=== PATIENT | female | born 1960 | race Caucasian/White ===

== ENCOUNTER 2023-02-23 14:45 | Outpatient (OUT) | payer BC, SELFPAY ==
--- NOTE | 2023-02-23 15:15 | P.CN_ITS ---
Consult Note: HPI Data of Consult Patient: new to practice Requesting Physician: Jadon Colbert MD Primary Care Provider: ZANE LICONA Consult Narrative Reason for consult: establish Narrative: Esmer Sheikh a pleasant 62 year old female presents for evaluation and management of chronic pain. Patient has an extensive history of low back pain and was previously managed with NSAIDs, however she had to stop due to a stomach ulcer. Today pain 9/10 in low back, stabbing sharp pain and right shoulder pain. Patient has failed to respond to HEP, as this increases her pain. cc:: CC: Jadon Colbert MD Review of Systems 2 ROS0 Status of ROS 10 or more systems reviewed and unremark able except as noted in history and below Musculoskeletal Reports: back pain and joint pain Exam Constitutional Documenting provider has reviewed patient's vital signs: yes Common normals: no apparent distress, oriented x3, healthy appearing, alert and well nourished General appearance: cooperative HENMT Common normals: normocephalic, hearing grossly normal bilaterally and moist oral mucous membranes Head and scalp: normocephalic Eye Common normals: PERRL Pupil: PERRL Neck & C-Spine Common normals: full ROM General: normal visual inspection Chest Common normals: inspection of chest normal Respiratory Common normals: normal respiratory effort, no retractions and no use of accessory muscles Back & Pelvis Lumbar spine/lower back: pain with ROM and straight leg raise negative bilaterally Sacroiliac joints: SI joint(s) abnormal Other: pain with thigh thrust, gaenslens, fabers/fadirs negative internal external rotation positive facet loading without radiculopathy predominately axial low back pain Back image (female): 2 1. Extremity Common normals: normal to inspection and full ROM Right upper extremity: shoulder joint Other: pain with palpation of posterior and anterior shoulder, pain with ROM, strength 5/5 BUE negative empty can test positive lift off and cross over severe pain with palpation over left GTB, leg length discrepency Neuro Common normals: oriented x3, CN's II-XII intact bilaterally, moves all extremities, no focal motor deficits, no sensory deficits noted and deep tendon reflexes 2+ bilaterally Sensorium/orientation: alert Motor exam: strength 5/5 throughout and no movement abnormalities noted Psych Common normals: mental status grossly normal, thought process normal, cooperative, affect normal, speech normal and activity/motor behavior normal Speech: normal speech Thought process: normal thought process Results Additional Findings Additional findings: I have checked an [facility] report on this patient today and there are no aberrancies noted in the prescribing history.?? A drug screen was completed and reviewed within the last year, and if there has not been a drug screen completed we ordered one today to monitor higher risk, state monitored pain medication use. As part of providing excellent, safe, comprehensive care, the following was completed at our patient's visit: 1. A medication reconciliation and review to ensure accurate knowledge of current/active medications, including asking our patients to inform us about any [id number] medications or herbal remedies/nutritional supplements/alternative remedies. 2. A review to specifically ensure our patients have had annual screening for: elevated body mass index (BMI), tobacco use, screening for depression, and screening for unhealthy alcohol use. When screening is concerning, patients are provided with education and the specific recommendation to discuss the concerning health issue and treatment options with their primary care provider. Assessment and Plan Assessment and Plan (1) Primary osteoarthritis, right shoulder: (2) Lumbar spondylosis: (3) Sacroiliitis: (4) Greater trochanteric bursitis of left hip: (5) Leg length discrepancy: Plan right shoulder injection with Dr Colbert discussed bilateral L4-5 L5-S1 MBBX2 working towards thermal RFA continue HEP as tolerated, plans to start aquatic therapy. cannot attend formal PT due to work schedule. please note HEP and activity increase pain and make HEP difficult consider left hip GTB injection in the future continue topical diclofenac cream TID-QID right shoulder left GTB continue tylenol PRN avoid NSAIDS with resent esophageal tear and gastritis, currently following with gastroenterology and has upcoming repeat EGD f/u in office for shoulder injection
== END 2023-02-23 14:46 | disposition home or self-care (01) ==
LOC: PM 14:46
PROVIDERS: PCP Family Medicine; Visit Provider Anesthesiology
DX: M19.011 Primary osteoarthritis, right shoulder (principal); M47.816 Spondylosis without myelopathy or radiculopathy, lumbar region; M53.3 Sacrococcygeal disorders, not elsewhere classified; M70.62 Trochanteric bursitis, left hip; M21.70 Unequal limb length (acquired), unspecified site
CPT/HCPCS: G0463

== ENCOUNTER 2023-03-21 14:08 | Outpatient (OUT) | payer BC, SELFPAY ==
--- NOTE | 2023-03-21 15:26 | P.CN_ITS ---
Consult Note: HPI Data of Consult Patient: known to practice within the last 3 years Consult date: 03/21/23 Requesting Physician: Jadon Colbert MD Primary Care Provider: ZANE LICONA Consult Narrative Reason for consult: Right shoulder, low back pain Narrative: 62yof who presents for assessment. Worsening right shoulder and low back pain. Lumbar xr shows spondylosis in lower lumbar spine. XR shows right shoulder OA. Continues in provider directed home exercise program >6 weeks >3x/week, with minimal benefit. Uses tylenol, as needed. Denies adverse med side effects. cc:: CC: Jadon Colbert MD Review of Systems ROS Status of ROS 10 or more systems reviewed and unremark able except as noted in history and below Meds Home Medications and Allergies Home Medications Medication Instructions Recorded Confirmed Type acetaminophen 500 mg tablet 500 mg PO DAILY 02/24/23 02/24/23 History (Tylenol Extra Strength) amlodipine 5 mg tablet 5 mg PO DAILY 02/24/23 02/24/23 History estradiol 1 mg tablet 1 mg PO DAILY 02/24/23 02/24/23 History hydrochlorothiazide 50 mg tablet 50 mg PO DAILY 02/24/23 02/24/23 History multivitamin 1 tab PO DAILY 02/24/23 02/24/23 History sucralfate 1 gram tablet 1 g PO QID 02/24/23 02/24/23 History Allergies Allergy/AdvReac Type Severity Reaction Status Date / Time cephalexin Allergy Unknown Verified 02/24/23 07:24 Exam Narrative Exam Narrative: Psych-alert and oriented x 3. Attentive and appropriate, constitutionally normal, displays normal mood and affect per situation.? There are no obvious deficits in memory, reasoning, or intellect.? Skin-no obvious rashes, bruising, erythema noted to the patient's area of pain. Extremities- extremities are warm with minimal edema and palpable pulses. Shoulder - tenderness to palpation over right shoulder. Pain with abduction and external rotation. Lumbar-no significant tenderness to palpation noted in the lumbar spine and paraspinal musculature.? Pain is elicited with extension, and lateral rotation of the lumbar spine. Range of motion is slightly diminished with these motions due to pain. Facet loading maneuvers are positive bilaterally and do appear to be concordant with the patient's normal complaints of pain.? Coordination remains intact.? Gait remains non-antalgic. Assessment and Plan Assessment and Plan (1) Primary osteoarthritis, right shoulder: (2) Lumbar spondylosis: Plan 62yof who presents for assessment. Failed conservative measures, as noted. Imaging reviewed, as noted. Given right shoulder pain, prudent to proceed with right shoulder injection. She is in agreement. In terms of low back pain, prudent to attempt bilateral L4-5, L5-S1 medial branch blocks under fluoroscopic guidance with intention of proceeding to radiofrequency ablation. She is in agreement. Meds reviewed, no changes. Follow up after procedure. Procedure: Right shoulder injection Medications: Bupivacaine 0.25% 3cc, kenalog 40mg I explained the details of the procedure to the patient including the risks, benefits, and alternatives.? We had an informed discussion.? The patient verbalized understanding and signed the consent form.? All questions were answered appropriately.? A time-out was performed.? After obtaini ng a comfortable seated position, the skin overlying the right shoulder was prepped with alcohol 3 times.? The sulcus between the head of the humerus and the acromion was identified.? The needle was inserted in a sterile manner 2 cm inferior and medial to the posterolateral corner of the acromion and was directed anteriorly toward the coracoid process. The contents of the syringe were gently injected without any resistance into the joint space after negative aspiration for blood or other bodily fluids.? The needle was removed and pressure was applied at the injection site to decrease the incidence of ecchymosis and hematoma formation.? A sterile bandage was applied.
== END 2023-03-21 14:09 | disposition home or self-care (01) ==
LOC: PM 14:08
PROVIDERS: PCP Family Medicine; Visit Provider Anesthesiology
DX: M19.011 Primary osteoarthritis, right shoulder (principal); M47.816 Spondylosis without myelopathy or radiculopathy, lumbar region
CPT/HCPCS: 20610; J0665; J3301

== ENCOUNTER 2023-04-04 09:10 | Day surgery (SDC) | payer BC, SELFPAY ==
--- OUTSIDE RECORDS SUMMARY | 2023-04-04 09:15 | XMS_ITS | CCD ---
Author Name Unknown Address [address] [place] [address] Organization [facility] Care Team Providers Care Contract Loader Name Role Phone Randa Souza Primary Care Provider RANDA SOUZA Primary Care Physician [phone] Randa Souza Primary Care Provider ANIRUDH YAO Referring Unavailable ANIRUDH YAO Attending Unavailable SANDRAHOFF, RANDA Anil Primary Care Unavailable ANIRUDH YAO Referring Unavailable VERHOFF, RANDA Anil Primary Care Unavailable Shae, Paloma J Referring Unavailable ShaePaloma Attending Unavailable Shae, Paloma J Admitting Unavailable TORI, CHAPARRITA N Referring Unavailable VERHOFF, RANDA L Primary Care Unavailable VERHOFF, RANDA L Primary Care Unavailable VERHOFF, RANDA L Referring Unavailable TORI, CHAPARRITA N Admitting Unavailable TORI, CHAPARRITA N Attending Unavailable VERHOFF, RANDA L Primary Care Unavailable TORI, CHAPARRITA N Admitting Unavailable VERHOFF, RANDA L Primary Care Unavailable TORI, CHAPARRITA N Attending Unavailable VERHOFF, RANDA L Primary Care Unavailable VERHOFF, RANDA L Referring Unavailable VERHOFF, RANDA L Primary Care Unavailable VERHOFF, RANDA L Referring Unavailable VERHOFF, RANDA L Referring Unavailable VERHOFF, RANDA L Primary Care Unavailable VERHOFF, RANDA L Primary Care Unavailable VERHOFF, RANDA L Referring Unavailable HERMINIO ANNE Referring Unavailable VERHOFF, RANDA L Primary Care Unavailable Sayra WHITE, Jadon Duarte Attending Unavailable Allergies Allergy Classification Reported Allergen(s) Allergy Type Date of Onset Reaction(s) Facility Adhesive Tape (9 sources) Adhesive Tape Substance Allergy 5 [facility] benzoin resin (9 sources) benzoin resin Drug Allergy 4 Rash [facility] Cephalosporins (antibiotic) (9 sources) Cephalexin Drug Allergy 1 [facility] Cinnamon Preparation (9 sources) Cinnamon Preparation Drug Allergy 4 Anaphylaxis, Swelling [facility] (10 sources) Adhesive Tape Propensity to adverse reactions to drug 5 [place], [place] (12 sources) benzoin resin; Translations: [BENZOIN] Drug Allergy 4 Rash [place], [place] (14 sources) Cephalexin; Translations: [cephalexin] Drug Allergy 1 Rash [place], [place] (14 sources) Cinnamon Preparation; Translations: [CINNAMON] Drug Allergy 4 Anaphylaxis, Swelling [place] (2 sources) steristrips; Translations: [steristrips] Allergy to substance redness, itching [facility] (1 source) Tape 1 Drug allergy blisters [facility] Comment on above: does ok with paperta pe (2 sources) Adhesive Tape; Translations: [ADHESIVE TAPE (ROSINS)] Allergy to substance 5 [facility] (1 source) Adhesive Tape; Translations: [Tape] Propensity to adverse reactions (disorder) [facility] Repository Medications Current Medications Medication Drug Class(es) Dates Sig (Normalized) Sig (Original) amLODIPine 5 mg oral tablet (20 sources) Dihydropyridine Calcium Channel Cathie Start: 07-29-2021 take 1 tablet by mouth once daily amLODIPine (NORVASC) 5 MG tablet Take 1 tablet by mouth daily 90 tablet 1 07/29/2021 Active Start: 01-29-2021 take 1 tablet by melinda th once daily amLODIPine (NORVASC) 5 MG tablet Take 1 tablet by mouth daily 90 tablet 1 01/29/2021 Active Start: 01-29-2020 take 1 tablet by melinda th once daily amLODIPine (NORVASC) 5 MG tablet Take 1 tablet by mouth daily 90 tablet 1 01/29/2020 Active Start: 05-10-2019 take 1 tablet by melinda th once daily amLODIPine (NORVASC) 5 MG tablet Take 1 tablet by mouth daily 90 tablet 1 05/10/2019 Active Comment on above: Take 5 mg by mouth o nce daily. Am/pm Ascorbic Acid (2 sources) Vitamin C Start: 08-30-2018 Vitamin C Malou y, Refills(s) 0 Start Date: 08/30/18 Status: Ordered take 1 tablet by mouth once malou y Ascorbic Acid (VITAMIN C) 250 MG tablet Indications: in winter Take 250 mg by mouth daily Chewable. 0 Active Chondroitin Sulfates / Glucosamine (1 source) Start: 08-30-2018 take 1 capsule by mouth twice daily Chondroitin-Glucosamine cap(s), Oral, BID, Refill(s) 0 Start Date: 08/30/18 Status: Ordered diclofenac sodium 75 mg delayed release oral tablet (20 sources) Nonsteroidal Anti-inflammatory Drug Start: 07-29-2021 take 1 tablet by mouth twice daily diclofenac (VOLTAREN) 75 MG EC tablet Take 1 tablet by mouth 2 times daily 180 tablet 1 07/29/2021 Active Start: 01-29-2021 take 1 tablet by melinda th twice daily diclofenac (VOLTAREN) 75 MG EC tablet Take 1 tablet by mouth 2 times daily 180 tablet 1 01/29/2021 Active Start: 01-29-2020 take 1 tablet by melinda th twice daily diclofenac (VOLTAREN) 75 MG EC tablet Take 1 tablet by mouth 2 times daily 180 tablet 1 01/29/2020 Active Start: 06-14-2019 take 1 tablet by melinda th twice daily diclofenac (VOLTAREN) 75 MG EC tablet Take 1 tablet by mouth 2 times daily 60 tablet 5 06/14/2019 Active Start: 04-18-2018 diclofenac sod ium 1 % GEL apply 1-2 grams to affected to area twice a day Transdermal 30 days 3 04/18/2018 Active Start: 01-03-2017 take 50 mg by mouth at bedtime diclofenac 50 mg, Oral, Bedtime, Inflammation Start Date: 09/20/17 Status: Ordered diclofenac sodiu m (VOLTAREN) 1 % topical gel Apply to affected area four times daily. 0 Active Comment on above: Take 50 mg by mouth. Apply to affected ar ea four times daily. Diclofenac 75mg Tab-DR (1 source) Start: 07-24-19 take 1 tablet by mouth once daily in the morning Diclofenac 75mg Tab-DR 75 mg, Oral, Daily, In A.M., Refills(s) 0, Inflammation Start Date: 07/23/16 Status: Ordered diphenhydrAMINE hydrochloride 25 mg oral capsule (17 sources) Histamine-1 Receptor Antagonist take 1 capsule by mouth every six hours as needed diphenhydrAMINE (BENADRYL) 25 MG capsule Take 25 mg by mouth every 6 hours as needed for Itching. 0 Active Elderberry preparation (18 sources) take 1 [tsp_us] by mouth once daily ELDERBERRY PO Take by mouth Take one teaspoon daily 0 Active estradiol 1 mg oral tablet (19 sources) Estrogen Start: 07-30-19 take 1 tablet by mouth once daily estradiol (ESTRACE) 1 MG tablet Take 1 tablet by mouth daily 90 tablet 1 07/29/2021 Active Start: 01-29-2021 take 1 tablet by melinda th once daily estradiol (ESTRACE) 1 MG tablet Take 1 tablet by mouth daily 90 tablet 1 01/29/2021 Active Start: 10-13-2017 take 1 tablet by melinda th once daily estradiol (ESTRACE) 1 MG tablet TAKE 1 TABLET BY MOUTH EVERY DAY 1 10/13/2017 Active glucosamine sulfate 500 mg o ral tablet (18 sources) Start: 08-31-2019 Glucosamine Petty lfate 500 MG TABS 500 mg 0 08/31/2019 Active Start: 07-23-2016 take 1 tablet by melinda th once daily glucosamine 750 mg oral tablet 1 tab, Oral, Daily, Refills(s) 0, Inflammation Start Date: 07/23/16 Status: Ordered Glucosamine Sulf ate (YAZ PO) Take by mouth 0 Active hydroCHLOROthiazide 50 mg oral tablet (20 sources) Thiazide Diuretic Start: 07-29-2021 take 1 tablet by mouth once daily hydroCHLOROthiazide (HYDRODIURIL) 50 MG tablet Indications: Essential hypertension, benign TAKE 1 TABLET BY MOUTH DAILY 90 tablet 1 07/29/2021 Active Start: 01-29-2021 take 1 tablet by melinda th once daily hydroCHLOROthiazide (HYDRODIURIL) 50 MG tablet Indications: Essential hypertension, benign TAKE 1 TABLET BY MOUTH DAILY 90 tablet 1 01/29/2021 Active Start: 01-29-2020 take 1 tablet by melinda th once daily hydroCHLOROthiazide (HYDRODIURIL) 50 MG tablet Indications: Essential hypertension, benign TAKE 1 TABLET BY MOUTH DAILY 90 tablet 1 01/29/2020 Active Start: 09-28-2007 take 1 tablet by melinda th once daily hydrochlorothiazide (HYDRODIURIL) 25 MG tablet Indications: Essential hypertension, benign TAKE 1 TABLET BY MOUTH DAILY 90 tablet 1 02/22/2019 Active Comment on above: Take one(1) tablet d aily. lidocaine 50 mg/ml rectal cream (18 sources) Antiarrhythmic, Amide Local Anesthetic Start: 04-16-2019 Lidocaine 5 % CREA APPLY as directed NEEDED for 30 days 0 04/16/2019 Active lidocaine (ANECR EAM5) crea Apply to affected area as needed. 0 Active Comment on above: Apply to affected ar ea as needed. Misc Natural Products (GLUCOSAMINE CHOND MSM FORMULA) TABS (2 sources) Misc Natural Pro ducts (GLUCOSAMINE CHOND MSM FORMULA) TABS Take by mouth 0 Active Multiple Vitamin (MULTI-VITAMIN DAILY PO) (19 sources) Multiple Vitamin (MULTI-VITAMIN DAILY PO) Take by mouth 0 Active Multivitamins and Minerals (1 source) Start: 7 take 1 tablet by mouth once daily Multivitamins and Minerals 1 tab, Oral, Daily, Refill(s) 0, Prophylaxis Start Date: 07/23/16 Status: Ordered Completed/Discontinued Medications Medication Drug Class(es) Dates Sig (Normalized) Sig (Original) clindamycin 300 mg oral capsule (2 sources) Lincosamide Antibacterial Start: 08-30-2019 clindamycin (CLEOCIN HCL) 300 mg capsule Indications: POSTOP ANTIBIOTIC take two tabs one hour prior to dental procedure and two tabs six hours after the dental procedure 4 capsule 1 12/22/2020 Active Comment on above: TWO TABS ONE HOUR ND IOR TO DENTAL PROCEDURE AND TWO TABS SIX HOURS AFTER THE DENTAL PROCEDURE take two tabs one ho ur prior to dental procedure and two tabs six hours after the dental procedure diclofenac-capsaicin 75 mg- 0.025 % kit (1 source) diclofenac-capsa i hemant 75 mg- 0.025 % kit 75 mg 1/2 tab in am , 75mg @@ hs 0 Active Comment on above: 75 mg 1/2 tab in am , 75mg @@ hs erythromycin 500 mg oral tablet (1 source) Macrolide, Macrolide Antimicrobial Start: 09-03-2019 Erythromycin 500 mg tablet Indications: Status post left hip replacement two tabs one hour prior to dental procedure and two tabs six hours after the dental procedure 4 tablet 1 09/03/2019 Active Comment on above: two tabs one hour pr ior to dental procedure and two tabs six hours after the dental procedure Ethinyl Estradiol / Levonorgestrel (1 source) Progestin, Estrogen, Progestin-containing Intrauterine Device Start: 09-28-2007 levonorgestrel-et h estra(LUTERA (28) 0.1 MG-20 MCG TAB) isradipine 5 mg oral capsule (1 source) Dihydropyridine Calcium Channel Cathie Start: 09-28-2007 isradipine(DYNACI RC 5 MG CAP) Take one(1) tablet daily. 0 09/28/2007 Active Comment on above: Take one(1) tablet d aily. loratadine 10 mg oral tablet (1 source) loratadine (CLARITIN) 10 mg tablet Take 10 mg by mouth. 0 Active Comment on above: Take 10 mg by mouth. multivits w-ca,fe,other min(ONE-A-DAY WOMENS FORMULA 27 MG-0.4 MG TAB) (1 source) Start: 09-28-2007 multivits w-ca,fe,other min(ONE-A-DAY WOMENS FORMULA 27 MG-0.4 MG TAB) Take one(1) tablet daily. 0 09/28/2007 Active Comment on above: Take one(1) tablet d aily. 24 hr venlafaxine 37.5 mg extended release oral capsule (1 source) Serotonin and Norepinephrine Reuptake Inhibitor Start: 09-28-2007 VENLAFAXINE SR 37.5 MG 24 HR CAP Take one(1) tablet daily. 0 09/28/2007 Active Comment on above: Take one(1) tablet d aily. Problems Active Problems Problem Classification Problem Date Documented Da te Episodic/Chronic Esophageal disorders (20 sources) Gastroesophageal reflux disease; Translations: [Gastro-esophageal reflux disease without esophagitis] Onset: 1 01-16-2011 Chronic Essential hypertension (20 sources) Benign essential hypertension; Translations: [Essential (primary) hypertension] Onset: 1 01-16-2011 Chronic Immunizations and screening for infectious disease (1 source) Suspected disease caused by 2019-nCoV; Translations: [Suspected COVID-19 virus infection] Episodic Osteoarthritis (2 sources) Osteoarthritis; Translations: [Osteoarthritis of right knee joint] Onset: 0 12-04-2015 Chronic Other connective tissue disease (12 sources) History of repair of hip joint; Translations: [Presence of unspecified artificial hip joint] Onset: 8 08-04-2018 Chronic Other connective tissue disease (1 source) Presence of left artificial hip joint; Translations: [Status post left hip replacement] Onset: 0 Chronic Other connective tissue disease (1 source) Presence of right artificial knee joint; Translations: [Status post right knee replacement] Onset: 3 Chronic Other gastrointestinal disorders (1 source) Dysphagia, unspecified; Translations: [Dysphagia, unspecified] Onset: 3 Episodic Other nervous system disorders (1 source) Carpal tunnel syndrome 07-23-2016 Chronic Other nervous system disorders (3 sources) Other chronic pain; Translations: [Other chronic pain] Onset: 3 Chronic Other non-traumatic joint disorders (1 source) Knee pain 11-08-2017 Episodic Other non-traumatic joint disorders (3 sources) Pain in right shoulder; Translations: [Pain in right shoulder] Onset: 3 Episodic Other upper respiratory infections (1 source) Viral upper respiratory tract infection; Translations: [Acute upper respiratory infection, unspecified] Episodic Spondylosis; intervertebral disc disorders; other back problems (19 sources) Prolapsed lumbar intervertebral disc; Translations: [Other intervertebral disc displacement, lumbar region] Onset: 4 09-10-2013 Chronic Unclassified (8 sources) History of repair of hip joint; Translations: [Hip joint replacement by other means] Onset: 8 08-04-2018 Unclassified (2 sources) Low back pain, unspecified; Translations: [Low back pain, unspecified] Onset: 3 Varicose veins of lower extremity (1 source) Varicose veins of lower extremity 07-23-2016 Episodic Past or Other Problems Problem Classification Problem Date Documented Date Episodic/Chronic Biliary tract disease (19 sources) Biliary colic; Translations: [Calculus of bile duct without cholangitis or cholecystitis without obstruction] Onset: 02-20-2013 02-20-2013 Episodic Other non-traumatic joint disorders (1 source) Pain in wrist Onset: 10-13-2015 12-04-2015 Episodic Residual codes; unclassified (8 sources) History of cholecystectomy; Translations: [S/P laparoscopic cholecystectomy] Onset: 03-26-2013 03-26-2013 Episodic Unclassified (1 source) Low back pain, unspecified; Translations: [Low back pain, unspecified] Onset: 02-09-2023 Results Test Name Value Interpretation Reference Range Facility XR LUMBAR SPINE (MIN 4 VIEWS )on 02-09-2023 XR LUMBAR SPINE (MIN 4 VIEWS) EXAM: XR LUMBAR SPINE (MIN 4 VIEWS) HISTORY: Chronic bilateral low back pain without sciatica COMPARISON: None. IMPRESSION: FINDINGS/IMPRESSION: 1. 23 degree convex right lumbar scoliosis L1-L4. 2. Moderately severe multilevel disc and facet degenerative change. 3. No fracture, lytic or blastic lesion. 4. Mild degenerative change at the SI joints. Interpreted by: Nando Pierre Jr., MD Signed by: Nando Pierre Jr., MD 02/09/23 Final result Normal [facility] XR SHOULDER RIGHT (MIN 2 VIE WS)on 02-09-2023 XR SHOULDER RIGHT (MIN 2 VIEWS) EXAM: XR SHOULDER RIGHT (MIN 2 VIEWS) HISTORY: Acute pain of right shoulder COMPARISON: None. IMPRESSION: FINDINGS/IMPRESSION: 1. Small calcifications, measuring up to 8 mm about the right humeral head raises possibility of calcific tendinitis or bursitis. 2. Mild degenerative changes, not unusual for age. Interpreted by: Nando Pierre Jr., MD Signed by: Nando Pierre Jr., MD 02/09/23 Final result Normal [facility] Comp Metabolic Profon 2022 Albumin [Mass/Vol] 4.4 g/dL Normal 3.5-5.2 [facility] Comment on above: Performed By: #### Alphonso FAST, CP #### [facility] [address] [place] [address] Pen And Pencil Repairer: Dennis Castellanos MD #### LIPR #### [facility] [address] [place] [address] Pen And Pencil Repairer: Chele Osman MD Alkaline Phos 103 U/L Normal 35-104 [facility] Comment on above: Performed By: #### Z FAST, CP #### [facility] [address] [place], [place] [id number] Pen And Pencil Repairer: Dennis Castellanos MD #### LIPR #### [id number] [place] [address] Pen And Pencil Repairer: Chele Osman MD ALT [Catalytic activity/Vol] 13 U/L Normal 5-33 [facility] Comment on above: Performed By: #### Alphonso FAST, CP #### [facility] [address] [place], [place] [phone] Pen And Pencil Repairer: Dennis Castellanos MD #### LIPR #### [address] [address] Pen And Pencil Repairer: Chele Osman MD Anion gap [Moles/Vol] 9 mmol/L Normal 9-17 [facility] Comment on above: Performed By: #### Alphonso FAST, CP #### [facility] [address] [place], [place] [id number] Pen And Pencil Repairer: Dennis Castellanos MD #### LIPR #### [address] [address] Pen And Pencil Repairer: Chele Osman MD AST [Catalytic activity/Vol] 19 U/L Normal <32 [facility] Comment on above: Performed By: #### Alphonso FAST, CP #### [facility] [address] [place] [address] Pen And Pencil Repairer: Dennis Castellanos MD #### LIPR #### [address] [address] Pen And Pencil Repairer: Chele Osman MD Bilirubin [Mass/Vol] 0.4 mg/dL Normal 0.3-1.2 [facility] Comment on above: Performed By: #### Alphonso FAST, CP #### [facility] [address] [place], [place] [phone] Pen And Pencil Repairer: Dennis Castellanos MD #### LIPR #### [facility] [address] [place] [address] Pen And Pencil Repairer: Chele Osman MD BUN/CRE Ratio 30 High 9-20 [facility] Comment on above: Performed By: #### Alphonso FAST, CP #### [facility] [address] [place] [address] Pen And Pencil Repairer: Dennis Castellanos MD #### LIPR #### [address] [address] Pen And Pencil Repairer: Chele Osman MD Calcium [Mass/Vol] 10.3 mg/dL Normal 8.6-10.4 [facility] Comment on above: Performed By: #### Alphonso FAST, CP #### [facility] [address] [place] [address] Pen And Pencil Repairer: Dennis Castellanos MD #### LIPR #### [address] [address] Pen And Pencil Repairer: Chele Osman MD Chloride [Moles/Vol] 98 mmol/L Normal 98-107 [facility] Comment on above: Performed By: #### Alphonso FAST, CP #### [facility] [address] [place] [address] Pen And Pencil Repairer: Dennis Castellanos MD #### LIPR #### [address] [address] Pen And Pencil Repairer: Chele Osman MD CO2 [Moles/Vol] 31 mmol/L Normal 20-31 [facility] Comment on above: Performed By: #### Alphonso FAST, CP #### [facility] [address] [place] [address] Pen And Pencil Repairer: Dennis Castellanos MD #### LIPR #### [address] [id number] Pen And Pencil Repairer: Chele Osman MD Creatinine [Mass/Vol] 0.7 mg/dL Normal 0.5-0.9 [facility] Comment on above: Performed By: #### Alphonso FAST, CP #### [facility] [address] [place], [place] [id number] Pen And Pencil Repairer: Dennis Castellanos MD #### LIPR #### [address] [id number] Pen And Pencil Repairer: Chele Osman MD GFR/1.73 sq M.predicted among non-blacks MDRD (S/P/Bld) [Vol rate/Area] mL/min/{1.73_m2} Normal >60 [facility] Comment on above: Result Comment: These results are not intended for use in patients <18 years of age. eGFR results are calculated without a race factor using the 2020 CKD-EPI equation. Careful clinical correlation is recommended, particularly when comparing to results calculated using previous equations. The CKD-EPI equation is less accurate in patients with extremes of muscle mass, extra-renal metabolism of creatine, excessive creatine ingestion, or following therapy that affects renal tubular secretion. Performed By: #### Alphonso LOZA CP #### [facility] [address] [place], [place] [id number] Pen And Pencil Repairer: Dennis Castellanos MD #### LIPR #### [address] [id number] Pen And Pencil Repairer: Chele Osman MD Glucose [Mass/Vol] 96 mg/dL Normal 70-99 [facility] Comment on above: Performed By: #### Alphonso FAST, CP #### [facility] [address] [place], [place] [phone] Pen And Pencil Repairer: Dennis Castellanos MD #### LIPR #### [address] [id number] Pen And Pencil Repairer: Chele Osman MD Potassium [Moles/Vol] 3.4 mmol/L Low 3.7-5.3 [facility] Comment on above: Performed By: #### Z FAST, CP #### [facility] [address] [place], [place] [phone] Pen And Pencil Repairer: Dennis Castellanos MD #### LIPR #### [facility] [address] [place], [place] [id number] Pen And Pencil Repairer: Chele Osman MD Protein [Mass/Vol] 7.6 g/dL Normal 6.4-8.3 [facility] Comment on above: Performed By: #### Z FAST, CP #### [facility] [address] [place], [place] [id number] Pen And Pencil Repairer: Dennis Castellanos MD #### LIPR #### [address] [id number] Pen And Pencil Repairer: Chele Osman MD Sodium [Moles/Vol] 138 mmol/L Normal 135-144 [facility] Comment on above: Performed By: #### Alphonso FAST, CP #### [facility] [address] [place], [place] [phone] Pen And Pencil Repairer: Dennis Castellanos MD #### LIPR #### [address] [id number] Pen And Pencil Repairer: Chele Osman MD Urea nitrogen [Mass/Vol] 21 mg/dL Normal 8-23 [facility] Comment on above: Performed By: #### Z FAST, CP #### [facility] [address] [place], [place] [phone] Pen And Pencil Repairer: Dennis Castellanos MD #### LIPR #### [address] [address] Pen And Pencil Repairer: Chele Osman MD Lipid Profileon 02-08-2023 Cholesterol [Mass/Vol] 207 mg/dL High 0-199 [facility] Comment on above: Result Comment: Cholesterol Guidelines: <200 Desirable 200-240 Borderline >240 Undesirable Performed By: #### Z FAST, CP #### [facility] [address] [place] [address] Pen And Pencil Repairer: Dennis Castellanos MD #### LIPR #### [facility] [address] [place] [address] Pen And Pencil Repairer: Chele Osman MD Cholesterol in HDL [Mass/Vol] 63 mg/dL Normal >40 [facility] Comment on above: Result Comment: HDL Guidelines: <40 Undesirable 40-59 Borderline >59 Desirable Performed By: #### Z FAST, CP #### [facility] [address] [place], [place] [phone] Pen And Pencil Repairer: Dennis Castellanos MD #### LIPR #### [address] [address] Pen And Pencil Repairer: Chele Osman MD Cholesterol in LDL [Mass/Vol] 105 mg/dL High 0-100 [facility] Comment on above: Result Comment: LDL Guidelines: <100 Desirable 100-129 Near to/above Desirable 130-159 Borderline >159 Undesirable Direct (measured) LDL and calculated LDL are not interchangeable tests. Performed By: #### Alphonso FAST, CP #### [facility] [address] [place], [place] [phone] Pen And Pencil Repairer: Dennsi Castellanos MD #### LIPR #### [facility] [address] [place] [id number] Pen And Pencil Repairer: Chele Osman MD Cholesterol in VLDL [Mass/Vol] 39 mg/dL Normal [facility] Comment on above: Performed By: #### Alphonso FAST, CP #### [facility] [address] [place], [place] [phone] Pen And Pencil Repairer: Dennis Castellanos MD #### LIPR #### [facility] [address] [place] [phone] Pen And Pencil Repairer: Chele Osman MD Cholesterol.total/Cho lesterol in HDL [Mass ratio] 3.0 {ratio} Normal [facility] Comment on above: Performed By: #### Z FAST, CP #### [facility] [address] [place], [place] [phone] Pen And Pencil Repairer: Dennis Castellanos MD #### LIPR #### [facility] [address] [place], [place] [phone] Pen And Pencil Repairer: Chele Osman MD Triglyceride [Mass/Vol] 196 mg/dL High 0-149 [facility] Comment on above: Result Comment: Triglyceride Guidelines: <150 Desirable 150-199 Borderline 200-499 High >499 Very high Based on AHA Guidelines for fasting triglyceride, December 2011. Performed By: #### Z FAST, CP #### [facility] [address] [place], [place] [phone] Pen And Pencil Repairer: Dennis Castellanos MD #### LIPR #### [facility] [address] [place], [place] [phone] Pen And Pencil Repairer: Chele Osman MD Patient fasting?on 3 Patient fasting? yes Normal [facility] Comment on above: Performed By: #### Z FAST, CP #### [facility] [address] [place], [place] [phone] Pen And Pencil Repairer: Dennis Castellanos MD #### LIPR #### [address] [id number] Pen And Pencil Repairer: Chele Osman MD Surgical Pathology Reporton 01-20-2023 Surgical Pathology Report (NOTE) Path Number: [id number] -- Diagnosis -- A. Stomach, antrum, endoscopic biopsy: Mild chronic inactive gastritis with reactive epithelial changes, negative for Helicobacter pylori. Neither intestinal metaplasia nor dysplasia is seen. B. Esophagus, mid, endoscopic biopsy: Normal squamous mucosa. Neither glandular mucosa nor dysplasia seen. Terrell Aviles. Electronically Signed Out 01/25/2023 Clinical Information Pre-Op Diagnosis: DYSPHAGIA, UNSPECIFIED TYPE Operative Findings: GASTRIC ANTRUM; MID ESOPHAGUS BIOPSIES Operation Performed: EGD BIOPSY mj Source of Specimen A: GASTRIC ANTRUM BIOPSY B: Esophagogastric biopsy Gross Description A. ESMER HUGHES GASTRIC ANTRUM Received in formalin are three boo-brown tissue fragments ranging from 0.1 to 0.3 cm and are 0.6 x 0.1 x 0.1 cm in aggregate. Entirely 1cs. B. ESMER HUGHES MID ESOPHAGUS BIOPSIES Received in formalin are three sheth-boo tissue fragments that are each 0.2 cm and are 0.6 x 0.1 x <0.1 cm in aggregate. Entirely 1cs. yr cd SF/mj:01/21/2023 Microscopic Description A, B. 2 MADHAVI reviewed for each. Microscopic examination performed. Processing Lab: [address] [id number] Interpretation [place] [address] SURGICAL PATHOLOGY CONSULTATION Patient Name: ELLEN ESMER Teresa. [facility] Rec: [id number] [facility] [employer] [facility] ANATOMIC PATHOLOGY [address] [place] [id number] [facility] [place] H. pylori Antigenon 09-03-19 23 H. pylori Antigen Specimen Description .FECES Direct Exam NEGATIVE Report Status FINAL 09/02/2022 [facility] [place] Comment on above: Performed By: #### F HPY #### [address] [address] Pen And Pencil Repairer: Chele Osman MD [facility] [address] [place] [address] Pen And Pencil Repairer: MD Vika Buckner 06-25-2022 FELICITY Office Visit ([facility] ) ESMER HUGHES ([id number]) 1960 F Date Time Provider Department 06/25/22 2:00 PM ANIRUDH YAO During your visit today, we recorded the following information about you: Anirudh Yao II, MD 06/28/2022 4:16 PM Signed see dictated note Anirudh Yao II, MD Referring Provider: ANIRUDH YAO [[id number]] Allergies As of Date: 06/25/2022 Noted Allergy Reaction CINNAMON 03/15/2013 10 - Anaphylaxis 7 - Swelling Comments: Artificial cinnamon flavoring ADHESIVE TAPE (ROSINS) 07/30/2014 4 - Hives BENZOIN 03/26/2013 2 - Rash CEPHALEXIN 01/16/2011 2 - Rash Date Reviewed: 08/29/2019 Reviewed by: Gina Villafana) Rigo - Fully Assessed Primary Visit Diagnosis:Status post left hip replacement [Z96.642] Other Visit Diagnosis:Status post right knee replacement [Z96.651] Order(s):XR KNEE POST OP 3V AP/LAT/MERCHANT RIGHT [[id number]] Order #: [id number] FUTURE XR HIP GENERAL 3V PELV/AP/LAT LEFT [[id number]] Order #: [id number] FUTURE Prescriptions as of 06/28/2022 - clindamycin (CLEOCIN HCL) 300 mg capsule take two tabs one hour prior to dental procedure and two tabs six hours after the dental procedure - Erythromycin 500 mg tablet two tabs one hour prior to dental procedure and two tabs six hours after the dental procedure - amLODIPine (NORVASC) 5 mg tablet Take 5 mg by mouth once daily. Am/pm - lidocaine (ANECREAM5) crea Apply to affected area as needed. - diclofenac-capsaicin 75 mg- 0.025 % kit 75 mg 1/2 tab in am , 75mg @@ hs - loratadine (CLARITIN) 10 mg tablet Take 10 mg by mouth. - diclofenac potassium (CATAFLAM) 50 mg tablet Take 50 mg by mouth. - levonorgestrel-eth estra(LUTERA (28) 0.1 MG-20 MCG TAB) - HYDROCHLOROTHIAZIDE 25 MG TAB Take one(1) tablet daily. - VENLAFAXINE SR 37.5 MG 24 HR CAP Take one(1) tablet daily. - multivits w-ca,fe,other min(ONE-A-DAY WOMENS FORMULA 27 MG-0.4 MG TAB) Take one(1) tablet daily. - isradipine(DYNACIRC 5 MG CAP) Take one(1) tablet daily. Problem List As Of Date 06/25/2022 Noted Resolved Status post left hip replacement [Z96.642] 09/25/2007 Primary osteoarthritis of right knee [M17.11] 08/29/2019 Medications Discontinued During This Encounter Prescriptions - diclofenac sodium (VOLTAREN) 1 % topical gel (Discontinued) Apply to affected area four times daily. - clindamycin (CLEOCIN HCL) 300 mg capsule (Discontinued) TWO TABS ONE HOUR PRIOR TO DENTAL PROCEDURE AND TWO TABS SIX HOURS AFTER THE DENTAL PROCEDURE Encounter Status:Closed by ANIRUDH YAO II on 06/28/22 [facility] XR HIP 3V PELV+ AP/LAT LTon 06-25-2022 XR HIP 3V PELV+ AP/LAT LT * * *Final Report* * * DATE OF EXAM: Jun 25 2022 1:14PM LZX 5351 - XR HIP 3V PELV+ AP/LAT LT / PROCEDURE REASON: Status post left hip replacement * * * * Physician Interpretation * * * * HISTORY (as given from clinical provider): Status post left hip replacement . Additional history provided by the performing technologist (if any): chronic left hip pain TECHNIQUE: XR HIP 3V PELV+ AP/LAT LT COMPARISON: 12/22/2020 RESULT: Left-sided total hip arthroplasty with sclerotic/cables in the proximal femur. The proximal most cable is broken. Absence of the greater trochanter. There is superolateral polyethylene wear. 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 Right hip is normal. SI joints are normal. Degenerative disc disease in the lower lumbar spine. No other significant abnormality. IMPRESSION: NO SIGNIFICANT CHANGE Cellular Equipment Repairer: RADHAMES Transcribe Date/Time: Jun 25 2022 2:18P Dictated by : KRISTYN SANTILLAN MD This examination was interpreted and the report reviewed and electronically signed by: KRISTYN SANTILLAN MD on Jun 25 2022 2:19PM EST [id number] Normal [facility] XR KNEE 3V AP/LAT/MERCHANT R Ton 06-25-2022 XR KNEE 3V AP/LAT/MERCHANT RT * * *Final Report* * * DATE OF EXAM: Jun 25 2022 1:13PM LZX 5209 - XR KNEE 3V AP/LAT/MERCHANT RT / PROCEDURE REASON: Status post right knee replacement * * * * Physician Interpretation * * * * HISTORY: Status post right knee replacement . f/u right TKA TECHNIQUE: XR KNEE 3V AP/LAT/MERCHANT RT COMPARISON: 12/22/2020 RESULT: No significant interval change. Status post right total knee arthroplasty with patellar resurfacing. Hardware in normal position without evidence of failure or loosening. No evidence of a fracture. No other significant abnormality. IMPRESSION: NORMAL POSTOPERATIVE FINDINGS Cellular Equipment Repairer: PSCJoe Transcribe Date/Time: Jun 25 2022 2:17P Dictated by : DAYAN CHANG MD This examination was interpreted and the report reviewed and electronically signed by: DAYAN CHANG MD on Jun 25 2022 2:18PM EST [id number] Normal [facility] BD Bone Density DEXAon 06-21 BD Bone Density DEXA Exam Date/Time: 06/17/2022 08:34 EDT Reason for Exam: SCREENING Report IMPRESSION: BONE DENSITY IS WITHIN NORMAL LIMITS. CLINICAL HISTORY: SCREENING. COMPARISON: None. Baseline. COMMENT: The lumbar spine and both hips were scanned. The mean bone mineral density from L1 to L4 is 1.392 g/cm2 and this value is 1.8 standard of deviation above the standard reference value for a young adult. Bone mineral density of the right femoral neck is 1.006 g/cm2 and this value is -0.2 standard of deviation above the standard reference value. Bone mineral density right radius 33% is 0.902 g/cm2 and this value is 0.2 standard of deviation above the standard reference value. These values are within the normal range. Ordering Provider: Paloma Kaufman FINAL REPORT Dictated: 06/21/2022 9:22 am Fredi Oquendo MD. Signed (Electronic Signature): 06/21/2022 9:22 am Signed by: Fredi Oquendo MD Transcribed by: NADEEM Technologist: BARRY Normal [facility] MA Mamm Screen w/CAD if perf and 3D Bilon 06-18-2022 MA Mamm Screen w/CAD if perf and 3D Barber Exam Date/Time: 06/17/2022 08:46 EDT Reason for Exam: SCREENING Report IMPRESSION: BIRADS 2 BENIGN FINDINGS, NORMAL INTERVAL FOLLOW-UP.12 MONTH RECALL. CLINICAL HISTORY: SCREENING. COMPARISON: 01/23/2020. COMMENT: Routine views and tomosynthesis views of both breasts were obtained. The breasts are heterogeneously dense, which may obscure small masses. No dominant breast mass nor neoplastic calcifications are noted. There has been no significant change when compared to the prior exam. The examination was reviewed with Computer Aided Detection. Breast Density: Yes Mammography is very important to your health. The current [employer] and National Comprehensive Cancer Network guidelines recommends annual mammography beginning at age 40. This facility utilizes a reminder system to ensure all patients receive reminder notifications at the appropriate time based on the recommendations of this exam. Board Certified Radiologists. Accredited by the ACR and FDA. Ordering Provider: Paloma Kaufman FINAL REPORT Dictated: 06/18/2022 11:10 am Gage Gtz M.D. Signed (Electronic Signature): 06/18/2022 11:10 am Signed by: Gage Gtz M.D. Transcribed by: NADEEM Technologist: [facility] Assessment: BI-RADS Category 2-Benign finding Recommendation: Normal interval follow-up Normal [facility] CHEMISTRYOrdered By: SYSTEM SYSTEM on 06-17-2022 25-hydroxyvitamin D3 [Mass/Vol] 38.2 ng/mL Normal 30.0 - 100.0 ng/mL [facility] Remisol Calcium [Mass/Vol] 9.3 mg/dL Normal 8.9 - 11. 1 mg/dL [facility] Remisol Creatinine [Mass/Vol] 0.8 mg/dL Normal 0.5 - 1.3 mg/dL [facility] Remisol GFR/1.73 sq M.predicted among blacks MDRD (S/P/Bld) [Vol rate/Area] mL/min/1.73 m2 Normal >=59mL/min/1. 73 m2 [facility] Chem S GFR/1.73 sq M.predicted among non-blacks MDRD (S/P/Bld) [Vol rate/Area] mL/min/1.73 m2 Normal >=59mL/min/1. 73 m2 [facility] Chem S Calciumon 06-17-2022 Calcium [Mass/Vol] 9.3 mg/dL Normal 8.9-11.1 [facility] Comment on above: Performed By: #### 1 [id number] #### [facility] [address] [place] [address] Consent for Treatmenton Consent for Treatment [id number] D:127 Normal [facility] Creatinineon 06-17-2022 Creatinine [Mass/Vol] 0.8 mg/dL Normal 0.5-1.3 [facility] Comment on above: Performed By: #### 1 [id number] #### [facility] [address] [place] [address] Vitamin D 25 Hydroxyon 06-17 25-hydroxyvitamin D3 [Mass/Vol] 38.2 ng/mL Normal 30.0-100.0 [facility] Comment on above: Result Comment: Vit murphy D deficiency has been defined as a level of serum 25-OH vitamin D less than 20 ng/mL (1,2) by the [place] of Medicine and an Endocrine Society practice guideline. The Endocrine Society further defined vitamin D insufficiency as a level between 21 and 29 ng/mL (2). 1. IOM ([place] of Medicine). 2010. Dietary reference intakes for calcium and D. [place]: The National Academies Press. 2. Jamey MF, Caron COLE, John CUADRA, et al. Evaluation, treatment, and prevention of vitamin D deficiency: an Endocrine Society clinical practice guideline. JCEM. 2010; 96 (7):1911-30. Performed By: #### 1 [id number], [id number], [id number] #### [facility] [address] [place] [address] eGFRon 06-17-2022 GFR/1.73 sq M.predicted among blacks MDRD (S/P/Bld) [Vol rate/Area] mL/min/{1.73_m2} Normal >=59 [facility] Comment on above: Order Comment: Order added by Discern Expert. Result Comment: eGFR is race adjusted. AA=. Performed By: #### 1 [id number], [id number], [id number], [id number] #### [facility] [address] [place] [address] GFR/1.73 sq M.predicted among non-blacks MDRD (S/P/Bld) [Vol rate/Area] mL/min/{1.73_m2} Normal >=59 [facility] Comment on above: Order Comment: Order added by Discern Expert. Result Comment: Distribution Collection Operator jose kidney disease could be indicated at eGFR's of less than 60 mL/min/1.73m2. Kidney failure is indicated at less than 15 mL/min/1.73m2. Performed By: #### 1 [id number], [id number], [id number] #### [facility] [address] [place] [address] Physician Orderon 06-03-2022 Physician Order [id number]#1.00CD :127 Normal [facility] COVID-19, Rapidon 09-25-2021 SARS-CoV-2 (COVID-19) RNA MURRAY+probe Ql (Unsp spec) Not detected Not Detected [facility] Comment on above: Rapid NAAT: The specimen is NEGATIVE for SARS-CoV-2, the novel coronavirus associated with COVID-19. The ID NOW COVID-19 assay is designed to detect the virus that causes COVID-19 in patients with signs and symptoms of infection who are suspected of COVID-19. An individual without symptoms of COVID-19 and who is not shedding SARS-CoV-2 virus would expect to have a negative (not detected) result in this assay. Negative results should be treated as presumptive and, if inconsistent with clinical signs and symptoms or necessary for patient management, should be tested with an alternative molecular assay. Negative results do not preclude SARS-CoV-2 infection and should not be used as the sole basis for patient management decisions. Fact sheet for Healthcare Providers: https://www.fda.gov/media/159021/download Fact sheet for Patients: https://www.fda.gov/media/759315/download Methodology: Isothermal Nucleic Acid Amplification Specimen Description .NASOPHARYNGEAL SWAB [facility] Comprehensive Metabolic Pane kiki 07-25-2021 Albumin [Mass/Vol] 4.2 g/dL 3.5 - 5.2 g/dL [facility] ALP (Bld) [Catalytic activity/Vol] 86 U/L 35 - 104 U/L [facility] ALT [Catalytic activity/Vol] 11 U/L 5 - 33 U/L [facility] Anion gap [Moles/Vol] 8 mmol/L Low 9 - 17 mmol/L [facility] AST [Catalytic activity/Vol] 17 U/L <32 [facility] Bilirubin [Mass/Vol] 0.39 mg/dL 0.30 - 1.20 mg/dL [facility] Calcium [Mass/Vol] 9.8 mg/dL 8.6 - 10. 4 mg/dL [facility] Chloride [Moles/Vol] 100 mmol/L 98 - 10 7 mmol/L [facility] CO2 [Moles/Vol] 31 mmol/L 20 - 31 mmol/L [facility] Creatinine [Mass/Vol] 0.61 mg/dL 0.50 - 0.90 mg/dL [facility] Free PSA/Total PSA [Mass fraction] 7.2 g/dL 6.4 - 8.3 g/dL [facility] GFR >60 >60 mL/min [facility] GFR Non- >60 >60 mL/min [facility] GFR/1.73 sq M.predicted MDRD (S/P/Bld) [Vol rate/Area] [facility] Comment on above: Average GFR for 50-5 9 years old: 93 mL/min/1.73sq m Chronic Kidney Disease: <60 mL/min/1.73sq m Kidney failure: <15 mL/min/1.73sq m eGFR calculated using average adult body mass. Additional eGFR calculator available at: http://www.Let[employer] It/multiple_crcl_2012.htm Glucose [Mass/Vol] 88 mg/dL 70 - 99 mg/dL [place] Interpretation and review of laboratory results Abnormal [facility] Potassium [Moles/Vol] 3.8 mmol/L 3.7 - 5.3 mmol/L [facility] Sodium [Moles/Vol] 139 mmol/L 135 - 144 mmol/L [facility] Urea nitrogen (BldV) [Mass/Vol] 16 mg/dL 6 - 20 mg/dL [facility] Urea nitrogen/Creatinine (Bld) [Mass ratio] 26 High [facility] Lipid Panelon 07-25-2021 Cholesterol [Mass/Vol] 225 mg/dL High <200 [facility] Comment on above: Cholesterol Guidelines: <200 Desirable 200-240 Borderline >240 Undesirable Cholesterol in HDL [Mass/Vol] 71 mg/dL >40 [facility] Comment on above: HDL Guidelines: <40 Undesirable 40-59 Borderline >59 Desirable Cholesterol in LDL [Mass/Vol] 121 mg/dL 0 - 130 mg/dL [facility] Comment on above: LDL Guidelines: <100 Desirable 100-129 Near to/above Desirable 130-159 Borderline >159 Undesirable Direct (measured) LDL and calculated LDL are not interchangeable tests. Cholesterol.total/Cho lesterol in HDL [Mass ratio] 3.2 {ratio} <5 [facility] Interpretation and review of laboratory results Abnormal [facility] Triglyceride [Mass/Vol] 163 mg/dL High <150 [facility] Comment on above: Triglyceride Guidelines: <150 Desirable 150-199 Borderline 200-499 High >499 Very high Based on AHA Guidelines for fasting triglyceride, December 2011. [facility] Fasting?on 2 Patient Fasting? YES [facility] lynnette [facility] [employer] Comprehensive Metabolic Pane lOrdered By: Randa Souza on 07-25-2020 Albumin [Mass/Vol] 4.2 g/dL 3.5 - 5.2 g/dL [employer] Phone: Albumin/Globulin Ratio NOT REPORTED [employer] Phone: ALP (Bld) [Catalytic activity/Vol] 85 U/L 35 - 104 U/L [employer] Phone: ALT [Catalytic activity/Vol] 12 U/L 5 - 33 U/L [employer] Phone: Anion gap [Moles/Vol] 9 mmol/L 9 - 17 mmol/L [employer] Phone: AST [Catalytic activity/Vol] 16 U/L <32 [employer] Phone: Bilirubin [Mass/Vol] 0.32 mg/dL 0.30 - 1.20 mg/dL [employer] Phone: Calcium [Mass/Vol] 9.7 mg/dL 8.6 - 10. 4 mg/dL [employer] Phone: Chloride [Moles/Vol] 101 mmol/L 98 - 10 7 mmol/L [employer] Phone: CO2 [Moles/Vol] 31 mmol/L 20 - 31 mmol/L [employer] Phone: Creatinine [Mass/Vol] 0.57 mg/dL 0.50 - 0.90 mg/dL [employer] Phone: Free PSA/Total PSA [Mass fraction] 7.1 g/dL 6.4 - 8.3 g/dL [employer] Phone: GFR >60 >60 mL/min [employer] Phone: GFR Non- >60 >60 mL/min [employer] Phone: GFR/1.73 sq M.predicted MDRD (S/P/Bld) [Vol rate/Area] [employer] Phone: Comment on above: Average GFR for 50-5 9 years old: 93 mL/min/1.73sq m Chronic Kidney Disease: <60 mL/min/1.73sq m Kidney failure: <15 mL/min/1.73sq m eGFR calculated using average adult body mass. Additional eGFR calculator available at: http://www.[employer] It/multiple_crcl_2012.htm GFR/1.73 sq M.predicted MDRD (S/P/Bld) [Vol rate/Area] NOT REPORTED [employer] Phone: Glucose [Mass/Vol] 86 mg/dL 70 - 99 mg/dL [facility] [employer] Phone: Interpretation and review of laboratory results [facility]normal [facility] Potassium [Moles/Vol] 3.6 mmol/L Low 3.7 - 5.3 mmol/L [facility]: Sodium [Moles/Vol] 141 mmol/L 135 - 144 mmol/L [facility]: Urea nitrogen (BldV) [Mass/Vol] 20 mg/dL 6 - 20 mg/dL [employer] Phone: Urea nitrogen/Creatinine (Bld) [Mass ratio] 35 High [facility]: Lipid PanelOrdered By: Randa Souza on 07-25-2020 Cholesterol [Mass/Vol] 219 mg/dL High <200 [employer] Phone: Comment on above: Cholesterol Guidelines: <200 Desirable 200-240 Borderline >240 Undesirable Cholesterol in HDL [Mass/Vol] 71 mg/dL >40 [employer] Phone: Comment on above: HDL Guidelines: <40 Undesirable 40-59 Borderline >59 Desirable Cholesterol in LDL [Mass/Vol] 106 mg/dL 0 - 130 mg/dL [employer] Phone: Comment on above: LDL Guidelines: <100 Desirable 100-129 Near to/above Desirable 130-159 Borderline >159 Undesirable Direct (measured) LDL and calculated LDL are not interchangeable tests. Cholesterol in VLDL [Mass/Vol] NOT REPORTED High 1 - 30 mg/dL [employer] Phone: Cholesterol.total/Cho lesterol in HDL [Mass ratio] 3.1 {ratio} <5 [employer] Phone: Interpretation and review of laboratory results Abnormal [employer] Phone: Triglyceride [Mass/Vol] 208 mg/dL High <150 [employer] Phone: Comment on above: Triglyceride Guidelines: <150 Desirable 150-199 Borderline 200-499 High >499 Very high Based on AHA Guidelines for fasting triglyceride, December 2011. Patient Fasting?Ordered By: Randa Souza on 07-25-2020 Patient Fasting? YES [employer] Phone: Basic Metabolic Panelon Calcium [Mass/Vol] 10.3 mg/dL Normal 8.5-10.6 [facility] Chloride [Moles/Vol] 98 mmol/L Normal 98-107 [facility] CO2 [Moles/Vol] 32 mmol/L Normal 21-32 [facility] Creatinine [Mass/Vol] 0.65 mg/dL Normal 0.55-1.02 [facility] Glucose [Mass/Vol] 81 mg/dL Normal 70-99 [facility] Potassium [Moles/Vol] 3.7 mmol/L Normal 3.5-5.1 [facility] Sodium [Moles/Vol] 139 mmol/L Normal 136-145 [facility] Urea nitrogen (BldV) [Mass/Vol] 20 mg/dL High 7.0-18.0 [facility] Urea nitrogen/Creatinine [Mass ratio] 31 mg/mg Normal [facility] CBC with Differentialon Basophils (Bld) [#/Vol] 0.0 thou/mcL Normal 0.0-0.2 [facility] Basophils/100 WBC (Bld) 0.4 % Normal 0-3 [facility] Differential cell count method Nom (Bld) AUTOMATED DIFFERENTIAL Normal [facility] Eosinophils (Bld) [#/Vol] 0.1 thou/mcL Normal 0.0-0.4 [facility] Eosinophils/100 WBC (Bld) 1.6 % Normal 0-7 [facility] Erythrocyte distribution width (RBC) [Entitic vol] 12.7 % Normal 11.7-15.0 [facility] Hematocrit (Bld) [Volume fraction] 40.6 % Normal 34.0-50.0 [facility] Hemoglobin (Bld) [Mass/Vol] 13.9 g/dL Normal 11.5-17.0 [facility] Lymphocytes (Bld) [#/Vol] 1.8 thou/mcL Normal 0.7-4.5 [facility] Lymphocytes/100 WBC (Bld) 25.6 % Normal 14-46 [facility] MCH (RBC) [Entitic mass] 31.7 Picograms Normal 27.0-34.0 [facility] MCHC (RBC) [Mass/Vol] 34.2 g/dL Normal 32.0-36.0 [facility] MCV (RBC) [Entitic vol] 92.6 fL Normal 80-98 [facility] Monocytes (Bld) [#/Vol] 0.4 thou/mcL Normal 0.1-1.0 [facility] Monocytes/100 WBC (Bld) 5.3 % Normal 4-13 [facility] Neutrophils (Bld) [#/Vol] 4.6 thou/mcL Normal 1.5-7.8 [facility] Neutrophils/100 WBC (Bld) 67.1 % Normal 40-74 [facility] Platelet mean volume (Bld) [Entitic vol] 8.7 fL Normal 7.5-11.2 [facility] Platelets (Bld) [#/Vol] 291 thou/mcL Normal 140-415 [facility] RBC (Bld) [#/Vol] 4.38 x(10)6/mcL Normal 3.80-5.60 Mo [facility] WBC (Bld) [#/Vol] 6.8 thou/mcL Normal 4.0-10.5 [facility] Comprehensive Metabolic Pane kiki 07-21-2019 Albumin [Mass/Vol] 4.3 g/dL 3.5 - 5.2 g/dL [place], [place] Albumin/Globulin [Mass ratio] NOT REPORTED [place] ALP [Catalytic activity/Vol] 78 U/L 35 - 104 U/L [place] ALT [Catalytic activity/Vol] 11 U/L 5 - 33 U/L [place] Anion gap [Moles/Vol] 8 mmol/L Low 9 - 17 mmol/L [place] AST [Catalytic activity/Vol] 18 U/L <32 [place] Bilirubin Ql (U) 0.41 mg/dL 0.3 - 1.2 mg/dL [place] Bun/Cre Ratio 29 High [place], [place] Calcium [Mass/Vol] 10.0 mg/dL 8.6 - 10. 4 mg/dL [place] Chloride [Moles/Vol] 101 mmol/L 98 - 10 7 mmol/L [place] CO2 [Moles/Vol] 28 mmol/L 20 - 31 mmol/L [place] Creatinine [Mass/Vol] 0.62 mg/dL 0.5 - 0.9 mg/dL [place] GFR >60 >60 mL/min [place] GFR Non- >60 >60 mL/min [place] GFR/1.73 sq M predicted among non-blacks MDRD (S/P/Bld) [Vol rate/Area] NOT REPORTED [place] GFR/1.73 sq M predicted among non-blacks MDRD (S/P/Bld) [Vol rate/Area] [place] Comment on above: Average GFR for 50-5 9 years old: 93 mL/min/1.73sq m Chronic Kidney Disease: <60 mL/min/1.73sq m Kidney failure: <15 mL/min/1.73sq m eGFR calculated using average adult body mass. Additional eGFR calculator available at: http://www.[employer]/multiple_crcl_2012.htm Glucose [Mass/Vol] 101 mg/dL High 70 - 99 mg/dL [place], [place] Potassium [Moles/Vol] 3.7 mmol/L 3.7 - 5.3 mmol/L [place] Protein [Mass/Vol] 7.4 g/dL 6.4 - 8.3 g/dL [place] Sodium [Moles/Vol] 137 mmol/L 135 - 144 mmol/L [place] Urea nitrogen [Mass/Vol] 18 mg/dL 6 - 20 mg/dL [place] Lipid Panelon 07-21-2019 Cholesterol [Mass/Vol] 227 mg/dL High <200 [place] Comment on above: Cholesterol Guidelines: <200 Desirable 200-240 Borderline >240 Undesirable Cholesterol in HDL [Mass/Vol] 81 mg/dL >40 [place] Comment on above: HDL Guidelines: <40 Undesirable 40-59 Borderline >59 Desirable Cholesterol in LDL [Mass/Vol] 116 mg/dL 0 - 130 mg/dL [place] Comment on above: LDL Guidelines: <100 Desirable 100-129 Near to/above Desirable 130-159 Borderline >159 Undesirable Direct (measured) LDL and calculated LDL are not interchangeable tests. Cholesterol in VLDL [Mass/Vol] NOT REPORTED 1 - 30 mg/dL [place], [place] Cholesterol.total/Cho lesterol in HDL [Mass ratio] 2.8 {ratio} <5 [place] Triglyceride [Mass/Vol] 150 mg/dL High <150 [place] Comment on above: Triglyceride Guidelines: <150 Desirable 150-199 Borderline 200-499 High >499 Very high Based on AHA Guidelines for fasting triglyceride, December 2011. Otheron 07-21-2019 Interpretation and review of laboratory results Abnormal [place], [place] Patient Fasting?on 0 Patient Fasting? YES [place] Encounters Encounter Date Encounter Type Care Provider Facility Start: 03-22-2023 End: 03-22-2023 ambulatory CHAPARRITA VALLE [facility] Start: 03-21-2023 End: 03-22-2023 ambulatory Jadon Colbert MD Facility:[facility] Start: 02-09-2023 End: 02-12-2023 ambulatory RANDA SOUZA [facility] Start: 02-08-2023 End: 02-09-2023 ambulatory [facility] Start: 02-07-2023 ambulatory [facility] Start: 01-20-2023 End: 01-20-2023 ambulatory [facility] Start: 01-13-2023 End: 01-14-2023 ambulatory [facility] Start: 01-13-2023 Encounter for other preprocedural examination [facility] Start: 09-01-2022 End: 09-02-2022 ambulatory HERMINIO ANNE [facility] Start: 06-25-2022 End: 06-25-2022 ambulatory Trini Escobar RT(R) Radiology Comment on above: Radio Gen RMP Start: 06-25-2022 Patient encounter procedure Trini Escobar RT(R) RAHEEL Start: 06-17-2022 End: 06-18-2022 ambulatory Paloma Kaufman Facility[facility] Start: 06-17-2022 End: 06-17-2022 Patient encounter procedure Paloma Kaufman [facility] Start: 09-25-2021 End: 09-25-2021 Subsequent hospital visit by physician Mayelin Covid19 Pat Screening Schedule [facility] Comment on above: Viral URI; Suspected COVID-19 virus infection Start: 07-25-2021 End: 07-25-2021 Subsequent hospital visit by physician Randa Souza MD Work Phone: [facility] Comment on above: Essential hypertensi on, benign Start: 07-25-2020 End: 07-25-2020 Subsequent hospital visit by physician Randa Souza MD Work Phone: [facility] Comment on above: Essential hypertensi on, benign Start: 07-18-2020 End: 07-18-2020 Subsequent hospital visit by physician Estela Davila [facility] Comment on above: Arrived Start: 07-16-2020 End: 07-16-2020 Subsequent hospital visit by physician Rita Nieves [facility] Comment on above: Arrived Start: 07-14-2020 End: 07-14-2020 Subsequent hospital visit by physician Rita Nieves [facility] Comment on above: Arrived Start: 07-09-2020 End: 07-09-2020 Subsequent hospital visit by physician Rita Nieves [facility] Comment on above: Arrived Start: 07-07-2020 End: 07-07-2020 Subsequent hospital visit by physician Rita Nieves [facility] Comment on above: Arrived Start: 07-04-2020 End: 07-04-2020 Subsequent hospital visit by physician Estela Davila PT [facility] Comment on above: Arrived Start: 06-30-2020 End: 06-30-2020 Subsequent hospital visit by physician Rita Nieves [facility] Comment on above: Arrived Start: 06-27-2020 End: 06-27-2020 Subsequent hospital visit by physician Rita Nieves [facility] Comment on above: Arrived Start: 06-26-2020 End: 06-26-2020 Subsequent hospital visit by physician Estela Davila [facility] Comment on above: Arrived Start: 06-20-2020 End: 06-20-2020 Subsequent hospital visit by physician Rita Nieves [facility] Comment on above: Arrived Start: 06-18-2020 End: 06-18-2020 Subsequent hospital visit by physician Rita Nieves [facility] Comment on above: Arrived Start: 06-16-2020 End: 06-16-2020 Subsequent hospital visit by physician Rita Nieves [facility] Comment on above: Arrived Start: 06-13-2020 End: 06-13-2020 Subsequent hospital visit by physician Avtar ELLISON [facility] Comment on above: Arrived Start: 06-11-2020 End: 06-11-2020 Subsequent hospital visit by physician Avtar Ramsey [facility] Comment on above: Arrived Start: 06-09-2020 End: 06-09-2020 Subsequent hospital visit by physician Estela Davila [facility] Comment on above: Arrived Start: 07-21-2019 End: 07-21-2019 Subsequent hospital visit by physician Randa Souza [facility] Comment on above: Essential hypertensi on, benign Procedures Date Procedure Procedure Detail Performing Clinician Start: 09-25-2021 COVID-19, GARRET Heredia PACKER DENTURE - 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 Randa Souza MD Work Phone: Start: 07-25-2020 Comprehensive metabo lic panel Randa Souza MD Work Phone: Start: 07-25-2020 Lipid panel Randa hayes MD Work Phone: Start: 07-25-2020 PATIENT FASTING? Randa Souza MD Work Phone: Start: 07-21-2019 Comprehensive metabo lic panel Randa Souza Work Phone: Start: 07-21-2019 Lipid panel Randa hayes Work Phone: Start: 07-21-2019 PATIENT FASTING? Randa Souza Work Phone: Start: 09-30-2017 Robot assisted laparoscopic total hysterectomy Paloma Shae Comment on above: HYSTERECTOMY, ROBOT ASSISTED Start: 08-02-2016 left vein ligation a nd stripping Paloma Shae Start: 08-02-2016 Phlebectomy of lower limb vein Paloma Shae Comment on above: left leg Start: 04-28-2016 EVLT RGSV Paloma Workman pe Start: 09-09-2014 Colonoscopy Randa clement MD Work Phone: Start: 03-26-2013 History of cholecystectomy S/P laparoscopic cholecystectomy Rita Nieves Start: 03-14-1983 bone spur removal, left Palomasunitha Kaufman Start: 03-14-1980 pins left hip removed T eresa Kaufman Start: 03-14-1975 pins left hip Paloma La mpe 5 hip surgeries, left Paloma Shae carpal tunnel surgery 3 Amie sa Shae Comment on above: left-04/2016; right- Cholecystectomy Paloma Kaufman Dilation and curetta ge of uterus Palomasunitha Kaufman Total replacement of left hip joint Paloma Kaufman Comment on above: x 2 Plan of Treatment Date Care Activity Detail Author Start: 10-09-2028 DTaP/Tdap/Td vaccine (2 - Tdap) DTaP/Tdap/Td vaccine (2 - Tdap) [employer] Start: 07-25-2026 Lipid panel Lipids [facility] [employer] Start: 07-25-2025 [facility] Start: 09-09-2024 Screening for malignant neoplasm of colon [employer] Start: 07-20-2024 Lipid panel Lipid screen [employer] Work Phone: Start: 07-16-2023 [facility] [place] Start: 07-29-2022 Depression Screen Depression Screen [facility] [employer] Start: 03-14-2022 DEPRESSION ASSESSMENT DEPRESSION ASSESSMENT [facility] Start: 02-02-2022 End: 02-02-2022 Patient encounter procedure 02/02/2022 Office Visit Family Medicine Randa Souza MD [address] [place], [place] [id number] [facility] [place] [place] Start: 01-22-2022 Screening for malignant neoplasm of breast Breast cancer screen [facility] [employer] Start: 11-12-2021 Influenza vaccination Flu vaccine (#1) [facility] Start: 07-30-2021 Depression Screen Depression Screen [facility] Start: 07-29-2021 End: 07-29-2021 Patient encounter procedure 07/29/2021 Office Visit Family Randa Briggs MD [address] [place] [address] [facility] [place] [place] Start: 07-25-2021 Creatinine measurement Creatinine monitoring [facility] [employer] Work Phone: Start: 07-25-2021 Potassium monitoring Potassium monitoring [facility] Work Phone: Start: 06-03-2021 COVID-19 Vaccine (4 - Booster for Moderna series) COVID-19 Vaccine (4 - Booster for Moderna series) [facility] Start: 02-01-2021 Screening for malignant neoplasm of breast Breast cancer screen [place], [place] Start: 07-30-2020 End: 07-30-2020 Office Visit 07/30/2020 Office Visit Family Medicine Randa Souza MD [address], [place] [id number] [facility] [place] [place] Start: 07-20-2020 Creatinine measurement Creatinine monitoring [facility] [employer] Work Phone: Start: 07-20-2020 Potassium monitoring Potassium monitoring [facility] Work Phone: Start: 07-18-2020 End: 07-18-2020 Patient encounter procedure 07/18/2020 Appointment Physical Therapy Estela Davila PT [facility] Start: 07-16-2020 End: 07-16-2020 Patient encounter procedure 07/16/2020 Appointment Physical Therapy Rita Nieves [facility] Start: 07-14-2020 End: 07-14-2020 Patient encounter procedure 07/14/2020 Appointment Physical Therapy Rita Nieves [facility] Start: 07-11-2020 End: 07-11-2020 Patient encounter procedure 07/11/2020 Appointment Physical Therapy Estela Davila PT [facility] Start: 07-09-2020 End: 07-09-2020 Patient encounter procedure 07/09/2020 Appointment Physical Therapy Rita Nieves [facility] Start: 07-07-2020 End: 07-07-2020 Patient encounter procedure 07/07/2020 Appointment Physical Therapy Rita Nieves [facility] Start: 07-04-2020 End: 07-04-2020 Appointment [facility] Start: 07-02-2020 End: 07-02-2020 Appointment [facility] Start: 06-30-2020 End: 06-30-2020 Appointment 06/30/2020 Appointment Physical Therapy Rita Nieves [facility] Start: 06-27-2020 End: 06-27-2020 Appointment 06/27/2020 Appointment Physical Therapy Rita Nieves [facility] Start: 06-26-2020 End: 06-26-2020 Appointment 06/26/2020 Appointment Physical Therapy Estela Davila PT [facility] Start: 06-24-2020 COVID-19 Vaccine (2 - Moderna 2-dose series) COVID-19 Vaccine (2 - Moderna 2-dose series) [employer] Phone: Start: 06-23-2020 End: 06-23-2020 Appointment 06/23/2020 Appointment Physical Therapy Estela Davila PT [facility] Start: 06-20-2020 End: 06-20-2020 Appointment 06/20/2020 Appointment Physical Therapy Rita Nieves [facility] Start: 06-18-2020 End: 06-18-2020 Appointment 06/18/2020 Appointment Physical Therapy Rita Nieves [facility] Start: 06-16-2020 End: 06-16-2020 Appointment [facility] Start: 06-13-2020 End: 06-13-2020 Appointment 06/13/2020 Appointment Physical Therapy Avtar Ramsey PTA [facility] Start: 06-11-2020 End: 06-11-2020 Appointment 06/11/2020 Appointment Physical Therapy Avtar Ramsey PTA [facility] Start: 07-24-2019 End: 07-24-2019 Office Visit 07/24/2019 Office Visit Family Medicine Randa Souza MD [address] [place] [address] [phone] [facility] [place] [place] Start: 07-16-2019 Creatinine measurement Creatinine monitoring [facility] [employer] [place] Start: 07-16-2019 Potassium monitoring Potassium monitoring [facility] [place] Start: 2012 Shingles Vaccine (1 of 2) Shingles Vaccine (1 of 2) [facility] Start: 2012 SHINGRIX VACCINE (1 of 2) SHINGRIX VACCINE (1 of 2) [facility] Start: 09-15-2007 COLOGUARD (FIT-DNA) COLOGUARD (FIT-DNA) [facility] Start: 09-15-2007 Colonoscopy COLONOSCOPY [facility] Start: 09-15-2007 COLORECTAL CANCER SCREENING COLORECTAL CANCER SCREENING [facility] Start: 09-15-[address] COLONOGRAPHY [facility] Start: 09-15-2007 DIABETES SCREEN DIABETES SCREEN [facility] Start: 09-15-2007 FECAL OCCULT BLOOD FECAL OCCULT BLOOD [facility] Start: 09-15-2007 LIPID SCREEN LIPID SCREEN [facility] Start: 09-15-2007 Screening for malignant neoplasm of colon [facility] Start: 09-15-2007 SIGMOIDOSCOPY SIGMOIDOSCOPY [facility] Start: 2002 Diabetes screen Diabetes screen [facility] Work Phone: Start: 2002 Mammography MAMMOGRAM [facility] Start: 1992 HPV TESTING HPV TESTING [facility] Start: 09-15-1983 PAP TESTING PAP TESTING [facility] Start: 1981 Urine microalbumin profile DTAP,TDAP,TD (1 - Tdap) [facility] Start: 1980 Hepatitis C screening Hepatitis C screen [facility] Start: 1980 HEPATITIS C SCREENING HEPATITIS C SCREENING [facility] Start: 1980 HIV SCREENING HIV SCREENING [facility] Start: 1977 HIV screening HIV screen [facility] Start: 1962 Hepatitis C screening Hepatitis C screen [place], [place] Immunizations Immunization Date Immunization Notes Care Provider Fa cility 03-21-2021 influenza, injectabl e, quadrivalent, preservative free Randa Souza MD Work Phone: [facility] Work Phone: 02-03-2021 COVID-19, Moderna, Primary or Immunocompromised, PF, 100mcg/0.5mL Randa Souza MD Work Phone: [facility] [employer] Work Phone: 06-24-2020 COVID-19, Moderna, Primary or Immunocompromised, PF, 100mcg/0.5mL Randa Souza MD Work Phone: [facility] [employer] Work Phone: 05-27-2020 COVID-19, Moderna, Primary or Immunocompromised, PF, 100mcg/0.5mL Randa Souza MD Work Phone: [facility] [employer] Work Phone: 12-24-2019 influenza, injectabl e, quadrivalent, preservative free Estela CapuccarmenAmeyahaley [facility] Work Phone: 01-02-2019 influenza virus vaccine, unspecified formulation Randa Souza MD Work Phone: [facility] Work Phone: 01-02-2019 influenza, injectabl e, quadrivalent, preservative free [facility] 10-09-2018 diphtheria, tetanus toxoids and acellular pertussis vaccine, unspecified formulation [place], [place] 10-09-2018 measles and rubella virus vaccine Randa Souza MD Work Phone: [facility] Work Phone: 10-09-2018 measles, mumps and rubella virus vaccine [facility] 10-09-2018 tetanus toxoid, redu kyung diphtheria toxoid, and acellular pertussis vaccine, adsorbed Randa [facility] [place] Payers Date Payer Category Payer Unknown [id number] 2020 Unknown [id number] 2018 Unknown [employer] [address] xxxxxxxx 2018-Present [phone] [address] [place] [address] xxxxxxxx [id number] 1962 Unknown [id number] 1962 Unknown [id number] 1962 Unknown [id number] 1962 Unknown [id number] 1962 Unknown [id number] 1962 Unknown [id number] 1962 Unknown [id number] 1962 Unknown [id number] 1962 Unknown [id number] 1962 Unknown [id number] 1960 Unknown [id number] Social History Date Type Detail Facility Start: 04-19-2019 End: 09-25-2021 Tobacco smoking status NHIS Never smoker [employer] Start: 04-19-2019 End: 09-25-2021 Alcohol intake Current drinker of alcohol (finding) [place] Start: 03-15-2013 Alcohol Comment [place] Start: 1960 Sex Assigned At Not on file [facility] [place] Start: 01-29-2020 End: 09-25-2021 Tobacco use and exposure Never used [employer] Work Phone: Start: 03-15-2013 Alcohol Comment occasional [employer] Work Phone: Start: 07-30-2020 End: 09-25-2021 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 Author Type: Physician Type: Progress Notes Filed: 06/28/2022 4:16 PM Note Text: see dictated note Anirudh Yao II, MD [facility] 06-25-2022 Note HNO ID: [id number] Author: Trini Escobar RT(R) Service: ? Author Type: Technologist Type: Progress Notes Filed: 06/25/2022 1:11 PM Note Text: Radiology Service Progress Note PATIENT NAME: Esmer Hughes DATE OF SERVICE: June 25, 2022 TIME: 1:11 PM PATIENT IDENTITY VERIFICATION COMPLETED USING TWO (2) IDENTIFIERS: Name and Date of confirmed by patient verbally. FALL SCREENING: Has the patient had 2 falls in the last year or 1 fall with injury or currently using an Ambulatory Assistive Device (Walker, Cane, Wheelchair, Crutches, etc.)? No PATIENT GENDER DATA: Female. status: : No status: NO. PATIENT RELEVANT IMPLANT DATA REVIEWED: Not Applicable RADIOLOGY DEPARTMENT: General X-ray: Exam(s) Completed: Pelvis X-Ray: Pelvis with Hip Left Lower Extremity X-Ray(s): Knee, AP / Lat / Merchant Right and Wt. Bearing PERIPHERAL IV DATA: Not applicable SIGNED BY: RT Barby(Jake) June 25, 2022 1:11 PM [facility] 06-25-2022 History of Present illness Narrative Radiology Service Progress Note PATIENT NAME: Esmer Hughes DATE OF SERVICE: June 25, 2022 TIME: 1:11 PM PATIENT IDENTITY VERIFICATION COMPLETED USING TWO (2) IDENTIFIERS: Name and Date of confirmed by patient verbally. FALL SCREENING: Has the patient had 2 falls in the last year or 1 fall with injury or currently using an Ambulatory Assistive Device (Walker, Cane, Wheelchair, Crutches, etc.)? No PATIENT GENDER DATA: Female. status: : No status: NO. PATIENT RELEVANT IMPLANT DATA REVIEWED: Not Applicable RADIOLOGY DEPARTMENT: General X-ray: Exam(s) Completed: Pelvis X-Ray: Pelvis with Hip Left Lower Extremity X-Ray(s): Knee, AP / Lat / Merchant Right and Wt. Bearing PERIPHERAL IV DATA: Not applicable SIGNED BY: RT Barby(Jake) June 25, 2022 1:11 PM documented in this encounter [facility] 07-18-2020 History of Present illness Narrative Images from the original note were not included. [facility] Out[facility] Physical Therapy Daily Note Date: 07/18/2020 Patient Name: Esmre Hughes : 1960 (59 y.o.) Referring Practitioner: Dr. 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 LEFS=39/80 Issued information on heel-lifts. AROM [id number], PROM: ext 5degFN Pt amb without AD, mild deviations due to leg length discrepency. Pt educated that lift placed to the sole of her shoes may be needed, pt would like to cont with insert lifts for now. Chart Reviewed: Yes Plan Plan: Continue with current plan Exercises/Modalities/Manual: See DocFlow Sheet Education: See assessment Barriers to Learning: None Goals (Total # of Visits to Date: 18) Short Term Goals - Time Frame for Short term goals: 9 visits Short term goal 1: Pt to report independence and compliance with HEP for ROM and strengthening.-met Short term goal 2: Pt to have PROM Knee ext =5deg FN to improve gait-not met Care Home Goals - Time Frame for FPC goals : 18 visits FPC goal 1: Pt to score >47/80 on LEFS to improve ADL [place]. -NOT MET [facility] goal 2: Pt to have Neutral PROM knee ext to improve standing [place].-NOT MET [facility] goal 3: Pt to have 110deg of knee flexion to improve car transfers.-MET [facility] goal 4: Pt to amb without AD x150ft without deviations to improve community amb [place].-NOT MET buttermaker goal 5: Pt to complete up/down 4 steps reciprocally with 1 HR to improve home access.-MET Post Treatment Pain: 07/21 Time In: 0950 Time Out: 1030 Timed Code Treatment Minutes: 40 Minutes Total time: 40 Minutes Estela Davila, PT Date: 07/18/2020 documented in this encounter [employer] Phone: 07-18-2020 Hospital course Narrative Images from the original note were not included. [facility] Out[facility] Physical Therapy Discharge Summary Patient: Esmer Hughes : 1960 Referring Practitioner: Dr. 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 LEFS=39/80 Issued information on heel-lifts. AROM [id number], PROM: ext 5degFN Pt amb without AD, mild deviations due to leg length discrepency. Pt educated that lift placed to the sole of her shoes may be needed, pt would like to cont with insert lifts for now. Reason for Discharge Completion of Prescribed visits Comments: Thank you for this referral Estela Davila Date: 07/18/2020 documented in this encounter [employer] Phone: 07-14-2020 History of Present illness Narrative Images from the original note were not included. [facility] Therapy Daily Note Date: 07/14/2020 Patient Name: Esmer Hughes : 1960 (59 y.o.) Referring Practitioner: Dr. Emmanuel Hough Referral Date : 06/05/20 Diagnosis: S/P R knee Arthroplasty Treatment Diagnosis: Gait ataxia, R knee pain S/P TKA Onset Date: 06/05/20 PT Insurance Information: 25v Total # of Visits Approved: 18 Per Physician Order Total # of Visits to Date: 16 No Show: 0 Canceled Appointment: 0 Pre-Treatment Pain: 07/21 Subjective: Pt calling July 17 Assessment Assessment: Pt has been doing a lot of walking over the weekend. Pt did not apply heat to her HS over the weekend as she had reservations about doing it. Re-educated on heat to HS only. PROM 8 deg FN, resting at 15 eg FN. Chart Reviewed: Yes Plan Plan: Continue with current plan Exercises/Modalities/Manual: See DocFlow Sheet Barriers to Learning: None Goals (Total # of Visits to Date: 16) Short Term Goals - Time Frame for Short term goals: 9 visits Short term goal 1: Pt to report independence and compliance with HEP for ROM and strengthening.-met Short term goal 2: Pt to have PROM Knee ext =5deg FN to improve gait-not met Care Home Goals - Time Frame for buttermaker goals : 18 visits buttermaker goal 1: Pt to score >47/80 on LEFS to improve ADL [place]. buttermaker goal 2: Pt to have Neutral PROM knee ext to improve standing [place]. [facility]PC goal 3: Pt to have 110deg of knee flexion to improve car transfers. F[facility] goal 4: Pt to amb without AD x150ft without deviations to improve community amb [place]. [facility] goal 5: Pt to complete up/down 4 steps reciprocally with 1 HR to improve home access. Post Treatment Pain: 07/21 Time In: 0945 Time Out : 1027 Timed Code Treatment Minutes: 42 Minutes Total Treatment Time: 42 Minutes Rita Nieves RETAIL SALES DIRECTOR Date: 07/14/2020 documented in this encounter [employer] Phone: 07-04-2020 History of Present illness Narrative Images from the original note were not included. [facility] Outpatient Physical Therapy Daily Note Date: 07/04/2020 Patient Name: Esmer Hughes : 1960 (59 y.o.) Referring Practitioner: Dr. 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 Pt reports that she is able to use Tylenol PM and antiinflammatory cream. Pt reports compliance with gastroc stretch at step which has helped the galeana splints . Pt reports if her extension does not improve they will have to manipulate it if at the 3months post op not at neutral. PROM: Ext 7degFN Chart Reviewed: Yes Plan Plan: Continue with current plan Exercises/Modalities/Manual: See DocFlow Sheet Education: Improved ROM, progression of reps and intro of S/L Shuttle. Barriers to Learning: None Goals (Total # of Visits to Date: 12) Short Term Goals - Time Frame for Short term goals: 9 visits Short term goal 1: Pt to report independence and compliance with HEP for ROM and strengthening.-met Short term goal 2: Pt to have PROM Knee ext =5deg FN to improve gait-not met Photo Engraver Goals - Time Frame for FPC goals : 18 visits FPC goal 1: Pt to score >47/80 on LEFS to improve ADL [place]. FPC goal 2: Pt to have Neutral PROM knee ext to improve standing [place]. buttermaker goal 3: Pt to have 110deg of knee flexion to improve car transfers. FPC goal 4: Pt to amb without AD x150ft without deviations to improve community amb mil[place]. buttermaker goal 5: Pt to complete up/down 4 steps reciprocally with 1 HR to improve home access. Post Treatment Pain: 10/21 Time In: 0952 Time Out: 1037 Timed Code Treatment Minutes: 45 Minutes Total Treatment Time: 45 Minutes Estela Davila, PT Date: 07/04/2020 [facility] History of Present illness Narrative Images from the original note were not included. [facility] Outpatient Physical Therapy Daily Note Date: 06/30/2020 Patient Name: Esmer Hughes : 1960 (59 y.o.) Referring Practitioner: Dr. Emmanuel Hough Referral Date : 06/05/20 Diagnosis: S/P R knee Arthroplasty Treatment Diagnosis: Gait ataxia, R knee pain S/P TKA Onset Date: 06/05/20 PT Insurance Information: 25v Total # of Visits Approved: 18 Per Physician Order Total # of Visits to Date: 10 No Show: 0 Canceled Appointment: 0 Pre-Treatment Pain: 09/20 Assessment Assessment: Pt reports she worked on ROM in the shower this am sitting on er shower chair, notes it felt good but tightend up immediately after. Performed ex as outlined for strengthening and flexibility. PROM limited to 10 deg FN. Will measure flexion next visit. Chart Reviewed: Yes Plan Plan: Continue with current plan Exercises/Modalities/Manual: See DocFlow Sheet Barriers to Learning: None Goals (Total # of Visits to Date: 10) Short Term Goals - Time Frame for Short term goals: 9 visits Short term goal 1: Pt to report independence and compliance with HEP for ROM and strengthening. Short term goal 2: Pt to have PROM Knee ext =5deg FN to improve gait Photo Engraver Goals - Time Frame for FPC goals : 18 visits FPC goal 1: Pt to score >47/80 on LEFS to improve ADL [place]. FPC goal 2: Pt to have Neutral PROM knee ext to improve standing [place]. buttermaker goal 3: Pt to have 110deg of knee flexion to improve car transfers. FPC goal 4: Pt to amb without AD x150ft without deviations to improve community amb [place]. FPC goal 5: Pt to complete up/down 4 steps reciprocally with 1 HR to improve home access. Post Treatment Pain: 09/20 Time In: 0945 Time Out : 1030 Timed Code Treatment Minutes: 45 Minutes Total Treatment Time: 45 Minutes Rita Nieves RETAIL SALES DIRECTOR Date: 06/30/2020 [facility]: 06-27-2020 History of Present illness Narrative Images from the original note were not included. [facility] Outpatient Physical Therapy Daily Note Date: 06/27/2020 Patient Name: Esmer Hughes : 1960 (59 y.o.) Referring Practitioner: Dr. Emmanuel Hough Referral Date : 06/05/20 Diagnosis: S/P R knee Arthroplasty Treatment Diagnosis: Gait ataxia, R knee pain S/P TKA Onset Date: 06/05/20 PT Insurance Information: 25v Total # of Visits Approved: 18 Per Physician Order Total # of Visits to Date: 9 No Show: 0 Canceled Appointment: 0 Pre-Treatment Pain: 09/20 Assessment Assessment: Pt reports she couldn't sleep last night d/t pain. She amb to therapy with s-cane. Pain 09/20 this morning. Instructed in scar massage for home with vitamin E. Performed ex as outlined for LE strengthening and ROM. PROM 10-95 Today. Will cont per plan. Chart Reviewed: Yes Plan Plan: Continue with current plan Exercises/Modalities/Manual: See DocFlow Sheet Barriers to Learning: None Goals (Total # of Visits to Date: 9) Short Term Goals - Time Frame for Short term goals: 9 visits Short term goal 1: Pt to report independence and compliance with HEP for ROM and strengthening. Short term goal 2: Pt to have PROM Knee ext =5deg FN to improve gait Care Home Goals - Time Frame for buttermaker goals : 18 visits buttermaker goal 1: Pt to score >47/80 on LEFS to improve ADL [place]. FPC goal 2: Pt to have Neutral PROM knee ext to improve standing [place]. FPC goal 3: Pt to have 110deg of knee flexion to improve car transfers. FPC goal 4: Pt to amb without AD x150ft without deviations to improve community amb [place]. FPC goal 5: Pt to complete up/down 4 steps reciprocally with 1 HR to improve home access. Post Treatment Pain: 09/20 Time In: 0955 Time Out : 1040 Timed Code Treatment Minutes: 45 Minutes Total Treatment Time: 45 Minutes Rita Nieves RETAIL SALES DIRECTOR Date: 06/27/2020 documented in this encounter [employer] Phone: Evaluation + Plan note No data available for this section [facility] Evaluation note Diagnosis Essential hypertension, benign documented in this encounter [employer] Phone: evaluation note* Diagnosis Essential hypertension, benign documented in this encounter [employer] Phone: evaluation note* Diagnosis Viral URI Acute upper respiratory infections of unspecified site Suspected COVID-19 virus infection documented in this encounter [facility] [employer] Phone: Hospital Discharge instructions No data available for this section [facility] No data available for this section [facility] Assessments Diagnosis Essential hypertension, benign Advance Directives No Advanced Directives Records FoundDocuments on File Type Date Recorded 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 Advance Directives and Living Will Power of Trade Sales Assistant Latest Code Status on File Code Status Date Activated Date Inactivated Comments Full Code 09/09/2014 10:17 AM 09/09/2014 1:36 PM Full Code 09/09/2014 7:06 AM 09/09/2014 10:17 AM Documents on File Type Date Recorded 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 [facility] Outpatient Physical Therapy Evaluation Date: 06/09/2020 Patient: Esmer Hughes : 1960 Referring Practitioner: Dr. Emmanuel Hough Referral Date : 06/05/20 Diagnosis: S/P R knee Arthroplasty Treatment Diagnosis: Gait ataxia, R knee pain S/P TKA Onset Date: 06/05/20 PT Insurance Information: 25v Total # of Visits Approved: 18 Per Physician Order Total # of Visits to Date: 1 No Show: 0 Canceled Appointment: 0 Subjective Additional Pertinent Hx: Pt reports that her pain averages 6-7/10 with meds on schedule. Sleeping is difficult only getting 2-3hours at a time. Pt reports prior to sx had not been using AD for gait. 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 Spouse is retired. Pain Screening Patient Currently in Pain: Yes Pain Assessment Pain Assessment: 0-10 Pain Level: 6 Objective Strength RLE R Hip Flexion: 2-/5 R Hip Extension: 2/5 R Hip ABduction: 2-/5 R Knee Extension: 2-/5 R Ankle Dorsiflexion: 3-/5 AROM RLE (degrees) R Knee Flexion 0-145: 77deg R Knee Extension 0: 15degFN R Ankle Dorsiflexion 0-20: WNL AROM RLE (degrees) R Knee Flexion 0-145: 77deg R Knee Extension 0: 15degFN R Ankle Dorsiflexion 0-20: WNL Assessment Body structures, Functions, Activity limitations: Decreased functional mobility , Decreased ADL status, Decreased ROM, Decreased strength, Decreased endurance, Decreased balance, Decreased sensation,Decreased high-level IADLs, Increased pain, Decreased posture Assessment: Pt to benefit from ther ex for ROM and strengthening of R LE. Pt does demonstrate leg length asymmetry, will monitor. Pt to also benefit from gait and balance training to reduce fall riskand improve independence without AD. Prognosis: Good Decision Making: Medium Complexity Exam: LEFS=37/80 Clinical Presentation: Stable/Uncomplicated The Following Comorbities will impact the patient s progression and Plan of Care: Cardiac Disease/Pacemaker and Previous Orthopedic Injury/Surgery Activity Tolerance: Patient Tolerated treatment well Education: POC; Reviewed HEP from Ortho group as well as modifications to complete AAROM where AROMis not yet possible. Barriers to Learning: None Goals Short term goals Time Frame for Short term goals: 9 visits Short term goal 1: Pt to report independence and compliance with HEP for ROM and strengthening. Short term goal 2: Pt to have PROM Knee ext =5deg FN to improve gait FPC goals Time Frame for FPC goals : 18 visits buttermaker goal 1: Pt to score >47/80 on LEFS to improve ADL [place]. FPC goal 2: Pt to have Neutral PROM knee ext to improve standing [place]. buttermaker goal 3: Pt to have 110deg of knee flexion to improve car transfers. FPC goal 4: Pt to amb without AD x150ft without deviations to improve community amb [place]. buttermaker goal 5: Pt to complete up/down 4 steps reciprocally with 1 HR to improve home access. Patient's Goal: Return to walking normally Timed Code Treatment Minutes: 10 Minutes Total Treatment Time: 55 Time In: 1105 Time Out: 1200 Estela Davila, PT Date: 06/09/2020 documented in this encounter* Avtar Ramsey, RETAIL SALES DIRECTOR - 06/13/2020 9:45 AM EDT Images from the original note were not included. [facility] Outpatient Physical Therapy Daily Note Date: 06/13/2020 Patient Name: Esmer Hughes : 1960 (59 y.o.) Referring Practitioner: Dr. Emmanuel Hough Referral Date : 06/05/20 Diagnosis: S/P R knee Arthroplasty Treatment Diagnosis: Gait ataxia, R knee pain S/P TKA Onset Date: 06/05/20 PT Insurance Information: 25v Total # of Visits Approved: 18 Per Physician Order Total # of Visits to Date: 3 No Show: 0 Canceled Appointment: 0 Pre-Treatment Pain: 6/10 Assessment Assessment: Patient states R knee pain is currently a 6/10 this morning, but notes she had another episode of sharp pain when raising her leg into bed last night. Patient called down to surgeon's office regarding this pain and they told her to still go to rehab, but if therapists had any concern togive their office a call. While lifting R LE onto first step to complete HS stretch patient had sharp pain just inferior to patella. Added LAQ with pillow squeeze for VMO strengthening to help with patellar tracking which may becausing pain. Educated patient to continue with this exercise at home. R knee PROM = 14-88 deg. Chart Reviewed: Yes Plan Plan: Continue with current plan Exercises/Modalities/Manual: See DocFlow Sheet Education: Barriers to Learning: None Goals (Total # of Visits to Date: 3) Short Term Goals - Time Frame for Short term goals: 9 visits Short term goal 1: Pt to report independence and compliance with HEP for ROM and strengthening. Short term goal 2: Pt to have PROM Knee ext =5deg FN to improve gait Care Home Goals - Time Frame for buttermaker goals : 18 visits buttermaker goal 1: Pt to score >47/80 on LEFS to improve ADL [place]. FPC goal 2: Pt to have Neutral PROM knee ext to improve standing [place]. buttermaker goal 3: Pt to have 110deg of knee flexion to improve car transfers. FPC goal 4: Pt to amb without AD x150ft without deviations to improve community amb [place]. FPC goal 5: Pt to complete up/down 4 steps reciprocally with 1 HR to improve home access. Post Treatment Pain: 07/21 Time In: 0945 Time Out : 1030 Timed Code Treatment Minutes: 45 Minutes Total Treatment Time: 45 Minutes Avtar Ramsey PTA Date: 06/13/2020 documented in this encounter* Rita Nieves Marissa - 06/16/2020 8:45 AM EDT Images from the original note were not included. [facility] Outpatient Physical Therapy Daily Note Date: 06/16/2020 Patient Name: Esmer Hughes : 1960 (59 y.o.) Referring Practitioner: Dr. Emmanuel Hough Referral Date : 06/05/20 Diagnosis: S/P R knee Arthroplasty Treatment Diagnosis: Gait ataxia, R knee pain S/P TKA Onset Date: 06/05/20 PT Insurance Information: 25v Total # of Visits Approved: 18 Per Physician Order Total # of Visits to Date: 4 No Show: 0 Canceled Appointment: 0 Pre-Treatment Pain: 5/10 Assessment Assessment: Pt reports she had the 12/21/ pain 2x over the weekend with getting in to bed. Pain /10 today. Performed ex as outlined with progression of hurdles . PROM 7-92 today. Advised pt to cont with VMO LAQ and to cont with frequent ice to decrease swelling. Will monitor pain and cont to progress. Chart Reviewed: Yes Plan Plan: Continue with current plan Exercises/Modalities/Manual: See DocFlow Sheet Barriers to Learning: None Goals (Total # of Visits to Date: 4) Short Term Goals - Time Frame for Short term goals: 9 visits Short term goal 1: Pt to report independence and compliance with HEP for ROM and strengthening. Short term goal 2: Pt to have PROM Knee ext =5deg FN to improve gait Photo Engraver Goals - Time Frame for FPC goals : 18 visits buttermaker goal 1: Pt to score >47/80 on LEFS to improve ADL [place]. FPC goal 2: Pt to have Neutral PROM knee ext to improve standing [place]. buttermaker goal 3: Pt to have 110deg of knee flexion to improve car transfers. FPC goal 4: Pt to amb without AD x150ft without deviations to improve community amb [place]. buttermaker goal 5: Pt to complete up/down 4 steps reciprocally with 1 HR to improve home access. Post Treatment Pain: 5/10 Time In: 0845 Time Out : 0930 Timed Code Treatment Minutes: 45 Minutes Total Treatment Time: 45 Minutes Rita Nieves RETAIL SALES DIRECTOR Date: 06/16/2020 documented in this encounter* Estela Davila, PT - 06/20/2020 10:00 AM EDT Images from the original note were not included. [facility] Outpatient Physical Therapy Daily Note Date: 06/20/2020 Patient Name: Esmer Hughes : 1960 (59 y.o.) Referring Practitioner: Dr. Emmanuel Hough Referral Date : 06/05/20 Diagnosis: S/P R knee Arthroplasty Treatment Diagnosis: Gait ataxia, R knee pain S/P TKA Onset Date: 06/05/20 PT Insurance Information: 25v Total # of Visits Approved: 18 Per Physician Order Total # of Visits to Date: 6 No Show: 0 Canceled Appointment: 0 Pre-Treatment Pain: 09/20 Assessment Assessment: Pt with primary c/o stiffness today. She sat in the garage for 1.5hours last evening. Pt has modified how she gets in bed with less pain. Performed ex as outlined for ROM and strength. PTadded heel lift to pts Left shoe with pt noting sig improved gait as Sig Leg length discrepancy persists. Resting knee ext 20 deg FN. PROM to 92 deg flexion. Chart Reviewed: Yes Plan Plan: Continue with current plan Exercises/Modalities/Manual: See DocFlow Sheet Barriers to Learning: None Goals (Total # of Visits to Date: 6) Short Term Goals - Time Frame for Short term goals: 9 visits Short term goal 1: Pt to report independence and compliance with HEP for ROM and strengthening. Short term goal 2: Pt to have PROM Knee ext =5deg FN to improve gait Photo Engraver Goals - Time Frame for buttermaker goals : 18 visits FPC goal 1: Pt to score >47/80 on LEFS to improve ADL [place]. FPC goal 2: Pt to have Neutral PROM knee ext to improve standing [place]. buttermaker goal 3: Pt to have 110deg of knee flexion to improve car transfers. buttermaker goal 4: Pt to amb without AD x150ft without deviations to improve community amb [place]. buttermaker goal 5: Pt to complete up/down 4 steps reciprocally with 1 HR to improve home access. Post Treatment Pain: 09/20 Time In: 1000 Time Out : 1045 Timed Code Treatment Minutes: 45 Minutes Total Treatment Time: 45 Minutes Rita Nieves RETAIL SALES DIRECTOR Date: 06/20/2020 documented in this encounter* Estela Davila, PT - 06/26/2020 8:15 AM EDT Images from the original note were not included. [facility] Outpatient Physical Therapy Daily Note Date: 06/26/2020 Patient Name: Esmer Hughes : 1960 (59 y.o.) Referring Practitioner: Dr. Emmanuel Hough Referral Date : 06/05/20 Diagnosis: S/P R knee Arthroplasty Treatment Diagnosis: Gait ataxia, R knee pain S/P TKA Onset Date: 06/05/20 PT Insurance Information: 25v Total # of Visits Approved: 18 Per Physician Order Total # of Visits to Date: 8 No Show: 0 Canceled Appointment: 0 Pre-Treatment Pain: 6/10 Assessment Assessment: Last night was feeling really good, but while she was sleeping she woke with sig pain. PROM: EXT=13deg Added step up 4 this date with fair [place]. Chart Reviewed: Yes Plan Plan: Continue with current plan Exercises/Modalities/Manual: See DocFlow Sheet Education: Ext ex's need to be a main focus as ROM has plateaued with regard to ext. Barriers to Learning: None Goals (Total # of Visits to Date: 8) Short Term Goals - Time Frame for Short term goals: 9 visits Short term goal 1: Pt to report independence and compliance with HEP for ROM and strengthening. Short term goal 2: Pt to have PROM Knee ext =5deg FN to improve gait Care Home Goals - Time Frame for FPC goals : 18 visits FPC goal 1: Pt to score >47/80 on LEFS to improve ADL [place]. FPC goal 2: Pt to have Neutral PROM knee ext to improve standing [place]. buttermaker goal 3: Pt to have 110deg of knee flexion to improve car transfers. FPC goal 4: Pt to amb without AD x150ft without deviations to improve community amb [place]. buttermaker goal 5: Pt to complete up/down 4 steps reciprocally with 1 HR to improve home access. Post Treatment Pain: 08/21 Time In: 0815 Time Out : 0900 Timed Code Treatment Minutes: 45 Minutes Total Treatment Time: 45 Minutes Estela Davila, PT Date: 06/26/2020 documented in this encounter Additional Source Comments INFORMATION SOURCE (unrecogn ized section and content) DATE CREATED AUTHOR 05/15/2020 [facility] DATE CREATED AUTHOR AUTHOR'S ORGANIZ ATION 06/29/2022 [facility] DATE CREATED AUTHOR AUTHOR'S ORGANIZ ATION 09/10/2022 [facility] DATE CREATED AUTHOR AUTHOR'S ORGANIZ ATION 03/22/2023 Sakina juan DATE CREATED AUTHOR AUTHOR'S ORGANIZ ATION 03/23/2023 [facility] Care Teams (unrecognized sec tion and content) Contract Loader Relationship Specialty Start Date End Date Randa Souza MD [address] [place] [address] PCP - General Family Medicine 01/02/11 Contract Loader Relationship Specialty Start Date End Date Randa Souza MD [address] [place] [address] PCP - General Family Medicine 01/02/11 Contract Loader Relationship Specialty Start Date End Date Randa Souza PCP - General 09/06/07 Source Comments (unrecognize d section and content) In the event this informatio n is protected by the Federal Confidentiality of Alcohol and Drug Abuse Patient Records regulations: The Federal rules restrict any use of the information to criminally investigate or prosecute any alcohol or drug abuse patient.[facility] Reason for Visit (unrecogniz ed section and content) Reason Comments Radio Gen RMP FOR RECORDS PERTAINING TO PATIENTS WHO ARE OR HAVE BEEN ENROLLED IN A CHEMICAL DEPENDENCY/SUBSTANCEABUSE PROGRAM, SOME INFORMATION MAY BE OMITTED. This clinical summary was aggregated from multiple sources. Caution should be exercised in using it in the provision of clinical care. This summary normalizes information from multiple sources, and as a consequence, information in this document may materially change the coding, format and clinical context of patient data. In addition, data may be omitted in some cases. CLINICAL DECISIONS SHOULD BE BASED ON THE PRIMARY CLINICAL RECORDS. [employer] [facility]. provides no warranty or guarantee of the accuracy or completeness of information in this document.
[2023-04-04 09:50] VITALS: BP 146/86; PULSE 62; RESP 16; TEMP 36.3; O2SAT 100
[2023-04-04 10:33] VITALS: RESP 20
[2023-04-04] MEDS: BUPIVACAINE HCL 0.25% PF 25 MG/10 ML VIAL 8 ML INJ (10:33)
[2023-04-04] MEDS: LIDOCAINE HCL 2% PF 100 MG/5 ML VIAL 4 ML INJ (10:34)
[2023-04-04 10:35] VITALS: BP 162/84; PULSE 64; O2SAT 98
[2023-04-04 10:36] VITALS: BP 151/79
--- NOTE | 2023-04-04 10:37 | W.PM.PROCNOT ---
Date of procedure: 04/04/23 Pre-op diagnosis: Lumbar spondylosis Post-op diagnosis: same as pre-op Procedure: Procedure: Bilateral L4-5, L5-S1 medial branch block Medications: Bupivacaine 0.25% 6cc The patient was seen and examined in the preoperative holding area.? An informed consent was obtained and placed on the chart.? The patient was brought to the medical procedure unit and placed in the prone position.? A timeout was completed verifying correct patient, procedure site, positioning, plan, and special equipment.? Using aseptic technique, the needle was placed at left L4. Under direct fluoroscopic visualization a Quincke-tipped spinal needle was advanced to the junction of the superior articulating process with the transverse process at the designated medial branch segment.? Preceded by negative aspiration, the above-mentioned injectate was placed in 1 mL aliquots.? The procedure was repeated at left L5, S1.? The needle was removed and insertion site was covered. The same procedure, at the same levels, was completed on the right side. The patient was taken to the postprocedural recovery area and monitored for an appropriate length of time before found suitable for discharge in the company of a responsible adult. Anesthesia: Local Surgeon: Jadon Colbert Pathology: none sent Condition: stable Disposition: no change
== END 2023-04-04 10:42 | disposition home or self-care (01) ==
PROVIDERS: PCP Family Medicine; Visit Provider Anesthesiology
DX: M47.816 Spondylosis without myelopathy or radiculopathy, lumbar region (principal)
CPT/HCPCS: 64493; 64494; J0665

== ENCOUNTER 2023-04-14 13:29 | Outpatient (OUT) | payer BC, SELFPAY ==
--- OUTSIDE RECORDS SUMMARY | 2023-04-14 13:36 | XMS_ITS | CCD ---
Author Name Unknown Address [id number] [place] [address] Organization [facility] Care Team Providers Care Finance Associate Name Role Phone Randa Souza Primary Care Provider RANDA SOUZA Primary Care Physician [phone] Randa Souza Primary Care Provider ANIRUDH YAO Referring Unavailable ANIRUDH YAO Attending Unavailable LIVAN, RANDA L Primary Care Unavailable ANIRUDH YAO Referring Unavailable VERHOFF, RANDA Anil Primary Care Unavailable Paloma Kaufman Referring Unavailable Paloma Kaufman Attending Unavailable Paloma Kaufman Admitting Unavailable TORI, CHAPARRITA Kaylen Referring Unavailable VERHOFF, RANDA L Primary Care Unavailable VERHOFF, RANDA L Primary Care Unavailable VERHOFF, RANDA L Referring Unavailable TORI, CHAPARRITA N Admitting Unavailable TORICHAPARRITA Attending Unavailable VERHOFF, RANDA L Primary Care Unavailable TORICHAPARRITA N Admitting Unavailable VERHOFF, RANDA L Primary Care Unavailable TORICHAPARRITA N Attending Unavailable VERHOFF, RANDA L Primary Care Unavailable VERHOFF, RANDA L Referring Unavailable VERHOFF, RANDA L Primary Care Unavailable VERHOFF, RANDA L Referring Unavailable VERHOFF, RANDA L Referring Unavailable VERHOFF, RANDA L Primary Care Unavailable VERHOFF, RANDA L Primary Care Unavailable VERHOFF, RANDA L Referring Unavailable HERMINIO ANNE Referring Unavailable VERHOFF, RANDA L Primary Care Unavailable Sayra WHITE, Jadon Duarte Attending Unavailable Sayra WHITE, Jadon Duarte Attending Unavailable Allergies Allergy Classification Reported Allergen(s) Allergy Type Date of Onset Reaction(s) Facility Adhesive Tape (9 sources) Adhesive Tape Substance Allergy 5 [facility] benzoin resin (9 sources) benzoin resin Drug Allergy 4 [facility] Cephalosporins (antibiotic) (9 sources) Cephalexin Drug Allergy 1 [facility] Cinnamon Preparation (9 sources) Cinnamon Preparation Drug Allergy 4 Anaphylaxis, Swelling [facility] (10 sources) Adhesive Tape Propensity to adverse reactions to drug 5 [place], [place] (12 sources) benzoin resin; Translations: [BENZOIN] Drug Allergy 4 Rash [place], [place] (14 sources) Cephalexin; Translations: [cephalexin] Drug Allergy 1 [place], [place] (14 sources) Cinnamon Preparation; Translations: [CINNAMON] Drug Allergy 4 Anaphylaxis, Swelling [place] (2 sources) steristrips; Translations: [steristrips] Allergy to substance redness, itching [facility] (1 source) Tape 1 Drug allergy blisters [facility] Comment on above: does ok with paperta pe (2 sources) Adhesive Tape; Translations: [ADHESIVE TAPE (ROSINS)] Allergy to substance 5 [facility] (1 source) Adhesive Tape; Translations: [Tape] Propensity to adverse reactions (disorder) [facility] Repository Medications Current Medications Medication Drug Class(es) [...] Comment on above: TWO TABS ONE HOUR PA IOR TO DENTAL PROCEDURE AND TWO TABS [...] Pierre Jr., MD 02/09/23 Final result Normal [facility] XR SHOULDER RIGHT (MIN 2 VIE WS)on [...] Pierre Jr., MD 02/09/23 Final result Normal [facility] Comp Metabolic Profon 2022 Albumin [Mass/Vol] 4.4 g/dL Normal 3.5-5.2 [facility] Comment on above: Performed By: #### Z FAST, CP #### [facility] [address] [place] [address] Manager Transmission: Dennis Castellanos MD #### LIPR #### [facility] [address] [place] [address] Manager Transmission: Chele Osman MD Alkaline Phos 103 U/L Normal 35-104 [facility] Comment on above: Performed By: #### Alphonso FAST, CP #### [facility] [address] [place] [address] Manager Transmission: Dennis Castellanos MD #### LIPR #### [facility] [address] [place] [address] Manager Transmission: Chele Osman MD ALT [Catalytic activity/Vol] 13 U/L Normal 5-33 [facility] Comment on above: Performed By: #### Alphonso FAST, CP #### [facility] [address] [place] [address] Manager Transmission: Dennis Castellanos MD #### LIPR #### [address] [address] Manager Transmission: Chele Osman MD Anion gap [Moles/Vol] 9 mmol/L Normal 9-17 [facility] Comment on above: Performed By: #### Alphonso FAST, CP #### [facility] [address] [place] [address] Manager Transmission: Dennis Castellanos MD #### LIPR #### [address] [address] Manager Transmission: Chele Osman MD AST [Catalytic activity/Vol] 19 U/L Normal <32 [facility] Comment on above: Performed By: #### Alphonso FAST, CP #### [facility] [address] [place] [address] Manager Transmission: Dennis Castellanos MD #### LIPR #### [facility] [address] [place] [phone] Manager Transmission: Chele Osman MD Bilirubin [Mass/Vol] 0.4 mg/dL Normal 0.3-1.2 [facility] Comment on above: Performed By: #### Alphonso FAST, CP #### [facility] [address] [place], [place] [phone] Manager Transmission: Dennis Castellanos MD #### LIPR #### [address] [place], [place] [phone] Manager Transmission: Chele Osman MD BUN/CRE Ratio 30 High 9-20 [facility] Comment on above: Performed By: #### Alphonso FAST, CP #### [facility] [address] [place], [place] [phone] Manager Transmission: Dennis Castellanos MD #### LIPR #### [address] [phone] Manager Transmission: Chele Osman MD Calcium [Mass/Vol] 10.3 mg/dL Normal 8.6-10.4 [facility] Comment on above: Performed By: #### Alphonso FAST, CP #### [facility] [address] [place], [place] [phone] Manager Transmission: Dennis Castellanos MD #### LIPR #### [address] [address] Manager Transmission: Chele Osman MD Chloride [Moles/Vol] 98 mmol/L Normal 98-107 [facility] Comment on above: Performed By: #### Alphonso FAST, CP #### [facility] [address] [place], [place] [phone] Manager Transmission: Dennis Castellanos MD #### LIPR #### [address] [address] Manager Transmission: Chele Osman MD CO2 [Moles/Vol] 31 mmol/L Normal 20-31 [facility] Comment on above: Performed By: #### Alphonso FAST, CP #### [facility] [address] [place], [place] [phone] Manager Transmission: Dennis Castellanos MD #### LIPR #### [address] [place] [address] Manager Transmission: Chele Osman MD Creatinine [Mass/Vol] 0.7 mg/dL Normal 0.5-0.9 [facility] Comment on above: Performed By: #### Alphonso FAST, CP #### [facility] [address] [place], [place] [phone] Manager Transmission: Dennis Castellanos MD #### LIPR #### [facility] [address] [place] [address] Manager Transmission: Chele Osman MD GFR/1.73 sq M.predicted among non-blacks MDRD (S/P/Bld) [Vol rate/Area] mL/min/{1.73_m2} Normal >60 [facility] Comment on above: Result Comment: These results [...] renal tubular secretion. Performed By: #### Alphonso FAST, CP #### [facility] [address] [place], [place] [phone] Manager Transmission: Dennis Castellanos MD #### LIPR #### [facility] [address] [place] [address] [phone] Manager Transmission: Chele Osman MD Glucose [Mass/Vol] 96 mg/dL Normal 70-99 [facility] Comment on above: Performed By: #### Alphonso FAST, CP #### [facility] [address] [place], [place] [phone] Manager Transmission: Dennis Castellanos MD #### LIPR #### [address] [phone] Manager Transmission: Chele Osman MD Potassium [Moles/Vol] 3.4 mmol/L Low 3.7-5.3 [facility] Comment on above: Performed By: #### Z FAST, CP #### [facility] [address] [place], [place] [phone] Manager Transmission: Dennis Castellanos MD #### LIPR #### [address] [phone] Manager Transmission: Chele Osman MD Protein [Mass/Vol] 7.6 g/dL Normal 6.4-8.3 [facility] Comment on above: Performed By: #### Alphonso FAST, CP #### [facility] [address] [place], [place] [phone] Manager Transmission: Dennis Castellanos MD #### LIPR #### [address] [place], [place] [phone] Manager Transmission: Chele Osman MD Sodium [Moles/Vol] 138 mmol/L Normal 135-144 [facility] Comment on above: Performed By: #### Alphonso FAST, CP #### [facility] [address] [place], [place] [phone] Manager Transmission: Dennis Castellanos MD #### LIPR #### [address] [address] Manager Transmission: Chele Osman MD Urea nitrogen [Mass/Vol] 21 mg/dL Normal 8-23 [facility] Comment on above: Performed By: #### Alphonso FAST, CP #### [facility] [address] [place], [place] [phone] Manager Transmission: Dennis Castellanos MD #### LIPR #### [address] [address] Manager Transmission: Chele Osman MD Lipid Profileon 02-08-2023 Cholesterol [Mass/Vol] 207 mg/dL High 0-199 [facility] Comment on above: Result Comment: Cholesterol Guidelines: <200 Desirable 200-240 Borderline >240 Undesirable Performed By: #### Alphonso FAST, CP #### [facility] [address] [place] [address] Manager Transmission: Dennis Castellanos MD #### LIPR #### [facility] [address] [place] [address] Manager Transmission: Chele Osman MD Cholesterol in HDL [Mass/Vol] 63 mg/dL Normal >40 [facility] Comment on above: Result Comment: HDL Guidelines: <40 Undesirable 40-59 Borderline >59 Desirable Performed By: #### Alphonso FAST, CP #### [facility] [address] [place] [address] Manager Transmission: Dennis Castellanos MD #### LIPR #### [address] [address] Manager Transmission: Chele Osman MD Cholesterol in LDL [Mass/Vol] 105 mg/dL High 0-100 [facility] Comment on above: Result Comment: LDL Guidelines: <100 Desirable 100-129 Near to/above Desirable 130-159 Borderline >159 Undesirable Direct (measured) LDL and calculated LDL are not interchangeable tests. Performed By: #### Alphonso FAST, CP #### [facility] [address] [place] [address] Manager Transmission: Dennis Castellanos MD #### LIPR #### [facility] [address] [place] [address] Manager Transmission: Chele Osman MD Cholesterol in VLDL [Mass/Vol] 39 mg/dL Normal [facility] Comment on above: Performed By: #### Alphonso FAST, CP #### [facility] [address] [place] [address] Manager Transmission: Dennis Castellanos MD #### LIPR #### [facility] [address] [place] [address] Manager Transmission: Chele Osman MD Cholesterol.total/Cho lesterol in HDL [Mass ratio] 3.0 {ratio} Normal [facility] Comment on above: Performed By: #### Z FAST, CP #### [facility] [address] [place] [address] Manager Transmission: Dennis Castellanos MD #### LIPR #### [facility] [address] [place] [address] Manager Transmission: Chele Osman MD Triglyceride [Mass/Vol] 196 mg/dL High 0-149 [facility] Comment on above: Result Comment: Triglyceride Guidelines: <150 Desirable 150-199 Borderline 200-499 High >499 Very high Based on AHA Guidelines for fasting triglyceride, December 2011. Performed By: #### Z FAST, CP #### [facility] [address] [place], [place] [phone] Manager Transmission: Dennis Castellanos MD #### LIPR #### [facility] [address] [place] [address] Manager Transmission: Chele Osman MD Patient fasting?on 3 Patient fasting? yes Normal [facility] Comment on above: Performed By: #### Z FAST, CP #### [facility] [address] [place], [place] [phone] Manager Transmission: Dennis Castellanos MD #### LIPR #### [address] [place] [address] Manager Transmission: Chele Osman MD Surgical Pathology Reporton 01-20-2023 Surgical Pathology Report (NOTE) Path Number: [id number] -- Diagnosis -- A. Stomach, antrum, endoscopic [...] for each. Microscopic examination performed. Processing Lab: [facility] [address] [place] [phone] [place] [address] SURGICAL PATHOLOGY CONSULTATION Patient Name: ESMER HUGHES [facility] Rec: [id number] [facility] [place] ANATOMIC PATHOLOG[facility] [address] [place] [phone] [facility] H. pylori Antigenon 09-03-19 23 H. 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.] other significant abnormality. IMPRESSION: NO SIGNIFICANT CHANGE Global Sourcing Manager: RADHAMES Transcribe Date/Time: Jun 25 2022 2:18P Dictated by : KRISTYN SANTILLAN MD This examination was interpreted and the report reviewed and electronically signed by: KRISTYN SANTILLAN MD on Jun 25 2022 2:19PM EST [id number] Normal [facility] XR KNEE 3V AP/LAT/MERCHANT R Ton [...] other significant abnormality. IMPRESSION: NORMAL POSTOPERATIVE FINDINGS Global Sourcing Manager: RADHAMES Transcribe Date/Time: Jun 25 2022 2:17P Dictated by : DAYAN CHANG MD This examination was interpreted and the report reviewed and electronically signed by: DAYAN CHANG MD on Jun 25 2022 2:18PM EST [id number] Normal [facility] BD Bone Density DEXAon 06-21 BD [...] MD Transcribed by: NADEEM Technologist: BARRY Normal [facility] [place] Mamm Screen w/CAD if perf and [...] very important to your health. The current [employer] [place] [employer] and National Comprehensive Cancer [...] Gage Gtz M.D. Transcribed by: NADEEM Technologist: [facility] Assessment: BI-RADS Category 2-Benign finding Recommendation: Normal interval follow-up Normal [facility] CHEMISTRYOrdered By: SYSTEM SYSTEM on 06-17-2022 25-hydroxyvitamin D3 [Mass/Vol] 38.2 ng/mL Normal 30.0 - 100.0 ng/mL [facility] Remisol Calcium [Mass/Vol] 9.3 mg/dL Normal 8.9 - 11. 1 mg/dL [facility] Remisol Creatinine [Mass/Vol] 0.8 mg/dL Normal 0.5 - 1.3 mg/dL [facility] Remisol GFR/1.73 sq M.predicted among blacks MDRD (S/P/Bld) [Vol rate/Area] mL/min/1.73 m2 Normal >=59mL/min/1. 73 m2 [facility] Chem S GFR/1.73 sq M.predicted among non-blacks MDRD (S/P/Bld) [Vol rate/Area] mL/min/1.73 m2 Normal >=59mL/min/1. 73 m2 [facility] Chem S Calciumon 06-17-2022 Calcium [Mass/Vol] 9.3 mg/dL Normal 8.9-11.1 [facility] Comment on above: Performed By: #### 1 [id number], [id number], [id number], [id number] #### [facility] [address] [place] [address] Consent for Treatmenton Consent for Treatment [id number] D:127 Normal [facility] Creatinineon 06-17-2022 Creatinine [Mass/Vol] 0.8 mg/dL Normal 0.5-1.[address] [facility] Comment on above: Performed By: #### 1 [id number], [id number], [id number], [id number] #### [facility] [address] [place] [address] Vitamin D 25 Hydroxyon 06-17 25-hydroxyvitamin D3 [Mass/Vol] 38.2 ng/mL Normal 30.0-100.0 [facility] Comment on above: Result Comment: Vit murphy D deficiency has been defined as a level of serum 25-OH vitamin D less than 20 ng/mL (1,2) by the [place] of Medicine and an Endocrine Society practice guideline. The Endocrine Society further defined vitamin D insufficiency as a level between 21 and 29 ng/mL (2). 1. IOM ([place] of Medicine). 2010. Dietary reference intakes for calcium and D. [place]: The National Academies Press. 2. Jamey CHAKRABORTY, [place], John CUADRA, et al. Evaluation, treatment, and prevention of vitamin D deficiency: an Endocrine Society clinical practice guideline. JCEM. 2010; 96 (7):1911-30. Performed By: #### 1 [id number], [id number], [id number], [id number] #### [facility] [address] [place] [address] eGFRon 06-17-2022 GFR/1.73 sq M.predicted among blacks MDRD (S/P/Bld) [Vol rate/Area] mL/min/{1.73_m2} Normal >=59 [facility] Comment on above: Order Comment: Order added by Discern Expert. Result Comment: eGFR is race adjusted. AA=. Performed By: #### 1 [id number], [id number], [id number], [id number] #### [facility] [address] [place] [address] GFR/1.73 sq M.predicted among non-blacks MDRD (S/P/Bld) [Vol rate/Area] mL/min/{1.73_m2} Normal >=59 [facility] Comment on above: Order Comment: Order added by Discern Expert. Result Comment: Filler Feeder jose kidney disease could be indicated at eGFR's of less than 60 mL/min/1.73m2. Kidney failure is indicated at less than 15 mL/min/1.73m2. Performed By: #### 1 [id number], [id number], [id number], [id number] #### [facility] [address] [place] [address] Physician Orderon 06-03-2022 Physician Order [id number] :127 Normal [facility] COVID-19, Rapidon 09-25-2021 SARS-CoV-2 (COVID-19) RNA MURRAY+probe Ql (Unsp spec) Not detected Not Detected [facility] Comment on above: Rapid NAAT: [...] management decisions. Fact sheet for Healthcare Providers: https://www.fda.gov/media/326729/download Fact sheet for Patients: https://www.fda.gov/media/205138/download Methodology: Isothermal Nucleic Acid Amplification Specimen Description .NASOPHARYNGEAL SWAB [facility] Comprehensive Metabolic Pane kiki 07-25-2021 Albumin [Mass/Vol] 4.2 g/dL 3.5 - 5.2 g/dL [facility] ALP (Bld) [Catalytic activity/Vol] 86 U/L 35 - 104 U/L [facility] ALT [Catalytic activity/Vol] 11 U/L 5 - 33 U/L [facility] Anion gap [Moles/Vol] 8 mmol/L Low 9 - 17 mmol/L [facility] AST [Catalytic activity/Vol] 17 U/L <32 [facility] Bilirubin [Mass/Vol] 0.39 mg/dL 0.30 - 1.20 mg/dL [facility] Calcium [Mass/Vol] 9.8 mg/dL 8.6 - 10. 4 mg/dL [facility] Chloride [Moles/Vol] 100 mmol/L 98 - 10 7 mmol/L [facility] CO2 [Moles/Vol] 31 mmol/L 20 - 31 mmol/L [facility] Creatinine [Mass/Vol] 0.61 mg/dL 0.50 - 0.90 mg/dL [facility] Free PSA/Total PSA [Mass fraction] 7.2 g/dL 6.4 - 8.3 g/dL [facility] GFR >60 >60 mL/min [facility] GFR Non- >60 >60 mL/min [facility] GFR/1.73 sq M.predicted MDRD (S/P/Bld) [Vol rate/Area] [facility] Comment on above: Average GFR for 50-5 9 years old: 93 mL/min/1.73sq m Chronic Kidney Disease: <60 mL/min/1.73sq m Kidney failure: <15 mL/min/1.73sq m eGFR calculated using average adult body mass. Additional eGFR calculator available at: http://www.IID/multiple_crcl_2012.htm Glucose [Mass/Vol] 88 mg/dL 70 - 99 mg/dL [facility] Interpretation and review of laboratory results Abnormal [facility] Potassium [Moles/Vol] 3.8 mmol/L 3.7 - 5.3 mmol/L [facility] Sodium [Moles/Vol] 139 mmol/L 135 - 144 mmol/L [facility] Urea nitrogen (BldV) [Mass/Vol] 16 mg/dL 6 - 20 mg/dL [facility] Urea nitrogen/Creatinine (Bld) [Mass ratio] 26 High [facility] Lipid Panelon 07-25-2021 Cholesterol [Mass/Vol] 225 mg/dL High <200 [facility] Comment on above: Cholesterol Guidelines: <200 Desirable 200-240 Borderline >240 Undesirable Cholesterol in HDL [Mass/Vol] 71 mg/dL >40 [facility] Comment on above: HDL Guidelines: <40 Undesirable 40-59 Borderline >59 Desirable Cholesterol in LDL [Mass/Vol] 121 mg/dL 0 - 130 mg/dL [facility] Comment on above: LDL Guidelines: <100 Desirable 100-129 Near to/above Desirable 130-159 Borderline >159 Undesirable Direct (measured) LDL and calculated LDL are not interchangeable tests. Cholesterol.total/Cho lesterol in HDL [Mass ratio] 3.2 {ratio} <5 [facility] Interpretation and review of laboratory results Abnormal [facility] Triglyceride [Mass/Vol] 163 mg/dL High <150 [facility] Comment on above: Triglyceride Guidelines: <150 Desirable 150-199 Borderline 200-499 High >499 Very high Based on AHA Guidelines for fasting triglyceride, December 2011. [facility] Fasting?on 2 Patient Fasting? YES [facility] lynnette [facility] Comprehensive Metabolic Pane lOrdered By: Randa Souza on 07-25-2020 Albumin [Mass/Vol] 4.2 g/dL 3.5 - 5.2 g/dL [employer] Phone: Albumin/Globulin Ratio NOT REPORTED [employer] Phone: ALP (Bld) [Catalytic activity/Vol] 85 U/L 35 - 104 U/L [employer] Phone: ALT [Catalytic activity/Vol] 12 U/L 5 - 33 U/L [employer] Phone: Anion gap [Moles/Vol] 9 mmol/L 9 - 17 mmol/L [employer] Phone: AST [Catalytic activity/Vol] 16 U/L <32 [employer] Phone: Bilirubin [Mass/Vol] 0.32 mg/dL 0.30 - 1.20 mg/dL [employer] Phone: Calcium [Mass/Vol] 9.7 mg/dL 8.6 - 10. 4 mg/dL [employer] Phone: Chloride [Moles/Vol] 101 mmol/L 98 - 10 7 mmol/L [employer] Phone: CO2 [Moles/Vol] 31 mmol/L 20 - 31 mmol/L [employer] Phone: Creatinine [Mass/Vol] 0.57 mg/dL 0.50 - 0.90 mg/dL [employer] Phone: Free PSA/Total PSA [Mass fraction] 7.1 g/dL 6.4 - 8.3 g/dL [employer] Phone: GFR >60 >60 mL/min [facility] Phone: GFR Non- >60 >60 mL/min [employer] Phone: GFR/1.73 sq M.predicted MDRD (S/P/Bld) [Vol rate/Area] [employer] Phone: Comment on above: Average GFR for 50-5 9 years old: 93 mL/min/1.73sq m Chronic Kidney Disease: <60 mL/min/1.73sq m Kidney failure: <15 mL/min/1.73sq m eGFR calculated using average adult body mass. Additional eGFR calculator available at: http://www.IID/multiple_crcl_2012.htm GFR/1.73 sq M.predicted MDRD (S/P/Bld) [Vol rate/Area] NOT REPORTED [employer] Phone: Glucose [Mass/Vol] 86 mg/dL 70 - 99 mg/dL [facility] [employer] Phone: Interpretation and review of laboratory results Abnormal [facility] Phone: Potassium [Moles/Vol] 3.6 mmol/L Low 3.7 - 5.3 mmol/L [facility] Phone: Sodium [Moles/Vol] 141 mmol/L 135 - 144 mmol/L [employer] Phone: Urea nitrogen (BldV) [Mass/Vol] 20 mg/dL 6 - 20 mg/dL [employer] Phone: Urea nitrogen/Creatinine (Bld) [Mass ratio] 35 High [facility] Phone: Lipid PanelOrdered By: Randa Souza on 07-25-2020 Cholesterol [Mass/Vol] 219 mg/dL High <200 [employer] Phone: Comment on above: Cholesterol Guidelines: <200 Desirable 200-240 Borderline >240 Undesirable Cholesterol in HDL [Mass/Vol] 71 mg/dL >40 [employer] Phone: Comment on above: HDL Guidelines: <40 Undesirable 40-59 Borderline >59 Desirable Cholesterol in LDL [Mass/Vol] 106 mg/dL 0 - 130 mg/dL [employer] Phone: Comment on above: LDL Guidelines: <100 Desirable 100-129 Near to/above Desirable 130-159 Borderline >159 Undesirable Direct (measured) LDL and calculated LDL are not interchangeable tests. Cholesterol in VLDL [Mass/Vol] NOT REPORTED High 1 - 30 mg/dL [employer] Phone: Cholesterol.total/Cho lesterol in HDL [Mass ratio] 3.1 {ratio} <5 [employer] Phone: Interpretation and review of laboratory results Abnormal [employer] Phone: Triglyceride [Mass/Vol] 208 mg/dL High <150 [employer] Phone: Comment on above: Triglyceride Guidelines: <150 Desirable 150-199 Borderline 200-499 High >499 Very high Based on AHA Guidelines for fasting triglyceride, December 2011. Patient Fasting?Ordered By: Randa Souza on 07-25-2020 Patient Fasting? YES [employer] Phone: Basic Metabolic Panelon Calcium [Mass/Vol] 10.3 mg/dL Normal 8.5-10.6 [facility] Chloride [Moles/Vol] 98 mmol/L Normal 98-107 [facility] CO2 [Moles/Vol] 32 mmol/L Normal 21-32 [facility] Creatinine [Mass/Vol] 0.65 mg/dL Normal 0.55-1.02 [facility] Glucose [Mass/Vol] 81 mg/dL Normal 70-99 [facility] Potassium [Moles/Vol] 3.7 mmol/L Normal 3.5-5.1 [facility] Sodium [Moles/Vol] 139 mmol/L Normal 136-145 [facility] Urea nitrogen (BldV) [Mass/Vol] 20 mg/dL High 7.0-18.0 [facility] Urea nitrogen/Creatinine [Mass ratio] 31 mg/mg Normal [facility] CBC with Differentialon Basophils (Bld) [#/Vol] 0.0 thou/mcL Normal 0.0-0.2 [facility] Basophils/100 WBC (Bld) 0.4 % Normal 0-3 [facility] Differential cell count method Nom (Bld) AUTOMATED DIFFERENTIAL Normal [facility] Eosinophils (Bld) [#/Vol] 0.1 thou/mcL Normal 0.0-0.4 [facility] Eosinophils/100 WBC (Bld) 1.6 % Normal 0-7 [facility] Erythrocyte distribution width (RBC) [Entitic vol] 12.7 % Normal 11.7-15.0 [facility] Hematocrit (Bld) [Volume fraction] 40.6 % Normal 34.0-50.0 [facility] Hemoglobin (Bld) [Mass/Vol] 13.9 g/dL Normal 11.5-17.0 [facility] Lymphocytes (Bld) [#/Vol] 1.8 thou/mcL Normal 0.7-4.5 [facility] Lymphocytes/100 WBC (Bld) 25.6 % Normal 14-46 [facility] MCH (RBC) [Entitic mass] 31.7 Picograms Normal 27.0-34.0 [facility] MCHC (RBC) [Mass/Vol] 34.2 g/dL Normal 32.0-36.0 [facility] MCV (RBC) [Entitic vol] 92.6 fL Normal 80-98 [facility] Monocytes (Bld) [#/Vol] 0.4 thou/mcL Normal 0.1-1.0 [facility] Monocytes/100 WBC (Bld) 5.3 % Normal 4-13 [facility] Neutrophils (Bld) [#/Vol] 4.6 thou/mcL Normal 1.5-7.8 [facility] Neutrophils/100 WBC (Bld) 67.1 % Normal 40-74 [facility] Platelet mean volume (Bld) [Entitic vol] 8.7 fL Normal 7.5-11.2 [facility] Platelets (Bld) [#/Vol] 291 thou/mcL Normal 140-415 [facility] RBC (Bld) [#/Vol] 4.38 x(10)6/mcL Normal 3.80-5.60 [facility] WBC (Bld) [#/Vol] 6.8 thou/mcL Normal 4.0-10.5 [facility] Comprehensive Metabolic Pane kiki 07-21-2019 Albumin [Mass/Vol] 4.3 g/dL 3.5 - 5.2 g/dL [place], [place] Albumin/Globulin [Mass ratio] NOT REPORTED [place] ALP [Catalytic activity/Vol] 78 U/L 35 - 104 U/L [place] ALT [Catalytic activity/Vol] 11 U/L 5 - 33 U/L [place] Anion gap [Moles/Vol] 8 mmol/L Low 9 - 17 mmol/L [place] AST [Catalytic activity/Vol] 18 U/L <32 [place] Bilirubin Ql (U) 0.41 mg/dL 0.3 - 1.2 mg/dL [place] Bun/Cre Ratio 29 High [place] Calcium [Mass/Vol] 10.0 mg/dL 8.6 - 10. 4 mg/dL [place] Chloride [Moles/Vol] 101 mmol/L 98 - 10 7 mmol/L [place] CO2 [Moles/Vol] 28 mmol/L 20 - 31 mmol/L [place] Creatinine [Mass/Vol] 0.62 mg/dL 0.5 - 0.9 mg/dL [place] GFR >60 >60 mL/min [place] GFR Non- >60 >60 mL/min [place] GFR/1.73 sq M predicted among non-blacks MDRD (S/P/Bld) [Vol rate/Area] NOT REPORTED [place] GFR/1.73 sq M predicted among non-blacks MDRD (S/P/Bld) [Vol rate/Area] [place] Comment on above: Average GFR for 50-5 9 years old: 93 mL/min/1.73sq m Chronic Kidney Disease: <60 mL/min/1.73sq m Kidney failure: <15 mL/min/1.73sq m eGFR calculated using average adult body mass. Additional eGFR calculator available at: http://www.Cooking.com.Truzip/multiple_crcl_2012.htm Glucose [Mass/Vol] 101 mg/dL High 70 - 99 mg/dL [place], [place] Potassium [Moles/Vol] 3.7 mmol/L 3.7 - 5.3 mmol/L [place] Protein [Mass/Vol] 7.4 g/dL 6.4 - 8.3 g/dL [place] Sodium [Moles/Vol] 137 mmol/L 135 - 144 mmol/L [place] Urea nitrogen [Mass/Vol] 18 mg/dL 6 - 20 mg/dL [place] Lipid Panelon 07-21-2019 Cholesterol [Mass/Vol] 227 mg/dL High <200 [place] Comment on above: Cholesterol Guidelines: <200 Desirable 200-240 Borderline >240 Undesirable Cholesterol in HDL [Mass/Vol] 81 mg/dL >40 [place] Comment on above: HDL Guidelines: <40 Undesirable 40-59 Borderline >59 Desirable Cholesterol in LDL [Mass/Vol] 116 mg/dL 0 - 130 mg/dL [place] Comment on above: LDL Guidelines: <100 Desirable 100-129 Near to/above Desirable 130-159 Borderline >159 Undesirable Direct (measured) LDL and calculated LDL are not interchangeable tests. Cholesterol in VLDL [Mass/Vol] NOT REPORTED 1 - 30 mg/dL [place] Cholesterol.total/Cho lesterol in HDL [Mass ratio] 2.8 {ratio} <5 [place] Triglyceride [Mass/Vol] 150 mg/dL High <150 [place] Comment on above: Triglyceride Guidelines: <150 Desirable 150-199 Borderline 200-499 High >499 Very high Based on AHA Guidelines for fasting triglyceride, December 2011. Otheron 07-21-2019 Interpretation and review of laboratory results Abnormal [place] Patient Fasting?on 0 Patient Fasting? YES [place] Encounters Encounter Date Encounter Type Care Provider Facility Start: 04-04-2023 End: 04-05-2023 ambulatory Jadon Colbert MD Facility:[facility] Start: 03-22-2023 End: 03-22-2023 ambulatory [facility] Start: 03-21-2023 End: 01-09-2024 ambulatory Jadon Colbret MD Facility: [facility] Start: 02-09-2023 End: 02-12-2023 ambulatory [facility] Start: 02-08-2023 End: 02-09-2023 ambulatory [facility] Start: 02-07-2023 ambulatory [facility] Start: 01-20-2023 End: 01-20-2023 ambulatory [facility] Start: 01-13-2023 End: 01-14-2023 ambulatory [facility] Start: 01-13-2023 Encounter for other preprocedural examination [facility] Start: 09-01-2022 End: 09-02-2022 ambulatory HERMINIO R [facility] Start: 06-25-2022 End: 06-25-2022 ambulatory Trini Escobar RT(R) Radiology Comment on above: Radio Gen RMP Start: 06-25-2022 Patient encounter procedure Trini Escobar RT(R) [facility] Start: 06-17-2022 End: 06-18-2022 ambulatory Paloma Kaufman [place] Start: 06-17-2022 End: 06-17-2022 Patient encounter procedure Paloma Kaufman [facility] Start: 09-25-2021 End: 09-25-2021 Subsequent hospital visit by physician [facility] Covid19 Pat Screening Schedule [facility] PRE ADMIT Comment on above: Viral URI; Suspected COVID-19 virus infection Start: 07-25-2021 End: 07-25-2021 Subsequent hospital visit by physician Randa Souza MD Work Phone: [facility] Comment on above: Essential hypertensi on, benign Start: 07-25-2020 End: 07-25-2020 Subsequent hospital visit by physician Randa Souza MD Work Phone: [facility] Comment on above: Essential hypertensi on, [...] 06-13-2020 Subsequent hospital visit by physician Avtar ELLISONHZ Physical Therapy Comment on above: Arrived Start: 06-11-2020 End: 06-11-2020 Subsequent hospital visit by physician Avtar Ramsey [facility] Comment on above: Arrived Start: 06-09-2020 End: 06-09-2020 Subsequent hospital visit by physician Estela Davila [facility] Comment on above: Arrived Start: 07-21-2019 End: 07-21-2019 Subsequent hospital visit by physician Randa Souza [facility] Comment on above: Essential hypertensi on, benign Procedures Date Procedure Procedure Detail Performing Clinician Start: 09-25-2021 COVID-19, RAPID Jose Razabeni 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 Work Phone: Start: 07-25-2021 Comprehensive metabo lic [...] Nieves Start: 03-14-1983 bone spur removal, left Paloma Shae Start: 03-14-1980 pins left hip removed T eresa Shae Start: 03-14-1975 pins left hip Paloma La mpe 5 hip surgeries, left Paloma Shae carpal tunnel surgery 3 Amie sa Shae Comment on above: left-04/2016; right- Cholecystectomy Paloma Shae Dilation and curetta ge of uterus Paloma Shae Total replacement of left hip joint Paloma Shae Comment on above: x 2 Plan of Treatment Date Care Activity Detail Author Start: 10-09-2028 DTaP/Tdap/Td vaccine (2 - Tdap) DTaP/Tdap/Td vaccine (2 - Tdap) [facility] Start: 07-25-2026 Lipid panel Lipids [facility] [employer] Start: 07-25-2025 Lipid panel [facility] Start: 09-09-2024 Screening for malignant neoplasm of colon [facility] Start: 07-20-2024 Lipid panel Lipid screen [facility] Work Phone: Start: 07-16-2023 Lipid panel Lipid screen [facility] [place] Start: 07-29-2022 Depression Screen Depression Screen [facility] [employer] Start: 03-14-2022 DEPRESSION ASSESSMENT DEPRESSION ASSESSMENT [facility] Start: 02-02-2022 End: 02-02-2022 Patient encounter procedure 02/02/2022 Office Visit Family Medicine Randa Souza MD [address] [place] [address] [facility] Start: 01-22-2022 Screening for malignant neoplasm of breast Breast cancer screen [facility] Start: 11-12-2021 Influenza vaccination Flu vaccine (#1) [facility] Start: 07-30-2021 Depression Screen Depression Screen [facility] Start: 07-29-2021 End: 07-29-2021 Patient encounter procedure 07/29/2021 Office Visit Family Medicine Randa Souza MD [address] [place] [id number] [facility] Start: 07-25-2021 Creatinine measurement Creatinine monitoring [facility] [employer] Phone: Start: 07-25-2021 Potassium monitoring Potassium monitoring [facility] [employer] Phone: Start: 06-03-2021 COVID-19 Vaccine (4 - Booster for Moderna series) COVID-19 Vaccine (4 - Booster for Moderna series) [facility] Start: 02-01-2021 Screening for malignant neoplasm of breast Breast cancer screen [facility] [place] Start: 07-30-2020 End: 07-30-2020 Office Visit 07/30/2020 Office Visit Family Randa Briggs MD [address] [place] [phone] [facility] Start: 07-20-2020 Creatinine measurement Creatinine monitoring [facility] [employer] Phone: Start: 07-20-2020 Potassium monitoring Potassium monitoring [facility] [employer] Phone: Start: 07-18-2020 End: 07-18-2020 Patient encounter procedure 07/18/2020 Appointment Physical Therapy Estela Davila PT [facility] Start: 07-16-2020 End: 07-16-2020 Patient encounter procedure 07/16/2020 Appointment Physical Therapy Rita Nieves [facility] Start: 07-14-2020 End: 07-14-2020 Patient encounter procedure 07/14/2020 Appointment Physical Therapy Rita Nieves [facility] Start: 07-11-2020 End: 07-11-2020 Patient encounter procedure 07/11/2020 Appointment Physical Therapy Estela Davila PT [facility] Start: 07-09-2020 End: 07-09-2020 Patient encounter procedure 07/09/2020 Appointment Physical Therapy Rita Nieves [facility] Start: 07-07-2020 End: 07-07-2020 Patient encounter procedure 07/07/2020 Appointment Physical Therapy Rita Nieves [facility] Start: 07-04-2020 End: 07-04-2020 Appointment [facility] Start: 07-02-2020 End: 07-02-2020 Appointment [...] COVID-19 Vaccine (2 - Moderna 2-dose series) [facility] [employer] Phone: Start: 06-23-2020 End: 06-23-2020 Appointment 06/23/2020 [...] Office Visit 07/24/2019 Office Visit Family [facility] [address] [place], [place] [id number] [phone] [facility] Start: 07-16-2019 Creatinine measurement Creatinine monitoring [facility] [place] Start: 07-16-2019 Potassium monitoring Potassium monitoring [facility] [place] Start: 2012 Shingles Vaccine (1 of 2) Shingles Vaccine (1 of 2) [facility] Start: 2012 SHINGRIX VACCINE (1 of 2) SHINGRIX VACCINE (1 of 2) [facility] Start: 09-15-2007 COLOGUARD (FIT-DNA) COLOGUARD (FIT-DNA) [facility] Start: 09-15-2007 Colonoscopy COLONOSCOPY [facility] Start: 09-15-2007 COLORECTAL CANCER SCREENING COLORECTAL CANCER SCREENING [facility] Start: 09-15-[address] COLONOGRAPHY [facility] Start: 09-15-2007 DIABETES SCREEN DIABETES SCREEN [facility] Start: 09-15-2007 FECAL OCCULT BLOOD FECAL OCCULT BLOOD [facility] Start: 09-15-2007 LIPID SCREEN LIPID SCREEN [facility] Start: 09-15-2007 Screening for malignant neoplasm of colon [facility] Start: 09-15-2007 SIGMOIDOSCOPY SIGMOIDOSCOPY [facility] Start: 2002 Diabetes screen Diabetes screen [facility] Work Phone: Start: 2002 Mammography MAMMOGRAM [facility] Start: 1992 HPV TESTING HPV TESTING [facility] Start: 09-15-1983 PAP TESTING PAP TESTING [facility] Start: 1981 Urine microalbumin profile DTAP,TDAP,TD (1 - Tdap) [facility] Start: 1980 Hepatitis C screening Hepatitis C screen [facility] Start: 1980 HEPATITIS C SCREENING HEPATITIS C SCREENING [facility] Start: 1980 HIV SCREENING HIV SCREENING [facility] Start: 1977 HIV screening HIV screen [facility] Start: 1962 Hepatitis C screening Hepatitis C screen [place], [place] Immunizations Immunization Date Immunization Notes Care Provider Fa shena 03-21-2021 influenza, injectabl e, quadrivalent, preservative free Randa Souza MD Work Phone: [employer] Work Phone: 02-03-2021 COVID-19, Moderna, Primary or Immunocompromised, PF, 100mcg/0.5mL Randa Souza MD Work Phone: [employer] Work Phone: 06-24-2020 COVID-19, Moderna, Primary or Immunocompromised, PF, 100mcg/0.5mL Randa Souza MD Work Phone: [employer] Work Phone: 05-27-2020 COVID-19, Moderna, Primary or Immunocompromised, PF, 100mcg/0.5mL Randa Souza MD Work Phone: [employer] Phone: 12-24-2019 influenza, injectabl e, quadrivalent, preservative free Estela Davila [facility] Work Phone: 01-02-2019 influenza virus vaccine, unspecified formulation Randa Souza MD Work Phone: [employer] Phone: 01-02-2019 influenza, injectabl e, quadrivalent, preservative free Randa Plumbeeraj [facility] 10-09-2018 diphtheria, tetanus toxoids and acellular pertussis vaccine, unspecified formulation Randacarlos Souza [place], [place] 10-09-2018 measles and rubella virus vaccine Randa Souza MD Work Phone: [employer] Work Phone: 10-09-2018 measles, mumps and rubella virus vaccine [facility] 10-09-2018 tetanus toxoid, redu kyung diphtheria toxoid, and acellular pertussis vaccine, adsorbed [facility] [place] [place] Payers Date Payer Category Payer Unknown [id number] 2020 Unknown [id number] 2018 Unknown [employer] [address] xxxxxxxx 2018-Present [phone] [address] [place] [address] xxxxxxxx [id number] 1962 Unknown [id number] 1962 Unknown [id number] 1962 Unknown [id number] 1962 Unknown [id number] 1962 Unknown [id number] 1962 Unknown [id number] 1962 Unknown [id number] 1962 Unknown [id number] 1962 Unknown [id number] 1962 Unknown [id number] 1962 Unknown [id number] 1962 Unknown [id number] Social History Date Type Detail Facility Start: 04-19-2019 End: 09-25-2021 Tobacco smoking status NHIS Never smoker [facility] Start: 04-19-2019 End: 09-25-2021 Alcohol intake Current drinker of alcohol (finding) [facility] [place] Start: 03-15-2013 Alcohol Comment occasional [place] Start: 1960 Sex Assigned At Not on file [place] Start: 01-29-2020 End: 09-25-2021 Tobacco use and exposure Never used [facility] Work Phone: Start: 03-15-2013 Alcohol Comment occasional [employer] Work Phone: Start: 07-30-2020 End: 09-25-2021 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 [facility] Work Phone: Start: 07-30-2020 End: 09-25-2021 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 [employer] Phone: Tobacco smoking status No Smokin g Status Entered [facility] Sex Assigned At Female [facility] Start: 09-28-2007 Alcohol intake Not Asked Opal bhatia [facility] Clinical Notes 06-27-2020 to 06-28-2022 Trini Escobar, RT(R) - 06/25/2022 1:11 PM EDEstela Johnson, PT - 07/18/2020 9:45 AM EDEstela Johnson, PT - 07/18/2020 9:45 AM EDT Note Date & Type Note Facility 06-28-2022 Note HNO ID: [id number] Author: Anirudh Yao MD Service: ? Author Type: Physician Type: Progress Notes Filed: 06/28/2022 4:16 PM Note Text: see dictated note Anirudh Yao II, MD [facility] 06-25-2022 Note HNO ID: [id number] Author: RT Barby(R) Service: ? Author Type: Technologist Type: Progress [...] IV DATA: Not applicable SIGNED BY: RT Barby(R) June 25, 2022 1:11 PM [facility] 06-25-2022 History of Present illness Narrative [...] IV DATA: Not applicable SIGNED BY: RT Barby(R) June 25, 2022 1:11 PM documented in this encounter [facility] 07-18-2020 History of Present illness Narrative Images from the original note were not included. [facility] Therapy Daily Note Date: 07/18/2020 Patient Name: Esmer Hughes : 1960 (59 [...] back. 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 LEFS=39/80 Issued information on heel-lifts. 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 agent goal 3: Pt to have 110deg of knee flexion to improve car transfers.-MET senior care goal 4: Pt to amb without AD x150ft without deviations to improve community amb [place].-NOT MET senior care goal 5: Pt to complete up/down 4 steps reciprocally with 1 HR to improve home access.-MET Post Treatment Pain: 510 Time In: 0950 Time Out: 1030 Timed Code Treatment Minutes: 40 Minutes Total time: 40 Minutes Estela Davila, PT Date: 07/18/2020 documented in this encounter [facility] [employer] Phone: 07-18-2020 Hospital course Narrative Images from the original note were not included. 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 LEFS=39/80 Issued information on heel-lifts. AROM [id number], PROM: ext 5degFN Pt amb without AD, mild deviations due to leg length discrepency. Pt educated that lift placed to the sole of her shoes may be needed, pt would like to cont with insert lifts for now. Reason for Discharge Completion of Prescribed visits Comments: Thank you for this referral Estela Davila Date: 07/18/2020 documented in this encounter [employer] Phone: 07-14-2020 History of Present illness Narrative Images from the original note were not included. 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 senior care goal 3: Pt to have 110deg of knee flexion to improve car transfers. senior care goal 4: Pt to amb without AD x150ft without deviations to improve community amb [place]. 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 senior care goal 3: Pt to have 110deg of knee flexion to improve car transfers. 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 senior care goal 5: Pt to complete up/down 4 steps reciprocally with 1 HR to improve home access. Post Treatment Pain: 10/21 Time In: 0952 Time Out: 1037 Timed Code Treatment Minutes: 45 Minutes Total Treatment Time: 45 Minutes Estela Davila, PT Date: 07/04/2020 [facility] History of Present illness Narrative Images from the original note were not included. 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 senior care goal 2: Pt to have Neutral PROM knee ext to improve standing [place]. 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 senior care goal 4: Pt to amb without AD x150ft without deviations to improve community amb [place]. 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 Post Treatment Pain: 09/20 Time In: 0945 Time Out : 1030 Timed Code Treatment Minutes: 45 Minutes Total Treatment Time: 45 Minutes Rita Nieves TRUCK SALES MANAGER Date: 06/30/2020 documented in this encounter [employer] Phone: 06-27-2020 History of Present illness Narrative Images from the original note were not included. [facility] Outpatient Physical Therapy Daily Note Date: 06/27/2020 [...] She amb to therapy with s-cane. Pain /10 this morning. Instructed in scar massage for [...] Knee ext =5deg FN to improve gait Retirement Goals - Time Frame for senior care goals : 18 visits senior care goal 1: Pt to score >47/80 on LEFS to improve ADL [place]. 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 senior care goal 4: Pt to amb without AD x150ft without deviations to improve community amb [place]. 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 Post Treatment Pain: 09/20 Time In: 0955 Time Out : 1040 Timed Code Treatment Minutes: 45 Minutes Total Treatment Time: 45 Minutes Rita Nieves TRUCK SALES MANAGER Date: 06/27/2020 documented in this encounter [employer] Phone: Evaluation + Plan note No data available for this section [facility] Evaluation note Diagnosis Essential hypertension, benign documented in this encounter [employer] Phone: evaluation note* Diagnosis Essential hypertension, benign documented in this encounter [employer] Phone: evaluation note* Diagnosis Viral URI Acute upper respiratory infections of unspecified site Suspected COVID-19 virus infection documented in this encounter [facility] [employer] Phone: Hospital Discharge instructions No data available for this section [facility] data available for this section [facility] Assessments Diagnosis Essential hypertension, benign Advance Directives No Advanced Directives Records FoundDocuments on File Type Date Recorded Patient Medical Affairs Director Expl anation Advance Directives and Living Will Power of Hazmat Technician Latest Code Status on File Code Status Date Activated Date Inactivated Comments Full Code 09/09/2014 10:17 AM 09/09/2014 1:36 PM Full Code 09/09/2014 7:06 AM 09/09/2014 10:17 AM Documents on File Type Date Recorded Patient Medical Affairs Director Expl anation ACP-Advance Directive ACP-Power of Hazmat Technician Summary Purpose Family History No Family History Records FoundNo Family History Records FoundNo Family History Records FoundNo Family History Records FoundNo Family History Records Found History of Present Illness * Estela Davila, PT - 06/09/2020 11:00 AM EDT Images from the original note were not included. 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 senior care goal 4: Pt to amb without AD x150ft without deviations to improve community amb [place]. senior care goal 5: Pt to complete up/down 4 steps reciprocally with 1 HR to improve home access. Patient's Goal: Return to walking normally Timed Code Treatment Minutes: 10 Minutes Total Treatment Time: 55 Time In: 1105 Time Out: 1200 Estela Davila, PT Date: 06/09/2020 documented in this encounter* Avtar Ramsey, TRUCK SALES MANAGER - 06/13/2020 9:45 AM EDT Images from the original note were not included. 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 senior care goal 3: Pt to have 110deg of knee flexion to improve car transfers. senior care goal 4: Pt to amb without AD x150ft without deviations to improve community amb [place]. 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 Post Treatment Pain: 5/10 Time In: 0945 Time Out : 1030 Timed Code Treatment Minutes: 45 Minutes Total Treatment Time: 45 Minutes Avtar SUMAYA Ramsey Date: 06/13/2020 documented in this encounter* Rita Nieves - 06/16/2020 8:45 AM EDT Images from the original note were not included. [facility] Outpatient Physical Therapy Daily Note Date: 06/16/2020 [...] Assessment Assessment: Pt reports she had the 10/10/ pain 2x over the weekend with getting in to bed. Pain 5/10 today. 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 senior care goal 2: Pt to have Neutral PROM knee ext to improve standing [place]. 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 Post Treatment Pain: 07/21 Time In: 0845 Time Out : 0930 Timed Code Treatment Minutes: 45 Minutes Total Treatment Time: 45 Minutes Rita Nieves TRUCK SALES MANAGER Date: 06/16/2020 documented in this encounter* Estela Davila, PT - 06/20/2020 10:00 AM EDT Images from the original note were not included. [facility] Outpatient Physical Therapy Daily Note Date: 06/20/2020 Patient Name: Esmer Hughes : 1960 (59 y.o.) Referring Practitioner: Dr. 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 senior care goal 4: Pt to amb without AD x150ft without deviations to improve community amb [place]. senior care goal 5: Pt to complete up/down 4 steps reciprocally with 1 HR to improve home access. 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 senior care goal 2: Pt to have Neutral PROM knee ext to improve standing [place]. senior care goal 3: Pt to have 110deg of knee flexion to improve car transfers. 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 Post Treatment Pain: 08/21 Time In: 0815 Time Out : 0900 Timed Code Treatment Minutes: 45 Minutes Total Treatment Time: 45 Minutes Estela Davila, PT Date: 06/26/2020 documented in this encounter Additional Source Comments INFORMATION SOURCE (unrecogn ized section and content) DATE CREATED AUTHOR 05/15/2020 [facility] DATE CREATED AUTHOR AUTHOR'S ORGANIZ ATION 06/29/2022 [facility] DATE CREATED AUTHOR AUTHOR'S ORGANIZ ATION 09/10/2022 [facility] DATE CREATED AUTHOR AUTHOR'S ORGANIZ ATION 03/22/2023 Sakina juan DATE CREATED AUTHOR AUTHOR'S ORGANIZ ATION 04/08/2023 [facility] Care Teams (unrecognized sec tion and content) Finance Associate Relationship Specialty Start Date End Date Randa Souza MD [address] [place] [address] PCP - General Family Medicine 01/02/11 Finance Associate Relationship Specialty Start Date End Date Randa Souza MD [address] [place] [address] PCP - General Family Medicine 01/02/11 Finance Associate Relationship Specialty Start Date End Date Randa Souza PCP - General 09/06/07 Source Comments (unrecognize d section and content) In the event this informatio n is protected by the Federal Confidentiality of Alcohol and Drug Abuse Patient Records regulations: The Federal rules restrict any use of the information to criminally investigate or prosecute any alcohol or drug abuse patient.[facility] Reason for Visit (unrecogniz ed section and content) Reason Comments [employer] [facility] FOR RECORDS PERTAINING TO PATIENTS WHO ARE [...] BE BASED ON THE PRIMARY CLINICAL RECORDS. [employer] [facility]. provides no warranty or guarantee of the accuracy or completeness of information in this document.
--- NOTE | 2023-04-14 13:58 | P.CN_ITS ---
Consult Note: HPI Data of Consult Patient: known to practice within the last 3 years Consult date: 03/21/23 Requesting Physician: Amparo Morgan NP Primary Care Provider: ZANE LICONA Consult Narrative Reason for consult: Right shoulder, low back pain Narrative: 62yof who presents for assessment. Worsening low back pain. Lumbar xr shows spondylosis in lower lumbar spine. XR shows right shoulder OA. Continues in provider directed home exercise program >6 weeks >3x/week, with minimal benefit. Uses tylenol, as needed. Denies adverse med side effects. Patient finding significant relief from right shoulder injection. Recently underwent bilateral L4-5 L5-S1 facet medial branch block with 85% improvement in pain and functional ability immediately following and hours after the procedure. Patient would like to proceed with bilateral L4-5 L5-S1 facet medial branch block #2 working towards thermal RFA cc:: CC: Amparo Morgan NP Review of Systems ROS Status of ROS 10 or more systems reviewed and unremark able except as noted in history and below Musculoskeletal Reports: back pain Meds Home Medications and Allergies Home Medications Medication Instructions Recorded Confirmed Type acetaminophen 500 mg tablet 500 mg PO DAILY 02/24/23 04/04/23 History (Tylenol Extra Strength) amlodipine 5 mg tablet 5 mg PO DAILY 02/24/23 04/04/23 History estradiol 1 mg tablet 1 mg PO DAILY 02/24/23 04/04/23 History hydrochlorothiazide 50 mg tablet 50 mg PO DAILY 02/24/23 04/04/23 History multivitamin 1 tab PO DAILY 02/24/23 04/04/23 History Allergies Allergy/AdvReac Type Severity Reaction Status Date / Time adhesive Allergy Mild Rash Verified 04/04/23 09:58 cephalexin Allergy Unknown Verified 04/04/23 09:58 Exam Narrative Exam Narrative: Psych-alert and oriented x 3. Attentive and appropriate, constitutionally normal, displays normal mood and affect per situation.? There are no obvious deficits in memory, reasoning, or intellect.? Skin-no obvious rashes, bruising, erythema noted to the patient's area of pain. Extremities- extremities are warm with minimal edema and palpable pulses. Lumbar-no significant tenderness to palpation noted in the lumbar spine and paraspinal musculature.? Pain is elicited with extension, and lateral rotation of the lumbar spine. Range of motion is slightly diminished with these motions due to pain. Facet loading maneuvers are positive bilaterally and do appear to be concordant with the patient's normal complaints of pain.? Coordination remains intact.? Gait remains non-antalgic. Constitutional Documenting provider has reviewed patient's vital signs: yes Common normals: no apparent distress, oriented x3, healthy appearing, alert and well nourished General appearance: cooperative HENMT Common normals: normocephalic, hearing grossly normal bilaterally and moist oral mucous membranes Head and scalp: normocephalic Eye Common normals: PERRL Pupil: PERRL Neck & C-Spine Common normals: full ROM General: normal visual inspection Chest Common normals: inspection of chest normal Respiratory Common normals: normal respiratory effort, no retractions and no use of accessory muscles Neuro Common normals: oriented x3, CN's II-XII intact bilaterally, moves all extremities, no focal motor deficits, no sensory deficits noted and deep tendon reflexes 2+ bilaterally Sensorium/orientation: alert Motor exam: strength 5/5 throughout and no movement abnormalities noted Psych Common normals: mental status grossly normal, thought process normal, cooperative, affect normal, speech normal and activity/motor behavior normal Speech: normal speech Thought process: normal thought process Results Additional Findings Additional findings: I have checked an OARRS report on this patient today and there are no aberrancies noted in the prescribing history.?? A drug screen was completed and reviewed within the last year, and if there has not been a drug screen completed we ordered one today to monitor higher risk, state monitored pain medication use. As part of providing excellent, safe, comprehensive care, the following was completed at our patient's visit: 1. A medication reconciliation and review to ensure accurate knowledge of current/active medications, including asking our patients to inform us about any [id number] medications or herbal remedies/nutritional supplements/alternative remedies. 2. A review to specifically ensure our patients have had annual screening for: elevated body mass index (BMI), tobacco use, screening for depression, and screening for unhealthy alcohol use. When screening is concerning, patients are provided with education and the specific recommendation to discuss the concerning health issue and treatment options with their primary care provider. Assessment and Plan Assessment and Plan (1) Lumbar spondylosis: Plan 62yof who presents for assessment. Failed conservative measures, as noted. Imaging reviewed, as noted. Given right shoulder pain, prudent to proceed with right shoulder injection. She is in agreement. In terms of low back pain, prudent to attempt bilateral L4-5, L5-S1 medial branch block #2 under f luoroscopic guidance with intention of proceeding to radiofrequency ablation. She is in agreement. Meds reviewed, no changes. Follow up after procedure.
== END 2023-04-14 13:30 | disposition home or self-care (01) ==
LOC: PM 13:30
PROVIDERS: PCP Family Medicine; Visit Provider Nurse Practitioner
DX: M47.816 Spondylosis without myelopathy or radiculopathy, lumbar region (principal)
CPT/HCPCS: G0463

== ENCOUNTER 2023-04-25 06:44 | Day surgery (SDC) | payer BC, SELFPAY ==
--- OUTSIDE RECORDS SUMMARY | 2023-04-25 06:47 | XMS_ITS | CCD ---
Author Name Unknown Address [address] [place] [address] Organization [facility] Care Team Providers [facility] [place] Former Hand Name Role Phone Randa Souza Primary Care Provider RANDA SOUZA Primary Care Physician Randa Souza Primary Care Provider ANIRUDH YAO Referring Unavailable ANIRUDH YAO Attending Unavailable LIVAN, RANDA Ma Primary Care Unavailable ANIRUDH YAO Referring Unavailable VERHOFF, RANDA Anil Primary Care Unavailable Paloma Kaufman Referring Unavailable Paloma Kaufman Attending Unavailable Paloma Kaufman J Admitting Unavailable TORI, CHAPARRITA Kaylen Referring Unavailable VERHOFF, RANDA L Primary Care Unavailable VERHOFF, RANDA L Primary Care Unavailable VERHOFF, RANDA L Referring Unavailable TORI, CHAPARRITA N Admitting Unavailable TORICHAPARRITA Attending Unavailable VERHOFF, RANDA L Primary Care Unavailable TORI, CHAPARRITA N Admitting Unavailable VERHOFF, RANDA L Primary Care Unavailable TORI CHAPARRITA N Attending Unavailable VERHOFF, RANDA L [...] (9 sources) Adhesive Tape Substance Allergy 5 [facility] benzoin resin (9 sources) benzoin resin Drug Allergy 4 [facility] Cephalosporins (antibiotic) (9 sources) Cephalexin Drug Allergy 1 [facility] Cinnamon Preparation (9 sources) Cinnamon Preparation Drug Allergy 4 Anaphylaxis, Swelling [facility] (10 sources) Adhesive Tape Propensity to adverse reactions to drug 5 [place], [place] (12 sources) benzoin resin; Translations: [BENZOIN] Drug Allergy 4 [place], [place] (14 sources) Cephalexin; Translations: [cephalexin] Drug Allergy 1 [place], [place] (14 sources) Cinnamon Preparation; Translations: [CINNAMON] Drug Allergy 4 Anaphylaxis, Swelling [place] (2 sources) steristrips; Translations: [steristrips] Allergy to substance redness, itching [facility] (1 source) Tape 1 Drug allergy blisters [facility] Comment on above: does ok with paperta pe (2 sources) Adhesive Tape; Translations: [ADHESIVE TAPE (ROSINS)] Allergy to substance 5 [facility] (1 source) Adhesive Tape; Translations: [Tape] Propensity to adverse reactions (disorder) [facility] Repository Medications Current Medications Medication Drug Class(es) [...] Comment on above: TWO TABS ONE HOUR MO IOR TO DENTAL PROCEDURE AND TWO TABS [...] Pierre Jr., MD 02/09/23 Final result Normal [facility] XR SHOULDER RIGHT (MIN 2 VIE [...] Pierre Jr., MD 02/09/23 Final result Normal [facility] Comp Metabolic Profon 2022 Albumin [Mass/Vol] 4.4 g/dL Normal 3.5-5.2 [facility] Comment on above: Performed By: #### Z FAST, CP #### [facility] [address] [place] [address] Employment Director: Dennis Castellanos MD #### LIPR #### [facility] [facility] [place] [address] Employment Director: Chele Osman MD Alkaline Phos 103 U/L Normal 35-104 [facility] [place] Comment on above: Performed By: #### Alphonso FAST, CP #### [facility] [address] [place] [address] Employment Director: Dennis Castellanos MD #### LIPR #### [facility] [address] [place] [address] Employment Director: Chele Osman MD ALT [Catalytic activity/Vol] 13 U/L Normal 5-33 [facility] Comment on above: Performed By: #### Alphonso FAST, CP #### [facility] [address] [place] [address] Employment Director: Dennis Castellanos MD #### LIPR #### [address] [address] Employment Director: Chele Osman MD Anion gap [Moles/Vol] 9 mmol/L Normal 9-17 [facility] Comment on above: Performed By: #### Alphonso FAST, CP #### [facility] [address] [place] [address] Employment Director: Dennis Castellanos MD #### LIPR #### [address] [address] Employment Director: Chele Osman MD AST [Catalytic activity/Vol] 19 U/L Normal <32 [facility] Comment on above: Performed By: #### Alphonso FAST, CP #### [facility] [address] [place] [address] Employment Director: Dennis Castellanos MD #### LIPR #### [address] [address] Employment Director: Chele Osman MD Bilirubin [Mass/Vol] 0.4 mg/dL Normal 0.3-1.2 [facility] Comment on above: Performed By: #### Alphonso FAST, CP #### [facility] [address] [place], [place] [phone] Employment Director: Dennis Castellanos MD #### LIPR #### [address] [phone] Employment Director: Chele Osman MD BUN/CRE Ratio 30 High 9-20 [facility] [place] Comment on above: Performed By: #### Alphonso FAST, CP #### [facility] [address] [place], [place] [phone] Employment Director: Dennis Castellanos MD #### LIPR #### [address] [phone] Employment Director: Chele Osman MD Calcium [Mass/Vol] 10.3 mg/dL Normal 8.6-10.4 [facility] Comment on above: Performed By: #### Alphonso FAST, CP #### [facility] [address] [place], [place] [phone] Employment Director: Dennis Castellanos MD #### LIPR #### [address] [address] Employment Director: Chele Osman MD Chloride [Moles/Vol] 98 mmol/L Normal 98-107 [facility] Comment on above: Performed By: #### Alphonso FAST, CP #### [facility] [address] [place], [place] [phone] Employment Director: Dennis Castellanos MD #### LIPR #### [address] [address] Employment Director: Chele Osman MD CO2 [Moles/Vol] 31 mmol/L Normal 20-31 [facility] Comment on above: Performed By: #### Alphonso FAST, CP #### [facility] [address] [place], [place] [phone] Employment Director: Dennis Castellanos MD #### LIPR #### [address] [place] [address] Employment Director: Chele Osman MD Creatinine [Mass/Vol] 0.7 mg/dL Normal 0.5-0.9 [facility] Comment on above: Performed By: #### Alphonso FAST, CP #### [facility] [address] [place], [place] [phone] Employment Director: Dennis Castellanos MD #### LIPR #### [address] [place] [address] Employment Director: Chele Osman MD GFR/1.73 sq M.predicted among non-blacks MDRD (S/P/Bld) [Vol rate/Area] mL/min/{1.73_m2} Normal >60 [facility] Comment on above: Result Comment: These [...] Performed By: #### Alphonso FAST, CP #### [facility] [address] [place], [place] [phone] Employment Director: Dennis Castellanos MD #### LIPR #### [address] [phone] Employment Director: Chele Osman MD Glucose [Mass/Vol] 96 mg/dL Normal 70-99 [facility] Comment on above: Performed By: #### Alphonso FAST, CP #### [facility] [address] [place], [place] [phone] Employment Director: Dennis Castellanos MD #### LIPR #### [address] [phone] Employment Director: Chele Osman MD Potassium [Moles/Vol] 3.4 mmol/L Low 3.7-5.3 [facility] Comment on above: Performed By: #### Alphonso FAST, CP #### [facility] [address] [place], [place] [phone] Employment Director: Dennis Castellanos MD #### LIPR #### [address] [phone] Employment Director: Chele Osman MD Protein [Mass/Vol] 7.6 g/dL Normal 6.4-8.3 [facility] Comment on above: Performed By: #### Alphonso FAST, CP #### [facility] [address] [place], [place] [phone] Employment Director: Dennis Castellanos MD #### LIPR #### [address] [place], [place] [phone] Employment Director: Chele Osman MD Sodium [Moles/Vol] 138 mmol/L Normal 135-144 [facility] Comment on above: Performed By: #### Alphonso FAST, CP #### [facility] [address] [place], [place] [phone] Employment Director: Dennis Castellanos MD #### LIPR #### [address] [phone] Employment Director: Chele Osman MD Urea nitrogen [Mass/Vol] 21 mg/dL Normal 8-23 [facility] Comment on above: Performed By: #### Alphonso FAST, CP #### [facility] [address] [place], [place] [phone] Employment Director: Dennis Castellanos MD #### LIPR #### [address] [address] Employment Director: Chele Osman MD Lipid Profileon 02-08-2023 Cholesterol [Mass/Vol] 207 mg/dL High 0-199 [facility] Comment on above: Result Comment: Cholesterol Guidelines: <200 Desirable 200-240 Borderline >240 Undesirable Performed By: #### Alphonso FAST, CP #### [facility] [address] [place] [address] Employment Director: Dennis Castellanos MD #### LIPR #### [facility] [employer] [address] [place] [address] Employment Director: Chele Osman MD Cholesterol in HDL [Mass/Vol] 63 mg/dL Normal >40 [facility] Comment on above: Result Comment: HDL Guidelines: <40 Undesirable 40-59 Borderline >59 Desirable Performed By: #### Alphonso FAST, CP #### [facility] [address] [place] [address] Employment Director: Dennis Castellanos MD #### LIPR #### [address] [address] Employment Director: Chele Osman MD Cholesterol in LDL [Mass/Vol] 105 mg/dL High 0-100 [facility] Comment on above: Result Comment: LDL Guidelines: <100 Desirable 100-129 Near to/above Desirable 130-159 Borderline >159 Undesirable Direct (measured) LDL and calculated LDL are not interchangeable tests. Performed By: #### Alphonso FAST, CP #### [facility] [address] [place] [address] Employment Director: Dennis Castellanos MD #### LIPR #### [facility] [employer] [address] [place] [address] Employment Director: Chele Osman MD Cholesterol in VLDL [Mass/Vol] 39 mg/dL Normal [facility] Comment on above: Performed By: #### Alphonso FAST, CP #### [facility] [address] [place] [address] Employment Director: Dennis Castellanos MD #### LIPR #### [facility] [employer] [address] [place] [phone] Employment Director: Chele Osman MD Cholesterol.total/Cho lesterol in HDL [Mass ratio] 3.0 {ratio} Normal [facility] Comment on above: Performed By: #### Z FAST, CP #### [facility] [address] [place], [place] [phone] Employment Director: Dennis Castellanos MD #### LIPR #### [address] [phone] Employment Director: Chele Osman MD Triglyceride [Mass/Vol] 196 mg/dL High 0-149 [facility] Comment on above: Result Comment: Triglyceride Guidelines: <150 Desirable 150-199 Borderline 200-499 High >499 Very high Based on AHA Guidelines for fasting triglyceride, December 2011. Performed By: #### Z FAST, CP #### [facility] [address] [place], [place] [phone] Employment Director: Dennis Castellanos MD #### LIPR #### [facility] [address] [place], [place] [phone] Employment Director: Chele Osman MD Patient fasting?on 3 Patient fasting? yes Normal [facility] Comment on above: Performed By: #### Z FAST, CP #### [facility] [address] [place], [place] [phone] Employment Director: Dennis Castellanos MD #### LIPR #### [address] [phone] Employment Director: Chele Osman MD Surgical Pathology Reporton 01-20-2023 Surgical Pathology Report (NOTE) Path Number: [id number] -- Diagnosis -- A. Stomach, antrum, endoscopic [...] for each. Microscopic examination performed. Processing Lab: [facility] [address] [place] [id number] [place] [address] SURGICAL PATHOLOGY CONSULTATION Patient Name: ESMER HUGHES [facility] Rec: [id number] [facility] [employer] [facility] ANATOMIC PATHOLOGY [address] [place] [phone] [facility] H. pylori Antigenon 09-03-19 23 H. 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 IMPRESSION: NO SIGNIFICANT CHANGE Drop Man: RADHAMES Transcribe Date/Time: Apr 14 2023 2:18P Dictated by : KRISTYN SANTILLAN MD This examination was interpreted and the report reviewed and electronically signed by: KRISTYN SANTILLAN MD on Jun 25 2022 2:19PM EST [id number] Normal [facility] XR KNEE 3V AP/LAT/MERCHANT R Ton [...] other significant abnormality. IMPRESSION: NORMAL POSTOPERATIVE FINDINGS Drop Man: RADHAMES Transcribe Date/Time: Jun 25 2022 2:17P Dictated by : DAYAN CHANG MD This examination was interpreted and the report reviewed and electronically signed by: DAYAN CHANG MD on Jun 25 2022 2:18PM EST [id number] Normal [facility] BD Bone Density DEXAon 06-21 BD [...] MD Transcribed by: NADEEM Technologist: BARRY Normal [facility] [place] Mamm Screen w/CAD if perf and [...] very important to your health. The current [employer] and National Comprehensive Cancer [...] Gage Gtz M.D. Transcribed by: NADEEM Technologist: [facility] Assessment: BI-RADS Category 2-Benign finding Recommendation: Normal interval follow-up Normal [facility] CHEMISTRYOrdered By: SYSTEM SYSTEM on 06-17-2022 25-hydroxyvitamin D3 [Mass/Vol] 38.2 ng/mL Normal 30.0 - 100.0 ng/mL [facility] Remisol Calcium [Mass/Vol] 9.3 mg/dL Normal 8.9 - 11. 1 mg/dL [facility] Remisol Creatinine [Mass/Vol] 0.8 mg/dL Normal 0.5 - 1.3 mg/dL [facility] Remisol GFR/1.73 sq M.predicted among blacks MDRD (S/P/Bld) [Vol rate/Area] mL/min/1.73 m2 Normal >=59mL/min/1. 73 m2 [facility] Chem S GFR/1.73 sq M.predicted among non-blacks MDRD (S/P/Bld) [Vol rate/Area] mL/min/1.73 m2 Normal >=59mL/min/1. 73 m2 [facility] Chem S Calciumon 06-17-2022 Calcium [Mass/Vol] 9.3 mg/dL Normal 8.9-11.1 [facility] Comment on above: Performed By: #### 1 [id number], [id number], [id number] #### [facility] Laboratory [address] [place] [address] Consent for Treatmenton Consent for Treatment [id number] D:127 Normal [facility] Creatinineon 06-17-2022 Creatinine [Mass/Vol] 0.8 mg/dL Normal 0.5-1.3 [facility] Comment on above: Performed By: #### 1 [id number], [id number], [id number] #### [facility] Laboratory [address] [place] [address] Vitamin D 25 Hydroxyon 06-17 25-hydroxyvitamin D3 [Mass/Vol] 38.2 ng/mL Normal 30.0-100.0 [facility] Comment on above: Result Comment: Vit murphy D deficiency has been defined as a level of serum 25-OH vitamin D less than 20 ng/mL (1,2) by the [employer] of Medicine and an Endocrine Society practice guideline. The Endocrine Society further defined vitamin D insufficiency as a level between 21 and 29 ng/mL (2). 1. IOM ([employer] of Medicine). 2010. Dietary reference intakes for calcium and D. [place]: The National Academies Press. 2. Jamey CHAKRABORTY, Caron COLE, John CUADRA, et al. Evaluation, treatment, and prevention of vitamin D deficiency: an Endocrine Society clinical practice guideline. JCEM. 2010; 96 (7):1911-30. Performed By: #### 1 [id number], [id number], [id number], [id number] #### [facility] Laboratory [address] [place] [address] eGFRon 06-17-2022 GFR/1.73 sq M.predicted among blacks MDRD (S/P/Bld) [Vol rate/Area] mL/min/{1.73_m2} Normal >=59 [facility] Comment on above: Order Comment: Order added by Discern Expert. Result Comment: eGFR is race adjusted. AA=. Performed By: #### 1 [id number], [id number], [id number], [id number] #### [facility] Laboratory [address] [place] [address] GFR/1.73 sq M.predicted among non-blacks MDRD (S/P/Bld) [Vol rate/Area] mL/min/{1.73_m2} Normal >=59 [facility] Comment on above: Order Comment: Order added by Discern Expert. Result Comment: Cloud Systems Administrator jose kidney disease could be indicated at eGFR's of less than 60 mL/min/1.73m2. Kidney failure is indicated at less than 15 mL/min/1.73m2. Performed By: #### 1 [id number], [id number], [id number], [id number] #### [facility] Laboratory [address] [place] [address] Physician Orderon 06-03-2022 Physician Order [id number] :127 Normal [facility] COVID-19, Rapidon 09-25-2021 SARS-CoV-2 (COVID-19) RNA MURRAY+probe Ql (Unsp spec) Not detected Not Detected [facility] Comment on above: Rapid NAAT: The specimen [...] management decisions. Fact sheet for Healthcare Providers: https://www.fda.gov/media/204563/download Fact sheet for Patients: https://www.fda.gov/media/982687/download Methodology: Isothermal Nucleic Acid Amplification Specimen Description .NASOPHARYNGEAL SWAB [facility] Comprehensive Metabolic Pane kiki 07-25-2021 Albumin [Mass/Vol] 4.2 g/dL 3.5 - 5.2 g/dL [facility] ALP (Bld) [Catalytic activity/Vol] 86 U/L 35 - 104 U/L [facility] ALT [Catalytic activity/Vol] 11 U/L 5 - 33 U/L [facility] Anion gap [Moles/Vol] 8 mmol/L Low 9 - 17 mmol/L [facility] AST [Catalytic activity/Vol] 17 U/L <32 [facility] Bilirubin [Mass/Vol] 0.39 mg/dL 0.30 - 1.20 mg/dL [facility] Calcium [Mass/Vol] 9.8 mg/dL 8.6 - 10. 4 mg/dL [facility] Chloride [Moles/Vol] 100 mmol/L 98 - 10 7 mmol/L [facility] CO2 [Moles/Vol] 31 mmol/L 20 - 31 mmol/L [facility] Creatinine [Mass/Vol] 0.61 mg/dL 0.50 - 0.90 mg/dL [facility] Free PSA/Total PSA [Mass fraction] 7.2 g/dL 6.4 - 8.3 g/dL [facility] GFR >60 >60 mL/min [facility] GFR Non- >60 >60 mL/min [facility] GFR/1.73 sq M.predicted MDRD (S/P/Bld) [Vol rate/Area] [facility] Comment on above: Average GFR for 50-5 9 years old: 93 mL/min/1.73sq m Chronic Kidney Disease: <60 mL/min/1.73sq m Kidney failure: <15 mL/min/1.73sq m eGFR calculated using average adult body mass. Additional eGFR calculator available at: http://www.[employer]/multiple_crcl_2012.htm Glucose [Mass/Vol] 88 mg/dL 70 - 99 mg/dL [facility] Interpretation and review of laboratory results Abnormal [facility] Potassium [Moles/Vol] 3.8 mmol/L 3.7 - 5.3 mmol/L [facility] Sodium [Moles/Vol] 139 mmol/L 135 - 144 mmol/L [facility] Urea nitrogen (BldV) [Mass/Vol] 16 mg/dL 6 - 20 mg/dL [facility] Urea nitrogen/Creatinine (Bld) [Mass ratio] 26 High [facility] Lipid Panelon 07-25-2021 Cholesterol [Mass/Vol] 225 mg/dL High <200 [facility] Comment on above: Cholesterol Guidelines: <200 Desirable 200-240 Borderline >240 Undesirable Cholesterol in HDL [Mass/Vol] 71 mg/dL >40 [facility] Comment on above: HDL Guidelines: <40 Undesirable 40-59 Borderline >59 Desirable Cholesterol in LDL [Mass/Vol] 121 mg/dL 0 - 130 mg/dL [facility] Comment on above: LDL Guidelines: <100 Desirable 100-129 Near to/above Desirable 130-159 Borderline >159 Undesirable Direct (measured) LDL and calculated LDL are not interchangeable tests. Cholesterol.total/Cho lesterol in HDL [Mass ratio] 3.2 {ratio} <5 [facility] Interpretation and review of laboratory results Abnormal [facility] Triglyceride [Mass/Vol] 163 mg/dL High <150 [facility] Comment on above: Triglyceride Guidelines: <150 Desirable 150-199 Borderline 200-499 High >499 Very high Based on AHA Guidelines for fasting triglyceride, December 2011. [facility]?on 2 Patient Fasting? YES [facility] lynnette [facility] Comprehensive Metabolic Pane lOrdered By: Randa Souza on 07-25-2020 Albumin [Mass/Vol] 4.2 g/dL 3.5 - 5.2 g/dL [facility] Phone: Albumin/Globulin Ratio NOT REPORTED [facility] Phone: ALP (Bld) [Catalytic activity/Vol] 85 U/L 35 - 104 U/L [facility] Phone: ALT [Catalytic activity/Vol] 12 U/L 5 - 33 U/L [facility] Phone: Anion gap [Moles/Vol] 9 mmol/L 9 - 17 mmol/L [facility] Phone: AST [Catalytic activity/Vol] 16 U/L <32 [facility] Phone: Bilirubin [Mass/Vol] 0.32 mg/dL 0.30 - 1.20 mg/dL [facility] Phone: Calcium [Mass/Vol] 9.7 mg/dL 8.6 - 10. 4 mg/dL [facility] Phone: Chloride [Moles/Vol] 101 mmol/L 98 - 10 7 mmol/L [facility] Phone: CO2 [Moles/Vol] 31 mmol/L 20 - 31 mmol/L [facility] Phone: Creatinine [Mass/Vol] 0.57 mg/dL 0.50 - 0.90 mg/dL [facility] Phone: Free PSA/Total PSA [Mass fraction] 7.1 g/dL 6.4 - 8.3 g/dL [facility] Phone: GFR >60 >60 mL/min [employer] Phone: GFR Non- >60 >60 mL/min [facility] Phone: GFR/1.73 sq M.predicted MDRD (S/P/Bld) [Vol rate/Area] [facility] Phone: Comment on above: Average GFR for 50-5 9 years old: 93 mL/min/1.73sq m Chronic Kidney Disease: <60 mL/min/1.73sq m Kidney failure: <15 mL/min/1.73sq m eGFR calculated using average adult body mass. Additional eGFR calculator available at: http://www.[employer]/multiple_crcl_2012.htm GFR/1.73 sq M.predicted MDRD (S/P/Bld) [Vol rate/Area] NOT REPORTED [facility] Phone: Glucose [Mass/Vol] 86 mg/dL 70 - 99 mg/dL [facility] [employer] Phone: Interpretation and review of laboratory results Abnormal [facility]: Potassium [Moles/Vol] 3.6 mmol/L Low 3.7 - 5.3 mmol/L [facility] Phone: Sodium [Moles/Vol] 141 mmol/L 135 - 144 mmol/L [facility] Phone: Urea nitrogen (BldV) [Mass/Vol] 20 mg/dL 6 - 20 mg/dL [facility] Phone: Urea nitrogen/Creatinine (Bld) [Mass ratio] 35 High [facility] Phone: Lipid PanelOrdered By: Randa Souza on 07-25-2020 Cholesterol [Mass/Vol] 219 mg/dL High <200 [facility] Phone: Comment on above: Cholesterol Guidelines: <200 Desirable 200-240 Borderline >240 Undesirable Cholesterol in HDL [Mass/Vol] 71 mg/dL >40 [facility] Phone: Comment on above: HDL Guidelines: <40 Undesirable 40-59 Borderline >59 Desirable Cholesterol in LDL [Mass/Vol] 106 mg/dL 0 - 130 mg/dL [facility] Phone: Comment on above: LDL Guidelines: <100 Desirable 100-129 Near to/above Desirable 130-159 Borderline >159 Undesirable Direct (measured) LDL and calculated LDL are not interchangeable tests. Cholesterol in VLDL [Mass/Vol] NOT REPORTED High 1 - 30 mg/dL [facility] Phone: Cholesterol.total/Cho lesterol in HDL [Mass ratio] 3.1 {ratio} <5 [facility] Phone: Interpretation and review of laboratory results Abnormal [facility] Phone: Triglyceride [Mass/Vol] 208 mg/dL High <150 [facility] Phone: Comment on above: Triglyceride Guidelines: <150 Desirable 150-199 Borderline 200-499 High >499 Very high Based on AHA Guidelines for fasting triglyceride, December 2011. Patient Fasting?Ordered By: Randa Souza on 07-25-2020 Patient Fasting? YES [employer] Phone: Basic Metabolic Panelon Calcium [Mass/Vol] 10.3 mg/dL Normal 8.5-10.6 [facility] Chloride [Moles/Vol] 98 mmol/L Normal 98-107 [facility] CO2 [Moles/Vol] 32 mmol/L Normal 21-32 [facility] Creatinine [Mass/Vol] 0.65 mg/dL Normal 0.55-1.02 [facility] Glucose [Mass/Vol] 81 mg/dL Normal 70-99 [facility] Potassium [Moles/Vol] 3.7 mmol/L Normal 3.5-5.1 [facility] Sodium [Moles/Vol] 139 mmol/L Normal 136-145 [facility] Urea nitrogen (BldV) [Mass/Vol] 20 mg/dL High 7.0-18.0 [facility] Urea nitrogen/Creatinine [Mass ratio] 31 mg/mg Normal [facility] CBC with Differentialon Basophils (Bld) [#/Vol] 0.0 thou/mcL Normal 0.0-0.2 [facility] Basophils/100 WBC (Bld) 0.4 % Normal 0-3 [facility] Differential cell count method Nom (Bld) AUTOMATED DIFFERENTIAL Normal [facility] Eosinophils (Bld) [#/Vol] 0.1 thou/mcL Normal 0.0-0.4 [facility] Eosinophils/100 WBC (Bld) 1.6 % Normal 0-7 [facility] Erythrocyte distribution width (RBC) [Entitic vol] 12.7 % Normal 11.7-15.0 [facility] Hematocrit (Bld) [Volume fraction] 40.6 % Normal 34.0-50.0 [facility] Hemoglobin (Bld) [Mass/Vol] 13.9 g/dL Normal 11.5-17.0 [facility] Lymphocytes (Bld) [#/Vol] 1.8 thou/mcL Normal 0.7-4.5 [facility] Lymphocytes/100 WBC (Bld) 25.6 % Normal 14-46 [facility] MCH (RBC) [Entitic mass] 31.7 Picograms Normal 27.0-34.0 [facility] MCHC (RBC) [Mass/Vol] 34.2 g/dL Normal 32.0-36.0 [facility] MCV (RBC) [Entitic vol] 92.6 fL Normal 80-98 [facility] Monocytes (Bld) [#/Vol] 0.4 thou/mcL Normal 0.1-1.0 [facility] Monocytes/100 WBC (Bld) 5.3 % Normal 4-13 [facility] Neutrophils (Bld) [#/Vol] 4.6 thou/mcL Normal 1.5-7.8 [facility] Neutrophils/100 WBC (Bld) 67.1 % Normal 40-74 [facility] Platelet mean volume (Bld) [Entitic vol] 8.7 fL Normal 7.5-11.2 [facility] Platelets (Bld) [#/Vol] 291 thou/mcL Normal 140-415 [facility] RBC (Bld) [#/Vol] 4.38 x(10)6/mcL Normal 3.80-5.60 [facility] WBC (Bld) [#/Vol] 6.8 thou/mcL Normal 4.0-10.5 [facility] Comprehensive Metabolic Pane kiki 07-21-2019 Albumin [Mass/Vol] 4.3 g/dL 3.5 - 5.2 g/dL [place] Albumin/Globulin [Mass ratio] NOT REPORTED [place] ALP [Catalytic activity/Vol] 78 U/L 35 - 104 U/L [place] ALT [Catalytic activity/Vol] 11 U/L 5 - 33 U/L [place] Anion gap [Moles/Vol] 8 mmol/L Low 9 - 17 mmol/L [place] AST [Catalytic activity/Vol] 18 U/L <32 [place] Bilirubin Ql (U) 0.41 mg/dL 0.3 - 1.2 mg/dL [place] Bun/Cre Ratio 29 High [place], [place] Calcium [Mass/Vol] 10.0 mg/dL 8.6 - 10. 4 mg/dL [place] Chloride [Moles/Vol] 101 mmol/L 98 - 10 7 mmol/L [place] CO2 [Moles/Vol] 28 mmol/L 20 - 31 mmol/L [place] Creatinine [Mass/Vol] 0.62 mg/dL 0.5 - 0.9 mg/dL [place] GFR >60 >60 mL/min [place] GFR Non- >60 >60 mL/min [place] GFR/1.73 sq M predicted among non-blacks MDRD (S/P/Bld) [Vol rate/Area] NOT REPORTED [place] GFR/1.73 sq M predicted among non-blacks MDRD (S/P/Bld) [Vol rate/Area] [place] Comment on above: Average GFR for 50-5 9 years old: 93 mL/min/1.73sq m Chronic Kidney Disease: <60 mL/min/1.73sq m Kidney failure: <15 mL/min/1.73sq m eGFR calculated using average adult body mass. Additional eGFR calculator available at: http://www.CLEAR.imeem/multiple_crcl_2012.htm Glucose [Mass/Vol] 101 mg/dL High 70 - 99 mg/dL [place] Potassium [Moles/Vol] 3.7 mmol/L 3.7 - 5.3 mmol/L [place] Protein [Mass/Vol] 7.4 g/dL 6.4 - 8.3 g/dL [place] Sodium [Moles/Vol] 137 mmol/L 135 - 144 mmol/L [place] Urea nitrogen [Mass/Vol] 18 mg/dL 6 - 20 mg/dL [place] Lipid Panelon 07-21-2019 Cholesterol [Mass/Vol] 227 mg/dL High <200 [place] Comment on above: Cholesterol Guidelines: <200 Desirable 200-240 Borderline >240 Undesirable Cholesterol in HDL [Mass/Vol] 81 mg/dL >40 [place] Comment on above: HDL Guidelines: <40 Undesirable 40-59 Borderline >59 Desirable Cholesterol in LDL [Mass/Vol] 116 mg/dL 0 - 130 mg/dL [place] Comment on above: LDL Guidelines: <100 Desirable 100-129 Near to/above Desirable 130-159 Borderline >159 Undesirable Direct (measured) LDL and calculated LDL are not interchangeable tests. Cholesterol in VLDL [Mass/Vol] NOT REPORTED 1 - 30 mg/dL [place] Cholesterol.total/Cho lesterol in HDL [Mass ratio] 2.8 {ratio} <5 [place] Triglyceride [Mass/Vol] 150 mg/dL High <150 [place] Comment on above: Triglyceride Guidelines: <150 Desirable 150-199 Borderline 200-499 High >499 Very high Based on AHA Guidelines for fasting triglyceride, December 2011. Otheron 07-21-2019 Interpretation and review of laboratory results Abnormal [place] Patient Fasting?on 0 Patient Fasting? YES [place], [place] Encounters Encounter Date Encounter Type Care Provider Facility Start: 04-04-2023 End: 04-05-2023 ambulatory Jadon Colbert MD Facility:[facility] Start: 03-22-2023 End: 03-22-2023 ambulatory [facility] Start: 03-21-2023 End: 03-22-2023 ambulatory Jadon Colbert MD Facility:[facility] Start: 02-09-2023 End: 02-12-2023 ambulatory [facility] Start: 02-08-2023 End: 02-09-2023 ambulatory [facility] Start: 02-07-2023 ambulatory [facility] Start: 01-20-2023 End: 01-20-2023 ambulatory [facility] Start: 01-13-2023 End: 01-14-2023 ambulatory [facility] Start: 01-13-2023 Encounter for other preprocedural examination [facility] Start: 09-01-2022 End: 09-02-2022 ambulatory HERMINIO [facility] Start: 06-25-2022 End: 06-25-2022 ambulatory Trini Escobar RT(R) Radiology Comment on above: Radio Gen RMP Start: 06-25-2022 Patient encounter procedure Trini Escobar RT(R) [facility] Start: 06-17-2022 End: 06-18-2022 ambulatory Paloma Kafuman Facility:[facility] Start: 06-17-2022 End: 06-17-2022 Patient encounter procedure Paloma Kaufman [facility] Start: 09-25-2021 End: 09-25-2021 Subsequent hospital visit by physician [facility] Covid19 Pat Screening Schedule [facility] PRE ADMIT Comment on above: Viral URI; Suspected COVID-19 virus infection Start: 07-25-2021 End: 07-25-2021 Subsequent hospital visit by physician Randa Souza MD Work Phone: [facility] Comment on above: Essential hypertensi on, benign Start: 07-25-2020 End: 07-25-2020 Subsequent hospital visit by physician Randa Souza MD Work Phone: [facility] Comment on above: Essential hypertensi on, [...] Clinician Start: 09-25-2021 COVID-19, RAPID Jose Razabeni 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 [place] Start: 07-29-2022 Depression Screen Depression Screen [facility] Start: 03-14-2022 DEPRESSION ASSESSMENT DEPRESSION ASSESSMENT [facility] Start: 02-02-2022 End: 02-02-2022 Patient encounter procedure 02/02/2022 Office Visit Family Medicine Randa Souza MD [address] [place] [address] [facility] Start: 01-22-2022 Screening for malignant neoplasm of breast Breast cancer screen [facility] Start: 11-12-2021 Influenza vaccination Flu vaccine (#1) [facility] Start: 07-30-2021 Depression Screen Depression Screen [facility] Start: 07-29-2021 End: 07-29-2021 Patient encounter procedure 07/29/2021 Office Visit Family Medicine Randa Souza MD [address] [place] [id number] [facility] Start: 07-25-2021 Creatinine measurement Creatinine monitoring [facility] [employer] Work Phone: Start: 07-25-2021 Potassium monitoring Potassium monitoring [facility] [employer] Phone: Start: 06-03-2021 COVID-19 Vaccine (4 - Booster for Moderna series) COVID-19 Vaccine (4 - Booster for Moderna series) [facility] Start: 02-01-2021 Screening for malignant neoplasm of breast Breast cancer screen [facility]- [place], [place] Start: 07-30-2020 End: 07-30-2020 Office Visit 07/30/2020 Office Visit Family Randa Briggs MD [address] [place] [id number] [phone] [facility] Start: 07-20-2020 Creatinine measurement Creatinine monitoring [facility] [employer] Phone: Start: 07-20-2020 Potassium monitoring Potassium monitoring [facility] [employer] Phone: Start: 07-18-2020 End: 07-18-2020 Patient encounter procedure 07/18/2020 Appointment Physical Therapy Estela Davila PT [facility] Start: 07-16-2020 End: 07-16-2020 Patient encounter procedure 07/16/2020 Appointment Physical Therapy Rita Nieves [facility] Start: 07-14-2020 End: 07-14-2020 Patient [...] COVID-19 Vaccine (2 - Moderna 2-dose series) [facility] [employer] Phone: Start: 06-23-2020 End: 06-23-2020 Appointment 06/23/2020 [...] Office Visit 07/24/2019 Office Visit Family Medicine PepperRanda anthony MD [address] [place], [place] [id number] [phone] [facility] Start: 07-16-2019 Creatinine measurement Creatinine monitoring [facility] [place] Start: 07-16-2019 Potassium monitoring Potassium monitoring [facility] [place] Start: 2012 Shingles Vaccine (1 of 2) Shingles Vaccine (1 of 2) [facility] Start: 2012 SHINGRIX VACCINE (1 of 2) SHINGRIX VACCINE (1 of 2) [facility] Start: 09-15-2007 COLOGUARD (FIT-DNA) COLOGUARD (FIT-DNA) [facility] Start: 09-15-2007 Colonoscopy COLONOSCOPY [facility] Start: 09-15-2007 COLORECTAL CANCER SCREENING COLORECTAL CANCER SCREENING [facility] Start: 09-15-[address] COLONOGRAPHY [facility] Start: 09-15-2007 DIABETES SCREEN DIABETES SCREEN [facility] Start: 09-15-2007 FECAL OCCULT BLOOD FECAL OCCULT BLOOD [facility] Start: 09-15-2007 LIPID SCREEN LIPID SCREEN [facility] Start: 09-15-2007 Screening for malignant neoplasm of colon [facility] Start: 09-15-2007 SIGMOIDOSCOPY SIGMOIDOSCOPY [facility] Start: 2002 Diabetes screen Diabetes screen [facility] Work Phone: Start: 2002 Mammography MAMMOGRAM [facility] Start: 1992 HPV TESTING HPV TESTING [facility] Start: 09-15-1983 PAP TESTING PAP TESTING [facility] Start: 1981 Urine microalbumin profile DTAP,TDAP,TD (1 - Tdap) [facility] Start: 1980 Hepatitis C screening Hepatitis C screen [facility] Start: 1980 HEPATITIS C SCREENING HEPATITIS C SCREENING [facility] Start: 1980 HIV SCREENING HIV SCREENING [facility] Start: 1977 HIV screening HIV screen [facility] Start: 1962 Hepatitis C screening Hepatitis C screen [place] Immunizations Immunization Date Immunization Notes Care Provider Chris chatterjee 03-21-2021 influenza, injectabl e, quadrivalent, preservative free Randa Souza MD Work Phone: [facility] Work Phone: 02-03-2021 COVID-19, Moderna, Primary or Immunocompromised, PF, 100mcg/0.5mL Randa Souza MD Work Phone: [facility] Work Phone: 06-24-2020 COVID-19, Moderna, Primary or Immunocompromised, PF, 100mcg/0.5mL Randa Souza MD Work Phone: [facility] Work Phone: 05-27-2020 COVID-19, Moderna, Primary or Immunocompromised, PF, 100mcg/0.5mL Randa Souza MD Work Phone: [facility] Phone: 12-24-2019 influenza, injectabl e, quadrivalent, preservative free Estela Davila [facility] Work Phone: 01-02-2019 influenza virus vaccine, unspecified formulation Randa Souza MD Work Phone: [facility] Phone: 01-02-2019 influenza, injectabl e, quadrivalent, preservative free [facility] 10-09-2018 diphtheria, tetanus toxoids and acellular pertussis vaccine, unspecified formulation Randaalannah Souza [place], [place] 10-09-2018 measles and rubella virus vaccine Randa Souza MD Work Phone: [facility] Work Phone: 10-09-2018 measles, mumps and rubella virus vaccine [facility] 10-09-2018 tetanus toxoid, redu kyung diphtheria toxoid, and acellular pertussis vaccine, adsorbed [facility] [place], [place] Payers Date Payer Category Payer Unknown [id number] 2020 Unknown [id number] 2018 Unknown [employer] [address] xxxxxxxx 2018-Present [phone] [address] [place] [address] xxxxxxxx [id number] 1962 Unknown [id number] 1962 Unknown [id number] 1962 Unknown [id number] 1962 Unknown [id number] 1962 Unknown [id number] 1962 Unknown [id number] 1962 Unknown [id number] 1962 Unknown [id number] 1962 Unknown [id number] 1962 Unknown [id number] 1962 Unknown [id number] 1962 Unknown [id number] Social History Date Type Detail Facility Start: 04-19-2019 End: 09-25-2021 Tobacco smoking status NHIS Never smoker [facility] Start: 04-19-2019 End: 09-25-2021 Alcohol intake Current drinker of alcohol (finding) [facility] [place] Start: 03-15-2013 Alcohol Comment occasional [place] Start: 1960 Sex Assigned At Not on file [place] Start: 01-29-2020 End: 09-25-2021 Tobacco use and exposure Never used [facility] Work Phone: Start: 03-15-2013 Alcohol Comment occasional [employer] Work Phone: Start: 07-30-2020 End: 09-25-2021 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 Author Type: Physician Type: Progress Notes Filed: 06/28/2022 4:16 PM Note Text: see dictated note Anirudh Yao II, MD [facility] 06-25-2022 Note HNO ID: [id number] Author: RT Barby(R) Service: ? Author Type: [...] RT Barby(R) June 25, 2022 1:11 PM [facility] 06-25-2022 History of Present illness Narrative [...] 2022 1:11 PM documented in this encounter [facility] 07-18-2020 History of Present illness Narrative Images from the original note were not included. 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 LEFS=39/80 Issued information on heel-lifts. 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 -NOT MET detention goal 2: Pt to have Neutral PROM knee ext to improve standing milton.-NOT MET manager terminal goal 3: Pt to have 110deg of knee flexion to improve car transfers.-MET manager terminal goal 4: Pt to amb without AD x150ft without deviations to improve community amb milton.-NOT MET manager terminal goal 5: Pt to complete up/down 4 steps reciprocally with 1 HR to improve home access.-MET Post Treatment Pain: 5/10 Time In: 0950 Time Out: 1030 Timed Code Treatment Minutes: 40 Minutes Total time: 40 Minutes Estela Davila, PT Date: 07/18/2020 documented in this encounter [facility] [employer] Phone: 07-18-2020 Hospital course Narrative Images from the original note were not included. 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 LEFS=39/80 Issued information on heel-lifts. AROM [id number], PROM: ext 5degFN Pt amb without AD, mild deviations due to leg length discrepency. Pt educated that lift placed to the sole of her shoes may be needed, pt would like to cont with insert lifts for now. Reason for Discharge Completion of Prescribed visits Comments: Thank you for this referral Estela Davila Date: 07/18/2020 documented in this encounter [facility] Phone: 07-14-2020 History of Present illness Narrative Images from the original note were not included. 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 manager terminal goal 2: Pt to have Neutral PROM knee ext to improve standing mil[place]. detention goal 3: Pt to have 110deg of knee flexion to improve car transfers. manager terminal goal 4: Pt to amb without AD x150ft without deviations to improve community amb [place]. detention goal 5: Pt to complete up/down 4 steps reciprocally with 1 HR to improve home access. Post Treatment Pain: 07/21 Time In: 0945 Time Out : 1027 Timed Code Treatment Minutes: 42 Minutes Total Treatment Time: 42 Minutes Rita Marissa Campocriss LATHE WINDER Date: 07/14/2020 documented in this encounter [facility] Phone: 07-04-2020 History of Present illness Narrative Images from the original note were not included. 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 Pt reports that she is able to [...] ext =5deg FN to improve gait-not met Halfway Goals - Time Frame for detention goals : 18 visits manager terminal goal 1: Pt to score >47/80 on LEFS to improve ADL [place]. detention goal 2: Pt to have Neutral PROM knee ext to improve standing mil[place]. detention goal 3: Pt to have 110deg of knee flexion to improve car transfers. manager terminal goal 4: Pt to amb without AD x150ft without deviations to improve community amb milton. manager terminal goal 5: Pt to complete up/down 4 steps reciprocally with 1 HR to improve home access. Post Treatment Pain: 10/21 Time In: 0952 Time Out: 1037 Timed Code Treatment Minutes: 45 Minutes Total Treatment Time: 45 Minutes Estela Davila, PT Date: 07/04/2020 [facility] 06-30-2020 History of Present illness Narrative Images from the original note were not included. 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 detention goal 2: Pt to have Neutral PROM knee ext to improve standing mil[place]. manager terminal goal 3: Pt to have 110deg of knee flexion to improve car transfers. detention goal 4: Pt to amb without AD x150ft without deviations to improve community amb [place]. detention goal 5: Pt to complete up/down 4 steps reciprocally with 1 HR to improve home access. Post Treatment Pain: 09/20 Time In: 0945 Time Out : 1030 Timed Code Treatment Minutes: 45 Minutes Total Treatment Time: 45 Minutes Rita Nieves LATHE WINDER Date: 06/30/2020 documented in this encounter [facility] Phone: 06-27-2020 History of Present illness Narrative Images from the original note were not included. [facility] Daily Note Date: [...] Knee ext =5deg FN to improve gait [place] Goals - Time Frame for manager terminal goals : 18 visits detention goal 1: Pt to score >47/80 on LEFS to improve ADL [place]. manager terminal goal 2: Pt to have Neutral PROM knee ext to improve standing [place]. manager terminal goal 3: Pt to have 110deg of knee flexion to improve car transfers. manager terminal goal 4: Pt to amb without AD x150ft without deviations to improve community amb [place]. detention goal 5: Pt to complete up/down 4 steps reciprocally with 1 HR to improve home access. Post Treatment Pain: 09/20 Time In: 0955 Time Out : 1040 Timed Code Treatment Minutes: 45 Minutes Total Treatment Time: 45 Minutes Rita Nieves LATHE WINDER Date: 06/27/2020 documented in this encounter [facility] Phone: Evaluation + Plan note No data available for this section [facility] Evaluation note Diagnosis Essential hypertension, benign documented in this encounter [facility] Phone: evaluation note* Diagnosis Essential hypertension, benign documented in this encounter [facility] Phone: evaluation note* Diagnosis Viral URI Acute upper respiratory infections of unspecified site Suspected COVID-19 virus infection documented in this encounter [facility] [employer] Phone: Hospital Discharge instructions No data available for this section [facility] No data available for this section [facility] Assessments Diagnosis Essential hypertension, benign Advance Directives No Advanced Directives Records FoundDocuments on File Type Date Recorded 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 Advance Directives and Living Will Power of Fire Lookout Latest Code Status on File Code Status Date Activated Date Inactivated Comments Full Code 09/09/2014 10:17 AM 09/09/2014 1:36 PM Full Code 09/09/2014 7:06 AM 09/09/2014 10:17 AM Documents on File Type Date Recorded 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 [facility] Evaluation Date: 06/09/2020 [...] Knee ext =5deg FN to improve gait detention goals Time Frame for manager terminal goals : 18 visits manager terminal goal 1: Pt to score >47/80 on LEFS to improve ADL [place]. manager terminal goal 2: Pt to have Neutral PROM knee ext to improve standing [place]. manager terminal goal 3: Pt to have 110deg of knee flexion to improve car transfers. detention goal 4: Pt to amb without AD x150ft without deviations to improve community amb [place]. detention goal 5: Pt to complete up/down 4 steps reciprocally with 1 HR to improve home access. Patient's Goal: Return to walking normally Timed Code Treatment Minutes: 10 Minutes Total Treatment Time: 55 Time In: 1105 Time Out: 1200 Estela Davila, PT Date: 06/09/2020 documented in this encounter* Avtar Ramsey, LATHE WINDER - 06/13/2020 9:45 AM EDT Images from the original note were not included. 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 manager terminal goal 2: Pt to have Neutral PROM knee ext to improve standing [place]. manager terminal goal 3: Pt to have 110deg of knee flexion to improve car transfers. detention goal 4: Pt to amb without AD x150ft without deviations to improve community amb [place]. manager terminal goal 5: Pt to complete up/down 4 steps reciprocally with 1 HR to improve home access. Post Treatment Pain: 5/10 Time In: 0945 Time Out : 1030 Timed Code Treatment Minutes: 45 Minutes Total Treatment Time: 45 Minutes Avtar RamseySUMAYA Date: 06/13/2020 documented in this encounter* Rita Nieves - 06/16/2020 8:45 AM EDT Images from the original note were not included. [facility] Therapy Daily Note Date: [...] Knee ext =5deg FN to improve gait Halfway Goals - Time Frame for detention goals : 18 visits manager terminal goal 1: Pt to score >47/80 on LEFS to improve ADL [place]. manager terminal goal 2: Pt to have Neutral PROM knee ext to improve standing [place]. manager terminal goal 3: Pt to have 110deg of knee flexion to improve car transfers. manager terminal goal 4: Pt to amb without AD x150ft without deviations to improve community amb [place]. detention goal 5: Pt to complete up/down 4 steps reciprocally with 1 HR to improve home access. Post Treatment Pain: 07/21 Time In: 0845 Time Out : 0930 Timed Code Treatment Minutes: 45 Minutes Total Treatment Time: 45 Minutes Rita Nieves LATHE WINDER Date: 06/16/2020 documented in this encounter* Estela Davila, PT - 06/20/2020 10:00 AM EDT Images from the original note were not included. 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 manager terminal goal 2: Pt to have Neutral PROM knee ext to improve standing [place]. manager terminal goal 3: Pt to have 110deg of knee flexion to improve car transfers. detention goal 4: Pt to amb without AD x150ft without deviations to improve community amb [place]. detention goal 5: Pt to complete up/down 4 steps reciprocally with 1 HR to improve home access. Post Treatment Pain: 09/20 Time In: 1000 Time Out : 1045 Timed Code Treatment Minutes: 45 Minutes Total Treatment Time: 45 Minutes Rita Nieves LATHE WINDER Date: 06/20/2020 documented in this encounter* Estela Davila, PT - 06/26/2020 8:15 AM EDT Images from the original note were not included. 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 detention goal 2: Pt to have Neutral PROM knee ext to improve standing [place]. manager terminal goal 3: Pt to have 110deg of knee flexion to improve car transfers. detention goal 4: Pt to amb without AD x150ft without deviations to improve community amb [place]. detention goal 5: Pt to complete up/down 4 steps reciprocally with 1 HR to improve home access. Post Treatment Pain: 08/21 Time In: 0815 Time Out : 0900 Timed Code Treatment Minutes: 45 Minutes Total Treatment Time: 45 Minutes Estela Davila, PT Date: 06/26/2020 documented in this encounter Additional Source Comments INFORMATION SOURCE (unrecogn ized section and content) DATE CREATED AUTHOR 05/15/[address] [facility] DATE CREATED AUTHOR AUTHOR'S ORGANIZ ATION 06/29/2022 [facility] DATE CREATED AUTHOR AUTHOR'S ORGANIZ ATION 09/10/2022 [facility] DATE CREATED AUTHOR AUTHOR'S ORGANIZ ATION 03/22/2023 Sakina juan DATE CREATED AUTHOR AUTHOR'S ORGANIZ ATION 04/08/2023 [facility] Care Teams (unrecognized sec tion and content) Spring Former Hand Relationship Specialty Start Date End Date Randa Souza MD [address] [place] [address] PCP - General Family Medicine 01/02/11 [facility] Former [facility] Relationship Specialty Start Date End Date Randa Souza MD [address] [place] [address] PCP - General Family Medicine 01/02/11 Spring Former Hand Relationship Specialty Start Date End Date Randa Souza PCP - General 09/06/07 Source Comments (unrecognize d section and content) In the event this informatio n is protected by the Federal Confidentiality of Alcohol and Drug Abuse Patient Records regulations: The Federal rules restrict any use of the information to criminally investigate or prosecute any alcohol or drug abuse patient.[facility] Reason for Visit (unrecogniz ed section and content) Reason Comments Radio Gen [facility] FOR RECORDS PERTAINING TO PATIENTS WHO ARE [...] BE BASED ON THE PRIMARY CLINICAL RECORDS. [employer] [facility]. provides no warranty or guarantee of the accuracy or completeness of information in this document.
[2023-04-25 07:00] VITALS: BP 115/78; PULSE 70; RESP 16; TEMP 36.6; O2SAT 97
[2023-04-25 07:49] VITALS: BP 142/76; PULSE 72; RESP 18; O2SAT 96
[2023-04-25 07:50] VITALS: BP 141/76; PULSE 66; RESP 18; O2SAT 95
[2023-04-25] MEDS: BUPIVACAINE HCL 0.25% PF 25 MG/10 ML VIAL INJ (07:50)
[2023-04-25] MEDS: LIDOCAINE HCL 2% PF 100 MG/5 ML VIAL INJ (07:50)
--- NOTE | 2023-04-25 07:53 | W.PM.PROCNOT ---
Date of procedure: 04/25/23 Pre-op diagnosis: Lumbar spondylosis Post-op diagnosis: same as pre-op Procedure: Procedure: Bilateral L4-5, l5-S1 medial branch block Medications: Bupivacaine 0.25% 6cc The patient was seen and examined in the preoperative holding area.? An informed consent was obtained and placed on the chart.? The patient was brought to the medical procedure unit and placed in the prone position.? A timeout was completed verifying correct patient, procedure site, positioning, plan, and special equipment.? Using aseptic technique, the needle was placed at left L4. Under direct fluoroscopic visualization a Quincke-tipped spinal needle was advanced to the junction of the superior articulating process with the transverse process at the designated medial branch segment.? Preceded by negative aspiration, the above-mentioned injectate was placed in 1 mL aliquots.? The procedure was repeated at left L5, S1.? The needle was removed and insertion site was covered. The same procedure, at the same levels, was completed on the right side. The patient was taken to the postprocedural recovery area and monitored for an appropriate length of time before found suitable for discharge in the company of a responsible adult. Anesthesia: Local Surgeon: Jadon Colbert Pathology: none sent Condition: stable Disposition: no change
== END 2023-04-25 07:58 | disposition home or self-care (01) ==
PROVIDERS: PCP Family Medicine; Visit Provider Anesthesiology
DX: M47.816 Spondylosis without myelopathy or radiculopathy, lumbar region (principal)
CPT/HCPCS: 64493; 64494; J0665

== ENCOUNTER 2023-05-05 14:32 | Outpatient (OUT) | payer BC, SELFPAY ==
--- OUTSIDE RECORDS SUMMARY | 2023-05-05 14:51 | XMS_ITS | CCD ---
Author Name Unknown Address [address] [place] [address] Organization [facility] Care Team Providers Care Informatics Physician Name Role Phone Zane Souza Primary Care Provider [phone] ZANE SOUZA Primary Care Physician Zane Souza Primary Care Provider [phone] ANIRUDH YAO Referring Unavailable ANIRUDH YAO Attending Unavailable LIVAN, ZANE L Primary Care Unavailable ANIRUDH YAO Referring Unavailable VERHOFF, ZANE Anil Primary Care Unavailable Paloma Kaufman Referring Unavailable Paloma Kaufman Attending Unavailable Cedeñoesa J Admitting Unavailable TORI, CHAPARRITA N Referring Unavailable VERHOFF, ZANE L Primary Care Unavailable VERHOFF, ZANE L Primary Care Unavailable VERHOFF, ZANE L Referring Unavailable TORI, CHAPARRITA N Admitting Unavailable TORICHPAARRITA N Attending Unavailable VERHOFF, ZANE L Primary Care Unavailable TORI, CHAPARRITA N Admitting Unavailable VERHOFF, ZANE L Primary Care Unavailable TORI, CHAPARRITA N Attending Unavailable VERHOFF, ZANE L Primary Care Unavailable VERHOFF, ZANE L Referring Unavailable VERHOFF, ZANE L Primary Care Unavailable VERHOFF, ZANE L Referring Unavailable VERHOFF, ZANE L Referring Unavailable VERHOFF, ZANE L Primary Care Unavailable VERHOFF, ZANE L Primary Care Unavailable VERHOFF, ZANE L Referring Unavailable HERMINIO ANNE Referring Unavailable VERHOFF, ZANE L Primary Care Unavailable Unavailable Primary Care Provider UnavailBONNIE Sarabia Attending Unavailable Sayra WHITE, Jadon Duarte Attending Unavailable Sayra WHITE, Jadon Duarte Attending Unavailable Sayra WHITE, Jadon Duarte Attending Unavailable Allergies Allergy Classification Reported Allergen(s) Allergy Type Date of Onset Reaction(s) Facility Adhesive Tape (9 sources) Adhesive Tape Substance Allergy 5 [facility] benzoin resin (9 sources) benzoin resin Drug Allergy 4 [facility] Cephalosporins (antibiotic) (9 sources) Cephalexin Drug Allergy 1 [facility] Cinnamon Preparation (9 sources) Cinnamon Preparation Drug Allergy 4 Anaphylaxis, Swelling [facility] (10 sources) Adhesive Tape Propensity to adverse reactions to drug 5 [place], [place] (15 sources) benzoin resin; Translations: [BENZOIN] Drug Allergy 4 Rash [place], [place] (17 sources) Cephalexin; Translations: [cephalexin] Drug Allergy 1 [place], [place] (17 sources) Cinnamon Preparation; Translations: [CINNAMON] Drug Allergy 4 Anaphylaxis, Swelling [place], [place] (2 sources) steristrips; Translations: [steristrips] Allergy to substance redness, itching [facility] (1 source) Tape 1 Drug allergy blisters [facility] Comment on above: does ok with paperta pe (2 sources) Adhesive Tape; Translations: [ADHESIVE TAPE (ROSINS)] Allergy to substance 5 [facility] (1 source) Adhesive Tape; Translations: [Tape] Propensity to adverse reactions (disorder) [facility] (3 sources) Wound Dressing Adhesive Drug Allergy 5 [facility] Medications Current Medications Medication Drug Class(es) Dates Sig (Normalized) Sig (Original) acetaminophen 500 mg oral tablet (2 sources) take 1 tablet by mouth every six hours as needed acetaminophen (Tylenol) 500 MG tablet Take 1 tablet by mouth every 6 (six) hours if needed 0 Active amLODIPine 5 mg oral tablet (20 sources) Dihydropyridine Calcium Channel Cathie Start: 05-10-2019 take 1 tablet by mouth once daily amLODIPine (NORVASC) 5 MG tablet Take 1 tablet by mouth daily 90 tablet 1 07/29/2021 Active Comment on above: Take 5 mg by mouth o nce daily. Am/pm Ascorbic Acid (2 sources) Vitamin C Start: 08-30-2018 Vitamin C Daily, Refills(s) 0 Start Date: 08/30/18 Status: Ordered take 1 tablet by mouth once valeria y Ascorbic Acid (VITAMIN C) 250 MG [...] daily 180 tablet 1 07/29/2021 Active Start: 06-14-2019 take 1 tablet by melinda th twice daily diclofenac (VOLTAREN) 75 MG EC tablet Take 1 tablet by mouth 2 times daily 180 tablet 1 01/29/2021 Active Start: 04-18-2018 diclofenac sod ium 1 [...] daily. Diclofenac 75mg Tab-DR (1 source) Start: 017 take 1 tablet by mouth once daily [...] mouth Take one teaspoon daily 0 Active erythromycin 500 mg oral tablet (4 sources) Macrolide, Macrolide Antimicrobial Start: 023 erythromycin base (E-Mycin) 500 MG tablet Take 4 pills po x 1 prior to her dental procedure 0 07/12/2022 Active Start: 09-03-2019 Erythromycin 5 00 mg tablet Indications: Status post left hip replacement two tabs one hour prior to dental procedure and two tabs six hours after the dental procedure 4 tablet 1 09/03/2019 Active Comment on above: two tabs one hour pr ior to dental procedure and two tabs six hours after the dental procedure estradiol 0.5 mg oral tablet (20 sources) Estrogen Start: 07-29-2022 take 1 tablet by mouth in the morning estradiol (Estrace) 0.5 MG tablet Take 1 tablet by mouth in the morning. 0 07/29/2022 Active Start: 07-29-2021 take 1 tablet by melinda th once [...] oral tablet (20 sources) Thiazide Diuretic Start: 07-29-2022 take 1 tablet by mouth in the morning hydroCHLOROthiazide (HYDRODiuril) 50 MG tablet Take 1 tablet by mouth in the morning. 0 07/29/2022 Active Start: 07-29-2021 take 1 tablet by melinda th once [...] ar ea as needed. Misc Natural Products (Glucosamine Chond MSM Formula) tablet (3 sources) Misc Natural Pro ducts (Glucosamine Chond MSM Formula) tablet Take by mouth. 0 Active Misc Natural Products (GLUCOSAMINE CHOND MSM FORMULA) TABS (2 sources) Misc Natural Pro ducts (GLUCOSAMINE CHOND MSM FORMULA) TABS Take by mouth 0 Active Multiple Vitamin (MULTI-VITAMIN DAILY PO) (19 sources) Multiple Vitamin (MULTI-VITAMIN DAILY PO) Take by mouth 0 Active Multiple Vitamin (multivitamin) tablet (3 sources) take 1 tablet by mouth in the morning Multiple Vitamin (multivitamin) tablet Take 1 tablet by mouth in the morning. 0 Active Multivitamins and Minerals (1 source) [...] Comment on above: TWO TABS ONE HOUR NH IOR TO DENTAL PROCEDURE AND TWO TABS SIX HOURS AFTER THE DENTAL PROCEDURE take two tabs one ho ur prior to dental procedure and two tabs six hours after the dental procedure diclofenac-capsaicin 75 mg- 0.025 % kit (1 source) diclofenac-capsa icin 75 mg- 0.025 % kit 75 mg 1/2 tab in am , 75mg @@ hs 0 Active Comment on above: 75 mg 1/2 tab in am , 75mg @@ hs Ethinyl Estradiol / Levonorgestrel (1 source) Progestin, Estrogen, Progestin-containing Intrauterine Device Start: 09-28-2007 levonorgestrel-e th estra(LUTERA (28) 0.1 MG-20 MCG TAB) isradipine 5 mg oral capsule (1 source) Dihydropyridine Calcium Channel Cathie Start: 09-28-2007 isradipine(DYNAC IRC 5 MG CAP) Take one(1) tablet daily. [...] 2019-nCoV; Translations: [Suspected COVID-19 virus infection] Episodic Neoplasms of unspecified nature or uncertain behavior (2 sources) Neoplastic disease; Translations: [Neoplasm of unspecified behavior of bone, soft tissue, and skin] 04-27-2023 Episodic Osteoarthritis (2 sources) Osteoarthritis; Translations: [Osteoarthritis [...] Test Name Value Interpretation Reference Range Facility No Panel Informationon 04-27 Type of biopsy: tangential Informed consent: discussed and consent obtained Informed consent comment: The risks and benefits of the biopsy were discussed. Risks include but are not limited to bleeding, infection, scarring, pain, and nerve damage. An opportunity to ask questions prior to the procedure was permitted and all questions were answered. Patient was prepped and draped in usual sterile fashion: area cleansed with alcohol. Anesthesia: the lesion was anesthetized in a standard fashion Anesthetic: 1% lidocaine w/ epinephrine 1-100,000 buffered w/ 8.4% NaHCO3 Instrument used: DermaBlade Hemostasis achieved with: electrodesiccation Outcome: patient tolerated procedure well Outcome comment: The specimen was placed in a prelabeled formalin container to be sent for pathology Post-procedure details: sterile dressing applied and wound care instructions given Post-procedure details comment: Emphasized need to contact clinic for any signs of infection, uncontrollable bleeding, or complications. Dressing type: bandage Additional details: Photo taken Amount of lidocaine used: 1 cc kabuku [employer] XR LUMBAR SPINE (MIN 4 VIEWS )on [...] Pierre Jr., MD 02/09/23 Final result Normal [facility] XR SHOULDER RIGHT (MIN 2 VIE WS)on [...] Pierre Jr., MD 02/09/23 Final result Normal [facility] Comp Metabolic Profon 2022 Albumin [Mass/Vol] 4.4 g/dL Normal 3.5-5.2 [facility] Comment on above: Performed By: #### Z FAST, CP #### [facility] [address] [place], [place] [id number] Windows Server Architect: Dennis Castellanos MD #### LIPR #### [facility] [address] [place], [place] [id number] Windows Server Architect: Chele Osman MD Alkaline Phos 103 U/L Normal 35-104 [facility] Comment on above: Performed By: #### Z FAST, CP #### [facility] [address] [place] [address] Windows Server Architect: Dennis Castellanos MD #### LIPR #### [facility] [address] [place], [place] [id number] Windows Server Architect: Chele Osman MD ALT [Catalytic activity/Vol] 13 U/L Normal 5-33 [facility] Comment on above: Performed By: #### Z FAST, CP #### [facility] [address] [place], [place] [id number] Windows Server Architect: Dennis Castellanos MD #### LIPR #### [address] [id number] Windows Server Architect: Chele Osman MD Anion gap [Moles/Vol] 9 mmol/L Normal 9-17 [facility] Comment on above: Performed By: #### Alphonso FAST, CP #### [facility] [address] [place], [place] [id number] Windows Server Architect: Dennis Castellanos MD #### LIPR #### [address] [id number] Windows Server Architect: Chele Osman MD AST [Catalytic activity/Vol] 19 U/L Normal <32 [facility] Comment on above: Performed By: #### Alphonso FAST, CP #### [facility] [address] [place], [place] [id number] Windows Server Architect: Dennis Castellanos MD #### LIPR #### [address] [id number] Windows Server Architect: Chele Osman MD Bilirubin [Mass/Vol] 0.4 mg/dL Normal 0.3-1.2 [facility] Comment on above: Performed By: #### Alphonso FAST, CP #### [facility] [address] [place] [address] Windows Server Architect: Dennis Castellanos MD #### LIPR #### [address] [address] Windows Server Architect: Chele Osman MD BUN/CRE Ratio 30 High 9-20 [facility] Comment on above: Performed By: #### Alphonso FAST, CP #### [facility] [address] [place], [place] [id number] Windows Server Architect: Dennis Castellanos MD #### LIPR #### [address] [place] [address] Windows Server Architect: Chele Osman MD Calcium [Mass/Vol] 10.3 mg/dL Normal 8.6-10.4 [facility] Comment on above: Performed By: #### Alphonso FAST, CP #### [facility] [address] [place] [address] Windows Server Architect: Dennis Castellanos MD #### LIPR #### [facility] [address] [place] [address] Windows Server Architect: Chele Osman MD Chloride [Moles/Vol] 98 mmol/L Normal 98-107 [facility] Comment on above: Performed By: #### Alphonso FAST, CP #### [facility] [address] [place] [address] Windows Server Architect: Dennis Castellanos MD #### LIPR #### [address] [address] Windows Server Architect: Chele Osman MD CO2 [Moles/Vol] 31 mmol/L Normal 20-31 [facility] Comment on above: Performed By: #### Alphonso FAST, CP #### [facility] [address] [place] [address] Windows Server Architect: Dennis Castellanos MD #### LIPR #### [facility] [address] [place] [address] Windows Server Architect: Chele Osman MD Creatinine [Mass/Vol] 0.7 mg/dL Normal 0.5-0.9 [facility] Comment on above: Performed By: #### Alphonso FAST, CP #### [facility] [address] [place] [address] Windows Server Architect: Dennis Castellanos MD #### LIPR #### [address] [address] Windows Server Architect: Chele Osman MD GFR/1.73 sq M.predicted among non-blacks MDRD (S/P/Bld) [Vol rate/Area] mL/min/{1.73_m2} Normal >60 [facility] Comment on above: Result Comment: These results [...] affects renal tubular secretion. Performed By: #### Z FAST, CP #### [facility] [address] [place] [address] Windows Server Architect: Dennis Castellanos MD #### LIPR #### [address] [id number] Windows Server Architect: Chele Osman MD Glucose [Mass/Vol] 96 mg/dL Normal 70-99 [facility] Comment on above: Performed By: #### Z FAST, CP #### [facility] [address] [place], [place] 1706390 Windows Server Architect: Dennis Castellanos MD #### LIPR #### [address] [id number] Windows Server Architect: Chele Osman MD Potassium [Moles/Vol] 3.4 mmol/L Low 3.7-5.3 [facility] Comment on above: Performed By: #### Z FAST, CP #### [facility] [address] [place], [place] 7015390 Windows Server Architect: Dennis Castellanos MD #### LIPR #### [address] [address] Windows Server Architect: Chele Osman MD Protein [Mass/Vol] 7.6 g/dL Normal 6.4-8.3 [facility] Comment on above: Performed By: #### Alphonso FAST, CP #### [facility] [address] [place], [place] 0779[address] Windows Server Architect: Dennis Castellanos MD #### LIPR #### [facility] [address] [place], [place] [id number] Windows Server Architect: Chele Osamn MD Sodium [Moles/Vol] 138 mmol/L Normal 135-144 [facility] Comment on above: Performed By: #### Alphonso FAST, CP #### [facility] [address] [place], [place] [phone] Windows Server Architect: Dennis Castellanos MD #### LIPR #### [place] [place] [place], [place] 0376608 Windows Server Architect: Chele Osman MD Urea nitrogen [Mass/Vol] 21 mg/dL Normal 8-23 [facility] Comment on above: Performed By: #### Alphonso FAST, CP #### [facility] [address] [place], [place] [id number] Windows Server Architect: Dennis Castellanos MD #### LIPR #### [address] [address] Windows Server Architect: Chele Osman MD Lipid Profileon 02-08-2023 Cholesterol [Mass/Vol] 207 mg/dL High 0-199 [facility] Comment on above: Result Comment: Cholesterol Guidelines: <200 Desirable 200-240 Borderline >240 Undesirable Performed By: #### Alphonso FAST, CP #### [facility] [address] [place], [place] [id number] Windows Server Architect: Dennis Castellanos MD #### LIPR #### [facility] [address] [place] [id number] Windows Server Architect: Chele Osman MD Cholesterol in HDL [Mass/Vol] 63 mg/dL Normal >40 [facility] Comment on above: Result Comment: HDL Guidelines: <40 Undesirable 40-59 Borderline >59 Desirable Performed By: #### Z FAST, CP #### [facility] [address] [place] [address] Windows Server Architect: Dennis Castellanos MD #### LIPR #### [address] [address] Windows Server Architect: Chele Osman MD Cholesterol in LDL [Mass/Vol] 105 mg/dL High 0-100 [facility] Comment on above: Result Comment: LDL Guidelines: <100 Desirable 100-129 Near to/above Desirable 130-159 Borderline >159 Undesirable Direct (measured) LDL and calculated LDL are not interchangeable tests. Performed By: #### Alphonso FAST, CP #### [facility] [address] [place], [place] [id number] Windows Server Architect: Dennis Castellanos MD #### LIPR #### [address] [address] Windows Server Architect: Chele Osman MD Cholesterol in VLDL [Mass/Vol] 39 mg/dL Normal [facility] Comment on above: Performed By: #### Alphonso FAST, CP #### [facility] [address] [place] [address] Windows Server Architect: Dennis Castellanos MD #### LIPR #### [address] [address] Windows Server Architect: Chele Osman MD Cholesterol.total/Ch olesterol in HDL [Mass ratio] 3.0 {ratio} Normal [facility] Comment on above: Performed By: #### Z FAST, CP #### [facility] [address] [place] [address] Windows Server Architect: Dennis Castellanos MD #### LIPR #### [address] [address] Windows Server Architect: Chele Osman MD Triglyceride [Mass/Vol] 196 mg/dL High 0-149 [facility] Comment on above: Result Comment: Triglyceride Guidelines: <150 Desirable 150-199 Borderline 200-499 High >499 Very high Based on AHA Guidelines for fasting triglyceride, December 2011. Performed By: #### Z FAST, CP #### [facility] [address] [place], [place] [id number] Windows Server Architect: Dennis Castellanos MD #### LIPR #### [facility] [address] [place], [place] [address]408[address] Windows Server Architect: Chele Osman MD Patient fasting?on 3 Patient fasting? yes Normal [facility] Comment on above: Performed By: #### Z FAST, CP #### [facility] [address] [place], [place] 5853190 Windows Server Architect: Dennis Castellanos MD #### LIPR #### [facility] [address] [place], [place] 7995[address] Windows Server Architect: Chele Osman MD Surgical Pathology Reporton 01-20-2023 Surgical Pathology Report (NOTE) Path Number: [id number] -- Diagnosis -- A. Stomach, antrum, endoscopic [...] B: Esophagogastric biopsy Gross Description A. ESMER HUGHES, GASTRIC ANTRUM Received in formalin are three boo-brown tissue fragments ranging from 0.1 to 0.3 cm and are 0.6 x 0.1 x 0.1 cm in aggregate. Entirely 1cs. B. ESMER WILLGER, MID ESOPHAGUS BIOPSIES Received in formalin are three sheth-boo tissue fragments that are each 0.2 cm and are 0.6 x 0.1 x <0.1 cm in aggregate. Entirely 1cs. yr cd SF/mj:01/21/2023 Microscopic Description A, B. 2 MADHAVI reviewed for each. Microscopic examination performed. Processing Lab: [facility] [address] [place] [address] Interpretation Performed at [facility] [address] [place] [address] SURGICAL PATHOLOGY CONSULTATION Patient Name: ELLEN, ESMER Teresa. Med Rec: [id number] [facility] [address] [place] [id number] [facility] H. pylori Antigenon 09-03-19 H. pylori Antigen Specimen Description .FECES Direct Exam NEGATIVE Report Status FINAL 09/02/2022 [facility] Comment on above: Performed By: #### F HPY #### [address] [address] Windows Server Architect: Chele Osman MD [facility] [address] [place] [address] Windows Server Architect: MD Vika Buckner 06-25-2022 ALISHAOV Office Visit (TAWNYAORRM ) ESMER HUGHES ([id number]) 1960 F Date Time Provider Department 06/25/22 2:00 PM ANIRUDH YAO During your visit today, we recorded the following information about you: Anirudh Yao II, MD 06/28/2022 4:16 PM Signed see dictated note Anirudh Yao II, MD Referring Provider: ANRIUDH YAO [[id number]] Allergies As of Date: 06/25/2022 Noted Allergy Reaction CINNAMON 03/15/2013 10 - Anaphylaxis 7 - Swelling Comments: Artificial cinnamon flavoring ADHESIVE TAPE (ROSINS) 07/30/2014 4 - Hives BENZOIN 03/26/2013 2 - Rash CEPHALEXIN 01/16/2011 2 - Rash Date Reviewed: 08/29/2019 Reviewed by: Gina Sierra (Pa) - Fully Assessed Primary Visit Diagnosis:Status post left hip replacement [Z96.642] Other Visit Diagnosis:Status post right knee replacement [Z96.651] Order(s):XR KNEE POST OP 3V AP/LAT/MERCHANT RIGHT [[id number]] Order #: [id number] FUTURE XR HIP GENERAL 3V PELV/AP/LAT LEFT [[id number]] Order #: [id number] FUTURE Prescriptions as of 06/28/2022 - clindamycin [...] by ANIRUDH YAO II on 06/28/22 Normal [facility] XR HIP 3V PELV+ AP/LAT LTon [...] other significant abnormality. IMPRESSION: NO SIGNIFICANT CHANGE Guest Service Agent: RADHAMES Transcribe Date/Time: Jun 25 2022 2:18P Dictated by : KRISTYN SANTILLAN MD This examination was interpreted and the report reviewed and electronically signed by: KRISTYN SANTILLAN MD on Jun 25 2022 2:19PM EST [id number] Normal [facility] XR KNEE 3V AP/LAT/MERCHANT R Ton [...] other significant abnormality. IMPRESSION: NORMAL POSTOPERATIVE FINDINGS Guest Service Agent: RADHAMES Transcribe Date/Time: Jun 25 2022 2:17P Dictated by : DAYAN CHANG MD This examination was interpreted and the report reviewed and electronically signed by: DAYAN CHANG MD on Jun 25 2022 2:18PM EST [id number] Normal [facility] BD Bone Density DEXAon 06-21 BD [...] REPORT Dictated: 06/21/2022 9:22 am Fredi Oquendo MD Signed (Electronic Signature): 06/21/2022 9:22 am Signed by: Fredi Oquendo MD Transcribed by: NADEEM Technologist: BARRY [facility] [place] Mamm Screen w/CAD if perf [...] very important to your health. The current [employer] [employer] and National Comprehensive Cancer [...] Gage Gtz M.D. Transcribed by: NADEEM Technologist: LEVSIA Assessment: BI-RADS Category 2-Benign finding Recommendation: Normal interval follow-up Normal [facility] CHEMISTRYOrdered By: SYSTEM SYSTEM on 06-17-2022 25-hydroxyvitamin D3 [Mass/Vol] 38.2 ng/mL Normal 30.0 - 100.0 ng/mL [facility] [place] Remisol Calcium [Mass/Vol] 9.3 mg/dL Normal 8.9 - 11. 1 mg/dL [facility] [place] Remisol Creatinine [Mass/Vol] 0.8 mg/dL Normal 0.5 - 1.3 mg/dL [facility] [place] Remisol GFR/1.73 sq M.predicted among blacks MDRD (S/P/Bld) [Vol rate/Area] mL/min/1.73 m2 Normal >=59mL/min/1. 73 m2 [facility] [place] Chem S GFR/1.73 sq M.predicted among non-blacks MDRD (S/P/Bld) [Vol rate/Area] mL/min/1.73 m2 Normal >=59mL/min/1. 73 m2 [facility] [place] Chem S Calciumon 06-17-2022 Calcium [Mass/Vol] 9.3 mg/dL Normal 8.9-11.1 [facility] Comment on above: Performed By: #### 1 [id number], [id number] #### [facility] [address] [place] [address] Consent for Treatmenton Consent for Treatment [id number] D:127 Normal [facility] Creatinineon 06-17-2022 Creatinine [Mass/Vol] 0.8 mg/dL Normal 0.5-1.3 [facility] Comment on above: Performed By: #### 1 [id number], [id number] #### [facility] [address] [place] [address] Vitamin D 25 Hydroxyon 06-17 25-hydroxyvitamin D3 [Mass/Vol] 38.2 ng/mL Normal 30.0-100.0 [facility] Comment on above: Result Comment: Vit murphy D deficiency has been defined as a level of serum 25-OH vitamin D less than 20 ng/mL (1,2) by the [place] of [employer] and an Endocrine Society practice guideline. The Endocrine Society further defined vitamin D insufficiency as a level between 21 and 29 ng/mL (2). 1. IOM ([place] of [employer]). 2010. Dietary reference intakes for calcium and D. [place]: The National Academies Press. 2. Jamey MF, Caron [place], John CUADRA, et al. Evaluation, treatment, and prevention of vitamin D deficiency: an Endocrine Society clinical practice guideline. JCEM. 2010; 96 (7):1911-30. Performed By: #### 1 [id number], [id number], [id number], [id number] #### [facility] [address] [place] [address] eGFRon 06-17-2022 GFR/1.73 sq M.predicted among blacks MDRD (S/P/Bld) [Vol rate/Area] mL/min/{1.73_m2} Normal >=59 [facility] Comment on above: Order Comment: Order added by Discern Expert. Result Comment: eGFR is race adjusted. AA=. Performed By: #### 1 [id number], [id number], [id number], [id number] #### [facility] [address] [place] [address] GFR/1.73 sq M.predicted among non-blacks MDRD (S/P/Bld) [Vol rate/Area] mL/min/{1.73_m2} Normal >=59 [facility] Comment on above: Order Comment: Order added by Discern Expert. Result Comment: High Risk Case Manager jose kidney disease could be indicated at eGFR's of less than 60 mL/min/1.73m2. Kidney failure is indicated at less than 15 mL/min/1.73m2. Performed By: #### 1 [id number], [id number], [id number], [id number] #### [facility] [address] [place] [address] Physician Orderon 06-03-2022 Physician Order [id number] :127 Normal [facility] COVID-19, Rapidon 09-25-2021 SARS-CoV-2 (COVID-19) RNA MURRAY+probe Ql (Unsp spec) Not detected Not Detected [facility] Comment on above: Rapid NAAT: The specimen [...] management decisions. Fact sheet for Healthcare Providers: https://www.fda.gov/media/787468/download Fact sheet for Patients: https://www.[facility].gov/media/786558/download Methodology: Isothermal Nucleic Acid Amplification Specimen Description .NASOPHARYNGEAL SWAB [facility] JEN [facility] Comprehensive Metabolic Pane kiki 07-25-2021 Albumin [Mass/Vol] 4.2 g/dL 3.5 - 5.2 g/dL [facility] ALP (Bld) [Catalytic activity/Vol] 86 U/L 35 - 104 U/L [facility] ALT [Catalytic activity/Vol] 11 U/L 5 - 33 U/L [facility] Anion gap [Moles/Vol] 8 mmol/L Low 9 - 17 mmol/L [facility] AST [Catalytic activity/Vol] 17 U/L <32 [facility] Bilirubin [Mass/Vol] 0.39 mg/dL 0.30 - 1.20 mg/dL [facility] Calcium [Mass/Vol] 9.8 mg/dL 8.6 - 10. 4 mg/dL [facility] Chloride [Moles/Vol] 100 mmol/L 98 - 10 7 mmol/L [facility] CO2 [Moles/Vol] 31 mmol/L 20 - 31 mmol/L [facility] Creatinine [Mass/Vol] 0.61 mg/dL 0.50 - 0.90 mg/dL [facility] Free PSA/Total PSA [Mass fraction] 7.2 g/dL 6.4 - 8.3 g/dL [facility] GFR >60 >60 mL/min [facility] GFR Non- >60 >60 mL/min [facility] GFR/1.73 sq M.predicted MDRD (S/P/Bld) [Vol rate/Area] [facility] Comment on above: Average GFR for 50-5 9 years old: 93 mL/min/1.73sq m Chronic Kidney Disease: <60 mL/min/1.73sq m Kidney failure: <15 mL/min/1.73sq m eGFR calculated using average adult body mass. Additional eGFR calculator available at: http://www.Güdpod/multiple_crcl_2012.htm Glucose [Mass/Vol] 88 mg/dL 70 - 99 mg/dL [facility] Interpretation and review of laboratory results Abnormal [facility] Potassium [Moles/Vol] 3.8 mmol/L 3.7 - 5.3 mmol/L [employer] Sodium [Moles/Vol] 139 mmol/L 135 - 144 mmol/L [employer] Urea nitrogen (BldV) [Mass/Vol] 16 mg/dL 6 - 20 mg/dL [employer] Urea nitrogen/Creatinine (Bld) [Mass ratio] 26 High [facility]25-[facility]21 Cholesterol [Mass/Vol] 225 mg/dL High <200 [employer] Comment on above: Cholesterol Guidelines: <200 Desirable 200-240 Borderline >240 Undesirable Cholesterol in HDL [Mass/Vol] 71 mg/dL >40 [employer] Comment on above: HDL Guidelines: <40 Undesirable 40-59 Borderline >59 Desirable Cholesterol in LDL [Mass/Vol] 121 mg/dL 0 - 130 mg/dL [employer] Comment on above: LDL Guidelines: <100 Desirable 100-129 Near to/above Desirable 130-159 Borderline >159 Undesirable Direct (measured) LDL and calculated LDL are not interchangeable tests. Cholesterol.total/Ch olesterol in HDL [Mass ratio] 3.2 {ratio} <5 [employer] Interpretation and review of laboratory results Abnormal [employer] Triglyceride [Mass/Vol] 163 mg/dL High <150 [employer] Comment on above: Triglyceride Guidelines: <150 Desirable 150-199 Borderline 200-499 High >499 Very high Based on AHA Guidelines for fasting triglyceride, December 2011. [employer] Patient Fasting?on 2 Patient Fasting? YES [facility] [employer] Comprehensive Metabolic Pane lOrdered By: Zane Souza on 07-25-2020 Albumin [Mass/Vol] 4.2 g/dL 3.5 - 5.2 g/dL [employer] Work Phone: Albumin/Globulin Ratio NOT REPORTED [employer] Phone: ALP (Bld) [Catalytic activity/Vol] 85 U/L 35 - 104 U/L [employer] Work Phone: ALT [Catalytic activity/Vol] 12 U/L 5 - 33 U/L [employer] Phone: Anion gap [Moles/Vol] 9 mmol/L 9 - 17 mmol/L [employer] Work Phone: AST [Catalytic activity/Vol] 16 U/L <32 [employer] Phone: Bilirubin [Mass/Vol] 0.32 mg/dL 0.30 - 1.20 mg/dL [employer] Phone: Calcium [Mass/Vol] 9.7 mg/dL 8.6 - 10. 4 mg/dL [employer] Phone: Chloride [Moles/Vol] 101 mmol/L 98 - 10 7 mmol/L [employer] Phone: CO2 [Moles/Vol] 31 mmol/L 20 - 31 mmol/L [employer] Phone: Creatinine [Mass/Vol] 0.57 mg/dL 0.50 - 0.90 mg/dL [employer] Phone: Free PSA/Total PSA [Mass fraction] 7.1 g/dL 6.4 - 8.3 g/dL [employer] Phone: GFR >60 >60 mL/min [employer] Phone: GFR Non- >60 >60 mL/min [employer] Phone: GFR/1.73 sq M.predicted MDRD (S/P/Bld) [Vol rate/Area] [employer] Phone: Comment on above: Average GFR for 50-5 9 years old: 93 mL/min/1.73sq m Chronic Kidney Disease: <60 mL/min/1.73sq m Kidney failure: <15 mL/min/1.73sq m eGFR calculated using average adult body mass. Additional eGFR calculator available at: http://www.[employer].Hangtime/multiple_crcl_2012.htm GFR/1.73 sq M.predicted MDRD (S/P/Bld) [Vol rate/Area] NOT REPORTED [employer] Phone: Glucose [Mass/Vol] 86 mg/dL 70 - 99 mg/dL [employer] Phone: Interpretation and review of laboratory results Abnormal [employer] Phone: Potassium [Moles/Vol] 3.6 mmol/L Low 3.7 - 5.3 mmol/L [employer] Phone: Sodium [Moles/Vol] 141 mmol/L 135 - 144 mmol/L [employer] Phone: Urea nitrogen (BldV) [Mass/Vol] 20 mg/dL 6 - 20 mg/dL [employer] Phone: Urea nitrogen/Creatinine (Bld) [Mass ratio] 35 High [employer] Phone: Lipid PanelOrdered By: Zane Souza on 07-25-2020 Cholesterol [Mass/Vol] 219 mg/dL High <200 [employer] Phone: Comment on above: Cholesterol Guidelines: <200 Desirable 200-240 Borderline >240 Undesirable Cholesterol in HDL [Mass/Vol] 71 mg/dL >40 [employer] Phone: Comment on above: HDL Guidelines: <40 Undesirable 40-59 Borderline >59 Desirable Cholesterol in LDL [Mass/Vol] 106 mg/dL 0 - 130 mg/dL [employer] Phone: Comment on above: LDL Guidelines: <100 Desirable 100-129 Near to/above Desirable 130-159 Borderline >159 Undesirable Direct (measured) LDL and calculated LDL are not interchangeable tests. Cholesterol in VLDL [Mass/Vol] NOT REPORTED High 1 - 30 mg/dL [employer] Phone: Cholesterol.total/Ch olesterol in HDL [Mass ratio] 3.1 {ratio} <5 [employer] Phone: Interpretation and review of laboratory results Abnormal [employer] Phone: Triglyceride [Mass/Vol] 208 mg/dL High <150 [employer] Phone: Comment on above: Triglyceride Guidelines: <150 Desirable 150-199 Borderline 200-499 High >499 Very high Based on AHA Guidelines for fasting triglyceride, December 2011. Patient Fasting?Ordered By: Zane Souza on 07-25-2020 Patient Fasting? YES [facility] [employer] Work Phone: Basic Metabolic Panelon Calcium [Mass/Vol] 10.3 mg/dL Normal 8.5-10.6 [facility] Chloride [Moles/Vol] 98 mmol/L Normal 98-107 [facility] CO2 [Moles/Vol] 32 mmol/L Normal 21-32 [facility] Creatinine [Mass/Vol] 0.65 mg/dL Normal 0.55-1.02 [facility] Glucose [Mass/Vol] 81 mg/dL Normal 70-99 [facility] Potassium [Moles/Vol] 3.7 mmol/L Normal 3.5-5.1 [facility] Sodium [Moles/Vol] 139 mmol/L Normal 136-145 [facility] Urea nitrogen (BldV) [Mass/Vol] 20 mg/dL High 7.0-18.0 [facility] Urea nitrogen/Creatinine [Mass ratio] 31 mg/mg Normal [facility] CBC with Differentialon Basophils (Bld) [#/Vol] 0.0 thou/mcL Normal 0.0-0.2 [facility] Basophils/100 WBC (Bld) 0.4 % Normal 0-3 [facility] Differential cell count method Nom (Bld) AUTOMATED DIFFERENTIAL Normal [facility] Eosinophils (Bld) [#/Vol] 0.1 thou/mcL Normal 0.0-0.4 [facility] Eosinophils/100 WBC (Bld) 1.6 % Normal 0-7 [facility] Erythrocyte distribution width (RBC) [Entitic vol] 12.7 % Normal 11.7-15.0 [facility] Hematocrit (Bld) [Volume fraction] 40.6 % Normal 34.0-50.0 [facility] Hemoglobin (Bld) [Mass/Vol] 13.9 g/dL Normal 11.5-17.0 [facility] Lymphocytes (Bld) [#/Vol] 1.8 thou/mcL Normal 0.7-4.5 [facility] Lymphocytes/100 WBC (Bld) 25.6 % Normal 14-46 [facility] MCH (RBC) [Entitic mass] 31.7 Picograms Normal 27.0-34.0 [facility] MCHC (RBC) [Mass/Vol] 34.2 g/dL Normal 32.0-36.0 [facility] MCV (RBC) [Entitic vol] 92.6 fL Normal 80-98 [facility] Monocytes (Bld) [#/Vol] 0.4 thou/mcL Normal 0.1-1.0 [facility] Monocytes/100 WBC (Bld) 5.3 % Normal 4-13 [facility] Neutrophils (Bld) [#/Vol] 4.6 thou/mcL Normal 1.5-7.8 [facility] Neutrophils/100 WBC (Bld) 67.1 % Normal 40-74 [facility] Platelet mean volume (Bld) [Entitic vol] 8.7 fL Normal 7.5-11.2 [facility] Platelets (Bld) [#/Vol] 291 thou/mcL Normal 140-415 [facility] RBC (Bld) [#/Vol] 4.38 x(10)6/mcL Normal 3.80-5.60 [facility] WBC (Bld) [#/Vol] 6.8 thou/mcL Normal 4.0-10.5 [facility] Comprehensive Metabolic Pane kiki 07-21-2019 Albumin [Mass/Vol] 4.3 g/dL 3.5 - 5.2 g/dL [place], [place] Albumin/Globulin [Mass ratio] NOT REPORTED [place] ALP [Catalytic activity/Vol] 78 U/L 35 - 104 U/L [place] ALT [Catalytic activity/Vol] 11 U/L 5 - 33 U/L [place] Anion gap [Moles/Vol] 8 mmol/L Low 9 - 17 mmol/L [place] AST [Catalytic activity/Vol] 18 U/L <32 [place] Bilirubin Ql (U) 0.41 mg/dL 0.3 - 1.2 mg/dL [place] Bun/Cre Ratio 29 High [place] Calcium [Mass/Vol] 10.0 mg/dL 8.6 - 10. 4 mg/dL [place] Chloride [Moles/Vol] 101 mmol/L 98 - 10 7 mmol/L [place] CO2 [Moles/Vol] 28 mmol/L 20 - 31 mmol/L [place] Creatinine [Mass/Vol] 0.62 mg/dL 0.5 - 0.9 mg/dL [place] GFR >60 >60 mL/min [place] GFR Non- >60 >60 mL/min [place] GFR/1.73 sq M predicted among non-blacks MDRD (S/P/Bld) [Vol rate/Area] NOT REPORTED [place] GFR/1.73 sq M predicted among non-blacks MDRD (S/P/Bld) [Vol rate/Area] [place] Comment on above: Average GFR for 50-5 9 years old: 93 mL/min/1.73sq m Chronic Kidney Disease: <60 mL/min/1.73sq m Kidney failure: <15 mL/min/1.73sq m eGFR calculated using average adult body mass. Additional eGFR calculator available at: http://www.Güdpod/multiple_crcl_2012.htm Glucose [Mass/Vol] 101 mg/dL High 70 - 99 mg/dL [place] Potassium [Moles/Vol] 3.7 mmol/L 3.7 - 5.3 mmol/L [place] Protein [Mass/Vol] 7.4 g/dL 6.4 - 8.3 g/dL [place] Sodium [Moles/Vol] 137 mmol/L 135 - 144 mmol/L [place] Urea nitrogen [Mass/Vol] 18 mg/dL 6 - 20 mg/dL [place] Lipid Panelon 07-21-2019 Cholesterol [Mass/Vol] 227 mg/dL High <200 [place] Comment on above: Cholesterol Guidelines: <200 Desirable 200-240 Borderline >240 Undesirable Cholesterol in HDL [Mass/Vol] 81 mg/dL >40 [place] Comment on above: HDL Guidelines: <40 Undesirable 40-59 Borderline >59 Desirable Cholesterol in LDL [Mass/Vol] 116 mg/dL 0 - 130 mg/dL [place] Comment on above: LDL Guidelines: <100 Desirable 100-129 Near to/above Desirable 130-159 Borderline >159 Undesirable Direct (measured) LDL and calculated LDL are not interchangeable tests. Cholesterol in VLDL [Mass/Vol] NOT REPORTED 1 - 30 mg/dL [place] Cholesterol.total/Ch olesterol in HDL [Mass ratio] 2.8 {ratio} <5 [place] Triglyceride [Mass/Vol] 150 mg/dL High <150 [place] Comment on above: Triglyceride Guidelines: <150 Desirable 150-199 Borderline 200-499 High >499 Very high Based on AHA Guidelines for fasting triglyceride, December 2011. Otheron 07-21-2019 Interpretation and review of laboratory results Abnormal [place] Patient Fasting?on 0 Patient Fasting? YES [place] Encounters Encounter Date Encounter Type Care Provider Facility Start: 04-27-2023 Bamboo flowsheet Bonnie MART Work Phone: [facility] Start: 04-27-2023 Bamboo flowsheet Bonnie MART Work Phone: [facility] Start: 04-27-2023 End: 04-27-2023 ambulatory BONNIE TOLEDO Not Available Start: 04-27-2023 End: 04-27-2023 Patient encounter procedure Bonnie MART Work Phone: [facility] Comment on above: Neoplasm of unspecif ied behavior of bone, soft tissue, and skin (Primary Dx) Start: 04-25-2023 End: 04-26-2023 ambulatory Jadon Coblert MD Facility: [facility] Start: 04-04-2023 End: 04-05-2023 ambulatory Jadon Colbert MD Facility:[facility] Start: 03-22-2023 End: 03-22-2023 ambulatory [facility] Start: 03-21-2023 End: 03-22-2023 ambulatory Jadon Colbert MD Facility:[facility] Start: 02-09-2023 End: 02-12-2023 ambulatory [facility] Start: 02-08-2023 End: 02-09-2023 ambulatory [facility] Start: 02-07-2023 ambulatory [facility] Start: 01-20-2023 End: 01-20-2023 ambulatory [facility] Start: 01-13-2023 End: 01-14-2023 [facility] Start: 01-13-2023 Encounter for other preprocedural examination [facility] Start: 09-01-2022 End: 09-02-2022 ambulatory HERMINIO R [facility] Start: 06-25-2022 End: 06-25-2022 ambulatory Trini Escobar RT(R) Radiology Comment on above: Radio Gen RMP Start: 06-25-2022 Patient encounter procedure Trini Escobar RT(R) [facility] Start: 06-17-2022 End: 06-18-2022 ambulatory Paloma Kaufman [place] [place] Start: 06-17-2022 End: 06-17-2022 Patient encounter procedure Paloma Kaufman [facility] Start: 09-25-2021 End: 09-25-2021 Subsequent hospital visit by physician Nisha Covid19 Pat Screening Schedule [facility] Comment on above: Viral URI; Suspected COVID-19 virus infection Start: 07-25-2021 End: 07-25-2021 Subsequent hospital visit by physician Zane Souza MD Work Phone: [facility] Comment on above: Essential hypertensi on, benign Start: 07-25-2020 End: 07-25-2020 Subsequent hospital visit by physician Zane Souza MD Work Phone: [facility] Comment [...] 06-13-2020 Subsequent hospital visit by physician Avtar Ramsey [facility] Physical Therapy Comment on above: Arrived Start: 06-11-2020 End: 06-11-2020 Subsequent hospital visit by physician Avtar Ramsey [facility] Physical Therapy Comment on above: Arrived Start: 06-09-2020 End: 06-09-2020 Subsequent hospital visit by physician Estela Davila [facility] Comment on above: Arrived Start: 07-21-2019 End: 07-21-2019 Subsequent hospital visit by physician Zane Souza [facility] Laboratory Comment on above: Essential hypertensi on, benign Procedures Date Procedure Procedure Detail Performing Clinician Start: 04-27-2023 SKIN / NAIL BIOPSY Mariaelena MART Work Phone: Start: 09-25-2021 COVID-19, GARRET Heredia [employer]AD [employer] - [employer] Work Phone: Start: 07-25-2021 Comprehensive metabo lic panel Zane Souza MD Work Phone: Start: 07-25-2021 Lipid panel Zane hayes MD Work Phone: Start: 07-25-2021 PATIENT FASTING? Zane Souza MD Work Phone: Start: 07-25-2020 Comprehensive metabo lic panel Zane Souza MD Work Phone: Start: 07-25-2020 Lipid panel Zane hayes MD Work Phone: Start: 07-25-2020 PATIENT FASTING? Zane Souza MD Work Phone: Start: 07-21-2019 Comprehensive metabo lic panel Zane Souza Work Phone: Start: 07-21-2019 Lipid panel Zane hayes Work Phone: Start: 07-21-2019 PATIENT FASTING? Zane Souza Work Phone: Start: 09-30-2017 Robot assisted laparoscopic total hysterectomy Paloma Kaufman Comment on above: HYSTERECTOMY, ROBOT ASSISTED Start: 08-02-2016 left vein ligation a nd stripping Paloma Shae Start: 08-02-2016 Phlebectomy of lower limb vein Paloma Shae Comment on above: left leg Start: 04-28-2016 EVLT RGSV Paloma Workman pe Start: 09-09-2014 Colonoscopy Zane clement MD Work Phone: Start: 07-30-2014 Mammography Bonnie MART Work Phone: Start: 03-26-2013 History of cholecystectomy [...] - Tdap) DTaP/Tdap/Td vaccine (2 - Tdap) [employer] Start: 07-25-2026 Lipid panel [facility]ids [facility] [employer] Start: 07-25-2025 Lipid panel [employer] Start: 09-09-2024 Screening for malignant neoplasm of colon [employer] Start: 07-20-2024 Lipid panel Lipid screen [employer] Work Phone: Start: 10-05-2023 End: 10-05-2023 Patient encounter procedure 10/05/2023 4:20 PM EDT Office Visit [facility] [address] [place] [address] Bonnie Toledo PA [address] [place] [address] [facility] Start: 07-16-2023 Lipid panel Lipid screen [facility] [place], [place] Start: 04-27-2023 End: 04-27-2023 Patient encounter procedure 04/27/2023 9:30 AM EST Office Visit [facility] [address] [place] [address] Bonnie Toledo PA [address] [place] [address] Arrived [facility] Comment on above: Arrived Start: 07-29-2022 Depression Screen [facility] Start: 03-14-2022 DEPRESSION ASSESSMENT DEPRESSION ASSESSMENT [facility] Start: 02-02-2022 End: 02-02-2022 Patient encounter procedure 02/02/2022 Office Visit Family Zane Briggs MD [address] [place] [address] [facility] Start: 01-22-2022 Screening for malignant neoplasm of breast Breast cancer screen [facility] Start: 11-12-2021 Influenza vaccination Flu vaccine (#1) [facility] Start: 07-30-2021 Depression Screen Depression Screen [facility] Start: 07-29-2021 End: 07-29-2021 Patient encounter procedure 07/29/2021 Office Visit Family Zane Briggs MD [address] [place] [address] [facility] Start: 07-25-2021 Creatinine measurement Creatinine monitoring [facility] Work Phone: Start: 07-25-2021 Potassium monitoring Potassium monitoring [employer] Phone: Start: 06-03-2021 COVID-19 Vaccine (4 - Booster for Moderna series) COVID-19 Vaccine (4 - Booster for Moderna series) [facility] [employer] Start: 02-01-2021 Screening for malignant neoplasm of breast [facility] [place] [place] Start: 07-30-2020 End: 07-30-2020 Office Visit 07/30/2020 Office Visit Family Medicine Zane Souza MD [address] [place] [address] [facility] Start: 07-20-2020 Creatinine measurement Creatinine monitoring [employer] Phone: Start: 07-20-2020 Potassium monitoring Potassium monitoring [employer] Phone: Start: 07-18-2020 End: 07-18-2020 Patient encounter procedure 07/18/2020 Appointment Physical Therapy Estela Davila, PT [facility] Start: 07-16-2020 End: 07-16-2020 Patient encounter procedure 07/16/2020 Appointment Physical Therapy Rita Nieves [facility] Start: 07-14-2020 End: 07-14-2020 Patient [...] 06-26-2020 Appointment 06/26/2020 Appointment Physical Therapy Estela Davila, PT [facility] Start: 06-24-2020 COVID-19 Vaccine (2 - Moderna 2-dose series) COVID-19 Vaccine (2 - Moderna 2-dose series) [facility] [employer] Work Phone: Start: 06-23-2020 End: 06-23-2020 Appointment 06/23/2020 Appointment Physical Therapy Estela Davila PT [facility] Start: 06-20-2020 End: 06-20-2020 Appointment 06/20/2020 Appointment Physical Rita Dailey [facility] Start: 06-18-2020 End: 06-18-2020 Appointment 06/18/2020 Appointment Physical Rita Dailey [facility] Start: 06-16-2020 End: 06-16-2020 Appointment [facility] Start: 06-13-2020 End: 06-13-2020 Appointment 06/13/2020 Appointment Physical Therapy Avtar Ramsey PTA [facility] Start: 06-11-2020 End: 06-11-2020 Appointment 06/11/2020 Appointment Physical Therapy Avtar Ramsey PTA [facility] Start: 07-24-2019 End: 07-24-2019 Office Visit 07/24/2019 Office Visit Family Medicine Zane Souza MD [address] [place] [address] [phone] [facility] Start: 07-16-2019 Creatinine measurement Creatinine monitoring [facility] [place] Start: 07-16-2019 Potassium monitoring Potassium monitoring [email or web address] Start: 07-31-2015 Screening for malignant neoplasm of breast Mammogram [facility] Start: 2012 Shingles Vaccine (1 of 2) Shingles Vaccine (1 of 2) [facility] Start: 2012 SHINGRIX VACCINE (1 of 2) SHINGRIX VACCINE (1 of 2) [facility] Start: 09-15-2007 COLOGUARD (FIT-DNA) COLOGUARD (FIT-DNA) [facility] Start: 09-15-2007 Colonoscopy COLONOSCOPY [facility] Start: 09-15-2007 COLORECTAL CANCER SCREENING COLORECTAL CANCER SCREENING [facility] Start: 09-15-[address] COLONOGRAPHY [facility] Start: 09-15-2007 DIABETES SCREEN DIABETES SCREEN [facility] Start: 09-15-2007 FECAL OCCULT BLOOD FECAL OCCULT BLOOD [facility] Start: 09-15-2007 LIPID SCREEN LIPID SCREEN [facility] Start: 09-15-2007 Screening for malignant neoplasm of colon [facility] Start: 09-15-2007 SIGMOIDOSCOPY SIGMOIDOSCOPY [facility] Start: 2002 Diabetes screen Diabetes screen [facility] Work Phone: Start: 2002 Mammography MAMMOGRAM [facility] Start: 1992 HPV TESTING HPV TESTING [facility] Start: 1992 Screening for malignant neoplasm of cervix [facility] Start: 09-15-1983 PAP TESTING PAP TESTING [facility] Start: 09-15-1983 Screening for malignant neoplasm of cervix Pap Smear [facility] Start: 1981 Urine microalbumin profile DTAP,TDAP,TD (1 - Tdap) [facility] Start: 1980 Hepatitis C screening Hepatitis C screen [facility] Start: 1980 HEPATITIS C SCREENING HEPATITIS C SCREENING [facility] Start: 1980 HIV SCREENING HIV SCREENING [facility] Start: 1977 HIV screening HIV screen [facility] Start: 1962 Hepatitis C screening [facility] [place] Start: 1962 Screening for malignant neoplasm of colon [facility] Dermatopathology exam Dermatopat hology exam Pathology and Cytology Timed Neoplasm of unspecified behavior of bone, soft tissue, and skin Release Upon Ordering for 1 Occurrences starting 04/27/2023 [facility] Work Phone: Comment on above: Release Upon Ordering for 1 Occurrences starting 04/27/2023 Immunizations Immunization Date Immunization Notes Care Provider Chris chatterjee 03-21-2021 influenza, injectabl e, quadrivalent, preservative free Zane Souza MD Work Phone: [employer] Work Phone: 02-03-2021 COVID-19, Moderna, Primary or Immunocompromised, PF, 100mcg/0.5mL Zane Souza MD Work Phone: [employer] Work Phone: 06-24-2020 COVID-19, Moderna, Primary or Immunocompromised, PF, 100mcg/0.5mL Zane Souza MD Work Phone: [employer] Work Phone: 05-27-2020 COVID-19, Moderna, Primary or Immunocompromised, PF, 100mcg/0.5mL Zane Souza MD Work Phone: [employer] Work Phone: 12-24-2019 influenza, injectabl e, quadrivalent, preservative free Estela Goodrich[facility] [employer] Work Phone: 01-02-2019 influenza virus vaccine, unspecified formulation Zane Souza MD Work Phone: [employer] Work Phone: 01-02-2019 influenza, injectabl e, quadrivalent, preservative free [facility] 10-09-2018 diphtheria, tetanus toxoids and acellular pertussis vaccine, unspecified formulation [facility] [place] 10-09-2018 measles and rubella virus vaccine Zane Souza MD Work Phone: [employer] Phone: 10-09-2018 measles, mumps and rubella virus vaccine [facility] 10-09-2018 tetanus toxoid, redu kyung diphtheria toxoid, and acellular pertussis vaccine, adsorbed Zane [facility] [place] [place] Payers Date Payer Category Payer Unknown [phone]. [id number]. [id number] 2020 Unknown [id number]. [id number] 2018 Unknown [employer] [address] xxxxxxxx 2018-Present [phone] [address] [place] [address] xxxxxxxx [id number]. [id number] 1962 Unknown [id number] 2.16.840.1.521090.3.579.2.727 1962 Unknown [id number] 2.16.840.1.178539.3.579.2.174 1962 Unknown [id number] 2.16.840.1.902830.3.579.2.174 1962 Unknown [id number] 2.16.840.1.529547.3.579.2.174 1962 Unknown [id number] 2.16.840.1.182730.3.579.2.174 1962 Unknown [id number] 2.16.840.1.923675.3.579.2.174 1962 Unknown [id number] 2.16.840.1.188444.3.579.2.174 1962 Unknown [id number] 2.16.840.1.929378.3.579.2.174 1962 Unknown [id number] 2.16.840.1.389917.3.579.2.174 1962 Unknown [id number] 2.16.840.1.697508.3.579.2.174 1962 Unknown [id number] 2.16.840.1.673400.3.579.2.1259 1962 Unknown [id number] 2.16.840.1.606397.3.579.2.196 1962 Unknown [id number] 2.16.840.1.195847.3.579.2.196 1962 Unknown [id number] 2.16.840.1.518813.3.579.2.196 Social History Date Type Detail Facility Start: 04-19-2019 End: 09-27-2022 Tobacco smoking status PRIS Never smoker [employer] Start: 04-19-2019 End: 09-25-2021 Alcohol intake Current drinker of alcohol (finding) [facility] [place] Start: 03-15-2013 Alcohol Comment [facility] [place] [facility] [place] [place] Start: 1960 Sex Assigned At Not on file [place], [place] Start: 01-29-2020 End: 09-25-2021 Tobacco use and exposure Never used [employer] Phone: Start: 03-15-2013 Alcohol Comment occasional [employer] Phone: Start: 07-30-2020 End: 09-25-2021 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 [employer] Work Phone: Start: 07-30-2020 End: 09-25-2021 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 [employer] Phone: Tobacco smoking status No Smokin g Status Entered [facility] Start: 09-29-2022 End: 04-27-2023 Sex Assigned At Female [facility] Start: 09-28-2007 Alcohol intake Not Asked [facility] Start: 09-29-2022 End: 04-27-2023 History of Social function [facility] Clinical Notes 06-27-2020 to 04-27-2023 BRITTNY Washington - 04/27/2023 9:30 AM Mayra Escobar, RT(R) - 06/25/2022 1:11 PM Chely-Estela Cuevas, PT - 07/18/2020 9:45 AM EDRita Perez - 07/14/2020 9:45 AM EDT Note Date & Type Note Facility 04-27-2023 History of Present illness Narrative Images from the original note were not included. Lesion(s) Location: left forearm Duration: months Quality: painful Modifying factors: rubs on clothing Associated symptoms: thought it was just an infected hair but it didn't go away Treatments:neosporin for a little while, cortisone, and a band aid for awhile - all ineffective Established patient All pertinent medical history, medications, and allergies were reviewed. General Exam: alert , oriented to person, place, and time , normal affect, well appearing Unaccompanied A focused exam completed based on patient reported problems, see below: 1. Neoplasm of unspecified behavior of bone, soft tissue, and skin Right Forearm - Posterior [place], tender nodule with central hyperkeratosis Lesion biopsy Type of biopsy: tangential Informed consent: discussed and consent obtained Informed consent comment: The risks and benefits of the biopsy were discussed. Risks include but are not limited to bleeding, infection, scarring, pain, and nerve damage. An opportunity to ask questions prior to the procedure was permitted and all questions were answered. Patient was prepped and draped in usual sterile fashion: area cleansed with alcohol. Anesthesia: the lesion was anesthetized in a standard fashion Anesthetic: 1% lidocaine w/ epinephrine 1-100,000 buffered w/ 8.4% NaHCO3 Instrument used: DermaBlade Hemostasis achieved with: electrodesiccation Outcome: patient tolerated procedure well Outcome comment: The specimen was placed in a prelabeled formalin container to be sent for pathology Post-procedure details: sterile dressing applied and wound care instructions given Post-procedure details comment: Emphasized need to contact clinic for any signs of infection, uncontrollable bleeding, or complications. Dressing type: bandage Additional details: Photo taken Amount of lidocaine used: 1 cc Specimen A - Dermatopathology exam Differential Diagnosis: SCC Check Margins: No Size of lesion: 1.5 x 1.3 cm Next Visit: as scheduled documented in this encounter [facility] 06-28-2022 Note HNO ID: [id number] Author: Anirudh Yao MD Service: ? Author Type: Physician Type: Progress Notes Filed: 06/28/2022 4:16 PM Note Text: see dictated note Anirudh Yao II, MD [facility] 06-25-2022 Note HNO ID: [id number] Author: RT Barby(R) Service: ? Author Type: [...] RT Barby(R) June 25, 2022 1:11 PM [facility] 06-25-2022 History of Present illness Narrative [...] 2022 1:11 PM documented in this encounter [facility] 07-18-2020 History of Present illness Narrative Images from the original note were not included. [facility] Daily Note Date: 07/18/2020 [...] back. 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 LEFS=39/80 Issued information on heel-lifts. AROM [id number], PROM: ext 5degFN Pt amb without AD, [...] Care Home Goals - Time Frame for terminal operations manager goals : 18 visits USP goal 1: Pt to score >47/80 on LEFS to improve ADL mil[place]. -NOT MET USP goal 2: Pt to have Neutral PROM knee ext to improve standing milton.-NOT MET USP goal 3: Pt to have 110deg of knee flexion to improve car transfers.-MET terminal operations manager goal 4: Pt to amb without AD x150ft without deviations to improve community amb milton.-NOT MET terminal operations manager goal 5: Pt to complete up/down 4 steps reciprocally with 1 HR to improve home access.-MET Post Treatment Pain: 5/10 Time In: 0950 Time Out: 1030 Timed Code Treatment Minutes: 40 Minutes Total time: 40 Minutes Estela Davila, PT Date: 07/18/2020 documented in this encounter [facility] [employer] Phone: 07-18-2020 Hospital course Narrative Images from the original note were not included. [facility] Discharge Summary Patient: Esmer [...] back. 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 LEFS=39/80 Issued information on heel-lifts. AROM [id number], PROM: ext 5degFN Pt amb without AD, mild deviations due to leg length discrepency. Pt educated that lift placed to the sole of her shoes may be needed, pt would like to cont with insert lifts for now. Reason for Discharge Completion of Prescribed visits Comments: Thank you for this referral Estela Davila Date: 07/18/2020 documented in this encounter [employer] Phone: 07-14-2020 History of Present illness Narrative Images from the original note were not included. [facility] Daily Note Date: 07/14/2020 [...] ext =5deg FN to improve gait-not met Sleep Technician Goals - Time Frame for USP goals : 18 visits terminal operations manager goal 1: Pt to score >47/80 on LEFS to improve ADL milton. terminal operations manager goal 2: Pt to have Neutral PROM knee ext to improve standing milton. USP goal 3: Pt to have 110deg of knee flexion to improve car transfers. USP goal 4: Pt to amb without AD x150ft without deviations to improve community amb milton. USP goal 5: Pt to complete up/down 4 steps reciprocally with 1 HR to improve home access. Post Treatment Pain: 07/21 Time In: 0945 Time Out : 1027 Timed Code Treatment Minutes: 42 Minutes Total Treatment Time: 42 Minutes Rita Nieves GAS APPLIANCE SERVICER HELPER Date: 07/14/2020 documented in this encounter [facility] [employer] Phone: 07-04-2020 History of Present illness Narrative Images from the original note were not included. 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 Pt reports that she is able [...] Care Home Goals - Time Frame for terminal operations manager goals : 18 visits USP goal 1: Pt to score >47/80 on LEFS to improve ADL mil[place]. terminal operations manager goal 2: Pt to have Neutral PROM knee ext to improve standing milton. terminal operations manager goal 3: Pt to have 110deg of knee flexion to improve car transfers. terminal operations manager goal 4: Pt to amb without AD x150ft without deviations to improve community amb mil[place]. USP goal 5: Pt to complete up/down 4 steps reciprocally with 1 HR to improve home access. Post Treatment Pain: 10/21 Time In: 0952 Time Out: 1037 Timed Code Treatment Minutes: 45 Minutes Total Treatment Time: 45 Minutes Estela Davila, PT Date: 07/04/2020 documented in this encounter [facility] [employer] Phone: 06-30-2020 History of Present illness Narrative Images from the original note were not included. [facility] Daily Note Date: 06/30/2020 [...] Care Home Goals - Time Frame for terminal operations manager goals : 18 visits terminal operations manager goal 1: Pt to score >47/80 on LEFS to improve ADL [place]. terminal operations manager goal 2: Pt to have Neutral PROM knee ext to improve standing mil[place]. terminal operations manager goal 3: Pt to have 110deg of knee flexion to improve car transfers. terminal operations manager goal 4: Pt to amb without AD x150ft without deviations to improve community amb mil[place]. terminal operations manager goal 5: Pt to complete up/down 4 steps reciprocally with 1 HR to improve home access. Post Treatment Pain: 09/20 Time In: 0945 Time Out : 1030 Timed Code Treatment Minutes: 45 Minutes Total Treatment Time: 45 Minutes Rita Nieves GAS APPLIANCE SERVICER HELPER Date: 06/30/2020 [facility] History of Present illness Narrative Images from the original note were not included. [facility] Daily Note Date: 06/27/2020 [...] Show: 0 Canceled Appointment: 0 Pre-Treatment Pain: 7/10 Assessment Assessment: Pt reports she couldn't sleep last night d/t pain. She amb to therapy with s-cane. Pain 7/10 this morning. Instructed in scar massage for [...] Knee ext =5deg FN to improve gait Sleep Technician Goals - Time Frame for terminal operations manager goals : 18 visits terminal operations manager goal 1: Pt to score >47/80 on LEFS to improve ADL mil[place]. terminal operations manager goal 2: Pt to have Neutral PROM knee ext to improve standing mil[place]. USP goal 3: Pt to have 110deg of knee flexion to improve car transfers. USP goal 4: Pt to amb without AD x150ft without deviations to improve community amb mil[place]. USP goal 5: Pt to complete up/down 4 steps reciprocally with 1 HR to improve home access. Post Treatment Pain: 09/20 Time In: 0955 Time Out : 1040 Timed Code Treatment Minutes: 45 Minutes Total Treatment Time: 45 Minutes Rita Nieves GAS APPLIANCE SERVICER HELPER Date: 06/27/2020 documented in this encounter [employer] Phone: Evaluation + Plan note No data available for this section [facility] Evaluation note Diagnosis Essential hypertension, benign documented in this encounter [employer] Phone: evaluation note* Diagnosis Essential hypertension, benign documented in this encounter [employer] Phone: evaluation note* Diagnosis Viral URI Acute upper respiratory infections of unspecified site Suspected COVID-19 virus infection documented in this encounter [facility] [employer] Phone: evaluation note* Diagnosis Neoplasm of unspecified behavior of bone, soft tissue, and skin- Primary [facility] No data available for this section [facility] No data available for this section [facility] Assessments Diagnosis Essential hypertension, benign Advance Directives No Advanced Directives Records FoundDocuments on File Type Date Recorded Patient Scalp Treatment Specialist Expl anation Advance Directives and Living Will Power of Cartography Technician Latest Code Status on File Code Status Date Activated Date Inactivated Comments Full Code 09/09/2014 10:17 AM 09/09/2014 1:36 PM Full Code 09/09/2014 7:06 AM 09/09/2014 10:17 AM Documents on File Type Date Recorded Patient Scalp Treatment Specialist Expl anation ACP-Advance Directive ACP-Power of Cartography Technician Summary Purpose Family History No Family History Records FoundNo Family History Records FoundNo Family History Records FoundNo Family History Records FoundNo Family History Records FoundNo Family History Records Found History of Present Illness * Estela Davila, PT - 06/09/2020 11:00 AM EDT Images from the original note were not included. [facility] Evaluation Date: 06/09/2020 Patient: [...] Knee ext =5deg FN to improve gait USP goals Time Frame for USP goals : 18 visits terminal operations manager goal 1: Pt to score >47/80 on LEFS to improve ADL [place]. USP goal 2: Pt to have Neutral PROM knee ext to improve standing mil[place]. USP goal 3: Pt to have 110deg of knee flexion to improve car transfers. terminal operations manager goal 4: Pt to amb without AD x150ft without deviations to improve community amb [place]. USP goal 5: Pt to complete up/down 4 steps reciprocally with 1 HR to improve home access. Patient's Goal: Return to walking normally Timed Code Treatment Minutes: 10 Minutes Total Treatment Time: 55 Time In: 1105 Time Out: 1200 Estela Davila, PT Date: 06/09/2020 documented in this encounter* Avtar Ramsey, GAS APPLIANCE SERVICER HELPER - 06/13/2020 9:45 AM EDT Images from the original note were not included. [facility] Daily Note Date: 06/13/2020 [...] Knee ext =5deg FN to improve gait Sleep Technician Goals - Time Frame for terminal operations manager goals : 18 visits USP goal 1: Pt to score >47/80 on LEFS to improve ADL [place]. terminal operations manager goal 2: Pt to have Neutral PROM knee ext to improve standing [place]. USP goal 3: Pt to have 110deg of knee flexion to improve car transfers. USP goal 4: Pt to amb without AD x150ft without deviations to improve community amb [place]. USP goal 5: Pt to complete up/down 4 steps reciprocally with 1 HR to improve home access. Post Treatment Pain: 5/10 Time In: 0945 Time Out : 1030 Timed Code Treatment Minutes: 45 Minutes Total Treatment Time: 45 Minutes Avtar Ramsey PTA Date: 06/13/2020 documented in this encounter* Rita Nieves - 06/16/2020 8:45 AM EDT Images from the original note were not included. [facility] Daily Note Date: 06/16/2020 [...] Care Home Goals - Time Frame for terminal operations manager goals : 18 visits USP goal 1: Pt to score >47/80 on LEFS to improve ADL [place]. USP goal 2: Pt to have Neutral PROM knee ext to improve standing [place]. terminal operations manager goal 3: Pt to have 110deg of knee flexion to improve car transfers. terminal operations manager goal 4: Pt to amb without AD x150ft without deviations to improve community amb [place]. terminal operations manager goal 5: Pt to complete up/down 4 steps reciprocally with 1 HR to improve home access. Post Treatment Pain: 07/21 Time In: 0845 Time Out : 929 Timed Code Treatment Minutes: 45 Minutes Total Treatment Time: 45 Minutes Rita Nieves GAS APPLIANCE SERVICER HELPER Date: 06/16/2020 documented in this encounter* Estela Davila, PT - 06/20/2020 10:00 AM EDT Images from the original note were not included. [facility] Daily Note Date: 06/20/2020 [...] Knee ext =5deg FN to improve gait Sleep Technician Goals - Time Frame for terminal operations manager goals : 18 visits USP goal 1: Pt to score >47/80 on LEFS to improve ADL [place]. USP goal 2: Pt to have Neutral PROM knee ext to improve standing [place]. terminal operations manager goal 3: Pt to have 110deg of knee flexion to improve car transfers. USP goal 4: Pt to amb without AD x150ft without deviations to improve community amb [place]. USP goal 5: Pt to complete up/down 4 steps reciprocally with 1 HR to improve home access. Post Treatment Pain: 09/20 Time In: 1000 Time Out : 1045 Timed Code Treatment Minutes: 45 Minutes Total Treatment Time: 45 Minutes Rita Nieves GAS APPLIANCE SERVICER HELPER Date: 06/20/2020 documented in this encounter* Estela Davila, PT - 06/26/2020 8:15 AM EDT Images from the original note were not included. [facility] Daily Note Date: 06/26/2020 [...] Knee ext =5deg FN to improve gait Sleep Technician Goals - Time Frame for USP goals : 18 visits terminal operations manager goal 1: Pt to score >47/80 on LEFS to improve ADL [place]. USP goal 2: Pt to have Neutral PROM knee ext to improve standing [place]. terminal operations manager goal 3: Pt to have 110deg of knee flexion to improve car transfers. terminal operations manager goal 4: Pt to amb without AD x150ft without deviations to improve community amb [place]. terminal operations manager goal 5: Pt to complete up/down 4 steps reciprocally with 1 HR to improve home access. Post Treatment Pain: 10 Time In: 0815 Time Out : 0900 Timed Code Treatment Minutes: 45 Minutes Total Treatment Time: 45 Minutes Estela Davila PT Date: 06/26/2020 documented in this encounter Additional Source Comments INFORMATION SOURCE (unrecogn ized section and content) DATE CREATED AUTHOR 05/15/2020 [facility] DATE CREATED AUTHOR AUTHOR'S ORGANIZ ATION 06/29/2022 [facility] DATE CREATED AUTHOR AUTHOR'S ORGANIZ ATION 09/10/2022 [facility] DATE CREATED AUTHOR AUTHOR'S ORGANIZ ATION 03/22/2023 Sakina juan DATE CREATED AUTHOR AUTHOR'S ORGANIZ ATION 04/28/2023 [facility] DATE CREATED AUTHOR AUTHOR'S ORGANIZ ATION 05/01/2023 [facility] Care Teams (unrecognized sec tion and content) Informatics Physician Relationship Specialty Start Date End Date Zane Souza MD [address] [place] [address] PCP - General Family Medicine 01/02/11 Informatics Physician Relationship Specialty Start Date End Date Zane Souza MD [address] [place] [id number] PCP - General Family Medicine 01/02/11 Informatics Physician Relationship Specialty Start Date End Date Zane Souza PCP - General 09/06/07 Source Comments (unrecognize d section and content) In the event this informatio n is protected by the Federal Confidentiality of Alcohol and Drug Abuse Patient Records regulations: The Federal rules restrict any use of the information to criminally investigate or prosecute any alcohol or drug abuse patient.[facility] Reason for Visit (unrecogniz ed section and content) Reason Comments Radio Gen RMP Reason Comments Suspicious Skin Lesion FOR RECORDS PERTAINING TO PATIENTS WHO ARE [...] BE BASED ON THE PRIMARY CLINICAL RECORDS. [employer] provides no warranty or guarantee of the accuracy or completeness of information in this document.
--- NOTE | 2023-05-05 15:05 | PM.CN ---
Consult Note: HPI Data of Consult Patient: known to practice within the last 3 years Consult date: 03/21/23 Requesting Physician: Amparo Morgan NP Primary Care Provider: ZANE LICONA Consult Narrative Reason for consult: Right shoulder, low back pain Narrative: 62yof who presents for assessment. Worsening low back pain. Lumbar xr shows spondylosis in lower lumbar spine. XR shows right shoulder OA. Continues in provider directed home exercise program >6 weeks >3x/week, with minimal benefit. Uses tylenol, as needed. Denies adverse med side effects. Patient finding significant relief from right shoulder injection. Recently underwent bilateral L4-5 L5-S1 facet medial branch block #2 with 85% improvement in pain and functional ability immediately following and hours after the procedure. cc:: CC: Amparo Morgan NP Review of Systems ROS Status of ROS 10 or more systems reviewed and unremarkable except as noted in history and below Musculoskeletal Reports: back pain and joint pain PFSH PFSH Medical History (Updated 04/20/23 @ 09:44 by Sarah Higgins) Hypertension ?I10 - Essential (primary) hypertension (ICD-10) Varicose vein of leg ?I83.90 - Asymptomatic varicose veins of unspecified lower extremity (ICD-10) Osteoarthritis of basilar joint of thumb ?M18.9 - Osteoarthritis of first carpometacarpal joint, unspecified (ICD-10) Surgical History History of hip surgery ?Z98.890 - Other specified postprocedural states (ICD-10) History of revision of total hip arthroplasty ?Z96.649 - Presence of unspecified artificial hip joint (ICD-10) History of hip replacement, total ?Z96.649 - Presence of unspecified artificial hip joint (ICD-10) Hx of cholecystectomy ?Z90.49 - Acquired absence of other specified parts of digestive tract (ICD-10) History of carpal tunnel surgery ?Z98.890 - Other specified postprocedural states (ICD-10) History of knee replacement ?Z96.659 - Presence of unspecified artificial knee joint (ICD-10) H/O: hysterectomy ?Z90.710 - Acquired absence of both cervix and uterus (ICD-10) Meds Home Medications and Allergies Home Medications Medication Instructions Recorded Confirmed Type acetaminophen 500 mg tablet 500 mg PO DAILY 02/24/23 04/25/23 History (Tylenol Extra Strength) amlodipine 5 mg tablet 5 mg PO DAILY 02/24/23 04/25/23 History estradiol 1 mg tablet 1 mg PO DAILY 02/24/23 04/25/23 History hydrochlorothiazide 50 mg tablet 50 mg PO DAILY 02/24/23 04/25/23 History multivitamin 1 tab PO DAILY 02/24/23 04/25/23 History Allergies Allergy/AdvReac Type Severity Reaction Status Date / Time adhesive Allergy Mild Rash Verified 04/04/23 09:58 cephalexin Allergy Unknown Verified 04/04/23 09:58 Exam Narrative Exam Narrative: Psych-alert and oriented x 3. Attentive and appropriate, constitutionally normal, displays normal mood and affect per situation.? There are no obvious deficits in memory, reasoning, or intellect.? Skin-no obvious rashes, bruising, erythema noted to the patient's area of pain. Extremities- extremities are warm with minimal edema and palpable pulses. Lumbar-no significant tenderness to palpation noted in the lumbar spine and paraspinal musculature.? Pain is elicited with extension, and lateral rotation of the lumbar spine. Range of motion is slightly diminished with these motions due to pain. Facet loading maneuvers are positive bilaterally and do appear to be concordant with the patient's normal complaints of pain.? Coordination remains intact.? Gait remains non-antalgic. Constitutional Documenting provider has reviewed patient's vital signs: yes Common normals: no apparent distress, oriented x3, healthy appearing, alert and well nourished General appearance: cooperative [facility] Common normals: normocephalic, hearing grossly normal bilaterally and moist oral mucous membranes Head and scalp: normocephalic Eye Common normals: PERRL Pupil: PERRL Neck & C-Spine Common normals: full ROM General: normal visual inspection Chest Common normals: inspection of chest normal Respiratory Common normals: normal respiratory effort, no retractions and no use of accessory muscles Neuro Common normals: oriented x3, CN's II-XII intact bilaterally, moves all extremities, no focal motor deficits, no sensory deficits noted and deep tendon reflexes 2+ bilaterally Sensorium/orientation: alert Motor exam: strength 5/5 throughout and no movement abnormalities noted Psych Common normals: mental status grossly normal, thought process normal, cooperative, affect normal, speech normal and activity/motor behavior normal Speech: normal speech Thought process: normal thought process Results Additional Findings Additional findings: I have checked an [facility] report on this patient today and there are no aberrancies noted in the prescribing history.?? A drug screen was completed and reviewed within the last year, and if there has not been a drug screen completed we ordered one today to monitor higher risk, state monitored pain medication use. As part of providing excellent, safe, comprehensive care, the following was completed at our patient's visit: 1. A medication reconciliation and review to ensure accurate knowledge of current/active medications, including asking our patients to inform us about any [id number] medications or herbal remedies/nutritional supplements/alternative remedies. 2. A review to specifically ensure our patients have had annual screening for: elevated body mass index (BMI), tobacco use, screening for depression, and screening for unhealthy alcohol use. When screening is concerning, patients are provided with education and the specific recommendation to discuss the concerning health issue and treatment options with their primary care provider. Assessment and Plan Assessment and Plan (1) Lumbar spondylosis: (2) Primary osteoarthritis, right shoulder: Assessment and Plan: significant improvement from injection in march Plan bilateral L4/5 L5/S1 facet medial branch thermal RFA under fluoroscopy with 10mg PO valium continue HEP as tolerated continue current medications as needed f/u 1 month after procedure
== END 2023-05-05 14:33 | disposition home or self-care (01) ==
LOC: PM 14:33
PROVIDERS: PCP Family Medicine; Visit Provider Nurse Practitioner
DX: M47.816 Spondylosis without myelopathy or radiculopathy, lumbar region (principal); M19.011 Primary osteoarthritis, right shoulder
CPT/HCPCS: G0463

== ENCOUNTER 2023-06-06 07:47 | Day surgery (SDC) | payer BC, SELFPAY ==
--- OUTSIDE RECORDS SUMMARY | 2023-06-06 07:51 | XMS_ITS | CCD ---
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 Care Jalousie Installer Name Role Phone Zane Souza Primary Care Provider [phone] ZANE SOUZA Primary Care Physician [phone] Zane Souza Primary Care Provider ANIRUDH YAO Referring Unavailable ANIRUDH YAO Attending Unavailable LIVAN, ZANE Ma Primary Care Unavailable ANIRUDH YAO Referring Unavailable VERHOFF, ZANE Anil Primary Care Unavailable Paloma Kaufman Referring Unavailable Paloma Kaufman Attending Unavailable Paloma Kaufman Admitting Unavailable TORI, CHAPARRITA Abdullahi Referring Unavailable VERHOFF, ZANE L Primary Care Unavailable VERHOFF, ZANE L Primary Care Unavailable VERHOFF, AZNE L Referring Unavailable TORI, CHAPARRITA N Admitting Unavailable TORICHAPARRITA Attending Unavailable VERHOFF, ZANE L Primary Care Unavailable TORIFILICHAPARRITA N Admitting Unavailable VERHOFF, AZNE L Primary Care Unavailable CHAPARRITA VALLE Attending Unavailable VERHOFF, ZANE L Primary Care Unavailable VERHOFF, ZANE L Referring Unavailable VERHOFF, ZANE L Primary Care Unavailable VERHOFF, ZANE L Referring Unavailable VERHOFF, ZANE L Referring Unavailable VERHOFF, AZNE L Primary Care Unavailable VERHOFF, ZANE L Primary Care Unavailable VERHOFF, ZANE L Referring Unavailable HERMINIO ANNE Referring Unavailable VERHOFF, ZANE L Primary Care Unavailable Unavailable Primary Care Provider Unavailelizabeth Colbert MD, Jadon Duarte Attending Unavailable Sayra WHITE, Jadon Duarte Attending Unavailable Sayra WHITE, Jadon Duarte Attending Unavailable BONNIE TOLEDO Attending Unavailable JT EDOUARD Attending Unavailable Allergies Allergy Classification Reported Allergen(s) Allergy Type Date of Onset Reaction(s) Facility Adhesive Tape (9 sources) Adhesive Tape Substance Allergy 5 [facility] benzoin resin (9 sources) benzoin resin Drug Allergy 4 [facility] Cephalosporins (antibiotic) (9 sources) Cephalexin Drug Allergy 1 [facility] Cinnamon Preparation (9 sources) Cinnamon Preparation Drug Allergy 4 Anaphylaxis, Swelling [facility] (10 sources) Adhesive Tape Propensity to adverse reactions to drug 5 [place], [place] (15 sources) benzoin resin; Translations: [BENZOIN] Drug Allergy 4 Rash [place], [place] (17 sources) Cephalexin; Translations: [cephalexin] Drug Allergy 1 [place], [place] (17 sources) Cinnamon Preparation; Translations: [CINNAMON] Drug Allergy 4 Anaphylaxis, Swelling [place] (2 sources) steristrips; Translations: [steristrips] Allergy to substance redness, itching [facility] (1 source) Tape 1 Drug allergy blisters [facility] Comment on above: does ok with paperta pe (2 sources) Adhesive Tape; Translations: [ADHESIVE TAPE (ROSINS)] Allergy to substance 5 [facility] (1 source) Adhesive Tape; Translations: [Tape] Propensity to adverse reactions (disorder) [facility] Rep[facility] (3 sources) Wound Dressing Adhesive Drug Allergy 5 [facility] Medications Current Medications Medication Drug Class(es) [...] Comment on above: TWO TABS ONE HOUR [place] IOR TO DENTAL PROCEDURE AND TWO TABS [...] taken Amount of lidocaine used: 1 cc ImmunotEGG XR LUMBAR SPINE (MIN 4 VIEWS )on [...] Pierre Jr., MD 02/09/23 Final result Normal [facility] XR SHOULDER RIGHT (MIN 2 VIE [...] Pierre Jr., MD 02/09/23 Final result Normal [facility] Comp Metabolic Profon 2022 Albumin [Mass/Vol] 4.4 g/dL Normal 3.5-5.2 [facility] Comment on above: Performed By: #### Alphonso FAST, CP #### [facility] [address] [place] [address] Glass Checker: Dennis Castellanos MD #### LIPR #### [facility] [address] [place] [address] [id number] Glass Checker: Chele Osman MD Alkaline Phos 103 U/L Normal 35-104 [facility] Comment on above: Performed By: #### Z FAST, CP #### [facility] [address] [place] [address] Glass Checker: Dennis Castellanos MD #### LIPR #### [facility] [address] [place], [place] [id number] Glass Checker: Chele Osman MD ALT [Catalytic activity/Vol] 13 U/L Normal 5-33 [facility] Comment on above: Performed By: #### Z FAST, CP #### [facility] [address] [place], [place] [id number] Glass Checker: Dennis Castellanos MD #### LIPR #### [facility] [address] [place] [address] Glass Checker: Chele Osman MD Anion gap [Moles/Vol] 9 mmol/L Normal 9-17 [facility] Comment on above: Performed By: #### Alphonso FAST, CP #### [facility] [address] [place], [place] [phone] Glass Checker: Dennis Castellanos MD #### LIPR #### [address] [address] Glass Checker: Chele Osman MD AST [Catalytic activity/Vol] 19 U/L Normal <32 [facility] Comment on above: Performed By: #### Alphonso FAST, CP #### [facility] [address] [place], [place] [phone] Glass Checker: Dennis Castellanos MD #### LIPR #### [address] [address] Glass Checker: Chele Osman MD Bilirubin [Mass/Vol] 0.4 mg/dL Normal 0.3-1.2 [facility] Comment on above: Performed By: #### Alphonso FAST, CP #### [facility] [address] [place] [address] Glass Checker: Dennis Castellanos MD #### LIPR #### [address] [address] Glass Checker: Chele Osman MD BUN/CRE Ratio 30 High 9-20 [facility] Comment on above: Performed By: #### Alphonso FAST, CP #### [facility] [address] [place], [place] [id number] Glass Checker: Dennis Castellanos MD #### LIPR #### [address] [address] Glass Checker: Chele Osman MD Calcium [Mass/Vol] 10.3 mg/dL Normal 8.6-10.4 [facility] Comment on above: Performed By: #### Alphonso FAST, CP #### [facility] [address] [place], [place] [id number] Glass Checker: Dennis Castellanos MD #### LIPR #### [address] [id number] Glass Checker: Chele Osman MD Chloride [Moles/Vol] 98 mmol/L Normal 98-107 [facility] Comment on above: Performed By: #### Alphonso FAST, CP #### [facility] [address] [place], [place] [phone] Glass Checker: Dennis Castellanos MD #### LIPR #### [address] [id number] Glass Checker: Chele Osman MD CO2 [Moles/Vol] 31 mmol/L Normal 20-31 [facility] Comment on above: Performed By: #### Alphonso FAST, CP #### [facility] [address] [place] [address] Glass Checker: Dennis Castellanos MD #### LIPR #### [address] [address] Glass Checker: Chele Osman MD Creatinine [Mass/Vol] 0.7 mg/dL Normal 0.5-0.9 [facility] Comment on above: Performed By: #### Alphonso FAST, CP #### [facility] [address] [place], [place] [phone] Glass Checker: Dennis Castellanos MD #### LIPR #### [address] [address] Glass Checker: Chele Osman MD GFR/1.73 sq M.predicted among non-blacks MDRD (S/P/Bld) [Vol rate/Area] mL/min/{1.73_m2} Normal >60 [facility] Comment on above: Result Comment: These [...] Performed By: #### Z FAST, CP #### [facility] [address] [place] [address] Glass Checker: Dennis Castellanos MD #### LIPR #### [address] [id number] Glass Checker: Chele Osman MD Glucose [Mass/Vol] 96 mg/dL Normal 70-99 [facility] Comment on above: Performed By: #### Z FAST, CP #### [facility] [address] [place] [address] Glass Checker: Dennis Castellanos MD #### LIPR #### [address] [phone] Glass Checker: Chele Osman MD Potassium [Moles/Vol] 3.4 mmol/L Low 3.7-5.3 [facility] Comment on above: Performed By: #### Z FAST, CP #### [facility] [address] [place] [address] Glass Checker: Dennis Castellanos MD #### LIPR #### [address] [id number] Glass Checker: Chele Osman MD Protein [Mass/Vol] 7.6 g/dL Normal 6.4-8.3 [facility] Comment on above: Performed By: #### Z FAST, CP #### [facility] [address] [place], [place] [phone] Glass Checker: Dennis Castellanos MD #### LIPR #### [address] [place], [place] [id number] Glass Checker: Chele Osman MD Sodium [Moles/Vol] 138 mmol/L Normal 135-144 [facility] Comment on above: Performed By: #### Alphonso FAST, CP #### [facility] [address] [place], [place] [phone] Glass Checker: Dennis Castellanos MD #### LIPR #### [address] [phone] Glass Checker: Chele Osman MD Urea nitrogen [Mass/Vol] 21 mg/dL Normal 8-23 [facility] Comment on above: Performed By: #### Alphonso FAST, CP #### [facility] [address] [place], [place] [phone] Glass Checker: Dennis Castellanos MD #### LIPR #### [address] [phone] Glass Checker: Chele Osman MD Lipid Profileon 02-08-2023 Cholesterol [Mass/Vol] 207 mg/dL High 0-199 [facility] Comment on above: Result Comment: Cholesterol Guidelines: <200 Desirable 200-240 Borderline >240 Undesirable Performed By: #### Alphonso FAST, CP #### [facility] [address] [place], [place] [phone] Glass Checker: Dennis Castellanos MD #### LIPR #### [address] [id number] Glass Checker: Chele Osman MD Cholesterol in HDL [Mass/Vol] 63 mg/dL Normal >40 [facility] Comment on above: Result Comment: HDL Guidelines: <40 Undesirable 40-59 Borderline >59 Desirable Performed By: #### Alphonso FAST, CP #### [facility] [address] [place] [address] Glass Checker: Dennis Castellanos MD #### LIPR #### [address] [address] Glass Checker: Chele Osman MD Cholesterol in LDL [Mass/Vol] 105 mg/dL High 0-100 [facility] Comment on above: Result Comment: LDL Guidelines: <100 Desirable 100-129 Near to/above Desirable 130-159 Borderline >159 Undesirable Direct (measured) LDL and calculated LDL are not interchangeable tests. Performed By: #### Z FAST, CP #### [facility] [address] [place] [address] Glass Checker: Dennis Castellanos MD #### LIPR #### [address] [address] Glass Checker: Chele Osman MD Cholesterol in VLDL [Mass/Vol] 39 mg/dL Normal [facility] Comment on above: Performed By: #### Z FAST, CP #### [facility] [address] [place] [address] Glass Checker: Dennis Castellanos MD #### LIPR #### [address] [address] Glass Checker: Chele Osman MD Cholesterol.total/Ch olesterol in HDL [Mass ratio] 3.0 {ratio} Normal [facility] Comment on above: Performed By: #### Z FAST, CP #### [facility] [address] [place] [address] Glass Checker: Dennis Castellanos MD #### LIPR #### [address] [address] Glass Checker: Chele Osman MD Triglyceride [Mass/Vol] 196 mg/dL High 0-149 [facility] Comment on above: Result Comment: Triglyceride Guidelines: <150 Desirable 150-199 Borderline 200-499 High >499 Very high Based on AHA Guidelines for fasting triglyceride, December 2011. Performed By: #### Z FAST, CP #### [facility] [address] [place] [place], [place] [phone] Glass Checker: Dennis Castellanos MD #### LIPR #### [facility] [address] [place], [place] [id number] Glass Checker: Chele Osman MD Patient fasting?on 3 Patient fasting? yes Normal [facility] Comment on above: Performed By: #### Z FAST, CP #### [facility] [address] [place], [place] [phone] Glass Checker: Dennis Castellanos MD #### LIPR #### [facility] [address] [place], [place] [id number] Glass Checker: Chele Osman MD Surgical Pathology Reporton 01-20-2023 Surgical Pathology Report (NOTE) Path Number: [id number] -- Diagnosis -- A. Stomach, antrum, endoscopic [...] for each. Microscopic examination performed. Processing Lab: [facility] [address] [place] [address] Interpretation Performed at [facility] [address] [place] [address] SURGICAL PATHOLOGY CONSULTATION Patient Name: ESMER HUGHES. Med Rec: [id number] [facility] ANATOMIC PATHOLOGY [address] [place] [phone] [facility] H. pylori Antigenon 09-03-19 23 H. pylori Antigen Specimen Description .FECES Direct Exam NEGATIVE Report Status FINAL 09/02/2022 [facility] Comment on above: Performed By: #### F HPY #### [address] [address] Glass Checker: Chele Osman MD [facility] [address] [place] [address] Glass Checker: MD Vika Buckner 06-25-2022 CNOV Office Visit (TAWNYAORRM ) ESMER HUGHES ([id number]) 1960 F Date Time Provider Department 06/25/22 [...] Order(s):XR KNEE POST OP 3V AP/LAT/MERCHANT RIGHT [[id number]] Order #: [id number] FUTURE XR HIP GENERAL 3V PELV/AP/LAT LEFT [[id number]] Order #: [id number] FUTURE Prescriptions as of 06/28/2022 - clindamycin [...] by ANIRUDH YAO II on 06/28/22 Normal [facility] XR HIP 3V PELV+ AP/LAT LTon [...] other significant abnormality. IMPRESSION: NO SIGNIFICANT CHANGE Engraver Copperplate[facility] Transcribe Date/Time: Jun 25 2022 2:18P Dictated by : KRISTYN SANTILLAN MD This examination was interpreted and the report reviewed and electronically signed by: KRISTYN SANTILLAN MD on Jun 25 2022 2:19PM EST [id number] Normal [facility] XR KNEE 3V AP/LAT/MERCHANT R Ton [...] other significant abnormality. IMPRESSION: NORMAL POSTOPERATIVE FINDINGS Engraver Copperplate: RADHAMES Transcribe Date/Time: Jun 25 2022 2:17P Dictated by : DAYAN CHANG MD This examination was interpreted and the report reviewed and electronically signed by: DAYAN CHANG MD on Jun 25 2022 2:18PM EST [id number] Normal [facility] BD Bone Density DEXAon 06-21 BD [...] MD Transcribed by: NADEEM Technologist: BARRY [facility] [place] Mamm Screen w/CAD if perf [...] very important to your health. The current [employer] and National Comprehensive Cancer [...] Gage Gtz M.D. Transcribed by: NADEEM Technologist: LESVIA Assessment: BI-RADS Category 2-Benign finding Recommendation: Normal interval follow-up Normal [facility] CHEMISTRYOrdered By: SYSTEM SYSTEM on 06-17-2022 25-hydroxyvitamin D3 [Mass/Vol] 38.2 ng/mL Normal 30.0 - 100.0 ng/mL [facility] Remisol Calcium [Mass/Vol] 9.3 mg/dL Normal 8.9 - 11. 1 mg/dL [facility] Remisol Creatinine [Mass/Vol] 0.8 mg/dL Normal 0.5 - 1.3 mg/dL [facility] Remisol GFR/1.73 sq M.predicted among blacks MDRD (S/P/Bld) [Vol rate/Area] mL/min/1.73 m2 Normal >=59mL/min/1. 73 m2 [facility] Chem S GFR/1.73 sq M.predicted among non-blacks MDRD (S/P/Bld) [Vol rate/Area] mL/min/1.73 m2 Normal >=59mL/min/1. 73 m2 [facility] Chem S Calciumon 06-17-2022 Calcium [Mass/Vol] 9.3 mg/dL Normal 8.9-11.1 [facility] Comment on above: Performed By: #### 1 [id number], [id number], [id number], [id number] #### [facility] [address] [place] [address] Consent for Treatmenton Consent for Treatment [id number] D:127 Normal [facility] Creatinineon 06-17-2022 Creatinine [Mass/Vol] 0.8 mg/dL Normal 0.5-1.3 [facility] Comment on above: Performed By: #### 1 [id number], [id number], [id number] #### [facility] [address] [place] [address] Vitamin D 25 Hydroxyon 06-17 25-hydroxyvitamin D3 [Mass/Vol] 38.2 ng/mL Normal 30.0-100.0 [facility] Comment on above: Result Comment: Vit murphy D deficiency has been defined as a level of serum 25-OH vitamin D less than 20 ng/mL (1,2) by the [employer] and an Endocrine Society practice guideline. The Endocrine Society further defined vitamin D insufficiency as a level between 21 and 29 ng/mL (2). 1. IOM ([employer]). 2010. Dietary reference intakes for calcium and D. [place]: The National Academies Press. 2. Jamey MF, Caron [place], John CUADRA, et al. Evaluation, treatment, and prevention of vitamin D deficiency: an Endocrine Society clinical practice guideline. JCEM. 2010; 96 (7):1911-30. Performed By: #### 1 [id number], [id number], [id number], [id number] #### [facility] [address] [place] [address] eGFRon 06-17-2022 GFR/1.73 sq M.predicted among blacks MDRD (S/P/Bld) [Vol rate/Area] mL/min/{1.73_m2} Normal >=59 [facility] Comment on above: Order Comment: Order added by Discern Expert. Result Comment: eGFR is race adjusted. AA=. Performed By: #### 1 [id number], [id number], [id number], [id number] #### [facility] [address] [place] [address] GFR/1.73 sq M.predicted among non-blacks MDRD (S/P/Bld) [Vol rate/Area] mL/min/{1.73_m2} Normal >=59 [facility] Comment on above: Order Comment: Order added by Discern Expert. Result Comment: Bi Specialist jose kidney disease could be indicated at eGFR's of less than 60 mL/min/1.73m2. Kidney failure is indicated at less than 15 mL/min/1.73m2. Performed By: #### 1 [id number], [id number], [id number], [id number] #### [facility] [address] [place] [address] Physician Orderon 06-03-2022 Physician Order [id number]#1.00CD :127 Normal [facility] COVID-19, Rapidon 09-25-2021 SARS-CoV-2 (COVID-19) RNA MURRAY+probe Ql (Unsp spec) Not detected Not Detected [facility] Comment on above: Rapid NAAT: [...] management decisions. Fact sheet for Healthcare Providers: https://www.fda.gov/media/975426/download Fact sheet for Patients: https://www.[facility] [place].gov/media/115569/download Methodology: Isothermal Nucleic Acid Amplification Specimen Description .NASOPHARYNGEAL SWAB [facility] Comprehensive Metabolic Pane kiki 07-25-2021 Albumin [Mass/Vol] 4.2 g/dL 3.5 - 5.2 g/dL [facility] ALP (Bld) [Catalytic activity/Vol] 86 U/L 35 - 104 U/L [facility] ALT [Catalytic activity/Vol] 11 U/L 5 - 33 U/L [facility] Anion gap [Moles/Vol] 8 mmol/L Low 9 - 17 mmol/L [facility] AST [Catalytic activity/Vol] 17 U/L <32 [facility] Bilirubin [Mass/Vol] 0.39 mg/dL 0.30 - 1.20 mg/dL [facility] Calcium [Mass/Vol] 9.8 mg/dL 8.6 - 10. 4 mg/dL [facility] Chloride [Moles/Vol] 100 mmol/L 98 - 10 7 mmol/L [facility] CO2 [Moles/Vol] 31 mmol/L 20 - 31 mmol/L [facility] Creatinine [Mass/Vol] 0.61 mg/dL 0.50 - 0.90 mg/dL [facility] Free PSA/Total PSA [Mass fraction] 7.2 g/dL 6.4 - 8.3 g/dL [facility] GFR >60 >60 mL/min [facility] GFR Non- >60 >60 mL/min [facility] GFR/1.73 sq M.predicted MDRD (S/P/Bld) [Vol rate/Area] [facility] Comment on above: Average GFR for 50-5 9 years old: 93 mL/min/1.73sq m Chronic Kidney Disease: <60 mL/min/1.73sq m Kidney failure: <15 mL/min/1.73sq m eGFR calculated using average adult body mass. Additional eGFR calculator available at: http://www.thereNow.Mantis [employer]/multiple_crcl_2012.htm Glucose [Mass/Vol] 88 mg/dL 70 - 99 mg/dL [facility] Interpretation and review of laboratory results Abnormal [facility] Potassium [Moles/Vol] 3.8 mmol/L 3.7 - 5.3 mmol/L [employer] Sodium [Moles/Vol] 139 mmol/L 135 - 144 mmol/L [employer] Urea nitrogen (BldV) [Mass/Vol] 16 mg/dL 6 - 20 mg/dL [employer] Urea nitrogen/Creatinine (Bld) [Mass ratio] 26 High [employer] Lipid Panelon 07-25-2021 Cholesterol [Mass/Vol] 225 mg/dL High <200 [employer] Comment on above: Cholesterol Guidelines: <200 Desirable 200-240 Borderline >240 Undesirable Cholesterol in HDL [Mass/Vol] 71 mg/dL >40 [employer] Comment on above: HDL Guidelines: <40 Undesirable 40-59 Borderline >59 Desirable Cholesterol in LDL [Mass/Vol] 121 mg/dL 0 - 130 mg/dL [employer] Comment on above: LDL Guidelines: <100 Desirable 100-129 Near to/above Desirable 130-159 Borderline >159 Undesirable Direct (measured) LDL and calculated LDL are not interchangeable tests. Cholesterol.total/Ch olesterol in HDL [Mass ratio] 3.2 {ratio} <5 [employer] Interpretation and review of laboratory results Abnormal [employer] Triglyceride [Mass/Vol] 163 mg/dL High <150 [employer] Comment on above: Triglyceride Guidelines: <150 Desirable 150-199 Borderline 200-499 High >499 Very high Based on AHA Guidelines for fasting triglyceride, December 2011. [employer] Patient Fasting?on 2 Patient Fasting? YES Sakina lynnette [employer] Comprehensive Metabolic Pane lOrdered By: Zane Souza on 07-25-2020 Albumin [Mass/Vol] 4.2 g/dL 3.5 - 5.2 g/dL [employer] Work Phone: Albumin/Globulin Ratio NOT REPORTED [employer] Phone: ALP (Bld) [Catalytic activity/Vol] 85 U/L 35 - 104 U/L [employer] Phone: ALT [Catalytic activity/Vol] 12 U/L 5 - 33 U/L [employer] Phone: Anion gap [Moles/Vol] 9 mmol/L 9 - 17 mmol/L [employer] Phone: AST [Catalytic activity/Vol] 16 U/L <32 [employer] Phone: Bilirubin [Mass/Vol] 0.32 mg/dL 0.30 - 1.20 mg/dL [employer] Phone: Calcium [Mass/Vol] 9.7 mg/dL 8.6 - 10. 4 mg/dL [employer] Phone: Chloride [Moles/Vol] 101 mmol/L 98 - 10 7 mmol/L [employer] Phone: CO2 [Moles/Vol] 31 mmol/L 20 - 31 mmol/L [employer] Phone: Creatinine [Mass/Vol] 0.57 mg/dL 0.50 - 0.90 mg/dL [employer] Phone: Free PSA/Total PSA [Mass fraction] 7.1 g/dL 6.4 - 8.3 g/dL [employer] Phone: GFR >60 >60 mL/min [employer] Phone: GFR Non- >60 >60 mL/min [employer] Phone: GFR/1.73 sq M.predicted MDRD (S/P/Bld) [Vol rate/Area] [employer] Phone: Comment on above: Average GFR for 50-5 9 years old: 93 mL/min/1.73sq m Chronic Kidney Disease: <60 mL/min/1.73sq m Kidney failure: <15 mL/min/1.73sq m eGFR calculated using average adult body mass. Additional eGFR calculator available at: http://www.thereNow.M[employer]/multiple_crcl_2012.htm GFR/1.73 sq M.predicted MDRD (S/P/Bld) [Vol rate/Area] NOT REPORTED [employer] Phone: Glucose [Mass/Vol] 86 mg/dL 70 - 99 mg/dL [employer] Phone: Interpretation and review of laboratory results Abnormal [employer] Phone: Potassium [Moles/Vol] 3.6 mmol/L Low 3.7 - 5.3 mmol/L [employer] Phone: Sodium [Moles/Vol] 141 mmol/L 135 - 144 mmol/L [employer] Phone: Urea nitrogen (BldV) [Mass/Vol] 20 mg/dL 6 - 20 mg/dL [employer] Phone: Urea nitrogen/Creatinine (Bld) [Mass ratio] 35 High [employer] Phone: Lipid PanelOrdered By: Zane Souza on 07-25-2020 Cholesterol [Mass/Vol] 219 mg/dL High <200 [employer] Phone: Comment on above: Cholesterol Guidelines: <200 Desirable 200-240 Borderline >240 Undesirable Cholesterol in HDL [Mass/Vol] 71 mg/dL >40 [employer] Phone: Comment on above: HDL Guidelines: <40 Undesirable 40-59 Borderline >59 Desirable Cholesterol in LDL [Mass/Vol] 106 mg/dL 0 - 130 mg/dL [employer] Phone: Comment on above: LDL Guidelines: <100 Desirable 100-129 Near to/above Desirable 130-159 Borderline >159 Undesirable Direct (measured) LDL and calculated LDL are not interchangeable tests. Cholesterol in VLDL [Mass/Vol] NOT REPORTED High 1 - 30 mg/dL [employer] Phone: Cholesterol.total/Ch olesterol in HDL [Mass ratio] 3.1 {ratio} <5 [employer] Phone: Interpretation and review of laboratory results Abnormal [employer] Phone: Triglyceride [Mass/Vol] 208 mg/dL High <150 [employer] Phone: Comment on above: Triglyceride Guidelines: <150 Desirable 150-199 Borderline 200-499 High >499 Very high Based on AHA Guidelines for fasting triglyceride, December 2011. Patient Fasting?Ordered By: Zane Souza on 07-25-2020 Patient Fasting? YES Sakina Purcell lynnette Work Phone: Basic Metabolic Panelon -0 Calcium [Mass/Vol] 10.3 mg/dL Normal 8.5-10.6 [facility] Chloride [Moles/Vol] 98 mmol/L Normal 98-107 [facility] CO2 [Moles/Vol] 32 mmol/L Normal 21-32 [facility] Creatinine [Mass/Vol] 0.65 mg/dL Normal 0.55-1.02 [facility] Glucose [Mass/Vol] 81 mg/dL Normal 70-99 [facility] Potassium [Moles/Vol] 3.7 mmol/L Normal 3.5-5.1 [facility] Sodium [Moles/Vol] 139 mmol/L Normal 136-145 [facility] Urea nitrogen (BldV) [Mass/Vol] 20 mg/dL High 7.0-18.0 [facility] Urea nitrogen/Creatinine [Mass ratio] 31 mg/mg Normal [facility] CBC with Differentialon Basophils (Bld) [#/Vol] 0.0 thou/mcL Normal 0.0-0.2 [facility] Basophils/100 WBC (Bld) 0.4 % Normal 0-3 [facility] Differential cell count method Nom (Bld) AUTOMATED DIFFERENTIAL Normal [facility] Eosinophils (Bld) [#/Vol] 0.1 thou/mcL Normal 0.0-0.4 [facility] Eosinophils/100 WBC (Bld) 1.6 % Normal 0-7 [facility] Erythrocyte distribution width (RBC) [Entitic vol] 12.7 % Normal 11.7-15.0 [facility] Hematocrit (Bld) [Volume fraction] 40.6 % Normal 34.0-50.0 [facility] Hemoglobin (Bld) [Mass/Vol] 13.9 g/dL Normal 11.5-17.0 [facility] Lymphocytes (Bld) [#/Vol] 1.8 thou/mcL Normal 0.7-4.5 [facility] Lymphocytes/100 WBC (Bld) 25.6 % Normal 14-46 [facility] MCH (RBC) [Entitic mass] 31.7 Picograms Normal 27.0-34.0 [facility] MCHC (RBC) [Mass/Vol] 34.2 g/dL Normal 32.0-36.0 [facility] MCV (RBC) [Entitic vol] 92.6 fL Normal 80-98 [facility] Monocytes (Bld) [#/Vol] 0.4 thou/mcL Normal 0.1-1.0 [facility] Monocytes/100 WBC (Bld) 5.3 % Normal 4-13 [facility] Neutrophils (Bld) [#/Vol] 4.6 thou/mcL Normal 1.5-7.8 [facility] Neutrophils/100 WBC (Bld) 67.1 % Normal 40-74 [facility] Platelet mean volume (Bld) [Entitic vol] 8.7 fL Normal 7.5-11.2 [facility] Platelets (Bld) [#/Vol] 291 thou/mcL Normal 140-415 [facility] RBC (Bld) [#/Vol] 4.38 x(10)6/mcL Normal 3.80-5.60 Mo [facility] WBC (Bld) [#/Vol] 6.8 thou/mcL Normal 4.0-10.5 [facility] Comprehensive Metabolic Pane kiki 07-21-2019 Albumin [Mass/Vol] 4.3 g/dL 3.5 - 5.2 g/dL [place] Albumin/Globulin [Mass ratio] NOT REPORTED [place] ALP [Catalytic activity/Vol] 78 U/L 35 - 104 U/L [place] ALT [Catalytic activity/Vol] 11 U/L 5 - 33 U/L [place] Anion gap [Moles/Vol] 8 mmol/L Low 9 - 17 mmol/L [place] AST [Catalytic activity/Vol] 18 U/L <32 [place] Bilirubin Ql (U) 0.41 mg/dL 0.3 - 1.2 mg/dL [place] Bun/Cre Ratio 29 [place] Calcium [Mass/Vol] 10.0 mg/dL 8.6 - 10. 4 mg/dL [place] Chloride [Moles/Vol] 101 mmol/L 98 - 10 7 mmol/L [place] CO2 [Moles/Vol] 28 mmol/L 20 - 31 mmol/L [place] Creatinine [Mass/Vol] 0.62 mg/dL 0.5 - 0.9 mg/dL [place] GFR >60 >60 mL/min [place] GFR Non- >60 >60 mL/min [place] GFR/1.73 sq M predicted among non-blacks MDRD (S/P/Bld) [Vol rate/Area] NOT REPORTED [place] GFR/1.73 sq M predicted among non-blacks MDRD (S/P/Bld) [Vol rate/Area] [place] Comment on above: Average GFR for 50-5 9 years old: 93 mL/min/1.73sq m Chronic Kidney Disease: <60 mL/min/1.73sq m Kidney failure: <15 mL/min/1.73sq m eGFR calculated using average adult body mass. Additional eGFR calculator available at: http://www.CloudApps/multiple_crcl_2012.htm Glucose [Mass/Vol] 101 mg/dL High 70 - 99 mg/dL [place] Potassium [Moles/Vol] 3.7 mmol/L 3.7 - 5.3 mmol/L [place] Protein [Mass/Vol] 7.4 g/dL 6.4 - 8.3 g/dL [place] Sodium [Moles/Vol] 137 mmol/L 135 - 144 mmol/L [place] Urea nitrogen [Mass/Vol] 18 mg/dL 6 - 20 mg/dL [place] Lipid Panelon 07-21-2019 Cholesterol [Mass/Vol] 227 mg/dL High <200 [place] Comment on above: Cholesterol Guidelines: <200 Desirable 200-240 Borderline >240 Undesirable Cholesterol in HDL [Mass/Vol] 81 mg/dL >40 [place] Comment on above: HDL Guidelines: <40 Undesirable 40-59 Borderline >59 Desirable Cholesterol in LDL [Mass/Vol] 116 mg/dL 0 - 130 mg/dL [place] Comment on above: LDL Guidelines: <100 Desirable 100-129 Near to/above Desirable 130-159 Borderline >159 Undesirable Direct (measured) LDL and calculated LDL are not interchangeable tests. Cholesterol in VLDL [Mass/Vol] NOT REPORTED 1 - 30 mg/dL [place] Cholesterol.total/Ch olesterol in HDL [Mass ratio] 2.8 {ratio} <5 [place] Triglyceride [Mass/Vol] 150 mg/dL High <150 [place] Comment on above: Triglyceride Guidelines: <150 Desirable 150-199 Borderline 200-499 High >499 Very high Based on AHA Guidelines for fasting triglyceride, December 2011. Otheron 07-21-2019 Interpretation and review of laboratory results Abnormal [place] Patient Fasting?on 0 Patient Fasting? YES [place] Encounters Encounter Date Encounter Type Care Provider Facility Start: 05-06-2023 End: 05-06-2023 ambulatory JT EDOUARD Not Available Start: 04-27-2023 Bamboo flowsheet Bonnie MART Work [...] Dx) Start: 04-25-2023 End: 04-26-2023 ambulatory Jadon Colbert MD Facility:[facility] Start: 04-04-2023 End: 04-05-2023 ambulatory Jadon Colbert MD Facility: [facility] Start: 03-22-2023 End: 03-22-2023 ambulatory [facility] Start: 03-21-2023 End: 03-22-2023 ambulatory Jadon Colbert MD Facility:[facility] Start: 02-09-2023 End: 02-12-2023 ambulatory [facility] Start: 02-08-2023 End: 02-09-2023 ambulatory [facility] Start: 02-07-2023 ambulatory [facility] Start: 01-20-2023 End: 01-20-2023 ambulatory [facility] Start: 01-13-2023 End: 01-14-2023 [facility] Start: 01-13-2023 Encounter for other preprocedural examination [facility] Start: 09-01-2022 End: 09-02-2022 ambulatory HERMINIO [facility] Start: 06-25-2022 End: 06-25-2022 ambulatory Trini Escobar RT(R) Radiology Comment on above: Radio Gen RMP Start: 06-25-2022 Patient encounter procedure Trini Escobar RT(R) [facility] Start: 06-17-2022 End: 06-18-2022 ambulatory Paloma Kaufman Facility:[facility] Start: 06-17-2022 End: 06-17-2022 Patient encounter procedure Paloma Kaufman [facility] Start: 09-25-2021 End: 09-25-2021 Subsequent [...] Subsequent hospital visit by physician Avtar Ramsey [facility] Physical Therapy Comment on above: Arrived Start: 06-11-2020 End: 06-11-2020 Subsequent hospital visit by physician Avtar Ramsey [facility] Physical Therapy Comment on above: Arrived Start: 06-09-2020 End: 06-09-2020 Subsequent hospital visit by physician Estela Davila [facility] Physical Therapy Comment on above: Arrived Start: 07-21-2019 End: 07-21-2019 Subsequent hospital visit by physician Zane Souza [facility] Laboratory Comment on above: Essential hypertensi on, benign Procedures Date Procedure Procedure Detail Performing Clinician Start: 04-27-2023 SKIN / NAIL BIOPSY Mariaelena MART Work Phone: Start: 09-25-2021 COVID-19, RAPID Jose Heredia 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 AND 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 SERVICE 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 Work Phone: Start: 07-25-2021 Comprehensive metabo lic [...] left vein ligation a nd stripping Paloma Kaufman Start: 08-02-2016 Phlebectomy of lower limb vein Paloma Kaufman Comment on above: left leg Start: 04-28-2016 [...] Kaufman Dilation and curetta ge of uterus Paloma Shae Total replacement of left hip joint Paloma Shae Comment on above: x 2 Plan of Treatment Date Care Activity Detail Author Start: 10-09-2028 DTaP/Tdap/Td vaccine (2 - Tdap) DTaP/Tdap/Td vaccine (2 - Tdap) [employer] Start: 07-25-2026 [facility]id [facility] Start: 07-25-2025 Lipid panel [employer] Start: 09-09-2024 Screening for malignant neoplasm of colon [employer] Start: 07-20-2024 Lipid panel Lipid screen [employer] Work Phone: Start: 10-05-2023 End: 10-05-2023 Patient encounter procedure 10/05/2023 4:20 PM EDT Office Visit [facility] [address] [place] [address] Bonnie [place], [place] [address] [place], [place] [id number] [facility] Start: 07-16-2023 Lipid panel Lipid screen [facility] [place], [place] Start: 04-27-2023 End: 04-27-2023 Patient encounter procedure 04/27/2023 9:30 AM EST Office Visit [facility] [address] [place] [address] Bonnie [place], [place] [address] [place], [place] [id number] Arrived [facility] Comment on above: Arrived Start: 07-29-2022 Depression Screen Depression Screen [facility] Start: 03-14-2022 DEPRESSION ASSESSMENT DEPRESSION ASSESSMENT [facility] Start: 02-02-2022 End: 02-02-2022 Patient encounter procedure 02/02/2022 Office Visit Family Zane Briggs MD [address] [place] [address] [facility] Start: 01-22-2022 Screening for malignant neoplasm of breast Breast cancer screen [facility] Start: 11-12-2021 Influenza vaccination Flu vaccine (#1) [facility] Start: 07-30-2021 Depression Screen Depression Screen [facility] Start: 07-29-2021 End: 07-29-2021 Patient encounter procedure 07/29/2021 Office Visit Family Zane Briggs MD [address] [place] [address] [facility] Start: 07-25-2021 Creatinine measurement Creatinine monitoring [employer] Phone: Start: 07-25-2021 Potassium monitoring Potassium monitoring [employer] Phone: Start: 06-03-2021 COVID-19 Vaccine (4 - Booster for Moderna series) COVID-19 Vaccine (4 - Booster for Moderna series) [facility] Start: 02-01-2021 Screening for malignant neoplasm of breast Breast cancer screen [employer] Start: 07-30-2020 End: 07-30-2020 Office Visit 07/30/2020 Office Visit Family Medicine Zane Souza MD [address] [place] [address] [facility] Start: 07-20-2020 Creatinine measurement Creatinine monitoring [employer] Phone: Start: 07-20-2020 Potassium monitoring Potassium monitoring [employer] Phone: Start: 07-18-2020 End: 07-18-2020 Patient encounter [...] COVID-19 Vaccine (2 - Moderna 2-dose series) [facility] Work Phone: Start: 06-23-2020 End: 06-23-2020 Appointment [...] Office Visit Family Medicine Zane Souza MD [address] [place] [address] [phone] [facility] Start: 07-16-2019 Creatinine measurement Creatinine monitoring [facility] Start: 07-16-2019 Potassium monitoring Potassium monitoring [facility] [employer] [place], [place] Start: 07-31-2015 Screening for malignant neoplasm of breast Mammogram [facility] Start: 2012 Shingles Vaccine (1 of 2) Shingles Vaccine (1 of 2) [facility] Start: 2012 SHINGRIX VACCINE (1 of 2) SHINGRIX VACCINE (1 of 2) [facility] Start: 09-15-2007 COLOGUARD (FIT-DNA) COLOGUARD (FIT-DNA) [facility] Start: 09-15-2007 Colonoscopy COLONOSCOPY [facility] Start: 09-15-2007 COLORECTAL CANCER SCREENING COLORECTAL CANCER SCREENING [facility] Start: 09-15-[address] COLONOGRAPHY [facility] Start: 09-15-2007 DIABETES SCREEN DIABETES SCREEN [facility] Start: 09-15-2007 FECAL OCCULT BLOOD FECAL OCCULT BLOOD [facility] Start: 09-15-2007 LIPID SCREEN LIPID SCREEN [facility] Start: 09-15-2007 Screening for malignant neoplasm of colon [facility] Start: 09-15-2007 SIGMOIDOSCOPY SIGMOIDOSCOPY [facility] Start: 2002 Diabetes screen Diabetes screen [facility] Work Phone: Start: 2002 Mammography MAMMOGRAM [facility] Start: 1992 HPV TESTING HPV TESTING [facility] Start: 1992 Screening for malignant neoplasm of cervix [facility] Start: 09-15-1983 PAP TESTING PAP TESTING [facility] Start: 09-15-1983 Screening for malignant neoplasm of cervix Pap Smear [facility] Start: 1981 Urine microalbumin profile DTAP,TDAP,TD (1 - Tdap) [facility] Start: 1980 Hepatitis C screening Hepatitis C screen [facility] Start: 1980 HEPATITIS C SCREENING HEPATITIS C SCREENING [facility] Start: 1980 HIV SCREENING HIV SCREENING [facility] Start: 1977 HIV screening HIV screen [facility] Start: 1962 Hepatitis C screening Hepatitis C screen [facility] [employer] Start: 1962 Screening for malignant neoplasm of colon [facility] Dermatopathology exam Dermatopat hology exam Pathology and Cytology Timed Neoplasm of unspecified behavior of bone, soft tissue, and skin Release Upon Ordering for 1 Occurrences starting 04/27/2023 [facility] Work Phone: Comment on above: Release Upon Ordering for 1 Occurrences starting 04/27/2023 Immunizations Immunization Date Immunization Notes Care Provider Chris chatterjee 03-21-2021 influenza, injectabl e, quadrivalent, preservative free Zane Souza MD Work Phone: [employer] Work Phone: 02-03-2021 COVID-19, Moderna, Primary or Immunocompromised, PF, 100mcg/0.5mL Zane Souza MD Work Phone: [employer] Work Phone: 06-24-2020 COVID-19, Moderna, Primary or Immunocompromised, PF, 100mcg/0.5mL Zane Souza MD Work Phone: [employer] Work Phone: 05-27-2020 COVID-19, Moderna, Primary or Immunocompromised, PF, 100mcg/0.5mL Zane Souza MD Work Phone: [employer] Work Phone: 12-24-2019 influenza, injectabl e, quadrivalent, preservative free [facility] [employer] Work Phone: 01-02-2019 influenza virus vaccine, unspecified formulation Zane Souza MD Work Phone: [employer] Work Phone: 01-02-2019 influenza, injectabl e, quadrivalent, preservative free [facility] 10-09-2018 diphtheria, tetanus toxoids and acellular pertussis vaccine, unspecified formulation [place], [place] 10-09-2018 measles and rubella virus vaccine Z[facility] Souza MD Work Phone: [facility] Work Phone: 10-09-2018 measles, mumps and rubella virus vaccine [facility] 10-09-2018 tetanus toxoid, redu kyung diphtheria toxoid, and acellular pertussis vaccine, adsorbed [facility] [place] Payers Date Payer Category Payer Unknown [id number] 2020 Unknown [id number] 2018 Unknown [employer] [address] xxxxxxxx 2018-Present [phone] [address] [place] [address] xxxxxxxx [id number] 1962 Unknown [id number] 1962 Unknown [id number] 1962 Unknown [id number] 1962 Unknown [id number] 1962 Unknown [id number] 1962 Unknown [id number] 1962 Unknown [id number] 1962 Unknown [id number] 1962 Unknown [id number] 1962 Unknown [id number] 1962 Unknown [id number] 1962 Unknown [id number] 1962 Unknown [id number] 1962 Unknown [id number] 1962 Unknown [id number] Social History Date Type Detail Facility Start: 04-19-2019 End: 09-27-2022 Tobacco smoking status MDIS Never smoker [employer] Start: 04-19-2019 End: 09-25-2021 Alcohol intake Current drinker of alcohol (finding) [facility] Start: 03-15-2013 Alcohol Comment occasional [employer], [place] Start: 1960 Sex Assigned At Not on file [place] Start: 01-29-2020 End: 09-25-2021 Tobacco use and exposure Never used [employer] Phone: Start: 03-15-2013 Alcohol Comment occasional [employer] Phone: Start: 07-30-2020 End: 09-25-2021 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 [employer] Work Phone: Start: 07-30-2020 End: 09-25-2021 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 [employer] Phone: Tobacco smoking status No Smokin g Status Entered [facility] Start: 09-29-2022 End: 04-27-2023 Sex Assigned At Female [facility] Start: 09-28-2007 Alcohol intake Not Asked [facility] Start: 09-29-2022 End: 04-27-2023 History of Social function [facility] Clinical Notes 06-27-2020 to 04-27-2023 [place], [place] - 04/27/2023 9:30 AM Mayra Escobar, RT(R) - 06/25/2022 1:11 PM Estela Mai PT - 07/18/2020 9:45 AM EDTChRita paige - 07/14/2020 9:45 AM EDT Note Date [...] tissue, and skin Right Forearm - Posterior Collins, tender nodule with central hyperkeratosis Lesion biopsy [...] Visit: as scheduled documented in this encounter [facility] 06-28-2022 Note HNO ID: [id number] Author: Anirudh Yao MD Service: ? Author Type: Physician Type: Progress Notes Filed: 06/28/2022 4:16 PM Note Text: see dictated note Anirudh Yao II, MD [facility] 06-25-2022 Note HNO ID: [id number] Author: RT Barby(R) Service: ? Author Type: [...] RT Barby(R) June 25, 2022 1:11 PM [facility] 06-25-2022 History of Present illness Narrative [...] 2022 1:11 PM documented in this encounter [facility] 07-18-2020 History of Present illness Narrative Images from the original note were not included. 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 LEFS=39/80 Issued information on heel-lifts. 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 LEFS=39/80 Issued information on heel-lifts. AROM [id number], PROM: ext 5degFN Pt amb without AD, mild deviations due to leg length discrepency. Pt educated that lift placed to the sole of her shoes may be needed, pt would like to cont with insert lifts for now. Reason for Discharge Completion of Prescribed visits Comments: Thank you for this referral Estela Davila Date: 07/18/2020 documented in this encounter [facility] [employer] Phone: 07-14-2020 History of Present illness Narrative Images from the original note were not included. 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 group home goal 2: Pt to have Neutral PROM knee ext to improve standing [place]. 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 Post Treatment Pain: 07/21 Time In: 0945 Time Out : 1027 Timed Code Treatment Minutes: 42 Minutes Total Treatment Time: 42 Minutes Rita Nieves MILLING SUPERVISOR Date: 07/14/2020 documented [facility] this encounter [facility] [employer] [facility] Phone: 07-04-2020 History of Present illness Narrative Images from the original note were not included. 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 Pt reports that she is able [...] ext =5deg FN to improve gait-not met Rate And Cost Analyst Goals - Time Frame for group home goals : 18 visits group home goal 1: Pt to score >47/80 on LEFS to improve ADL [place]. group home goal 2: Pt to have Neutral PROM knee ext to improve standing [place]. group home goal 3: Pt to have 110deg of knee flexion to improve car transfers. 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 group home goal 5: Pt to complete up/down 4 steps reciprocally with 1 HR to improve home access. Post Treatment Pain: 8 Time In: 0952 Time Out: 1037 Timed Code Treatment Minutes: 45 Minutes Total Treatment Time: 45 Minutes Estela Davila, KAREN Date: 07/04/2020 documented in this encounter [facility] [employer] [facility] Phone: 06-30-2020 History of Present illness Narrative Images from the original note were not included. 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 group home goal 2: Pt to have Neutral PROM knee ext to improve standing [place]. 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 group home goal 4: Pt to amb without AD x150ft without deviations to improve community amb [place]. 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 Post Treatment Pain: 10 Time In: 0945 Time Out : 1030 Timed Code Treatment Minutes: 45 Minutes Total Treatment Time: 45 Minutes Rita Nieves MILLING SUPERVISOR Date: 06/30/2020 documented in this encounter [facility] [employer] [facility] Phone: 06-27-2020 History of Present illness Narrative Images from the original note were not included. 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 Post Treatment Pain: 09/20 Time In: 0955 Time Out : 1040 Timed Code Treatment Minutes: 45 Minutes Total Treatment Time: 45 Minutes Rita Nieves MILLING SUPERVISOR Date: 06/27/2020 documented in this encounter [employer] Phone: Evaluation + Plan note No data available for this section [facility] Evaluation note Diagnosis Essential hypertension, benign documented in this encounter [employer] Phone: evaluation note* Diagnosis Essential hypertension, benign documented in this encounter [employer] Phone: evaluation note* Diagnosis Viral URI Acute upper respiratory infections of unspecified site Suspected COVID-19 virus infection documented in this encounter [employer] Work Phone: evaluation note* Diagnosis Neoplasm of unspecified behavior of bone, soft tissue, and skin- Primary [facility] No data available for this section [facility] data available for this section [facility] Assessments Diagnosis Essential hypertension, benign Advance Directives No Advanced Directives Records FoundDocuments on File Type Date Recorded 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 Advance Directives and Living Will Power of Sweatband Perforator Latest Code Status on File Code Status Date Activated Date Inactivated Comments Full Code 09/09/2014 10:17 AM 09/09/2014 1:36 PM Full Code 09/09/2014 7:06 AM 09/09/2014 10:17 AM Documents on File Type Date Recorded 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 group home goal 2: Pt to have Neutral PROM knee ext to improve standing [place]. group home goal 3: Pt to have 110deg of knee flexion to improve car transfers. group home goal 4: Pt to amb without AD x150ft without deviations to improve community amb [place]. 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 Patient's Goal: Return to walking normally Timed Code Treatment Minutes: 10 Minutes Total Treatment Time: 55 Time In: 1105 Time Out: 1200 Estela Davila, PT Date: 06/09/2020 documented in this encounter* Avtar Ramsey, MILLING SUPERVISOR - 06/13/2020 9:45 AM EDT Images from the original note were not included. 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 group home goal 4: Pt to amb without AD x150ft without deviations to improve community amb [place]. 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 Post Treatment Pain: 07/21 Time In: 0945 Time Out : 1030 Timed Code Treatment Minutes: 45 Minutes Total Treatment Time: 45 Minutes Avtar Ramsey, MILLING SUPERVISOR Date: 06/13/2020 documented in this encounter* Rita Nieves - 06/16/2020 8:45 AM EDT Images from the original note were not included. 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 group home goal 2: Pt to have Neutral PROM knee ext to improve standing [place]. group home goal 3: Pt to have 110deg of knee flexion to improve car transfers. 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 group home goal 5: Pt to complete up/down 4 steps reciprocally with 1 HR to improve home access. Post Treatment Pain: 07/21 Time In: 0845 Time Out : 929 Timed Code Treatment Minutes: 45 Minutes Total Treatment Time: 45 Minutes Rita Nieves MILLING SUPERVISOR Date: 06/16/2020 documented in this encounter* Estela Davila, PT - 06/20/2020 10:00 AM EDT Images from the original note were not included. 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 group home goal 3: Pt to have 110deg of knee flexion to improve car transfers. group home goal 4: Pt to amb without AD x150ft without deviations to improve community amb [place]. 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 Post Treatment Pain: 09/20 Time In: 1000 Time Out : 1045 Timed Code Treatment Minutes: 45 Minutes Total Treatment Time: 45 Minutes Rita Nieves MILLING SUPERVISOR Date: 06/20/2020 documented in this encounter* Estela Davila, PT - 06/26/2020 8:15 AM EDT Images from the original note were not included. 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 group home goal 5: Pt to complete up/down 4 steps reciprocally with 1 HR to improve home access. Post Treatment Pain: 610 Time In: 0815 Time Out : 0900 Timed Code Treatment Minutes: 45 Minutes Total Treatment Time: 45 Minutes Estela Davila, KAREN Date: 06/26/2020 documented in this encounter Additional Source Comments INFORMATION SOURCE (unrecogn ized section and content) DATE CREATED AUTHOR 05/15/2020 [facility] DATE CREATED AUTHOR AUTHOR'S ORGANIZ ATION 06/29/2022 [facility] DATE CREATED AUTHOR AUTHOR'S ORGANIZ ATION 09/10/2022 [facility] DATE CREATED AUTHOR AUTHOR'S ORGANIZ ATION 03/22/2023 Sakina juan DATE CREATED AUTHOR AUTHOR'S ORGANIZ ATION 05/01/2023 [facility] DATE CREATED AUTHOR AUTHOR'S ORGANIZ ATION 05/14/2023 [facility] Specialists EPIC Care Teams (unrecognized sec tion and content) Jalousie Installer Relationship Specialty Start Date End Date Zane Souza MD [address] [place] [address] PCP - General Family Medicine 01/02/11 Jalousie Installer Relationship Specialty Start Date End Date Zane Souza MD [address] [place] [address] PCP - General Family Medicine 01/02/11 Jalousie Installer Relationship Specialty Start Date End Date Zane Souza PCP - General 09/06/07 Source Comments (unrecognize d section and content) In the event this informatio n is protected by the Federal Confidentiality of Alcohol and Drug Abuse Patient Records regulations: The Federal rules restrict any use of the information to criminally investigate or prosecute any alcohol or drug abuse patient.[facility] Reason for Visit (unrecogniz ed section and [...] BE BASED ON THE PRIMARY CLINICAL RECORDS. [facility]. provides no warranty or guarantee of the accuracy or completeness of information in this document.
[2023-06-06 08:28] VITALS: BP 138/86; PULSE 69; RESP 16; TEMP 36.6; O2SAT 98
[2023-06-06 09:23] VITALS: BP 141/68; PULSE 60; RESP 18; O2SAT 98
[2023-06-06] MEDS: BUPIVACAINE HCL 0.25% PF 25 MG/10 ML VIAL 4 ML INJ (09:27)
[2023-06-06] MEDS: LIDOCAINE HCL 2% 400 MG/20 ML MDV 16 ML INJ (09:27)
[2023-06-06] MEDS: TRIAMCINOLONE ACETONIDE 40 MG/ML VIAL 80 MG INJ (09:28)
[2023-06-06 09:29] VITALS: BP 129/68; PULSE 66; RESP 18; O2SAT 92
--- NOTE | 2023-06-06 09:40 | P.ON_ITS ---
Date of procedure: 06/06/23 Pre-op diagnosis: Lumbar spondylosis Post-op diagnosis: same as pre-op Procedure: Procedure: Bilateral L4-5, L5-S1 radiofrequency ablation Medications: Bupivacaine 0.25% 6cc, lidocaine 2% 5cc, kenalog 80mg The patient was seen and examined in the preoperative holding area.? The site was marked.? Written informed consent was obtained and placed on the chart.? The patient was brought to the medical procedure unit and placed in the prone position.? A timeout was completed verifying correct patient, procedure, positioning, and special requirements.? The skin overlying the target points, the designated medial branch, were prepped and draped in the usual sterile fashion.? The target point was achieved with a 20-gauge 15 cm with a 10 mm curved active tip radiofrequency cannula under direct fluoroscopic visualization.? The needle was inserted at level L4 on the right side. Needle tip position was confirmed with lateral fluoroscopic position.? Motor stimulation was carried out at 2 Hz up to 5 volts with the absence of extremity activity.? This was repeated at level L5, S1 on right side.?? Sensory stimulation was carried out.? Concordant pain was realized at the above- mentioned sites.? Then radiofrequency lesioning was carried out times 90 seconds at 80 degrees times 2 lesions at each level.? The radiofrequency probe was removed prior to cannula removal.? The above-mentioned injectate was placed in 1 mL increments.? The needle was removed. The same procedure, with the same steps, was then completed on the left side at the same levels. Insertion sites were covered.? The patient was taken to the postoperative recovery area and monitored for an appropriate length of time before being found suitable for discharge in the company of a responsible adult. Anesthesia: Local Surgeon: Jadon Colbert Pathology: none sent Condition: stable Disposition: no change
== END 2023-06-06 09:44 | disposition home or self-care (01) ==
PROVIDERS: PCP Family Medicine; Visit Provider Anesthesiology
DX: M47.816 Spondylosis without myelopathy or radiculopathy, lumbar region (principal)
CPT/HCPCS: 64635; 64636

== ENCOUNTER 2023-07-07 14:20 | Outpatient (OUT) | payer BC, SELFPAY ==
--- NOTE | 2023-07-07 14:22 | PM.CN ---
Consult Note: HPI Data of Consult Patient: known to practice within the last 3 years Consult date: 03/21/23 Requesting Physician: Amparo Morgan NP Primary Care Provider: ZANE LICONA Consult Narrative Reason for consult: chronic pain Narrative: 62yof who presents for assessment. Worsening low back pain. Lumbar xr shows spondylosis in lower lumbar spine. XR shows right shoulder OA. Continues in provider directed home exercise program >6 weeks >3x/week, with minimal benefit. Uses tylenol, as needed. Denies adverse med side effects. Patient finding significant relief from right shoulder injection. Recently underwent bilateral L4-5 L5-S1 facet medial branch RFA with 80% improvement. Patient would like to discuss mid back pain. Today mid back 7/10, increasing to 10/10 with activity improved with lying flat. cc:: CC: Amparo Morgan NP Review of Systems ROS Status of ROS 10 or more systems reviewed and unremarkable except as noted in history and below Musculoskeletal Reports: back pain and joint pain PFSH PFSH Medical History (Updated 07/07/23 @ 14:53 by Amparo Morgan NP) Hypertension ?I10 - Essential (primary) hypertension (ICD-10) Varicose vein of leg ?I83.90 - Asymptomatic varicose veins of unspecified lower extremity (ICD-10) Osteoarthritis of basilar joint of thumb ?M18.9 - Osteoarthritis of first carpometacarpal joint, unspecified (ICD-10) Surgical History History of hip surgery ?Z98.890 - Other specified postprocedural states (ICD-10) History of revision of total hip arthroplasty ?Z96.649 - Presence of unspecified artificial hip joint (ICD-10) History of hip replacement, total ?Z96.649 - Presence of unspecified artificial hip joint (ICD-10) Hx of cholecystectomy ?Z90.49 - Acquired absence of other specified parts of digestive tract (ICD-10) History of carpal tunnel surgery ?Z98.890 - Other specified postprocedural states (ICD-10) History of knee replacement ?Z96.659 - Presence of unspecified artificial knee joint (ICD-10) H/O: hysterectomy ?Z90.710 - Acquired absence of both cervix and uterus (ICD-10) Meds Home Medications and Allergies Home Medications ?Medication ?Instructions ?Recorded ?Confirmed ?Type acetaminophen 500 mg tablet 500 mg PO DAILY 02/24/23 06/06/23 History (Tylenol Extra Strength) amlodipine 5 mg tablet 5 mg PO DAILY 02/24/23 06/06/23 History estradiol 1 mg tablet 1 mg PO DAILY 02/24/23 06/06/23 History hydrochlorothiazide 50 mg tablet 50 mg PO DAILY 02/24/23 06/06/23 History multivitamin 1 tab PO DAILY 02/24/23 06/06/23 History cyclobenzaprine 5 mg tablet 5 mg PO DAILY 06/06/23 06/06/23 History elderberry fruit 200 mg capsule mg PO 06/06/23 History glucosamine sulfate 500 mg tablet 500 mg PO BID 06/06/23 06/06/23 History (Glucosamine) Allergies Allergy/AdvReac Type Severity Reaction Status Date / Time adhesive Allergy Mild Rash Verified 06/06/23 08:31 cephalexin Allergy Unknown Verified 06/06/23 08:31 Exam Constitutional Documenting provider has reviewed patient's vital signs: yes Common normals: no apparent distress, oriented x3, healthy appearing, alert and well nourished General appearance: cooperative [facility] Common normals: normocephalic, hearing grossly normal bilaterally and moist oral mucous membranes Head and scalp: normocephalic Eye Common normals: PERRL Pupil: PERRL Neck & C-Spine Common normals: full ROM General: normal visual inspection Chest Common normals: inspection of chest normal Respiratory Common normals: normal respiratory effort, no retractions and no use of accessory muscles Back & Pelvis Thoracic spine/upper back: ROM limited, pain with ROM and paraspinal muscle spasm Lumbar spine/lower back: normal to inspection, lumbar ROM normal and straight leg raise negative bilaterally Back image (female): 1. right thoracic pain and tenderness, axial loading positive 2. trigger point noted left of thoracic spine Neuro Common normals: oriented x3, CN's II-XII intact bilaterally, moves all extremities, no focal motor deficits, no sensory deficits noted and deep tendon reflexes 2+ bilaterally Sensorium/orientation: alert Motor exam: strength 5/5 throughout and no movement abnormalities noted Psych Common normals: mental status grossly normal, thought process normal, cooperative, affect normal, speech normal and activity/motor behavior normal Speech: normal speech Thought process: normal thought process Results Additional Findings Additional findings: If on a controlled substance or opioids, I have checked an [place] report on this patient and there are no aberrancies noted in the prescribing history.??If on a controlled substance or opioid a drug screen was completed and reviewed within the last year, and if there has not been a drug screen completed we ordered one today to monitor higher risk, state monitored pain medication use. As part of providing excellent, safe, comprehensive care, the following was completed at our patient's visit: 1. A medication reconciliation and review to ensure accurate knowledge of current/active medications, including asking our patients to inform us about any [id number] medications or herbal remedies/nutritional supplements/alternative remedies. 2. A review to specifically ensure our patients have had annual screening for screening for depression, screening for tobacco use, and screening for unhealthy alcohol use. For concerning screenings had a discussion with the patient, provided patient education, and recommended follow-up with primary care provider when appropriate. If patient noted with a risk of falling, they received education on strength, gait, and balance training to prevent future risk of falling. Assessment and Plan Assessment and Plan (1) Thoracic spondylosis: (2) Lumbar spondylosis: Assessment and Plan: bilateral L4,5 L5,S1 facet RFA >80% improvement ongoing Plan update thoracic xray, skin marker on most tender facets
--- OUTSIDE RECORDS SUMMARY | 2023-07-07 14:42 | XMS_ITS | CCD ---
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 Role Phone Zane Souza Primary Care Provider [phone] ZANE SOUZA Primary Care Physician Zane Souza Primary Care Provider [phone] ANIRUDH YAO Referring Unavailable ANIRUDH YAO Attending Unavailable VERHOFF, ZANE Anil Primary Care Unavailable ANIRUDH YAO Referring Unavailable VERHOFF, ZANE Anil Primary Care Unavailable CHAPARRITA VALLE Referring Unavailable VERHOFF, ZANE L Primary Care Unavailable VERHOFF, ZANE L Primary Care Unavailable VERHOFF, ZANE L Referring Unavailable CHAPARRITA VALLE Admitting Unavailable CHAPARRITA VALLE Attending Unavailable VERHOFF, ZANE L Primary Care Unavailable TORICHAPARRITA N Admitting Unavailable VERHOFF, ZANE L Primary Care Unavailable CHAPARRITA VALLE Attending [...] Unavailable Sayra WHITE, Jadon Duarte Attending Unavailable Paloma Kaufman Referring Unavailable Paloma Kaufman Attending Unavailable Paloma Kaufman Admitting Unavailable BONNIE TOLEDO Attending Unavailable JT EDOUARD Attending Unavailable JT EDOUARD Attending Unavailable Allergies Allergy Classification Reported Allergen(s) Allergy Type Date of Onset Reaction(s) Facility Adhesive Tape (9 sources) Adhesive Tape Substance Allergy 5 [facility] benzoin resin (9 sources) benzoin resin Drug Allergy 4 [facility] Cephalosporins (antibiotic) (9 sources) Cephalexin Drug Allergy 1 [facility] Cinnamon Preparation (9 sources) Cinnamon Preparation Drug Allergy 4 Anaphylaxis, Swelling [facility] (10 sources) Adhesive Tape Propensity to adverse reactions to drug 5 [place], [place] (15 sources) benzoin resin; Translations: [BENZOIN] Drug Allergy 4 Rash [place], [place] (18 sources) Cephalexin; Translations: [cephalexin] Drug Allergy 1 [place], [place] (18 sources) Cinnamon Preparation; Translations: [CINNAMON] Drug Allergy 4 Anaphylaxis, Swelling [place] (3 sources) steristrips; Translations: [steristrips] Allergy to substance redness, itching [facility] (2 sources) Tape 1 Drug allergy blisters [facility] Comment on above: does ok with paperta pe (2 sources) Adhesive Tape; Translations: [ADHESIVE TAPE (ROSINS)] Allergy to substance 5 [facility] (3 sources) Wound Dressing Adhesive Drug Allergy 5 [facility] (1 source) Adhesive Tape; Translations: [Tape] Propensity to adverse reactions (disorder) [facility] Repository Medications Current Medications Medication Drug [...] mouth o nce daily. Am/pm Ascorbic Acid (3 sources) Vitamin C Start: 08-30-2018 Vitamin C Daily, Refills(s) 0 Start Date: 08/30/18 Status: Ordered take 1 tablet by mouth once valeria y Ascorbic Acid (VITAMIN C) 250 MG tablet Indications: in winter Take 250 mg by mouth daily Chewable. 0 Active Chondroitin Sulfates / Glucosamine (2 sources) Start: 08-30-2018 take 1 capsule by mouth twice daily Chondroitin-Glucosamine cap(s), Oral, BID, Refill(s) 0 Start Date: 08/30/18 Status: Ordered diclofenac sodium 75 mg delayed release oral tablet (20 sources) Nonsteroidal Anti-inflammatory Drug Start: 06-14-2019 take 1 tablet by mouth twice daily diclofenac (VOLTAREN) 75 MG EC tablet Take 1 tablet by mouth 2 times daily 180 tablet 1 07/29/2021 Active Start: 04-18-2018 diclofenac sod ium 1 [...] ea four times daily. Diclofenac 75mg Tab-DR (2 sources) Start: 017 take 1 tablet by mouth [...] glucosamine sulfate 500 mg o ral tablet (19 sources) Start: 08-31-2019 Glucosamine Petty lfate 500 [...] tablet by melinda th once daily hydrochlorothiazide 25 mg Tab 25 mg = 1 tab(s), Oral, Daily, Refills(s) 0, High blood pressure Start Date: 07/23/16 Status: Ordered Comment on above: Take one(1) tablet d [...] the morning. 0 Active Multivitamins and Minerals (2 sources) Start: 7 take 1 tablet by mouth [...] Comment on above: TWO TABS ONE HOUR VA IOR TO DENTAL PROCEDURE AND TWO TABS [...] soft tissue, and skin] 04-27-2023 Episodic Osteoarthritis (3 sources) Osteoarthritis; Translations: [Osteoarthritis of right knee [...] Onset: 3 Episodic Other nervous system disorders (2 sources) Carpal tunnel syndrome 07-23-2016 Chronic Other nervous system disorders (3 sources) Other chronic pain; Translations: [Other chronic pain] Onset: 3 Chronic Other non-traumatic joint disorders (2 sources) Knee pain 11-08-2017 Episodic Other non-traumatic joint [...] Onset: 3 Varicose veins of lower extremity (2 sources) Varicose veins of lower extremity 07-23-2016 Episodic Past or Other Problems Problem Classification Problem Date Documented Date Episodic/Chronic Biliary tract disease (19 sources) Biliary colic; Translations: [Calculus of bile duct without cholangitis or cholecystitis without obstruction] Onset: 02-20-2013 02-20-2013 Episodic Other non-traumatic joint disorders (2 sources) Pain in wrist Onset: 10-13-2015 12-04-2015 Episodic Residual codes; unclassified (8 sources) History of cholecystectomy; Translations: [S/P laparoscopic cholecystectomy] Onset: 03-26-2013 03-26-2013 Episodic Unclassified (1 source) Low back pain, unspecified; Translations: [Low back pain, unspecified] Onset: 02-09-2023 Results Test Name Value Interpretation Reference Range Facility [facility] Mamm Screen w/CAD if perf and 3D Bilon 06-27-2023 [facility] Mamm Screen w/CAD if perf and 3D Barber Exam Date/Time: 06/24/2023 07:42 EDT Reason for Exam: SCREENING Report IMPRESSION: BIRADS 2 BENIGN FINDINGS, NORMAL INTERVAL FOLLOW-UP Follow-up: 12 MONTH RECALL Density: Heterogeneously dense. Vascular calcifications: Absent. EXAM: MA Mamm Screen w/CAD if perf and 3D Barber DATE: 06/24/2023 7:15 AM CLINICAL HISTORY: SCREENING. COMPARISONS: 06/17/2022, 01/23/2020, and 02/10/2019. TECHNIQUE: Routine full-field digital mammograms and 3D breast tomosynthesis of both breasts were obtained. FINDINGS: There are no developing masses, suspicious microcalcifications, or areas of architectural distortion identified on the current study. No significant changes are identified from the prior studies, given differences in technique and positioning. Stable asymmetric densities. Dense Breast: Yes. CAD analysis was performed and used in the interpretation. Board Certified Radiologists. Accredited by the ACR and FDA. MAMMOGRAPHY IS VERY IMPORTANT TO YOUR HEALTH. THE CURRENT CITIZEN OF [place] [employer] GUIDELINES RECOMMENDS ANNUAL MAMMOGRAPHY BEGINNING AT AGE 42. THIS FACILITY UTILIZES A REMINDER SYSTEM TO ENSURE ALL PATIENTS RECEIVE REMINDER NOTIFICATIONS AT THE APPROPRIATE TIME BASED ON THE RECOMMENDATIONS OF THIS EXAM. Report Ordering Provider: Paloma Kaufman FINAL REPORT Dictated: 06/27/2023 3:07 pm Mauricio Go MD Signed (Electronic Signature): 06/27/2023 3:07 pm Signed by: Mauricio Go MD Transcribed by: NADEEM Technologist: SIRENA Assessment: BI-RADS Category 2-Benign finding Recommendation: Normal interval follow-up Normal [facility] Consent for Treatmenton 06-12 Consent for Treatment [id number] IFF Normal [facility] Physician Orderon 06-10-2023 Physician Order [id number] IFF Normal [facility] No Panel Informationon 04-27 Type of biopsy: [...] taken Amount of lidocaine used: 1 cc [employer] XR LUMBAR SPINE (MIN 4 VIEWS )on [...] Pierre Jr., MD 02/09/23 Final result Normal [facility] XR SHOULDER RIGHT (MIN 2 VIE [...] Pierre Jr., MD 02/09/23 Final result Normal [facility] Comp Metabolic Profon 2022 Albumin [Mass/Vol] 4.4 g/dL Normal 3.5-5.2 [facility] Comment on above: Performed By: #### Alphonso FAST, CP #### [facility] [address] [place] [address] Platform Inspector: Dennis Castellanos MD #### LIPR #### [facility] [address] [place] [address] Platform Inspector: Chele Osman MD Alkaline Phos 103 U/L Normal 35-104 [facility] Comment on above: Performed By: #### Alphonso FAST, CP #### [facility] [address] [place] [address] Platform Inspector: Dennis Castellanos MD #### LIPR #### [facility] [address] [place] [address] Platform Inspector: Chele Osman MD ALT [Catalytic activity/Vol] 13 U/L Normal 5-33 [facility] Comment on above: Performed By: #### Z FAST, CP #### [facility] [address] [place] [address] Platform Inspector: Dennis Castellanos MD #### LIPR #### [facility] [address] [place] [address] Platform Inspector: Chele Osman MD Anion gap [Moles/Vol] 9 mmol/L Normal 9-17 [facility] Comment on above: Performed By: #### Alphonso FAST, CP #### [facility] [address] [place], [place] [id number] Platform Inspector: Dennis Castellanos MD #### LIPR #### [address] [id number] Platform Inspector: Chele Osman MD AST [Catalytic activity/Vol] 19 U/L Normal <32 [facility] Comment on above: Performed By: #### Alphonso FAST, CP #### [facility] [address] [place], [place] [id number] Platform Inspector: Dennis Castellanos MD #### LIPR #### [address] [id number] Platform Inspector: Chele Osman MD Bilirubin [Mass/Vol] 0.4 mg/dL Normal 0.3-1.2 [facility] Comment on above: Performed By: #### Alphonso FAST, CP #### [facility] [address] [place], [place] [phone] Platform Inspector: Dennis Castellanos MD #### LIPR #### [address] [address] Platform Inspector: Chele Osman MD BUN/CRE Ratio 30 High 9-20 [facility] Comment on above: Performed By: #### Alphonso FAST, CP #### [facility] [address] [place], [place] [id number] Platform Inspector: Dennis Castellanos MD #### LIPR #### [address] [address] Platform Inspector: Chele Osman MD Calcium [Mass/Vol] 10.3 mg/dL Normal 8.6-10.4 [facility] Comment on above: Performed By: #### Alphonso FAST, CP #### [facility] [address] [place], [place] [phone] Platform Inspector: Dennis Castellanos MD #### LIPR #### [address] [id number] Platform Inspector: Chele Osman MD Chloride [Moles/Vol] 98 mmol/L Normal 98-107 [facility] Comment on above: Performed By: #### Alphonso FAST, CP #### [facility] [address] [place], [place] [id number] Platform Inspector: Dennis Castellanos MD #### LIPR #### [address] [id number] Platform Inspector: Chele Osman MD CO2 [Moles/Vol] 31 mmol/L Normal 20-31 [facility] Comment on above: Performed By: #### Alphonso FAST, CP #### [facility] [address] [place], [place] 2005690 Platform Inspector: Dennis Castellanos MD #### LIPR #### [address] [id number] Platform Inspector: Chele Osman MD Creatinine [Mass/Vol] 0.7 mg/dL Normal 0.5-0.9 [facility] Comment on above: Performed By: #### Alphonso FAST, CP #### [facility] [address] [place], [place] 1973190 Platform Inspector: Dennis Castellanos MD #### LIPR #### [address] [id number] Platform Inspector: Chele Osman MD GFR/1.73 sq M.predicted among non-blacks MDRD (S/P/Bld) [Vol rate/Area] mL/min/{1.73_m2} Normal >60 [facility] Comment on above: Result Comment: These [...] Performed By: #### Z FAST, CP #### [facility] [address] [place], [place] [id number] Platform Inspector: Dennis Castellanos MD #### LIPR #### [address] [id number] Platform Inspector: Chele Osman MD Glucose [Mass/Vol] 96 mg/dL Normal 70-99 [facility] Comment on above: Performed By: #### Z FAST, CP #### [facility] [address] [place], [place] [id number] Platform Inspector: Dennis Castellanos MD #### LIPR #### [address] [id number] Platform Inspector: Chele Osman MD Potassium [Moles/Vol] 3.4 mmol/L Low 3.7-5.3 [facility] Comment on above: Performed By: #### Z FAST, CP #### [facility] [address] [place], [place] [phone] Platform Inspector: Dennis Castellanos MD #### LIPR #### [address] [id number] Platform Inspector: Chele Osman MD Protein [Mass/Vol] 7.6 g/dL Normal 6.4-8.3 [facility] Comment on above: Performed By: #### Z FAST, CP #### [facility] [address] [place], [place] [id number] Platform Inspector: Dennis Castellanos MD #### LIPR #### [address] [place] [address] Platform Inspector: Chele Osman MD Sodium [Moles/Vol] 138 mmol/L Normal 135-144 [facility] Comment on above: Performed By: #### Alphonso FAST, CP #### [facility] [address] [place] [address] Platform Inspector: Dennis Castellanos MD #### LIPR #### [facility] [address] [place] [address] Platform Inspector: Chele Osman MD Urea nitrogen [Mass/Vol] 21 mg/dL Normal 8-23 [facility] Comment on above: Performed By: #### Alphonso FAST, CP #### [facility] [address] [place] [address] Platform Inspector: Dennis Castellanos MD #### LIPR #### [address] [place] [address] Platform Inspector: Chele Osman MD Lipid Profileon 02-08-2023 Cholesterol [Mass/Vol] 207 mg/dL High 0-199 [facility] Comment on above: Result Comment: Cholesterol Guidelines: <200 Desirable 200-240 Borderline >240 Undesirable Performed By: #### Alphonso FAST, CP #### [facility] [address] [place], [place] [id number] Platform Inspector: Dennis Castellanos MD #### LIPR #### [facility] [address] [place] [address] Platform Inspector: Chele Osman MD Cholesterol in HDL [Mass/Vol] 63 mg/dL Normal >40 [facility] Comment on above: Result Comment: HDL Guidelines: <40 Undesirable 40-59 Borderline >59 Desirable Performed By: #### Alphonso FAST, CP #### [facility] [address] [place], [place] [phone] Platform Inspector: Dennis Castellanos MD #### LIPR #### [address] [address] [place] [address] Platform Inspector: Chele Osman MD Cholesterol in LDL [Mass/Vol] 105 mg/dL High 0-100 [facility] Comment on above: Result Comment: LDL Guidelines: <100 Desirable 100-129 Near to/above Desirable 130-159 Borderline >159 Undesirable Direct (measured) LDL and calculated LDL are not interchangeable tests. Performed By: #### Z FAST, CP #### [facility] [address] [place], [place] [id number] Platform Inspector: Dennis Castellanos MD #### LIPR #### [address] [address] Platform Inspector: Chele Osman MD Cholesterol in VLDL [Mass/Vol] 39 mg/dL Normal [facility] Comment on above: Performed By: #### Alphonso FAST, CP #### [facility] [address] [place], [place] [id number] Platform Inspector: Dennis Castellanos MD #### LIPR #### [address] [address] Platform Inspector: Chele Osman MD Cholesterol.total/Ch olesterol in HDL [Mass ratio] 3.0 {ratio} Normal [facility] Comment on above: Performed By: #### Z FAST, CP #### [facility] [address] [place] [address] Platform Inspector: Dennis Castellanos MD #### LIPR #### [address] [address] Platform Inspector: Chele Osman MD Triglyceride [Mass/Vol] 196 mg/dL High 0-149 [facility] Comment on above: Result Comment: Triglyceride Guidelines: <150 Desirable 150-199 Borderline 200-499 High >499 Very high Based on AHA Guidelines for fasting triglyceride, December 2011. Performed By: #### Z FAST, CP #### [facility] [address] [place] [address] Platform Inspector: Dennis Castellanos MD #### LIPR #### [facility] [address] [place], [place] [phone] Platform Inspector: Chele Osman MD Patient fasting?on 3 Patient fasting? yes Normal [facility] Comment on above: Performed By: #### Z FAST, CP #### [facility] [address] [place], [place] [id number] Platform Inspector: Dennis Castellanos MD #### LIPR #### [facility] [address] [place] [address] Platform Inspector: Chele Osman MD Surgical Pathology Reporton 01-20-2023 Surgical Pathology Report (NOTE) Path Number: [id number] -- Diagnosis -- A. Stomach, antrum, endoscopic [...] MID ESOPHAGUS BIOPSIES Operation Performed: EGD BIOPSY Source of Specimen A: GASTRIC ANTRUM BIOPSY B: Esophagogastric biopsy Gross Description A. ESMER HUGHES, GASTRIC ANTRUM Received in formalin are three boo-brown tissue fragments ranging from 0.1 to 0.3 cm and are 0.6 x 0.1 x 0.1 cm in aggregate. Entirely 1cs. B. ESMER ELLEN, MID ESOPHAGUS BIOPSIES Received in formalin are three sheth-boo tissue fragments that are each 0.2 cm and are 0.6 x 0.1 x <0.1 cm in aggregate. Entirely 1cs. yr cd SF/mj:01/21/2023 Microscopic Description A, B. 2 MADHAVI reviewed for each. Microscopic examination performed. Processing Lab: [facility] [address] [place] [address] Interpretation Performed at [facility] [address] [place] [address] SURGICAL PATHOLOGY CONSULTATION Patient Name: ESMER HUGHES. [facility] Rec: [id number] [facility] ANATOMIC PATHOLOGY [address] [place] [phone] [facility] H. pylori Antigenon 09-03-19 H. 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 IMPRESSION: NO SIGNIFICANT CHANGE Lead Mobile Developer: [facility] Transcribe Date/Time: Jun 25 2022 2:18P Dictated by : KRISTYN SANTILLAN MD This examination was interpreted and the report reviewed and electronically signed by: KRISTYN SANTILLAN MD on Jun 25 2022 2:19PM EST [id number] Normal [facility] XR KNEE 3V AP/LAT/MERCHANT R Ton [...] other significant abnormality. IMPRESSION: NORMAL POSTOPERATIVE FINDINGS Lead Mobile Developer: RADHAMES Transcribe Date/Time: Jun 25 2022 2:17P Dictated by : DAYAN CHANG MD This examination was interpreted and the report reviewed and electronically signed by: DAYAN CHANG MD on Jun 25 2022 2:18PM EST [id number] Normal [facility] CHEMISTRYOrdered By: SYSTEM SYSTEM on 06-17-2022 25-hydroxyvitamin D3 [Mass/Vol] 38.2 ng/mL Normal 30.0 - 100.0 ng/mL [facility] Remisol Calcium [Mass/Vol] 9.3 mg/dL Normal 8.9 - 11. 1 mg/dL FT Remisol Creatinine [Mass/Vol] 0.8 mg/dL Normal 0.5 - 1.3 mg/dL [facility] Remisol GFR/1.73 sq M.predicted among blacks MDRD (S/P/Bld) [Vol rate/Area] mL/min/1.73 m2 Normal >=59mL/min/1. 73 m2 [facility] Chem S GFR/1.73 sq M.predicted among non-blacks MDRD (S/P/Bld) [Vol rate/Area] mL/min/1.73 m2 Normal >=59mL/min/1. 73 m2 [facility] Chem S COVID-19, Rapidon 09-25-2021 SARS-CoV-2 (COVID-19) RNA MURRAY+probe Ql (Unsp spec) Not detected Not Detected [facility] Comment on above: Rapid NAAT: The [...] management decisions. Fact sheet for Healthcare Providers: https://www.[employer].gov/media/528934/download Fact sheet for Patients: https://www.fda.gov/media/668937/download Methodology: Isothermal Nucleic Acid Amplification Specimen Description .NASOPHARYNGEAL SWAB [facility] Comprehensive Metabolic Pane kiki 07-25-2021 Albumin [Mass/Vol] 4.2 g/dL 3.5 - 5.2 g/dL [facility] simfy ALP (Bld) [Catalytic activity/Vol] 86 U/L 35 - 104 U/L [facility] ALT [Catalytic activity/Vol] 11 U/L 5 - 33 U/L [facility] simfy Anion gap [Moles/Vol] 8 mmol/L Low 9 - 17 mmol/L [facility] AST [Catalytic activity/Vol] 17 U/L <32 [facility] Bilirubin [Mass/Vol] 0.39 mg/dL 0.30 - 1.20 mg/dL [facility]fy Calcium [Mass/Vol] 9.8 mg/dL 8.6 - 10. 4 mg/dL [facility]fy Chloride [Moles/Vol] 100 mmol/L 98 - 10 7 mmol/L [facility] CO2 [Moles/Vol] 31 mmol/L 20 - 31 mmol/L [facility] Creatinine [Mass/Vol] 0.61 mg/dL 0.50 - 0.90 mg/dL [facility] simfy Free PSA/Total PSA [Mass fraction] 7.2 g/dL 6.4 - 8.3 g/dL [facility] simfy GFR >60 >60 mL/min [facility] simfy GFR Non- >60 >60 mL/min [facility] simfy GFR/1.73 sq M.predicted MDRD (S/P/Bld) [Vol rate/Area] [facility] Comment on above: Average GFR for 50-5 9 years old: 93 mL/min/1.73sq m Chronic Kidney Disease: <60 mL/min/1.73sq m Kidney failure: <15 mL/min/1.73sq m eGFR calculated using average adult body mass. Additional eGFR calculator available at: http://www.[employer]/multiple_crcl_2012.htm Glucose [Mass/Vol] 88 mg/dL 70 - 99 mg/dL [facility] simfy Interpretation and review of laboratory results Abnormal [employer] [employer] Potassium [Moles/Vol] 3.8 mmol/L 3.7 - 5.3 mmol/L [facility]fy Sodium [Moles/Vol] 139 mmol/L 135 - 144 mmol/L [facility] Urea nitrogen (BldV) [Mass/Vol] 16 mg/dL 6 - 20 mg/dL [facility] simfy Urea nitrogen/Creatinine (Bld) [Mass ratio] 26 High [facility] simfy Lipid Panelon 07-25-2021 Cholesterol [Mass/Vol] 225 mg/dL High <200 [facility]fy Comment on above: Cholesterol Guidelines: <200 Desirable 200-240 Borderline >240 Undesirable Cholesterol in HDL [Mass/Vol] 71 mg/dL >40 [facility] Comment on above: HDL Guidelines: <40 Undesirable 40-59 Borderline >59 Desirable Cholesterol in LDL [Mass/Vol] 121 mg/dL 0 - 130 mg/dL [facility]fy Comment on above: LDL Guidelines: <100 Desirable 100-129 Near to/above Desirable 130-159 Borderline >159 Undesirable Direct (measured) LDL and calculated LDL are not interchangeable tests. Cholesterol.total/Ch olesterol in HDL [Mass ratio] 3.2 {ratio} <5 [facility] Interpretation and review of laboratory results Abnormal [facility]fy Triglyceride [Mass/Vol] 163 mg/dL High <150 [facility] Comment on above: Triglyceride Guidelines: <150 Desirable 150-199 Borderline 200-499 High >499 Very high Based on AHA Guidelines for fasting triglyceride, December 2011. [employer] Patient Fasting?on 2 Patient Fasting? YES [facility] lynnette [employer] [facility] Comprehensive Metabolic Pane lOrdered By: Zane Souza on 07-25-2020 Albumin [Mass/Vol] 4.2 g/dL 3.5 - 5.2 g/dL [employer] Work Phone: Albumin/Globulin Ratio NOT REPORTED [employer] Work Phone: ALP (Bld) [Catalytic activity/Vol] 85 U/L 35 - 104 U/L [employer] Phone: ALT [Catalytic activity/Vol] 12 U/L 5 - 33 U/L [employer] Phone: Anion gap [Moles/Vol] 9 mmol/L 9 - 17 mmol/L [employer] Phone: AST [Catalytic activity/Vol] 16 U/L <32 [employer] Phone: Bilirubin [Mass/Vol] 0.32 mg/dL 0.30 - 1.20 mg/dL [employer] Phone: Calcium [Mass/Vol] 9.7 mg/dL 8.6 - 10. 4 mg/dL [employer] Phone: Chloride [Moles/Vol] 101 mmol/L 98 - 10 7 mmol/L [employer] Phone: CO2 [Moles/Vol] 31 mmol/L 20 - 31 mmol/L [employer] Phone: Creatinine [Mass/Vol] 0.57 mg/dL 0.50 - 0.90 mg/dL [employer] Phone: Free PSA/Total PSA [Mass fraction] 7.1 g/dL 6.4 - 8.3 g/dL [employer] Phone: GFR >60 >60 mL/min [employer] Phone: GFR Non- >60 >60 mL/min [employer] Phone: GFR/1.73 sq M.predicted MDRD (S/P/Bld) [Vol rate/Area] [employer] Phone: Comment on above: Average GFR for 50-5 9 years old: 93 mL/min/1.73sq m Chronic Kidney Disease: <60 mL/min/1.73sq m Kidney failure: <15 mL/min/1.73sq m eGFR calculated using average adult body mass. Additional eGFR calculator available at: http://www.globalrph.com/multiple_crcl_2012.htm GFR/1.73 sq M.predicted MDRD (S/P/Bld) [Vol rate/Area] NOT REPORTED [employer] Phone: Glucose [Mass/Vol] 86 mg/dL 70 - 99 mg/dL [facility] [employer] Phone: Interpretation and review of laboratory results Abnormal [employer] Phone: Potassium [Moles/Vol] 3.6 mmol/L Low 3.7 - 5.3 mmol/L [employer] Phone: Sodium [Moles/Vol] 141 mmol/L 135 - 144 mmol/L [employer] Phone: Urea nitrogen (BldV) [Mass/Vol] 20 mg/dL 6 - 20 mg/dL [employer] Phone: Urea nitrogen/Creatinine (Bld) [Mass ratio] 35 High [employer] Phone: Lipid PanelOrdered By: Zane Souza on 07-25-2020 Cholesterol [Mass/Vol] 219 mg/dL High <200 [employer] Phone: Comment on above: Cholesterol Guidelines: <200 Desirable 200-240 Borderline >240 Undesirable Cholesterol in HDL [Mass/Vol] 71 mg/dL >40 [employer] Phone: Comment on above: HDL Guidelines: <40 Undesirable 40-59 Borderline >59 Desirable Cholesterol in LDL [Mass/Vol] 106 mg/dL 0 - 130 mg/dL [employer] Phone: Comment on above: LDL Guidelines: <100 Desirable 100-129 Near to/above Desirable 130-159 Borderline >159 Undesirable Direct (measured) LDL and calculated LDL are not interchangeable tests. Cholesterol in VLDL [Mass/Vol] NOT REPORTED High 1 - 30 mg/dL [employer] Phone: Cholesterol.total/Ch olesterol in HDL [Mass ratio] 3.1 {ratio} <5 [employer] Phone: Interpretation and review of laboratory results Abnormal [employer] Phone: Triglyceride [Mass/Vol] 208 mg/dL High <150 [employer] Phone: Comment on above: Triglyceride Guidelines: <150 Desirable 150-199 Borderline 200-499 High >499 Very high Based on AHA Guidelines for fasting triglyceride, December 2011. Patient Fasting?Ordered By: Zane Souza on 07-25-2020 Patient Fasting? YES [employer] Phone: Basic Metabolic Panelon Calcium [Mass/Vol] 10.3 mg/dL Normal 8.5-10.6 [facility] Chloride [Moles/Vol] 98 mmol/L Normal 98-107 M[facility] CO2 [Moles/Vol] 32 mmol/L Normal 21-32 [facility] Creatinine [Mass/Vol] 0.65 mg/dL Normal 0.55-1.02 [facility] Glucose [Mass/Vol] 81 mg/dL Normal 70-99 [facility] Potassium [Moles/Vol] 3.7 mmol/L Normal 3.5-5.1 [facility] Sodium [Moles/Vol] 139 mmol/L Normal 136-145 [facility] Urea nitrogen (BldV) [Mass/Vol] 20 mg/dL High 7.0-18.0 [facility] Urea nitrogen/Creatinine [Mass ratio] 31 mg/mg Normal [facility] CBC with Differentialon Basophils (Bld) [#/Vol] 0.0 thou/mcL Normal 0.0-0.2 [facility] Basophils/100 WBC (Bld) 0.4 % Normal 0-3 [facility] Differential cell count method Nom (Bld) AUTOMATED DIFFERENTIAL Normal [facility] Eosinophils (Bld) [#/Vol] 0.1 thou/mcL Normal 0.0-0.4 [facility] Eosinophils/100 WBC (Bld) 1.6 % Normal 0-7 [facility] Erythrocyte distribution width (RBC) [Entitic vol] 12.7 % Normal 11.7-15.0 [facility] Hematocrit (Bld) [Volume fraction] 40.6 % Normal 34.0-50.0 [facility] Hemoglobin (Bld) [Mass/Vol] 13.9 g/dL Normal 11.5-17.0 [facility] Lymphocytes (Bld) [#/Vol] 1.8 thou/mcL Normal 0.7-4.5 [facility] Lymphocytes/100 WBC (Bld) 25.6 % Normal 14-46 [facility] MCH (RBC) [Entitic mass] 31.7 Picograms Normal 27.0-34.0 [facility] MCHC (RBC) [Mass/Vol] 34.2 g/dL Normal 32.0-36.0 [facility] MCV (RBC) [Entitic vol] 92.6 fL Normal 80-98 [facility] Monocytes (Bld) [#/Vol] 0.4 thou/mcL Normal 0.1-1.0 [facility] Monocytes/100 WBC (Bld) 5.3 % Normal 4-13 [facility] Neutrophils (Bld) [#/Vol] 4.6 thou/mcL Normal 1.5-7.8 [facility] Neutrophils/100 WBC (Bld) 67.1 % Normal 40-74 [facility] Platelet mean volume (Bld) [Entitic vol] 8.7 fL Normal 7.5-11.2 [facility] Platelets (Bld) [#/Vol] 291 thou/mcL Normal 140-415 [facility] RBC (Bld) [#/Vol] 4.38 x(10)6/mcL Normal 3.80-5.60 Mo [facility] WBC (Bld) [#/Vol] 6.8 thou/mcL Normal 4.0-10.5 [facility] Comprehensive Metabolic Pane kiki 07-21-2019 Albumin [Mass/Vol] 4.3 g/dL 3.5 - 5.2 g/dL [place] Albumin/Globulin [Mass ratio] NOT REPORTED [place] ALP [Catalytic activity/Vol] 78 U/L 35 - 104 U/L [place] ALT [Catalytic activity/Vol] 11 U/L 5 - 33 U/L [place] Anion gap [Moles/Vol] 8 mmol/L Low 9 - 17 mmol/L [place] AST [Catalytic activity/Vol] 18 U/L <32 [place] Bilirubin Ql (U) 0.41 mg/dL 0.3 - 1.2 mg/dL [place] Bun/Cre Ratio 29 High [place], [place] Calcium [Mass/Vol] 10.0 mg/dL 8.6 - 10. 4 mg/dL [place] Chloride [Moles/Vol] 101 mmol/L 98 - 10 7 mmol/L [place] CO2 [Moles/Vol] 28 mmol/L 20 - 31 mmol/L [place] Creatinine [Mass/Vol] 0.62 mg/dL 0.5 - 0.9 mg/dL [place] GFR >60 >60 mL/min [place], [place] GFR Non- >60 >60 mL/min [place] GFR/1.73 sq M predicted among non-blacks MDRD (S/P/Bld) [Vol rate/Area] NOT REPORTED [place] GFR/1.73 sq M predicted among non-blacks MDRD (S/P/Bld) [Vol rate/Area] [place] Comment on above: Average GFR for 50-5 9 years old: 93 mL/min/1.73sq m Chronic Kidney Disease: <60 mL/min/1.73sq m Kidney failure: <15 mL/min/1.73sq m eGFR calculated using average adult body mass. Additional eGFR calculator available at: http://www.[employer]ync[employer]/multiple_crcl_2012.htm Glucose [Mass/Vol] 101 mg/dL High 70 - 99 mg/dL [place], [place] Potassium [Moles/Vol] 3.7 mmol/L 3.7 - 5.3 mmol/L [place] Protein [Mass/Vol] 7.4 g/dL 6.4 - 8.3 g/dL [place] Sodium [Moles/Vol] 137 mmol/L 135 - 144 mmol/L [place] Urea nitrogen [Mass/Vol] 18 mg/dL 6 - 20 mg/dL [place] Lipid Panelon 07-21-2019 Cholesterol [Mass/Vol] 227 mg/dL High <200 [place] Comment on above: Cholesterol Guidelines: <200 Desirable 200-240 Borderline >240 Undesirable Cholesterol in HDL [Mass/Vol] 81 mg/dL >40 [place] Comment on above: HDL Guidelines: <40 Undesirable 40-59 Borderline >59 Desirable Cholesterol in LDL [Mass/Vol] 116 mg/dL 0 - 130 mg/dL [place] Comment on above: LDL Guidelines: <100 Desirable 100-129 Near to/above Desirable 130-159 Borderline >159 Undesirable Direct (measured) LDL and calculated LDL are not interchangeable tests. Cholesterol in VLDL [Mass/Vol] NOT REPORTED 1 - 30 mg/dL [place] Cholesterol.total/Ch olesterol in HDL [Mass ratio] 2.8 {ratio} <5 [place] Triglyceride [Mass/Vol] 150 mg/dL High <150 [place] Comment on above: Triglyceride Guidelines: <150 Desirable 150-199 Borderline 200-499 High >499 Very high Based on AHA Guidelines for fasting triglyceride, December 2011. Otheron 07-21-2019 Interpretation and review of laboratory results Abnormal [place] Patient Fasting?on 0 Patient Fasting? YES [place] Encounters Encounter Date Encounter Type Care Provider Facility Start: 07-01-2023 End: 07-01-2023 ambulatory BONNIE TOLEDO Not Available Start: 06-24-2023 End: 06-25-2023 ambulatory Paloma Kaufman Facility:[facility] Start: 06-24-2023 End: 06-24-2023 Patient encounter procedure Paloma Kaufman [facility] Start: 06-17-2023 End: 06-17-2023 ambulatory JT A PETITTI Not Available Start: 05-06-2023 End: 05-06-2023 ambulatory JT A PETITTI Not Available Start: 04-27-2023 Bamboo flowsheet Bonnie small PA Work Phone: [facility] Start: 04-27-2023 Bamboo flowsheet Bonnie small PA Work Phone: [facility] Start: 04-27-2023 End: 04-27-2023 ambulatory BONNIE L TRE Not Available Start: 04-27-2023 End: 04-27-2023 Patient encounter procedure Bonnie MART Work Phone: [facility] Comment on above: Neoplasm of unspecif ied behavior of bone, soft tissue, and skin (Primary Dx) Start: 04-25-2023 End: 04-26-2023 ambulatory [facility]ad[facility] Start: 04-04-2023 End: 04-05-2023 ambulatory Jadon Colbert MD Facility:[facility] Start: 03-22-2023 End: 03-22-2023 [facility] Start: 03-21-2023 End: 03-22-2023 ambulatory Jadon Colbert MD Facility:[facility] Start: 02-09-2023 End: 02-12-2023 [facility] Start: 02-08-2023 End: 02-09-2023 ambulatory [facility] Start: 02-07-2023 ambulatory [facility] Start: 01-20-2023 End: 01-20-2023 [facility] Start: 01-13-2023 End: 01-14-2023 [facility] Start: 01-13-2023 Encounter for other preprocedural examination [facility] Start: 09-01-2022 End: 09-02-2022 ambulatory HERMINIO R [facility] Start: 06-25-2022 End: 06-25-2022 ambulatory Trini Escobar RT(R) Radiology Comment on above: Radio Gen RMP Start: 06-25-2022 Patient encounter procedure Trini SALEH(Jake) RAHEEL Start: 06-17-2022 End: 06-17-2022 Patient encounter procedure Paloma Kaufman [facility] Start: 09-25-2021 End: 09-25-2021 Subsequent hospital visit by physician Terra Juan Manuel19 Pat Screening Schedule [facility] Comment on above: Viral URI; Suspected COVID-19 virus infection Start: 07-25-2021 End: 07-25-2021 Subsequent hospital visit by physician Zane Souza MD Work Phone: [facility] Comment on above: Essential hypertensi on, benign Start: 07-25-2020 End: 07-25-2020 Subsequent hospital visit by physician Zane Souza MD Work Phone: [facility] Comment on above: Essential hypertensi on, [...] Subsequent hospital visit by physician Rita Nieves [facility] Physical Therapy Comment on above: Arrived Start: 06-26-2020 End: 06-26-2020 Subsequent hospital visit by physician Estela Davila [facility] Physical Therapy Comment on above: Arrived Start: 06-20-2020 End: 06-20-2020 Subsequent hospital visit by physician Rita Nieves [facility] Physical Therapy Comment on above: Arrived Start: 06-18-2020 End: 06-18-2020 Subsequent hospital visit by physician Rita Nieves [facility] Physical Therapy Comment on above: Arrived Start: 06-16-2020 End: 06-16-2020 Subsequent hospital visit by physician Rita Nieves [facility] Physical Therapy Comment on above: Arrived Start: 06-13-2020 End: 06-13-2020 Subsequent hospital visit by physician Avtar Ramsey [facility] Physical Therapy Comment on above: Arrived Start: 06-11-2020 End: 06-11-2020 Subsequent hospital visit by physician Avtar Ramsey [facility] Physical Therapy Comment on above: Arrived Start: 06-09-2020 End: 06-09-2020 Subsequent hospital visit by physician Estela Davila [facility] Physical Therapy Comment on above: Arrived Start: 07-21-2019 End: 07-21-2019 Subsequent hospital visit by physician Zane Souza [facility] Laboratory Comment on above: Essential hypertensi on, benign Procedures Date Procedure Procedure Detail Performing Clinician Start: 04-27-2023 SKIN / NAIL BIOPSY Mariaelena MART Work Phone: Start: 09-25-2021 COVID-19, RAPID Jose Diggsn [employer] - 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 Work Phone: Start: 07-25-2021 Comprehensive metabo lic [...] Dilation and curetta ge of uterus Paloma Kaufman Total replacement of left hip joint Paloma Kaufman Comment on above: x 2 Plan of Treatment Date Care Activity Detail Author Start: 10-09-2028 DTaP/Tdap/Td vaccine (2 - Tdap) DTaP/Tdap/Td vaccine (2 - Tdap) [facility] Start: 07-25-2026 Lipid panel [facility] [employer] Start: 07-25-2025 Lipid panel [facility] Start: 09-09-2024 Screening for malignant neoplasm of colon [facility] Start: 07-20-2024 Lipid panel Lipid screen [employer] Work Phone: Start: 10-05-2023 End: 10-05-2023 Patient encounter procedure 10/05/2023 4:20 PM EDT Office Visit [facility] [address] [place] [address] Bonnie Toledo PA [address] [place] [address] [facility] Start: 07-16-2023 Lipid panel Lipid screen [facility] [place], [place] Start: 04-27-2023 End: 04-27-2023 Patient encounter procedure 04/27/2023 9:30 AM EST Office Visit [facility] [address] [place] [address] Bonnie Toledo PA [address] [place] [address] Arrived [facility] Comment on above: Arrived Start: 07-29-2022 Depression Screen Depression Screen [facility] [employer] Start: 03-14-2022 DEPRESSION ASSESSMENT DEPRESSION ASSESSMENT [facility] Start: 02-02-2022 End: 02-02-2022 Patient encounter procedure 02/02/2022 Office Visit Family Medicine Zane Souza MD [address] [place] [address] [facility] Start: 01-22-2022 Screening for malignant neoplasm of breast Breast cancer screen [facility] Start: 11-12-2021 Influenza vaccination Flu vaccine (#1) [facility] Start: 07-30-2021 Depression Screen Depression Screen [facility] Start: 07-29-2021 End: 07-29-2021 Patient encounter procedure 07/29/2021 Office Visit Family Medicine Zane Souza MD [address] [place] [address] [facility] Start: 07-25-2021 Creatinine measurement Creatinine monitoring [facility] [employer] Phone: Start: 07-25-2021 Potassium monitoring Potassium monitoring [facility] Phone: Start: 06-03-2021 COVID-19 Vaccine (4 - Booster for Moderna series) COVID-19 Vaccine (4 - Booster for Moderna series) [facility] Start: 02-01-2021 Screening for malignant neoplasm of breast Breast cancer screen [facility] [place] Start: 07-30-2020 End: 07-30-2020 Office Visit 07/30/2020 Office Visit Family Zane Briggs MD [address] [place] [address] [phone] [facility] Start: 07-20-2020 Creatinine measurement Creatinine monitoring [facility] [employer] Phone: Start: 07-20-2020 Potassium monitoring Potassium monitoring [facility] Phone: Start: 07-18-2020 End: 07-18-2020 Patient encounter procedure 07/18/2020 Appointment Physical Therapy Estela Davila, PT [facility] Start: 07-16-2020 End: 07-16-2020 Patient encounter procedure 07/16/2020 Appointment Physical Therapy Rita Nieves [facility] Start: 07-14-2020 End: 07-14-2020 Patient encounter procedure 07/14/2020 Appointment Physical Rita Dailey [facility] Start: 07-11-2020 End: 07-11-2020 Patient encounter procedure 07/11/2020 Appointment Physical Therapy Estela Davila, PT [facility] Start: 07-09-2020 End: 07-09-2020 Patient encounter procedure 07/09/2020 Appointment Physical Rita Dailey [facility] Start: 07-07-2020 End: 07-07-2020 Patient encounter procedure 07/07/2020 Appointment Physical Rita Dailey [facility] Start: 07-04-2020 End: 07-04-2020 Appointment [facility] Start: 07-02-2020 End: 07-02-2020 Appointment [facility] Start: 06-30-2020 End: 06-30-2020 Appointment 06/30/2020 Appointment Physical Therapy Rita Nieves [facility] Start: 06-27-2020 End: 06-27-2020 Appointment 06/27/2020 Appointment Physical Rita Dailey [facility] Start: 06-26-2020 End: 06-26-2020 Appointment 06/26/2020 Appointment Physical Therapy Estela Davila PT [facility] Start: 06-24-2020 COVID-19 Vaccine (2 - Moderna 2-dose series) COVID-19 Vaccine (2 - Moderna 2-dose series) [employer] Phone: Start: 06-23-2020 End: 06-23-2020 Appointment 06/23/2020 [...] Office Visit Family Medicine Zane Souza MD [address] [place], [place] [id number] [phone] [facility] Start: 07-16-2019 Creatinine measurement Creatinine monitoring [facility] [place] Start: 07-16-2019 Potassium monitoring Potassium monitoring [facility] [place] Start: 07-31-2015 Screening for malignant neoplasm of breast Mammogram [facility] Start: 2012 Shingles Vaccine (1 of 2) Shingles Vaccine (1 of 2) [facility] Start: 2012 SHINGRIX VACCINE (1 of 2) SHINGRIX VACCINE (1 of 2) [facility] Start: 09-15-2007 COLOGUARD (FIT-DNA) COLOGUARD (FIT-DNA) [facility] Start: 09-15-2007 Colonoscopy COLONOSCOPY [facility] Start: 09-15-2007 COLORECTAL CANCER SCREENING COLORECTAL CANCER SCREENING [facility] Start: 09-15-[address] COLONOGRAPHY [facility] Start: 09-15-2007 DIABETES SCREEN DIABETES SCREEN [facility] Start: 09-15-2007 FECAL OCCULT BLOOD FECAL OCCULT BLOOD [facility] Start: 09-15-2007 LIPID SCREEN LIPID SCREEN [facility] Start: 09-15-2007 Screening for malignant neoplasm of colon [facility] Start: 09-15-2007 SIGMOIDOSCOPY SIGMOIDOSCOPY [facility] Start: 2002 Diabetes screen Diabetes screen [facility] Work Phone: Start: 2002 Mammography MAMMOGRAM [facility] Start: 1992 HPV TESTING HPV TESTING [facility] Start: 1992 Screening for malignant neoplasm of cervix [facility] Start: 09-15-1983 PAP TESTING PAP TESTING [facility] Start: 09-15-1983 Screening for malignant neoplasm of cervix Pap Smear [facility] Start: 1981 Urine microalbumin profile DTAP,TDAP,TD (1 - Tdap) [facility] Start: 1980 Hepatitis C screening Hepatitis C screen [facility] Start: 1980 HEPATITIS C SCREENING HEPATITIS C SCREENING [facility] Start: 1980 HIV SCREENING HIV SCREENING [facility] Start: 1977 HIV screening HIV screen [facility] Start: 1962 Hepatitis C screening Hepatitis C screen [facility] [place], [place] Start: 1962 Screening for malignant neoplasm of colon [facility] Dermatopathology exam Dermatopat hology exam Pathology and Cytology Timed Neoplasm of unspecified behavior of bone, soft tissue, and skin Release Upon Ordering for 1 Occurrences starting 04/27/2023 [facility] Work Phone: Comment on above: Release Upon Ordering for 1 Occurrences starting 04/27/2023 Immunizations Immunization Date Immunization Notes Care Provider Chris chatterjee 03-21-2021 influenza, injectabl e, quadrivalent, preservative free Zane Souza MD Work Phone: [facility] [employer] Work Phone: 02-03-2021 COVID-19, Moderna, Primary or Immunocompromised, PF, 100mcg/0.5mL Zane Souza MD Work Phone: [facility] [employer] Work Phone: 06-24-2020 COVID-19, Moderna, Primary or Immunocompromised, PF, 100mcg/0.5mL Zane Souza MD Work Phone: [facility] [employer] Work Phone: 05-27-2020 COVID-19, Moderna, Primary or Immunocompromised, PF, 100mcg/0.5mL Zane Souza MD Work Phone: [facility] Work Phone: 12-24-2019 influenza, injectabl e, quadrivalent, preservative free Estela Capucini-Krumnow [facility] Work Phone: 01-02-2019 influenza virus vaccine, unspecified formulation Zane Souza MD Work Phone: [facility] Work Phone: 01-02-2019 influenza, injectabl e, quadrivalent, preservative free [facility] 10-09-2018 diphtheria, tetanus toxoids and acellular pertussis vaccine, unspecified formulation [place], [place] 10-09-2018 measles and rubella virus vaccine Zane Souza MD Work Phone: [facility] Work Phone: 10-09-2018 measles, mumps and rubella virus vaccine [facility] 10-09-2018 tetanus toxoid, redu kyung diphtheria toxoid, and acellular pertussis vaccine, adsorbed [place], [place] Payers Date Payer Category Payer Unknown [id number] 2020 Unknown [id number] 2018 Unknown [employer] [address] xxxxxxxx 2018-Present [phone] [address] [place] [address] xxxxxxxx [id number] 1962 Unknown [id number] 1962 Unknown [id number] 1962 Unknown [id number] [id number] 1962 Unknown [id number] 1962 Unknown [id number] 1962 Unknown [id number] 1962 Unknown [id number] 1962 Unknown [id number] 1962 Unknown [id number] 1962 Unknown [id number] [id number] 1962 Unknown [id number] 1962 Unknown [id number] 1962 Unknown [id number] [id number] 1962 Unknown [id number] 1962 Unknown [id number] [id number] 1962 Unknown [id number] 1962 Unknown [id number] Social History Date Type Detail Facility Start: 04-19-2019 End: 09-27-2022 Tobacco smoking status NHIS Never smoker [facility] Start: 04-19-2019 End: 09-25-2021 Alcohol intake Current drinker of alcohol (finding) [place], [place] Start: 03-15-2013 Alcohol Comment occasional [place], [place] Start: 1960 Sex Assigned At Not on file M [place], [place] Start: 01-29-2020 End: 09-25-2021 Tobacco use and exposure Never used [facility] Work Phone: Start: 03-15-2013 Alcohol Comment occasional [employer] Work Phone: Start: 07-30-2020 End: 09-25-2021 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 [employer] Work Phone: Start: 07-30-2020 End: 09-25-2021 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 [employer] Work Phone: Tobacco smoking status No Smokin g Status Entered [facility] Start: 09-29-2022 End: 04-27-2023 Sex Assigned At Female [facility] Start: 09-28-2007 Alcohol intake Not Asked [facility] Start: 09-29-2022 End: 04-27-2023 History of Social function [facility] Clinical Notes 06-27-2020 to 04-27-2023 Bonnie Toledo, PA - 04/27/2023 9:30 AM Mayra Escobar, RT(R) - 06/25/2022 1:11 PM Estela Mai PT - 07/18/2020 9:45 AM EDRita Perez [...] tissue, and skin Right Forearm - Posterior [place], tender nodule with central hyperkeratosis Lesion biopsy [...] Visit: as scheduled documented in this encounter [facility] 06-28-2022 Note HNO ID: [id number] Author: Anirudh Yao MD Service: ? Author Type: Physician Type: Progress Notes Filed: 06/28/2022 4:16 PM Note Text: see dictated note Anirudh Yao II, MD [facility] 06-25-2022 Note HNO ID: [id number] Author: Trini Escobar, RT(R) Service: ? Author Type: Technologist Type: [...] RT Barby(R) June 25, 2022 1:11 PM [facility] 06-25-2022 History of Present illness Narrative [...] 2022 1:11 PM documented in this encounter [facility] 07-18-2020 History of Present illness Narrative Images from the original note were not included. 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 LEFS=39/80 Issued information on heel-lifts. AROM Wieoylx=[id number], PROM: ext 5degFN Pt amb without AD, [...] ext =5deg FN to improve gait-not met Long-Term Goals - Time Frame for FDC goals : 18 visits FDC goal 1: Pt to score >47/80 on LEFS to improve ADL mil[place]. 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 LEFS=39/80 Issued information on heel-lifts. AROM [id number]=[id number], PROM: ext 5degFN Pt amb without AD, mild deviations due to leg length discrepency. Pt educated that lift placed to the sole of her shoes may be needed, pt would like to cont with insert lifts for now. Reason for Discharge Completion of Prescribed visits Comments: Thank you for this referral Estela Davila Date: 07/18/2020 documented in this encounter [employer] Phone: 07-14-2020 History of Present illness Narrative Images from the original note were not included. 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 FDC goal 2: Pt to have Neutral PROM knee ext to improve standing milton. FDC goal 3: Pt to have 110deg of knee flexion to improve car transfers. FDC goal 4: Pt to amb without AD x150ft without deviations to improve community amb mil[place]. FDC goal 5: Pt to complete up/down 4 steps reciprocally with 1 HR to improve home access. Post Treatment Pain: 5/10 Time In: 0945 Time Out : 1027 Timed Code Treatment Minutes: 42 Minutes Total Treatment Time: 42 Minutes Rita Nieves FAMILY CONSULTANT Date: 07/14/2020 documented in this encounter [employer] Phone: 07-04-2020 History of Present illness Narrative Images from the original note were not included. 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 FDC goal 5: Pt to complete up/down 4 steps reciprocally with 1 HR to improve home access. Post Treatment Pain: 810 Time In: 0952 Time Out: 1037 Timed Code Treatment Minutes: 45 Minutes Total Treatment Time: 45 Minutes Estela Davila, PT Date: 07/04/2020 documented in this encounter [employer] Phone: 06-30-2020 History of Present illness Narrative Images from the original note were not included. 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 FDC goal 2: Pt to have Neutral PROM knee ext to improve standing mil[place]. FDC goal 3: Pt to have 110deg of knee flexion to improve car transfers. 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 terminal make up operator goal 5: Pt to complete up/down 4 steps reciprocally with 1 HR to improve home access. Post Treatment Pain: 7/10 Time In: 0945 Time Out : 1030 Timed Code Treatment Minutes: 45 Minutes Total Treatment Time: 45 Minutes Rita Nieves FAMILY CONSULTANT Date: 06/30/2020 documented in this encounter [employer] Phone: 06-27-2020 History of Present illness Narrative Images from the original note were not included. [facility] Outpatient Physical Therapy Daily Note Date: [...] Knee ext =5deg FN to improve gait Long-Term Goals - Time Frame for FDC goals : 18 visits FDC goal 1: Pt to score >47/80 on LEFS to improve ADL mil[place]. 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 FDC goal 5: Pt to complete up/down 4 steps reciprocally with 1 HR to improve home access. Post Treatment Pain: 09/20 Time In: 0955 Time Out : 1040 Timed Code Treatment Minutes: 45 Minutes Total Treatment Time: 45 Minutes Rita Nieves FAMILY CONSULTANT Date: 06/27/2020 documented in this encounter [employer] Phone: Evaluation + Plan note No data available for this section [facility] Evaluation note Diagnosis Essential hypertension, benign documented in this encounter [employer] Phone: evaluation note* Diagnosis Essential hypertension, benign documented in this encounter [employer] Phone: evaluation note* Diagnosis Viral URI Acute upper respiratory infections of unspecified site Suspected COVID-19 virus infection documented in this encounter [email or web address] Phone: [id number] note* Diagnosis Neoplasm of unspecified behavior of bone, soft tissue, and skin- Primary [facility] No data available for this section [facility] data available for this section [facility] Assessments Diagnosis Essential hypertension, benign Advance Directives No Advanced Directives Records FoundDocuments on File Type Date Recorded 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 Expl anation Advance Directives and Living Will Power of [employer] Pump Tender Latest Code Status on File Code Status Date Activated Date Inactivated Comments Full Code 09/09/2014 10:17 AM 09/09/2014 1:36 PM Full Code 09/09/2014 7:06 AM 09/09/2014 10:17 AM Documents on File Type Date Recorded 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 FDC goal 2: Pt to have Neutral PROM knee ext to improve standing mil[place]. 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 FDC goal 4: Pt to amb without AD x150ft without deviations to improve community amb milton. terminal make up operator goal 5: Pt to complete up/down 4 steps reciprocally with 1 HR to improve home access. Patient's Goal: Return to walking normally Timed Code Treatment Minutes: 10 Minutes Total Treatment Time: 55 Time In: 1105 Time Out: 1200 Estela Davila, PT Date: 06/09/2020 documented in this encounter* Avtar Ramsey, FAMILY CONSULTANT - 06/13/2020 9:45 AM EDT Images from the original note were not included. 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 FDC goal 2: Pt to have Neutral PROM knee ext to improve standing mil[place]. FDC goal 3: Pt to have 110deg of knee flexion to improve car transfers. FDC goal 4: Pt to amb without AD x150ft without deviations to improve community amb milton. terminal make up operator goal 5: Pt to complete up/down 4 steps reciprocally with 1 HR to improve home access. Post Treatment Pain: 07/21 Time In: 0945 Time Out : 1030 Timed Code Treatment Minutes: 45 Minutes Total Treatment Time: 45 Minutes Avtar Ramsey PTA Date: 06/13/2020 documented in this encounter* Rita Nieves - 06/16/2020 8:45 AM EDT Images from the original note were not included. [facility] Outpatient Physical Therapy Daily Note Date: [...] 0 Canceled Appointment: 0 Pre-Treatment Pain: 07/21 Assessment Assessment: Pt reports she had the 12/21/ pain 2x over the weekend with getting in to bed. Pain 07/21 today. Performed ex as outlined with progression of hurdles . PROM 7- today. 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 FDC goal 4: Pt to amb without AD x150ft without deviations to improve community amb milton. FDC goal 5: Pt to complete up/down 4 steps reciprocally with 1 HR to improve home access. Post Treatment Pain: 07/21 Time In: 0845 Time Out : 929 Timed Code Treatment Minutes: 45 Minutes Total Treatment Time: 45 Minutes Rita Nieves FAMILY CONSULTANT Date: 06/16/2020 documented in this encounter* Estela Davila, PT - 06/20/2020 10:00 AM EDT Images from the original note were not included. 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 FDC goal 4: Pt to amb without AD x150ft without deviations to improve community amb mil[place]. FDC goal 5: Pt to complete up/down 4 steps reciprocally with 1 HR to improve home access. Post Treatment Pain: 09/20 Time In: 1000 Time Out : 1045 Timed Code Treatment Minutes: 45 Minutes Total Treatment Time: 45 Minutes Rita Nieves FAMILY CONSULTANT Date: 06/20/2020 documented in this encounter* Estela Davila, PT - 06/26/2020 8:15 AM EDT Images from the original note were not included. 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 FDC goal 4: Pt to amb without AD x150ft without deviations to improve community amb mil[place]. terminal make up operator goal 5: Pt to complete up/down 4 steps reciprocally with 1 HR to improve home access. Post Treatment Pain: 08/21 Time In: 0815 Time Out : 0900 Timed Code Treatment Minutes: 45 Minutes Total Treatment Time: 45 Minutes Estela Davila, PT Date: 06/26/2020 documented in this encounter Additional Source Comments INFORMATION SOURCE (unrecogn ized section and content) DATE CREATED AUTHOR 05/15/2020 [facility] DATE CREATED AUTHOR AUTHOR'S ORGANIZ ATION 06/29/2022 [facility] DATE CREATED AUTHOR AUTHOR'S ORGANIZ ATION 03/22/2023 Sunilmarla Ramos [facility] DATE CREATED AUTHOR AUTHOR'S ORGANIZ ATION 05/01/2023 [facility] DATE CREATED AUTHOR AUTHOR'S ORGANIZ ATION 06/28/2023 [facility] DATE CREATED AUTHOR AUTHOR'S ORGANIZ ATION 07/02/2023 [facility] EPIC Care Teams (unrecognized sec tion and content) 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 Relationship Specialty Start Date End Date Zane Souza MD [address] [place] [address] PCP - General Family Medicine 01/02/11 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 Relationship Specialty Start Date End Date Zane Souza MD [address] [place] [address] PCP - General Family Medicine 01/02/11 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 [facility] [employer] [facility]. provides no warranty or guarantee of the accuracy or completeness of information in this document.
== END 2023-07-07 14:21 | disposition home or self-care (01) ==
LOC: PM 14:20
PROVIDERS: PCP Family Medicine; Visit Provider Nurse Practitioner
DX: M54.6 Pain in thoracic spine (principal); M47.814 Spondylosis without myelopathy or radiculopathy, thoracic region; M47.816 Spondylosis without myelopathy or radiculopathy, lumbar region
CPT/HCPCS: 72072; G0463

== ENCOUNTER 2023-07-07 14:59 | Outpatient (OUT) | payer BC, SELFPAY ==
--- NOTE | 2023-07-07 15:10 | XR_ITS ---
The [address] [address] Patient Name: CHICO HUGHES MRN: [id number] date: 1960 Sex: F Assigned Patient Location: [facility] Current Patient Location: Accession/Order Number: [id number] Exam Date: 07/07/2023 15:11 Report Date: 07/08/2023 06:50 At the request of: SHELL MAY Procedure: XR thoracic spine 3V EXAMINATION: XR thoracic spine 3V HISTORY: CHRONIC THORACIC PAIN, COMPARISON: No relevant comparison available. FINDINGS: BONES: Slight reversal normal lordotic curvature of the cervical spine. Mild left convex curvature of thoracolumbar spine. No fracture or spondylolisthesis. DISC SPACES: Moderate-marked disc space narrowing C4-C5, C5-C6, C6-C7. Multilevel mild disc space narrowing of mid thoracic spine. PARASPINOUS: Skin surface marker is present posterior to the T11-T12 disc level, just right of midline. OTHER: Negative. XR/XR thoracic spine 3V IMPRESSION: 1. Mild degenerative changes of thoracic spine. 2. Marked degenerative changes of cervical spine, but limited evaluation on today's study. Consider dedicated radiographs of the cervical spine. Electronically authenticated by: DENISE MUJICA Date: 07/08/2023 06:50
== END 2023-07-07 15:00 | disposition home or self-care (01) ==
LOC: RAD 15:00
PROVIDERS: PCP Family Medicine; Visit Provider Nurse Practitioner
DX: M54.6 Pain in thoracic spine (principal); M47.814 Spondylosis without myelopathy or radiculopathy, thoracic region
CPT/HCPCS: 72072

== ENCOUNTER 2023-08-25 12:24 | Outpatient (OUT) | payer BC, SELFPAY ==
--- NOTE | 2023-08-25 12:53 | P.CN_ITS ---
Consult Note: HPI Data of Consult Patient: known to practice within the last 3 years Requesting Physician: Amparo Morgan NP Primary Care Provider: ZANE LICONA Consult Narrative Reason for consult: chronic neck and left shoulder pain Narrative: Esmer Sheikh a pleasant 62 year old female known to us for chronic back pain presents for evaluation and management of chronic neck and left shoulder pain. Since last visit patient has been engaged in HEP, attending frequent chiropractor visits, and receiving massage therapy without improvement. Pain intermittent in posterior neck radiating to left upper arm. Pain today 2/10 increasing to 8/10 with lifting, activity, and in the morning. Patient has been utilizing tylenol and voltaren gel with mild improvement. cc:: CC: Amparo Morgan NP Review of Systems ROS Status of ROS 10 or more systems reviewed and unremark able except as noted in history and below Musculoskeletal Reports: back pain, neck pain and joint pain PFSH PFSH Medical History (Updated 08/25/23 @ 12:58 by Amparo Morgan NP) Hypertension ?I10 - Essential (primary) hypertension (ICD-10) Varicose vein of leg ?I83.90 - Asymptomatic varicose veins of unspecified lower extremity (ICD-10) Osteoarthritis of basilar joint of thumb ?M18.9 - Osteoarthritis of first carpometacarpal joint, unspecified (ICD-10) Surgical History History of hip surgery ?Z98.890 - Other specified postprocedural states (ICD-10) History of revision of total hip arthroplasty ?Z96.649 - Presence of unspecified artificial hip joint (ICD-10) History of hip replacement, total ?Z96.649 - Presence of unspecified artificial hip joint (ICD-10) Hx of cholecystectomy ?Z90.49 - Acquired absence of other specified parts of digestive tract (ICD- 10) History of carpal tunnel surgery ?Z98.890 - Other specified postprocedural states (ICD-10) History of knee replacement ?Z96.659 - Presence of unspecified artificial knee joint (ICD-10) H/O: hysterectomy ?Z90.710 - Acquired absence of both cervix and uterus (ICD-10) Meds Home Medications and Allergies Home Medications ?Medication ?Instructions ?Recorded ?Confirmed ?Type acetaminophen 500 mg tablet 500 mg PO DAILY 02/24/23 06/06/23 History (Tylenol Extra Strength) amlodipine 5 mg tablet 5 mg PO DAILY 02/24/23 06/06/23 History estradiol 1 mg tablet 1 mg PO DAILY 02/24/23 06/06/23 History hydrochlorothiazide 50 mg tablet 50 mg PO DAILY 02/24/23 06/06/23 History multivitamin 1 tab PO DAILY 02/24/23 06/06/23 History cyclobenzaprine 5 mg tablet 5 mg PO DAILY 06/06/23 06/06/23 History elderberry fruit 200 mg capsule mg PO 06/06/23 History glucosamine sulfate 500 mg tablet 500 mg PO BID 06/06/23 06/06/23 History (Glucosamine) Allergies Allergy/AdvReac Type Severity Reaction Status Date / Time adhesive Allergy Mild Rash Verified 06/06/23 08:31 cephalexin Allergy Unknown Verified 06/06/23 08:31 Exam Constitutional Documenting provider has reviewed patient's vital signs: yes Common normals: no apparent distress, oriented x3, healthy appearing, alert and well nourished General appearance: cooperative HENMT Common normals: normocephalic, hearing grossly normal bilaterally and moist oral mucous membranes Head and scalp: normocephalic Eye Common normals: PERRL Pupil: PERRL Neck & C-Spine Common normals: full ROM General: normal visual inspection Cervical spine: paracervical muscle tenderness and trapezius muscle tenderness Chest Common normals: inspection of chest normal Respiratory Common normals: normal respiratory effort, no retractions and no use of accessory muscles Extremity Left upper extremity: shoulder joint Other: pain over left suprascapular and axillary nerve, increased with deep palpation limited ROM with crossbody abduction, positive posterior liftoff and empty can test Neuro Common normals: oriented x3, CN's II-XII intact bilaterally, moves all extremities, no focal motor deficits, no sensory deficits noted and deep tendon reflexes 2+ bilaterally Sensorium/orientation: alert Motor exam: strength 5/5 throughout and no movement abnormalities noted Psych Common normals: mental status grossly normal, thought process normal, cooperative, affect normal, speech normal and activity/motor behavior normal Speech: normal speech Thought process: normal thought process Results Additional Findings Additional findings: If on a controlled substance or opioids, I have checked an [place]AR[place] report on this patient and there are no aberrancies noted in the prescribing history.??If on a controlled substance or opioid a drug screen was completed and reviewed within the last year, and if there has not been a drug screen completed we ordered one today to monitor higher risk, state monitored pain medication use. As part of providing excellent, safe, comprehensive care, the following was completed at our patient's visit: 1. A medication reconciliation and review to ensure accurate knowledge of current/active medications, including asking our patients to inform us about any [id number] medications or herbal remedies/nutritional supplements/alternative remedies. 2. A review to specifically ensure our patients have had annual screening for screening for depression, screening for tobacco use, and screening for unhealthy alcohol use. For concerning screenings had a discussion with the patient, provided patient education, and recommended follow-up with primary care provider when appropriate. If patient noted with a risk of falling, they received education on strength, gait, and balance training to prevent future risk of falling. Assessment and Plan Assessment and Plan (1) Chronic neck pain: (2) Chronic left shoulder pain: (3) Myofascial pain: Plan update cervical xray and left shoulder xray, hx of cervical facet arthropathy and cervical DDD based on prior thoracic imaging discussed left suprascapular and axillary nerve block working towards thermal RFA, can call to schedule continue current medications
== END 2023-08-25 12:25 | disposition home or self-care (01) ==
LOC: PM 12:24
PROVIDERS: PCP Family Medicine; Visit Provider Nurse Practitioner
DX: M54.2 Cervicalgia (principal); M25.512 Pain in left shoulder; G89.29 Other chronic pain; M47.812 Spondylosis without myelopathy or radiculopathy, cervical region; M75.32 Calcific tendinitis of left shoulder; M79.18 Myalgia, other site
CPT/HCPCS: 72050; 73030; G0463

== ENCOUNTER 2023-08-25 12:58 | Outpatient (OUT) | payer BC, SELFPAY ==
--- NOTE | 2023-08-25 13:03 | XR_ITS ---
The [address] [address] Patient Name: CHICO HUGHES MRN: [id number] date: 1960 Sex: F Assigned Patient Location: [facility] Current Patient Location: Accession/Order Number: [id number] Exam Date: 08/25/2023 13:06 Report Date: 08/26/2023 07:52 At the request of: SHELL MAY Procedure: XR shoulder LT min 2V PROCEDURE: XR shoulder LT min 2V COMPARISON: None. HISTORY: Chronic Left Shoulder Pain FINDINGS: BONES:No acute fracture or dislocation. Mild acromioclavicular joint osteoarthropathy. Calcific density noted along the greater tuberosity likely related to calcific tendinitis SOFT TISSUES:Negative. No visible soft tissue swelling. EFFUSION:None visible. OTHER: Negative. XR/XR shoulder LT min 2V IMPRESSION: Rotator cuff calcific tendinitis Electronically authenticated by: SENA CAMPBELL Date: 08/26/2023 07:52
--- NOTE | 2023-08-25 13:04 | XR_ITS ---
The [address] [address] Patient Name: CHICO HUGHES MRN: [id number] date: 1960 Sex: F Assigned Patient Location: [facility] Current Patient Location: [facility] Accession/Order Number: [id number] Exam Date: 08/25/2023 13:06 Report Date: 08/26/2023 07:56 At the request of: SHELL MAY Procedure: XR cervical spine 5V EXAMINATION: XR cervical spine 5V HISTORY: Chronic Neck Pain COMPARISON: No relevant comparison available. FINDINGS: BONES: Loss of normal cervical lordosis. No acute fracture or spondylolisthesis. Moderate to severe degenerative spondylosis. Moderate facet osteoarthropathy DISC SPACES: Moderate to severe multilevel disc space narrowing most significant at C4-C7 PARASPINOUS: Negative. No paraspinous abnormality is seen. OTHER: Negative. XR/XR cervical spine 5V IMPRESSION: Moderate to severe degenerative changes with loss of cervical lordosis Electronically authenticated by: SENA CAMPBELL Date: 08/26/2023 07:56
== END 2023-08-25 12:59 | disposition home or self-care (01) ==
LOC: RAD 12:59
PROVIDERS: PCP Family Medicine; Visit Provider Nurse Practitioner
DX: M54.2 Cervicalgia (principal); M25.512 Pain in left shoulder; G89.29 Other chronic pain; M47.812 Spondylosis without myelopathy or radiculopathy, cervical region; M75.32 Calcific tendinitis of left shoulder
CPT/HCPCS: 72050; 73030